=== PATIENT | female | born 1945 | race Caucasian/White ===

== ENCOUNTER 2017-04-14 12:20 | Inpatient (IN) | payer OTHER, MEDICARE, MEDICAID ==
[2017-04-14] MEDS ORDERED: VANCOMYCIN HCL INJ 1000 MG VIAL IV ONE (12:40)
--- NOTE | 2017-04-14 13:15 | RADIOLOGY REPORT (SQ) ---
EXAM DESCRIPTION: TOE LEFT COMPLETED DATE/TIME: 04/14/2017 12:55 pm REASON FOR STUDY: diabetic osteo? COMPARISON: None. NUMBER OF VIEWS: Three views. TECHNIQUE: AP, lateral, and oblique images acquired of the left first toe. LIMITATIONS: None. FINDINGS: MINERALIZATION: Bony structures are osteopenia BONES: No acute fracture or dislocation. There appears to be bony lysis involving the distal tuft of the distal phalanx of the 1st digit which I cannot exclude as bony involvement by osteomyelitis. No other cortical erosions or lytic areas are identified. JOINTS: No effusions. SOFT TISSUES: Soft tissue swelling is identified involving the 1st digit as well as an apparent soft tissue defect. A small radiopaque foreign body or small soft tissue calcification is identified in t he lateral projection at the level of the distal phalanx of the 1st digit. OTHER: Vascular calcifications are identified IMPRESSION: No acute fracture or dislocation. There appears to be bony lysis of the distal tuft of the distal phalanx of the 1st digit which I cannot exclude as bony involvement by osteomyelitis. No other cortical erosions or lytic areas are identified. Soft tissue findings as noted above. Other f indings as noted above COMMENT: SITE OF TRAUMA/COMPLAINT MARKED/STAMP COMPLETED: Yes TECHNICAL DOCUMENTATION: JOB ID: [id number] [employer]- All Rights Reserved Reading location - IP/workstation name: [email or web address]
--- NOTE | 2017-04-14 13:18 | ER Document Report ---
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 Patient notes she removed her toenail which was hanging off and for the past month now she has been having mild pain, notes for the past week the symptoms have worsened now there is drainage from the toe - HPI Onset: Other Onset/Duration: Persistent, Worse Quality of pain: Sharp Severity: Moderate Pain Level: 2 Associated symptoms: Other Exacerbated by: Denies Relieved by: Denies Similar symptoms previously: Yes Recently seen / treated by doctor: Yes - Related Data Allergies/Adverse Reactions: Tetanus Vaccines and Toxoid [Tetanus] Allergy (Verified 04/14/17 12:33) Past Medical History - Social History Smoking Status: Never Smoker Cigarette use (# per day): No Chew tobacco use (# tins/day): No Smoking Education Provided: No Family History: Reviewed & Not Pertinent - Past Medical History Cardiac Medical History: Reports: Hx Hypercholesterolemia, Hx Hypertension Endocrine Medical History: Reports: Hx Diabetes Mellitus Type 2 GI Medical History: Reports: Hx Gastroesophageal Reflux Disease Musculoskeltal Medical History: Reports Hx Musculoskeletal Deformity, Reports Hx Musculoskeletal Trauma Skin Medical History: Reports Hx MRSA - MRSA 08/15 FOOT Past Surgical History: Reports: Hx Orthopedic Surgery - rt bka and toe on left hip ORIF - Immunizations Hx Diphtheria, Pertussis, Tetanus Vaccination: - allergic Review of Systems - Review of Systems Notes: REVIEW OF SYSTEMS: CONSTITUTIONAL : Denies fever, chills, or sweats. Denies recent illness. EENT: Denies eye, ear, throat, or mouth pain or symptoms. Denies nasal or sinus congestion or discharge. Denies throat, tongue, or mouth swelling or difficulty swallowing. CARDIOVASCULAR: Denies chest pain. Denies palpitations or racing or irregular heart beat. Denies ankle edema. RESPIRATORY: Denies cough, cold, or chest congestion. Denies shortness of breath, difficulty breathing, or wheezing. GASTROINTESTINAL: Denies abdominal pain or distention. Denies nausea, vomiting , or diarrhea. Denies blood in vomitus, stools, or per rectum. Denies black, tarry stools. Denies constipation. GENITOURINARY: Denies difficulty urinating, painful urination, burning, frequency, blood in urine, or discharge. FEMALE GENITOURINARY: Denies vaginal bleeding, heavy or abnormal periods, irregular periods. Denies vaginal discharge or odor. MUSCULOSKELETAL: Left foot first digit sore HEMATOLOGIC : Denies easy bruising or bleeding. LYMPHATIC: Denies swollen, enlarged glands. NEUROLOGICAL: Denies confusion or altered mental status. Denies passing out or loss of consciousness. Denies dizziness or lightheadedness. Denies headache. Denies weakness or paralysis or loss of use of either side. Denies problems with gait or speech. Denies sensory loss, numbness, or tingling. Denies seizures. PSYCHIATRIC: Denies anxiety or stress. Denies depression, suicidal ideation, or homicidal ideation. ALL OTHER SYSTEMS REVIEWED AND NEGATIVE. PHYSICAL EXAMINATION: GENERAL: Well-appearing, well-nourished and in no acute distress. HEAD: Atraumatic, normocephalic. EYES: Pupils equal round and reactive to light, extraocular movements intact, conjunctiva are normal. ENT: Nares patent, oropharynx clear without exudates. Moist mucous membranes. NECK: Normal range of motion, supple without lymphadenopathy LUNGS: Breath sounds clear to auscultation bilaterally and equal. No wheezes rales or rhonchi. HEART: Regular rate and rhythm without murmurs ABDOMEN: Soft, nontender, nondistended abdomen. No guarding, no rebound. No masses appreciated. Female : deferred Musculoskeletal: Right BKA NEUROLOGICAL: Cranial nerves grossly intact. Normal speech, normal gait. Normal sensory, motor exams PSYCH: Normal mood, normal affect. SKIN: Left foot first digit eschar with drainage cellulitis of the midfoot to the midshin Dictation was performed using [employer] voice recognition software Physical Exam - Vital signs Vitals: Temp Pulse Resp BP Pulse Ox 97.6 F 92 18 171/80 H 100 04/14/17 12:28 04/14/17 12:28 04/14/17 12:28 04/14/17 12:28 04/14/17 12:28 Course - Re-evaluation Re-evalutation: 04/14/17 13:18 Dr Kojo aguilar , he is in surgery 04/14/17 14:26 Surgeon evaluated the patient does note that with IV antibiotics and local wound care he may be able to save the toe, will admit patient to the hospitalist service - Vital Signs Vital signs: Temp Pulse Resp BP Pulse Ox 97.6 F 92 18 171/80 H 100 04/14/17 12:28 04/14/17 12:28 04/14/17 12:28 04/14/17 12:28 04/14/17 12:28 - Laboratory Result Diagrams: 04/14/17 13:45 04/14/17 13:45 Laboratory results interpreted by me: 04/14/17 13:45 Sodium 135.2 L Glucose 389 H Alkaline Phosphatase 155 H - Diagnostic Test Radiology reviewed: Image reviewed, Reports reviewed - Osteomyelitis Discharge - Discharge Clinical Impression: Osteomyelitis Qualifiers: Osteomyelitis type: unspecified type Osteomyelitis location: unspecified site Qualified Code(s): M86.9 - Osteomyelitis, unspecified Diabetes Qualifiers: Diabetes mellitus type: type 2 Diabetes mellitus complication status: with skin complications Diabetes mellitus complication detail: with foot ulcer Diabetes mellitus fci insulin use: with fci use Qualified Code(s): E11.621 - Type 2 diabetes mellitus with foot ulcer; L97.509 - Non-pressure chronic ulcer of other part of unspecified foot with unspecified severity; L97.509 - Non-pressure chronic ulcer of other part of unspecified foot with unspecified severity; L97.509 - Non-pressure chronic ulcer of other part of unspecified foot with unspecified severity; L97.509 - Non-pressure chronic ulcer of other part of unspecified foot with unspecified severity; Z79.4 - medical terminologist (current) use of insulin; Z79.4 - medical terminologist (current) use of insulin; Z79.4 - medical terminologist (current) use of insulin; Z79.4 - medical terminologist (current) use of insulin Condition: Stable Disposition: ADMITTED INPATIENT Admitting Provider: Hospitalist Unit Admitted: Medical Floor Referrals: YURIDIA FREDERICK MD [Primary Care Provider] - Follow up as needed
[2017-04-14 13:55] LABS: ABSOLUTE BASOPHILS # (AUTO) 0.1 10^3/uL (0.0-0.2); ABSOLUTE EOSINOPHILS # (AUTO) 0.1 10^3/uL (0.0-0.6); ABSOLUTE MONOCYTES (AUTO) 0.4 10^3/uL (0.1-1.4); ABSOLUTE NEUT (AUTO) 4.5 10^3/uL (1.7-8.2); BASOPHILS % (AUTO) 1.2 % (0-2); EOSINOPHILS % (AUTO) 1.3 % (0-6); HEMOGLOBIN 12.9 g/dL (12.0-15.5); LYMPHOCYTES % (AUTO) 15.9 % (13-45); MEAN CORPUSCULAR HEMOGLOBIN 28.6 pg (27.0-33.4); MEAN CORPUSCULAR HGB CONC 34.8 g/dL (32.0-36.0); MEAN CORPUSCULAR VOLUME 82 fl (80-97); MONOCYTES % (AUTO) 6.9 % (3-13); PLATELET COUNT 247 10^3/uL (150-450); RED BLOOD COUNT 4.51 10^6/uL (3.72-5.28); RED CELL DISTRIBUTION WIDTH 12.8 % (11.5-14.0); SEGMENTED NEUTROPHILS % (AUTO) 74.7 % (42-78); TOTAL CELLS COUNTED % (AUTO) 100 %; WHITE BLOOD COUNT 6.1 10^3/uL (4.0-10.5)
[2017-04-14 14:15] LABS: ALANINE AMINOTRANSFERASE 24 U/L (9-52); ALBUMIN 4.1 g/dL (3.5-5.0); ALKALINE PHOSPHATASE 155 U/L (38-126); ANION GAP 11 (5-19); ASPARTATE AMINO TRANSFERASE 15 U/L (14-36); BILIRUBIN,DIRECT 0.2 mg/dL (0.0-0.4); BILIRUBIN,TOTAL 0.7 mg/dL (0.2-1.3); BLOOD UREA NITROGEN 10 mg/dL (7-20); CALCIUM 9.7 mg/dL (8.4-10.2); CARBON DIOXIDE 26 mmol/L (22-30); CHLORIDE 98 mmol/L (98-107); GLUCOSE 389 mg/dL (75-110); POTASSIUM 4.6 mmol/L (3.6-5.0); SODIUM 135.2 mmol/L (137-145); TOTAL PROTEIN 6.7 g/dL (6.3-8.2)
[2017-04-14 14:33] LABS: ERYTHROCYTE SEDIMENTATION RATE 51 mm/hr (0-30)
[2017-04-14] MEDS ORDERED: DEXTROSE 50%-WATER 25 GM/50 ML DISP.SYRIN IV PRN ×2 (14:57)
[2017-04-14] MEDS ORDERED: DEXTROSE 40% GEL 15 GM TUBE PO PRN ×2 (14:57)
[2017-04-14] MEDS ORDERED: GLUCAGON,HUMAN RECOMB 1 MG INJ IM PRN (14:57)
[2017-04-14] MEDS ORDERED: AMPICILLIN SOD/SULBACTAM 3 GM VIAL IV ONE (14:59)
[2017-04-14] MEDS ORDERED: PHARMACY COMMUNICATION ORDER MC NR (15:00)
--- NOTE | 2017-04-14 15:11 | PDOC H&P ---
History of Present Illness Admission Date/PCP: YURIDIA FREDERICK MD Patient complains of: Left big toe wound History of Present Illness: Patient is a 68-year-old woman with history of diabetes, hypertension , hypercholesteremia, status post right BKA and L second toe amputation. She has not seen a doctor in over a year and she does not take any medication currently. She reports the last time she saw her primary care doctor she was taken off her high blood pressure and her cholesterol medicines. She has not been in a hospital since 2012 when she had a BKA. She reports about couple months ago, her toenail was falling out and she pulled it out but it did heal and the nail started to grow back but about two weeks ago she hit her L great toe against her kitchen cabinet since then it has pain painful and the wound not healing. Therefore she decided to come to the emergency to be evaluated. Otherwise she reports feeling fine. was present during history the taking. She was seen by surgery in the ER and plan for wound care and IV antibiotics. Past Medical History Cardiac Medical History: Reports: Hyperlipidema, Hypertension, Other Endocrine Medical History: Reports: Diabetes Mellitus Type 2 GI Medical History: Reports: Gastroesophageal Reflux Disease Past Surgical History Past Surgical History: Reports: Orthopedic Surgery - rt bka and toe on left hip ORIF Social History Smoking Status: Never Smoker Family History Family History: Reviewed & Not Pertinent Parental Family History Reviewed: Yes Children Family History Reviewed: Yes Sibling(s) Family History Reviewed.: Yes Medication/Allergy Home Medications: Insulin Glargine,Hum.rec.anlog [Lantus Insulin 100 Unit/mL] 20 unit SUBCUT QHS 04/03/12 Allergies/Adverse Reactions: Tetanus Vaccines and Toxoid [Tetanus] Allergy (Verified 04/14/17 12:33) Review of Systems Constitutional: PRESENT: as per HPI, anorexia, fatigue, night sweats, weakness, other. ABSENT: chills, fever(s), headache(s), weight gain, weight loss Eyes: ABSENT: visual disturbances Ears: ABSENT: hearing changes Cardiovascular: ABSENT: chest pain, dyspnea on exertion, edema, orthropnea, palpitations Respiratory: ABSENT: cough, hemoptysis Gastrointestinal: ABSENT: abdominal pain, constipation, diarrhea, hematemesis, hematochezia, nausea, vomiting Genitourinary: ABSENT: dysuria, hematuria Musculoskeletal: PRESENT: as per HPI. ABSENT: joint swelling Integumentary: ABSENT: rash, wounds Neurological: ABSENT: abnormal gait, abnormal speech, confusion, dizziness, focal weakness, syncope Psychiatric: ABSENT: anxiety, depression, homidical ideation, suicidal ideation Endocrine: ABSENT: cold intolerance, heat intolerance, polydipsia, polyuria Hematologic/Lymphatic: ABSENT: easy bleeding, easy bruising Physical Exam Vital Signs: Temp Pulse Resp BP Pulse Ox 97.6 F 92 18 171/80 H 100 04/14/17 12:28 04/14/17 12:28 04/14/17 12:28 04/14/17 12:28 04/14/17 12:28 Intake & Output 04/13/17 04/14/17 04/15/17 06:59 06:59 06:59 Weight 70.5 kg Results Laboratory Results: 04/14/17 13:45 04/14/17 13:45 04/14/17 04/14/17 13:45 13:45 WBC 6.1 RBC 4.51 Hgb 12.9 Hct 37.0 MCV 82 MCH 28.6 MCHC 34.8 RDW 12.8 Plt Count 247 Seg Neutrophils % 74.7 Lymphocytes % 15.9 Monocytes % 6.9 Eosinophils % 1.3 Basophils % 1.2 Absolute Neutrophils 4.5 Absolute Lymphocytes 1.0 Absolute Monocytes 0.4 Absolute Eosinophils 0.1 Absolute Basophils 0.1 Sodium 135.2 L Potassium 4.6 Chloride 98 Carbon Dioxide 26 Anion Gap 11 BUN 10 Creatinine 0.57 Est GFR ( Amer) > 60 Est GFR (Non-Af Amer) > 60 Glucose 389 H Calcium 9.7 Total Bilirubin 0.7 AST 15 ALT 24 Alkaline Phosphatase 155 H Total Protein 6.7 Albumin 4.1 Impressions: Toe X-Ray 04/14/17 12:40 IMPRESSION: No acute fracture or dislocation. There appears to be bony lysis of the distal tuft of the distal phalanx of the 1st digit which I cannot exclude as bony involvement by osteomyelitis. No other cortical erosions or lytic areas are identified. Soft tissue findings as noted above. Other findings as noted above Assessment & Plan - Diagnosis (1) Infected wound Is this a current diagnosis for this admission?: Yes Plan: Admit to medicine Left toe wound with cellulitis Evaluated by surgery and ED Plan for wound care and IV antibiotics Given vancomycin in the ER Continue Unasyn and follow-up blood culture May need an MRI for further evaluation for concern for osteomyelitis (2) Cellulitis Is this a current diagnosis for this admission?: Yes Plan: L foot and toe cellulitis Continue IV antibiotic Follow-up blood culture (3) Diabetes Qualifiers: Diabetes mellitus type: type 2 Diabetes mellitus complication status: with skin complications Diabetes mellitus complication detail: with foot ulcer Diabetes mellitus intermediate insulin use: with intermediate card tender use Qualified Code(s) : E11.621 - Type 2 diabetes mellitus with foot ulcer; L97.509 - Non-pressure chronic ulcer of other part of unspecified foot with unspecified severity; L97.509 - Non-pressure chronic ulcer of other part of unspecified foot with unspecified severity; L97.509 - Non-pressure chronic ulcer of other part of unspecified foot with unspecified severity; L97.509 - Non-pressure chronic ulcer of other part of unspecified foot with unspecified severity; Z79.4 - terminal superintendent (current) use of insulin; Z79.4 - terminal superintendent (current) use of insulin; Z79.4 - care home (current) use of insulin; Z79.4 - terminal superintendent (current) use of insulin Is this a current diagnosis for this admission?: No Plan: She has not been taking medication for over a year Check an A1c Monitor blood sugar and start sliding scale and Lantus (4) Hypertension Is this a current diagnosis for this admission?: No Plan: She has not taken any medication either for hypertension Start amlodipine and follow-up (5) DVT prophylaxis Is this a current diagnosis for this admission?: Yes Plan: Start Lovenox - Time Time Spent: 30 to 50 Minutes Anticipated discharge: Home - Inpatient Certification Based on my medical assessment, after consideration of the patient's comorbidities, presenting symptoms, or acuity I expect that the services needed warrant INPATIENT care.: Yes Medical Necessity: Need for IV Antibiotics, Other - She will require more than 2 midnights for IV antibiotics and wound care
--- NOTE | 2017-04-14 17:20 | PDOC CONSULTATION ---
Consultation Consult reason:: Patient seen at the request of Dr. Oviedo History of Present Illness Admission Date/PCP: 04/14/17 14:36 YURIDIA FREDERICK MD History of Present Illness: Patient is a 68-year-old woman with history of diabetes, hypertension , hypercholesteremia, status post right BKA and L second toe amputation. She has not seen a doctor in over a year and she does not take any medication currently. She reports the last time she saw her primary care doctor she was taken off her high blood pressure and her cholesterol medicines. She has not been in a hospital since 2012 when she had a BKA. She reports about couple months ago, her toenail was falling out and she pulled it out but it did heal and the nail started to grow back but about two weeks ago she hit her L great toe against her kitchen cabinet since then it has pain painful and the wound not healing. Therefore she decided to come to the emergency to be evaluated. Otherwise she reports feeling fine. was present during history the taking. She was seen by surgery in the ER and plan for wound care and IV antibiotics. Surgeon's note: She had right BKA by Dr. Fred Randall 15-20 years ago; also had left second toe amputation approximately 15 years ago. These are according to her verbal reports; no records for corroboration. She does not smoke. She has been out of circulation with physician there for some time. Past Medical History Cardiac Medical History: Reports: Hyperlipidema, Hypertension, Other Endocrine Medical History: Reports: Diabetes Mellitus Type 2 GI Medical History: Reports: Gastroesophageal Reflux Disease Past Surgical History Past Surgical History: Reports: Orthopedic Surgery - rt bka and toe on left hip ORIF Social History Smoking Status: Never Smoker - Advance Directive Resuscitation Status: Full Code Family History Family History: Reviewed & Not Pertinent Parental Family History Reviewed: Yes Children Family History Reviewed: Yes Sibling(s) Family History Reviewed.: Yes Medication/Allergy Home Medications: Insulin Glargine,Hum.rec.anlog [Lantus Insulin 100 Unit/mL] 20 unit SUBCUT QHS 04/03/12 Allergies/Adverse Reactions: Tetanus Vaccines and Toxoid [Tetanus] Allergy (Verified 04/14/17 12:33) Physical Exam Vital Signs: Temp Pulse Resp BP Pulse Ox 97.6 F 92 18 171/80 H 100 04/14/17 12:28 04/14/17 12:28 04/14/17 12:28 04/14/17 12:28 04/14/17 12:28 Intake & Output 04/13/17 04/14/17 04/15/17 06:59 06:59 06:59 Intake Total 250 Balance 250 General appearance: PRESENT: no acute distress Cardiovascular exam: PRESENT: RRR Pulses: PRESENT: normal carotid pulses, normal radial pulses, normal femoral pulses, normal dorsalis pedis pul, other - Peter warm bilaterally; well perfused ; strong dorsalis pedis pulse on the left foot Musculoskeletal exam: PRESENT: other - Left foot examined. The left second toe is surgically absent. The foot is warm. There is mild cellulitic changes to the left great toe. The theme extends over the some of the foot, although very subtle. There is no crepitance blisters etc. The left great toe has chronic fungal changes. The tip of the toe is significant for very dry eschar. The there is no foul smell or drainage. Results Impressions: Toe X-Ray 04/14/17 12:40 IMPRESSION: No acute fracture or dislocation. There appears to be bony lysis of the distal tuft of the distal phalanx of the 1st digit which I cannot exclude as bony involvement by osteomyelitis. No other cortical erosions or lytic areas are identified. Soft tissue findings as noted above. Other findings as noted above Assessment & Plan - Diagnosis (1) Cellulitis Is this a current diagnosis for this admission?: Yes Plan: Patient's principal problem is left great toe and forefoot cellulitis actually due to traumatic injury to the left great toe distally following self initiated toenail debridement in this diabetic female. No immediate need to debride the left great toe eschar because it is currently dry. Recommendations: 1. Agree with leg elevation, intravenous antibiotics. Convert to p.o. antibiotics after erythema resolves 2. Patient needs forcing instructions on appropriate shoe and foot care; Suggest consultation with physical therapy. 3. Suggested nonoperative management of the left great toe for now. Patient can follow-up with podiatry or advanced wound center upon discharge home from the hospital - Time Time Spent: 30 to 50 Minutes Smoking Cessation Education: 3 to 10 minutes
[2017-04-14] MEDS: INSULIN LISPRO 100 UNIT/ML 3 ML VIAL SUBCUT PRN ×2 (19:03→23:56)
[2017-04-14] MEDS ORDERED: INFLUENZA ADLT QUAD (36MOS+) 2017-18 VAC 0.5 ML SYR IM PRN (20:10)
[2017-04-14] MEDS ORDERED: KETOROLAC TROMETHAMINE INJ/PF 30 MG/1 ML SDV IV PRN (20:55)
[2017-04-14] MEDS ORDERED: ACETAMINOPHEN 325 MG TABLET PO PRN (20:55)
[2017-04-14] MEDS: OXYCODONE-ACETAMINOPHEN 5-325 MG TABLET PO PRN (22:02)
[2017-04-14] MEDS: FAMOTIDINE 20 MG TABLET PO SCH (22:03)
[2017-04-14] MEDS: AMPICILLIN SOD/SULBACTAM 3 GM VIAL IV SCH (23:56)
[2017-04-15] MEDS: AMPICILLIN SOD/SULBACTAM 3 GM VIAL IV SCH ×3 (05:49→18:00)
[2017-04-15 07:44] LABS: ANION GAP 8 (5-19); BLOOD UREA NITROGEN 16 mg/dL (7-20); CALCIUM 9.7 mg/dL (8.4-10.2); CARBON DIOXIDE 29 mmol/L (22-30); CHLORIDE 101 mmol/L (98-107); GLUCOSE 302 mg/dL (75-110); POTASSIUM 5.1 mmol/L (3.6-5.0); SODIUM 137.8 mmol/L (137-145)
[2017-04-15] MEDS: FAMOTIDINE 20 MG TABLET PO SCH ×2 (09:50→22:49)
[2017-04-15] MEDS: INSULIN LISPRO 100 UNIT/ML 3 ML VIAL SUBCUT PRN ×4 (09:50→22:50)
[2017-04-15] MEDS: ENOXAPARIN SODIUM INJ 30 MG/0.3 ML DISP.SYRIN SUBCUT SCH (09:50)
--- NOTE | 2017-04-15 11:37 | Physician Advisory Note ---
Physician Advisor ProgressNote .: Pursuant to the plan for [facility], I have reviewed the medical record for this patient. Physician Advisor Statement: STatus: Appropriate for Inpt status. Discussion: 71yo w/DM-2, HTN, HLD, PVD/Rt BKA & Lt 2nd toe amputation, taking no meds x at least 1 yr, in w/Lt great toe swelling/pain/drainage after removing own toenail & subsequent trauma to toe. ED dr documented local eschar + cellulitis mid foot to midshin, & noted surgeon stated that w/IV abx & local wound care he may be able to save the toe. There was concern for osteomyelitis by ED dr & admitting attending. Attending documented in H&P expectation of < 2MN stay being necessary in this case for IV abx & wound care. DM highly uncontrolled, w/A1C of 12 & glcs so far in hospital on Lantus remaining 200s- 300s, which works against good healing. X-ray concerning for osteomyelitis. Attending doing MRI looking for osteomyelitis. Continuing IV abx, awaiting culture results. High risk for loss of great toe with resultant tremendous blow to her mobility if not tx'd in hospital w/close monitoring of response at present, especially if osteomyelitis continues to be suspected. Reported anorexia, fatigue, night sweats, & weakness p.t.a. further increase concerns for deeper infection than simple cellulitis. CK
--- NOTE | 2017-04-15 12:21 | RADIOLOGY REPORT (SQ) ---
EXAM DESCRIPTION: MRI LT LOWER EXTREMITY WITHOUT COMPLETED DATE/TIME: 04/15/2017 11:20 am REASON FOR STUDY: r/o osteomyelitis in L great toe COMPARISON: None. TECHNIQUE: Multiplanar imaging of the left 1st toe to include fat and fluid sensitive sequences. LIMITATIONS: Motion. FINDINGS: BONE MARROW: Intermediate T2 signal in the distal 1st phalanx with preserved signal on T1. SOFT TISSUES: Skin ulcer plantar aspect. No abscess. OTHER: No other significant finding. IMPRESSION: NO EVIDENCE FOR OSTEOMYELITIS. TECHNICAL DOCUMENTATION: JOB ID: [id number] [employer]- All Rights Reserved Reading location - IP/workstation name: [email or web address]
[2017-04-15] MEDS: OXYCODONE-ACETAMINOPHEN 5-325 MG TABLET PO PRN (13:32)
[2017-04-15] MEDS ORDERED: DEXTROSE 50%-WATER 25 GM/50 ML DISP.SYRIN IV PRN ×2 (18:31)
[2017-04-15] MEDS ORDERED: GLUCAGON,HUMAN RECOMB 1 MG INJ IM PRN (18:31)
[2017-04-15] MEDS ORDERED: DEXTROSE 40% GEL 15 GM TUBE PO PRN ×2 (18:31)
--- NOTE | 2017-04-15 18:36 | PDOC PROGRESS REPORT ---
Subjective Progress Note for:: 04/15/17 Subjective:: ALEXANDER ELI is a 68-year-old woman with a history of diabetes, hypertension, hyperlipidemia, status post right BKA and left second toe amputation. There patient reports that a couple of months ago, her toenail on the left great toe was falling off and she pulled it out but the toe did not heal completely. Additionally, she reports hitting her left great toe against her kitchen cabinet 2 weeks ago. Patient decided to come to the emergency department to be evaluated for a large non-healing wound to the left great toe. The patient was seen this morning on rounds, she denies any complaints. No pain OR parasthesia to the affected toe. Nursing staff reports that the patient attempted to ambulate to the restroom earlier this morning, the patient lost her balance and she fell to the ground. No head trauma, only mild L elbow pain. No swelling to the joint or limit to ROM. Reason For Visit: L GREAT TOE INFECTED WOUND AND CELLULITIS Physical Exam Vital Signs: Temp Pulse Resp BP Pulse Ox 97.8 F 86 16 135/64 H 100 04/15/17 16:00 04/15/17 16:00 04/15/17 16:00 04/15/17 16:00 04/15/17 16:00 Intake & Output 04/14/17 04/15/17 04/16/17 06:59 06:59 06:59 Intake Total 450 240 Balance 450 240 General appearance: PRESENT: no acute distress Head exam: PRESENT: atraumatic Mouth exam: PRESENT: moist Teeth exam: PRESENT: poor dentation Neck exam: PRESENT: full ROM Respiratory exam: PRESENT: clear to auscultation mirna Cardiovascular exam: PRESENT: +S1, +S2 Pulses: PRESENT: normal radial pulses, normal dorsalis pedis pul GI/Abdominal exam: PRESENT: soft Rectal exam: PRESENT: deferred Extremities exam: PRESENT: other - Full ROM within the limitations of her RLE. Full ROM of LLE, limited flexion and extension of left great toe Musculoskeletal exam: PRESENT: deformity - R BKA; L 2ND TOE AMPUTATION Neurological exam: PRESENT: alert, altered, awake, oriented to person, oriented to place, oriented to time Psychiatric exam: PRESENT: appropriate affect Results Laboratory Results: 04/15/17 07:05 04/15/17 07:05 Sodium 137.8 Potassium 5.1 H Chloride 101 Carbon Dioxide 29 Anion Gap 8 BUN 16 Creatinine 0.63 Est GFR ( Amer) > 60 Est GFR (Non-Af Amer) > 60 Glucose 302 H Calcium 9.7 Impressions: Toe X-Ray 04/14/17 12:40 IMPRESSION: No acute fracture or dislocation. There appears to be bony lysis of the distal tuft of the distal phalanx of the 1st digit which I cannot exclude as bony involvement by osteomyelitis. No other cortical erosions or lytic areas are identified. Soft tissue findings as noted above. Other findings as noted above Lower Extremity MRI 04/15/17 00:00 IMPRESSION: NO EVIDENCE FOR OSTEOMYELITIS. Status: Imported from PACS Assessment & Plan - Diagnosis (1) Infected wound Is this a current diagnosis for this admission?: Yes Plan: L great toe cellulitis secondary to infected open wound and poor healing as a result of uncontrolled diabetes. Evaluated by surgery, they recommend medical management at this time. MRI today shows no evidence of osteomyelitis. Blood cultures: No growth 24 hours Continue Unasyn IV, consider narrowing antibiotics if patient appears non- toxic. Prior to discharge, this patient will require follow up at the [facility] wound care clinc. (2) Osteomyelitis Qualifiers: Osteomyelitis type: unspecified type Osteomyelitis location: unspecified site Qualified Code(s): M86.9 - Osteomyelitis, unspecified Is this a current diagnosis for this admission?: No Plan: No evidence of osteomyelitis seen on MRI. (3) Diabetes Qualifiers: Diabetes mellitus type: type 2 Diabetes mellitus complication status: with skin complications Diabetes mellitus complication detail: with foot ulcer Diabetes mellitus senior living insulin use: with senior living use Qualified Code(s) : E11.621 - Type 2 diabetes mellitus with foot ulcer; L97.509 - Non-pressure chronic ulcer of other part of unspecified foot with unspecified severity; L97.509 - Non-pressure chronic ulcer of other part of unspecified foot with unspecified severity; L97.509 - Non-pressure chronic ulcer of other part of unspecified foot with unspecified severity; L97.509 - Non-pressure chronic ulcer of other part of unspecified foot with unspecified severity; Z79.4 - employment assistant (current) use of insulin; Z79.4 - employment assistant (current) use of insulin; Z79.4 - employment assistant (current) use of insulin; Z79.4 - care home (current) use of insulin Is this a current diagnosis for this admission?: Yes Plan: Noncompliant with diabetes medication for over a year. A1c 11. Continue sliding scale insulin, add lantus 10U QHS. (4) Hypertension Is this a current diagnosis for this admission?: No Plan: Patient reports a history of hypertension but has not been to a doctor in over a year. While she is inpatient her blood pressure has remained relatively controlled. She does not require any p.o. antihypertensives at this time - Time Time Spent with patient: 15-24 minutes Medications reviewed and adjusted accordingly: Yes Anticipated discharge: Home - Inpatient Certification Based on my medical assessment, after consideration of the patient's comorbidities, presenting symptoms, or acuity I expect that the services needed warrant INPATIENT care.: Yes I certify that my determination is in accordance with my understanding of Medicare's requirements for reasonable and necessary INPATIENT services [42 CFR 412.3e].: Yes Medical Necessity: Need for IV Antibiotics - Plan Summary Plan Summary: Ultimately, the plan is to medically manage the soft tissue infection. There is no evidence of osteomyelitis at this time
[2017-04-15] MEDS: INSULIN GLARGINE,HUM.REC.ANLOG 300 UNIT/3 ML INSULN.PEN SUBCUT SCH (22:50)
[2017-04-16] MEDS: AMPICILLIN SODIUM/SULBACTAM NA 3 GM in NORMAL SALINE 100 ML IV SCH ×3 (00:08→12:03)
[2017-04-16 08:10] LABS: ABSOLUTE BASOPHILS # (AUTO) 0.1 10^3/uL (0.0-0.2); ABSOLUTE EOSINOPHILS # (AUTO) 0.1 10^3/uL (0.0-0.6); ABSOLUTE LYMPHOCYTES (AUTO) 0.9 10^3/uL (0.5-4.7); ABSOLUTE MONOCYTES (AUTO) 0.4 10^3/uL (0.1-1.4); ABSOLUTE NEUT (AUTO) 3.5 10^3/uL (1.7-8.2); BASOPHILS % (AUTO) 1.5 % (0-2); EOSINOPHILS % (AUTO) 2.5 % (0-6); HEMATOCRIT 34.4 % (36.0-47.0); HEMOGLOBIN 12.1 g/dL (12.0-15.5); LYMPHOCYTES % (AUTO) 18.3 % (13-45); MEAN CORPUSCULAR HEMOGLOBIN 28.7 pg (27.0-33.4); MEAN CORPUSCULAR HGB CONC 35.1 g/dL (32.0-36.0); MEAN CORPUSCULAR VOLUME 82 fl (80-97); MONOCYTES % (AUTO) 8.2 % (3-13); PLATELET COUNT 231 10^3/uL (150-450); RED BLOOD COUNT 4.21 10^6/uL (3.72-5.28); RED CELL DISTRIBUTION WIDTH 12.9 % (11.5-14.0); SEGMENTED NEUTROPHILS % (AUTO) 69.5 % (42-78); TOTAL CELLS COUNTED % (AUTO) 100 %; WHITE BLOOD COUNT 5.1 10^3/uL (4.0-10.5)
[2017-04-16 08:29] LABS: ANION GAP 8 (5-19); BLOOD UREA NITROGEN 17 mg/dL (7-20); CALCIUM 9.3 mg/dL (8.4-10.2); CARBON DIOXIDE 25 mmol/L (22-30); CHLORIDE 104 mmol/L (98-107); GLUCOSE 265 mg/dL (75-110); POTASSIUM 4.3 mmol/L (3.6-5.0); SODIUM 136.7 mmol/L (137-145)
[2017-04-16] MEDS: FAMOTIDINE 20 MG TABLET PO SCH ×2 (09:16→21:09)
[2017-04-16] MEDS: INSULIN LISPRO 100 UNIT/ML 3 ML VIAL SUBCUT PRN ×3 (09:16→21:22)
[2017-04-16] MEDS: ENOXAPARIN SODIUM INJ 30 MG/0.3 ML DISP.SYRIN SUBCUT SCH (09:46)
[2017-04-16] MEDS ORDERED: VANCOMYCIN HCL 0 MG in DEXTROSE 5%-WATER 250 ML IV NR (15:30)
--- NOTE | 2017-04-16 17:00 | PDOC PROGRESS REPORT ---
Subjective Progress Note for:: 04/16/17 Subjective:: ALEXANDER ELI is a 68-year-old woman with a history of diabetes, hypertension, hyperlipidemia, status post right BKA and left second toe amputation. There patient reports that a couple of months ago, her toenail on the left great toe was falling off and she pulled it out but the toe did not heal completely. Additionally, she reports hitting her left great toe against her kitchen cabinet 2 weeks ago. Patient decided to come to the emergency department to be evaluated for a large non-healing wound to the left great toe. The patient was seen this morning on rounds, complains of mild pain to the L great toe. No parasthesia to the affected toe. Patient able to ambulate using R prosthesis and walking cane. Today the erythema and swelling to the affected toe seems to be worse. Will expand antibiotic coverage. No plans for surgery at this time Reason For Visit: L GREAT TOE INFECTED WOUND AND CELLULITIS Physical Exam Vital Signs: Temp Pulse Resp BP Pulse Ox 99.5 F 99 16 127/66 H 97 04/16/17 16:00 04/16/17 16:00 04/16/17 16:00 04/16/17 16:00 04/16/17 16:00 Intake & Output 04/15/17 04/16/17 04/17/17 06:59 06:59 06:59 Intake Total 450 390 240 Balance 450 390 240 General appearance: PRESENT: no acute distress Head exam: PRESENT: atraumatic Pulses: PRESENT: normal radial pulses, normal dorsalis pedis pul Vascular exam: PRESENT: normal capillary refill Rectal exam: PRESENT: deferred Extremities exam: PRESENT: +1 edema - to the left foot Musculoskeletal exam: PRESENT: ambulatory Neurological exam: PRESENT: alert, altered, awake, oriented to person, oriented to place, oriented to time, oriented to situation Results Laboratory Results: 04/16/17 08:01 04/16/17 08:01 04/16/17 04/16/17 08:01 08:01 WBC 5.1 RBC 4.21 Hgb 12.1 Hct 34.4 L MCV 82 MCH 28.7 MCHC 35.1 RDW 12.9 Plt Count 231 Seg Neutrophils % 69.5 Lymphocytes % 18.3 Monocytes % 8.2 Eosinophils % 2.5 Basophils % 1.5 Absolute Neutrophils 3.5 Absolute Lymphocytes 0.9 Absolute Monocytes 0.4 Absolute Eosinophils 0.1 Absolute Basophils 0.1 Sodium 136.7 L Potassium 4.3 Chloride 104 Carbon Dioxide 25 Anion Gap 8 BUN 17 Creatinine 0.52 Est GFR ( Amer) > 60 Est GFR (Non-Af Amer) > 60 Glucose 265 H Calcium 9.3 Phosphorus 4.0 Magnesium 1.6 Impressions: Toe X-Ray 04/14/17 12:40 IMPRESSION: No acute fracture or dislocation. There appears to be bony lysis of the distal tuft of the distal phalanx of the 1st digit which I cannot exclude as bony involvement by osteomyelitis. No other cortical erosions or lytic areas are identified. Soft tissue findings as noted above. Other findings as noted above Lower Extremity MRI 04/15/17 00:00 IMPRESSION: NO EVIDENCE FOR OSTEOMYELITIS. Status: Imported from PACS Assessment & Plan - Diagnosis (1) Infected wound Is this a current diagnosis for this admission?: Yes Plan: L great toe cellulitis secondary to infected open wound and poor healing as a result of uncontrolled diabetes. Evaluated by surgery, they recommend medical management at this time. MRI today shows no evidence of osteomyelitis. Blood cultures: No growth 48 hours Patient appears nontoxic however erythema and swelling to the left great toe has worsened. Broadened antibiotic coverage to ertapenem and vancomycin. Prior to discharge, this patient will require follow up appointment at the [facility] wound care clinc. (2) Osteomyelitis Qualifiers: Osteomyelitis type: unspecified type Osteomyelitis location: unspecified site Qualified Code(s): M86.9 - Osteomyelitis, unspecified Is this a current diagnosis for this admission?: No Plan: No evidence of osteomyelitis seen on MRI. (3) Diabetes Qualifiers: Diabetes mellitus type: type 2 Diabetes mellitus complication status: with skin complications Diabetes mellitus complication detail: with foot ulcer Diabetes mellitus residential insulin use: with rodent exterminator use Qualified Code(s) : E11.621 - Type 2 diabetes mellitus with foot ulcer; L97.509 - Non-pressure chronic ulcer of other part of unspecified foot with unspecified severity; L97.509 - Non-pressure chronic ulcer of other part of unspecified foot with unspecified severity; L97.509 - Non-pressure chronic ulcer of other part of unspecified foot with unspecified severity; L97.509 - Non-pressure chronic ulcer of other part of unspecified foot with unspecified severity; Z79.4 - long term care pharmacist (current) use of insulin; Z79.4 - long term care pharmacist (current) use of insulin; Z79.4 - long term care pharmacist (current) use of insulin; Z79.4 - long term care pharmacist (current) use of insulin Is this a current diagnosis for this admission?: Yes Plan: Noncompliant with diabetes medication for over a year. A1c 11. Continue sliding scale insulin, add lantus 10U QHS. (4) Hypertension Is this a current diagnosis for this admission?: No Plan: Patient reports a history of hypertension but has not been to a doctor in over a year. While she is inpatient her blood pressure has remained relatively controlled. She does not require any p.o. antihypertensives at this time - Time Time Spent with patient: 15-24 minutes Medications reviewed and adjusted accordingly: Yes Anticipated discharge: Home - Inpatient Certification Based on my medical assessment, after consideration of the patient's comorbidities, presenting symptoms, or acuity I expect that the services needed warrant INPATIENT care.: Yes I certify that my determination is in accordance with my understanding of Medicare's requirements for reasonable and necessary INPATIENT services [42 CFR 412.3e].: Yes Medical Necessity: Need for IV Antibiotics - Plan Summary Plan Summary: Ultimately, the plan is to discharge the patient home
[2017-04-16] MEDS ORDERED: ERTAPENEM SODIUM 1 GM in NORMAL SALINE 50 ML IV SCH (18:00)
[2017-04-16] MEDS: ERTAPENEM SODIUM 1 GM in NORMAL SALINE 100 ML IV SCH (18:27)
[2017-04-16] MEDS: VANCOMYCIN HCL 1,000 MG in DEXTROSE 5%-WATER 250 ML IV SCH (19:26)
[2017-04-16] MEDS: OXYCODONE-ACETAMINOPHEN 5-325 MG TABLET PO PRN (19:33)
[2017-04-16] MEDS: INSULIN GLARGINE,HUM.REC.ANLOG 300 UNIT/3 ML INSULN.PEN SUBCUT SCH (21:22)
[2017-04-17] MEDS: VANCOMYCIN HCL 1,000 MG in DEXTROSE 5%-WATER 250 ML IV SCH ×2 (08:30→19:30)
[2017-04-17] MEDS: ENOXAPARIN SODIUM INJ 30 MG/0.3 ML DISP.SYRIN SUBCUT SCH (11:18)
[2017-04-17] MEDS: FAMOTIDINE 20 MG TABLET PO SCH ×2 (11:18→22:23)
[2017-04-17] MEDS: INSULIN LISPRO 100 UNIT/ML 3 ML VIAL SUBCUT PRN ×3 (12:44→22:44)
[2017-04-17] MEDS: OXYCODONE-ACETAMINOPHEN 5-325 MG TABLET PO PRN (15:12)
--- NOTE | 2017-04-17 15:39 | PDOC PROGRESS REPORT ---
Subjective Progress Note for:: 04/17/17 Subjective:: ALEXANDER ELI is a 68-year-old woman with a history of diabetes, hypertension, hyperlipidemia, status post right BKA and left second toe amputation. There patient reports that a couple of months ago, her toenail on the left great toe was falling off and she pulled it out but the toe did not heal completely. Additionally, she reports hitting her left great toe against her kitchen cabinet 2 weeks ago. Patient decided to come to the emergency department to be evaluated for a large non-healing wound to the left great toe. The patient was seen this morning on rounds, complains of mild pain to the L great toe. No parasthesia to the affected toe. Patient able to ambulate using R prosthesis and walking cane. Today the erythema and swelling to the affected toe is improving following the change in antibiotic regimen. The patient remains afebrile, denies chills or malaise. Plan for PICC line and send patient home on IV antibiotics, as well as follow up with wound care clinic. Reason For Visit: L GREAT TOE INFECTED WOUND AND CELLULITIS Physical Exam Vital Signs: Temp Pulse Resp BP Pulse Ox 97.4 F 84 16 123/71 100 04/17/17 12:00 04/17/17 12:00 04/17/17 12:00 04/17/17 12:00 04/17/17 12:00 Intake & Output 04/16/17 04/17/17 04/18/17 06:59 06:59 06:59 Intake Total 390 390 240 Balance 390 390 240 Weight 70 kg General appearance: PRESENT: no acute distress Head exam: PRESENT: atraumatic Eye exam: PRESENT: conjunctiva pink Mouth exam: PRESENT: moist Respiratory exam: PRESENT: clear to auscultation mirna Cardiovascular exam: PRESENT: +S1, +S2 Pulses: PRESENT: normal radial pulses, normal dorsalis pedis pul - on the LEFT foot GI/Abdominal exam: PRESENT: normal bowel sounds Rectal exam: PRESENT: deferred Extremities exam: PRESENT: full ROM - R BKA. L great toe ulcer with multiple layers of eschar and healing tissue Musculoskeletal exam: PRESENT: full ROM Neurological exam: PRESENT: alert, altered, awake, oriented to person, oriented to place, oriented to time, oriented to situation Skin exam: PRESENT: other - diabetic foot ulcer to L great toe Results Laboratory Results: 04/16/17 08:01 04/16/17 08:01 Impressions: Toe X-Ray 04/14/17 12:40 IMPRESSION: No acute fracture or dislocation. There appears to be bony lysis of the distal tuft of the distal phalanx of the 1st digit which I cannot exclude as bony involvement by osteomyelitis. No other cortical erosions or lytic areas are identified. Soft tissue findings as noted above. Other findings as noted above Lower Extremity MRI 04/15/17 00:00 IMPRESSION: NO EVIDENCE FOR OSTEOMYELITIS. Status: Imported from PACS Assessment & Plan - Diagnosis (1) Infected wound Is this a current diagnosis for this admission?: Yes Plan: L great toe cellulitis secondary to infected open wound and poor healing as a result of uncontrolled diabetes. Evaluated by surgery, they recommend medical management at this time. MRI today shows no evidence of osteomyelitis. Blood cultures: No growth 48 hours Patient appears nontoxic. erythema and swelling to the left great toe has improved since antibiotic coverage was changed to ertapenem and vancomycin. Plan for PICC line and patient will require 2 weeks of outpatient antibiotics. Additionally, we have scheduled a follow up appointment for her at the [facility] wound care clinic. (2) Osteomyelitis Qualifiers: Osteomyelitis type: unspecified type Osteomyelitis location: unspecified site Qualified Code(s): M86.9 - Osteomyelitis, unspecified Is this a current diagnosis for this admission?: No Plan: No evidence of osteomyelitis seen on MRI. (3) Diabetes Qualifiers: Diabetes mellitus type: type 2 Diabetes mellitus complication status: with skin complications Diabetes mellitus complication detail: with foot ulcer Diabetes mellitus terminal operations supervisor insulin use: with correction use Qualified Code(s) : E11.621 - Type 2 diabetes mellitus with foot ulcer; L97.509 - Non-pressure chronic ulcer of other part of unspecified foot with unspecified severity; L97.509 - Non-pressure chronic ulcer of other part of unspecified foot with unspecified severity; L97.509 - Non-pressure chronic ulcer of other part of unspecified foot with unspecified severity; L97.509 - Non-pressure chronic ulcer of other part of unspecified foot with unspecified severity; Z79.4 - senior living (current) use of insulin; Z79.4 - senior living (current) use of insulin; Z79.4 - extermination inspector (current) use of insulin; Z79.4 - senior living (current) use of insulin Is this a current diagnosis for this admission?: Yes Plan: Noncompliant with diabetes medication for over a year. A1c 11. Continue sliding scale insulin and lantus 10U QHS. (4) Hypertension Is this a current diagnosis for this admission?: No Plan: Patient reports a history of hypertension but has not been to a doctor in over a year. While she is inpatient her blood pressure has remained relatively controlled. She does not require any p.o. antihypertensives at this time - Time Time Spent with patient: 15-24 minutes Medications reviewed and adjusted accordingly: Yes Anticipated discharge: Home Within: within 24 hours - Inpatient Certification Based on my medical assessment, after consideration of the patient's comorbidities, presenting symptoms, or acuity I expect that the services needed warrant INPATIENT care.: Yes I certify that my determination is in accordance with my understanding of Medicare's requirements for reasonable and necessary INPATIENT services [42 CFR 412.3e].: Yes Medical Necessity: Need for IV Antibiotics - Plan Summary Plan Summary: Discharge patient home with PICC line on IV antibiotics. She will need follow- up at the [facility] wound care clinic, as well as close follow- up from her primary care doctor.
[2017-04-17] MEDS: ERTAPENEM SODIUM 1 GM in NORMAL SALINE 100 ML IV SCH (17:55)
[2017-04-17] MEDS: INSULIN GLARGINE,HUM.REC.ANLOG 300 UNIT/3 ML INSULN.PEN SUBCUT SCH (22:23)
--- NOTE | 2017-04-18 06:11 | RADIOLOGY REPORT (SQ) ---
EXAM DESCRIPTION: CT HEAD WITHOUT CLINICAL HISTORY: fell and hit head COMPARISON: None available TECHNIQUE: Axial CT of the head obtained from the skull apex to the skull base without contrast. FINDINGS: No acute intracranial hemorrhage identified. No mass, mass effect, shift of the midline, abnormal extra-axial fluid collection or CT evidence of acute ischemic change identified. The ventricular system and sulcal spaces are mildly enlarged compatible with mild cerebral atrophy. Scattered areas of hypodensity throughout the supratentorial white matter are nonspecific and may be related to chronic small vessel ischemic change. The visualized paranasal sinuses and the mastoids are clear. Contusion in the right frontal subcutaneous soft tissues. No skull fracture identified. Visualized orbits and globes are unremarkable. Atherosclerotic calcification of the intracranial internal carotid arteries. DLP: 1162.97 mGy-cm IMPRESSION: 1. No acute intracranial abnormality by CT criteria. This exam was performed according to our departmental dose-optimization program, which includes automated exposure control, adjustment of the mA and/or kV according to patient size and/or use of iterative reconstruction technique.
[2017-04-18] MEDS: VANCOMYCIN HCL 1,000 MG in DEXTROSE 5%-WATER 250 ML IV SCH ×2 (06:26→19:00)
[2017-04-18 06:50] LABS: ABSOLUTE BASOPHILS # (AUTO) 0.1 10^3/uL (0.0-0.2); ABSOLUTE EOSINOPHILS # (AUTO) 0.1 10^3/uL (0.0-0.6); ABSOLUTE LYMPHOCYTES (AUTO) 0.8 10^3/uL (0.5-4.7); ABSOLUTE MONOCYTES (AUTO) 0.4 10^3/uL (0.1-1.4); ABSOLUTE NEUT (AUTO) 4.1 10^3/uL (1.7-8.2); HEMATOCRIT 35.4 % (36.0-47.0); HEMOGLOBIN 12.3 g/dL (12.0-15.5); LYMPHOCYTES % (AUTO) 14.4 % (13-45); MEAN CORPUSCULAR HEMOGLOBIN 28.6 pg (27.0-33.4); MEAN CORPUSCULAR HGB CONC 34.9 g/dL (32.0-36.0); MEAN CORPUSCULAR VOLUME 82 fl (80-97); MONOCYTES % (AUTO) 6.8 % (3-13); PLATELET COUNT 241 10^3/uL (150-450); RED BLOOD COUNT 4.32 10^6/uL (3.72-5.28); RED CELL DISTRIBUTION WIDTH 12.9 % (11.5-14.0); SEGMENTED NEUTROPHILS % (AUTO) 75.8 % (42-78); TOTAL CELLS COUNTED % (AUTO) 100 %; WHITE BLOOD COUNT 5.5 10^3/uL (4.0-10.5)
[2017-04-18 07:12] LABS: ANION GAP 9 (5-19); BLOOD UREA NITROGEN 16 mg/dL (7-20); CALCIUM 9.6 mg/dL (8.4-10.2); CARBON DIOXIDE 30 mmol/L (22-30); CHLORIDE 101 mmol/L (98-107); GLUCOSE 174 mg/dL (75-110); POTASSIUM 4.5 mmol/L (3.6-5.0); SODIUM 139.5 mmol/L (137-145)
[2017-04-18 07:52] LABS: VANCOMYCIN,TROUGH 14.4 ug/mL (5.0-20.0)
--- NOTE | 2017-04-18 10:27 | RADIOLOGY REPORT (SQ) ---
EXAM DESCRIPTION: PICC INSERTION; U/S GUIDE FOR VASCULAR ACCESS; FLUORO/CV PLACEMENT COMPLETED DATE/TIME: 04/18/2017 9:52 am REASON FOR STUDY: NEEDS PICC FOR OUTPATIENT IV ANTIBIOTICS; IV ACCESS; IV ABX COMPARISON: None. FLUOROSCOPY TIME: 0.46 minutes. 2 images saved to PACS. TECHNIQUE: Fluoroscopic and ultrasound guided PICC placement. LIMITATIONS: None. PROCEDURE: After written consent and assessment were obtained, the patient was brought into the fluo roscopy room and place supine on the table. Ultrasound was used on the patient's left arm for PICC a ccess. The left arm was prepped and draped in a sterile fashion along with the ultrasound probe. The entry site was anesthetized with 1% lidocaine. A 21 gauge 7 cm needle was advanced through the skin a nd into the basilic vein under live ultrasound guidance. An ultrasound image was saved to PACS confi rming access site. A .018 guide wire was then inserted through the needle and into the venous system . The needle was the removed and an 11 blade scalpel was used to make a 1cm skin incision. A 5 fr pe el-away sheath was advanced over the wire and into the venous system. A measurement was then made usi ng the existing wire and live fluoroscopic guidance. The wire was then removed and the trimmed. The P ICC was advanced through the peel-away sheath and into the venous system. The peel-away sheath was re moved and the catheter was adhered to the patients arm with a stat lock. The catheter was then aspira amarjit and flushed and a sterile bandage was placed over the access site. A fluoroscopic spot image was saved to PACS confirming the catheter tip within the superior vena cava. IMPRESSION: SUCCESSFUL PLACEMENT OF A 5 FR DUAL LUMEN 41 CM PICC IN THE LEFT BASILIC VEIN. COMMENT: Patient medication list reviewed: Yes- Quality ID# 130:Eligible professional attests to doc umenting in the medical record they obtained, updated, or reviewed the patient's current medications. . Quality ID 145: Final reports for procedures using fluoroscopy that document radiation exposure justin deedee, or exposure time and number of fluorographic images (if radiation exposure indices are not avail able) Quality ID #76: The patient was prepped and draped using maximum sterile barrier technique including cap, mask, sterile gown, sterile gloves, a large sterile sheet, hand hygiene, and 2% Chlorhexidine fo r cutaneous antisepsis. When ultrasound is used, sterile ultrasound techniques are followed requiring sterile gel and sterile probes. TECHNICAL DOCUMENTATION: JOB ID: [id number] [employer]- All Rights Reserved Reading location - IP/workstation name: [facility]
[2017-04-18] MEDS: INSULIN LISPRO 100 UNIT/ML 3 ML VIAL SUBCUT PRN ×4 (10:45→22:32)
[2017-04-18] MEDS: FAMOTIDINE 20 MG TABLET PO SCH ×2 (10:45→21:33)
[2017-04-18] MEDS: ENOXAPARIN SODIUM INJ 30 MG/0.3 ML DISP.SYRIN SUBCUT SCH (10:45)
[2017-04-18] MEDS: OXYCODONE-ACETAMINOPHEN 5-325 MG TABLET PO PRN (14:30)
[2017-04-18] MEDS: ERTAPENEM SODIUM 1 GM in NORMAL SALINE 100 ML IV SCH (17:24)
--- NOTE | 2017-04-18 18:23 | PDOC PROGRESS REPORT ---
Subjective Progress Note for:: 04/18/17 Subjective:: ALEXANDER ELI is a 68-year-old woman with a history of diabetes, hypertension, hyperlipidemia, status post right BKA and left second toe amputation. There patient reports that a couple of months ago, her toenail on the left great toe was falling off and she pulled it out but the toe did not heal completely. Additionally, she reports hitting her left great toe against her kitchen cabinet 2 weeks ago. Patient decided to come to the emergency department to be evaluated for a large non-healing wound to the left great toe. The patient was seen this morning on rounds, complains of mild pain to the L great toe. No parasthesia to the affected toe. Patient able to ambulate using R prosthesis and walking cane. Today the erythema and swelling to the affected toe is improving following the change in antibiotic regimen. The patient remains afebrile, denies chills or malaise. PICC line placed today. The patient states she does not want a home health nurse to come to her home. The patient agreed to transfer to a custodial facility Reason For Visit: L GREAT TOE INFECTED WOUND AND CELLULITIS Physical Exam Vital Signs: Temp Pulse Resp BP Pulse Ox 97.6 F 84 16 138/62 H 100 04/18/17 15:36 04/18/17 15:36 04/18/17 11:47 04/18/17 15:36 04/18/17 15:36 Intake & Output 04/17/17 04/18/17 04/19/17 06:59 06:59 06:59 Intake Total 390 680 Balance 390 680 Weight 70 kg 72.6 kg General appearance: PRESENT: no acute distress Eye exam: PRESENT: conjunctiva pink Mouth exam: PRESENT: moist Neck exam: PRESENT: full ROM Respiratory exam: PRESENT: clear to auscultation mirna Cardiovascular exam: PRESENT: +S1, +S2 Pulses: PRESENT: normal radial pulses, normal dorsalis pedis pul GI/Abdominal exam: PRESENT: soft Extremities exam: PRESENT: full ROM Neurological exam: PRESENT: alert, awake, oriented to person, oriented to place , oriented to time, oriented to situation Skin exam: PRESENT: other - diabetic ulcer with multiple levels of eschar Results Laboratory Results: 04/18/17 06:36 04/18/17 06:36 04/18/17 04/18/17 06:36 06:36 WBC 5.5 RBC 4.32 Hgb 12.3 Hct 35.4 L MCV 82 MCH 28.6 MCHC 34.9 RDW 12.9 Plt Count 241 Seg Neutrophils % 75.8 Lymphocytes % 14.4 Monocytes % 6.8 Eosinophils % 2.0 Basophils % 1.0 Absolute Neutrophils 4.1 Absolute Lymphocytes 0.8 Absolute Monocytes 0.4 Absolute Eosinophils 0.1 Absolute Basophils 0.1 Sodium 139.5 Potassium 4.5 Chloride 101 Carbon Dioxide 30 Anion Gap 9 BUN 16 Creatinine 0.56 Est GFR ( Amer) > 60 Est GFR (Non-Af Amer) > 60 Glucose 174 H Calcium 9.6 Impressions: Toe X-Ray 04/14/17 12:40 IMPRESSION: No acute fracture or dislocation. There appears to be bony lysis of the distal tuft of the distal phalanx of the 1st digit which I cannot exclude as bony involvement by osteomyelitis. No other cortical erosions or lytic areas are identified. Soft tissue findings as noted above. Other findings as noted above Lower Extremity MRI 04/15/17 00:00 IMPRESSION: NO EVIDENCE FOR OSTEOMYELITIS. Guidance Fluoroscopy 04/18/17 00:00 IMPRESSION: SUCCESSFUL PLACEMENT OF A 5 FR DUAL LUMEN 41 CM PICC IN THE LEFT BASILIC VEIN. Head CT 04/18/17 00:00 IMPRESSION: 1. No acute intracranial abnormality by CT criteria. This exam was performed according to our departmental dose-optimization program, which includes automated exposure control, adjustment of the mA and/or kV according to patient size and/or use of iterative reconstruction technique. Interventional Vascular Procedure 04/18/17 00:00 IMPRESSION: SUCCESSFUL PLACEMENT OF A 5 FR DUAL LUMEN 41 CM PICC IN THE LEFT BASILIC VEIN. PICC Line Insertion 04/18/17 00:00 IMPRESSION: SUCCESSFUL PLACEMENT OF A 5 FR DUAL LUMEN 41 CM PICC IN THE LEFT BASILIC VEIN. Status: Imported from PACS Assessment & Plan - Diagnosis (1) Infected wound Is this a current diagnosis for this admission?: Yes Plan: L great toe cellulitis secondary to infected open wound and poor healing as a result of uncontrolled diabetes. Evaluated by surgery, they recommend medical management at this time. MRI today shows no evidence of osteomyelitis. Blood cultures: No growth 48 hours Patient appears nontoxic. erythema and swelling to the left great toe has improved since antibiotic coverage was changed to ertapenem and vancomycin. Plan for PICC line and patient will require 2 weeks of antibiotics. The patient states that she does not want home infusions and she does not have transportation to get back and forth to doctor's appointments so she would rather be sent to a custodial facility following her admission at [facility]. (2) Osteomyelitis Qualifiers: Osteomyelitis type: unspecified type Osteomyelitis location: unspecified site Qualified Code(s): M86.9 - Osteomyelitis, unspecified Is this a current diagnosis for this admission?: No Plan: No evidence of osteomyelitis seen on MRI. (3) Diabetes Qualifiers: Diabetes mellitus type: type 2 Diabetes mellitus ferry terminal supervisor insulin use: with ferry terminal supervisor use Diabetes mellitus complication status: with skin complications Diabetes mellitus complication detail: with foot ulcer Qualified Code(s): E11.621 - Type 2 diabetes mellitus with foot ulcer; L97.509 - Non-pressure chronic ulcer of other part of unspecified foot with unspecified severity; L97.509 - Non-pressure chronic ulcer of other part of unspecified foot with unspecified severity; L97.509 - Non-pressure chronic ulcer of other part of unspecified foot with unspecified severity; L97.509 - Non-pressure chronic ulcer of other part of unspecified foot with unspecified severity; Z79.4 - termite helper (current) use of insulin; Z79.4 - halfway (current) use of insulin; Z79.4 - halfway (current) use of insulin; Z79.4 - halfway (current ) use of insulin Is this a current diagnosis for this admission?: Yes Plan: Noncompliant with diabetes medication for over a year. A1c 11. Continue sliding scale insulin and lantus 10U QHS. (4) Hypertension Is this a current diagnosis for this admission?: No Plan: Patient reports a history of hypertension but has not been to a doctor in over a year. While she is inpatient her blood pressure has remained relatively controlled. She does not require any p.o. antihypertensives at this time - Time Time Spent with patient: 15-24 minutes Anticipated discharge: Home - Inpatient Certification Based on my medical assessment, after consideration of the patient's comorbidities, presenting symptoms, or acuity I expect that the services needed warrant INPATIENT care.: Yes I certify that my determination is in accordance with my understanding of Medicare's requirements for reasonable and necessary INPATIENT services [42 CFR 412.3e].: Yes Medical Necessity: Risk of Complication if Not Cared For in Hospital - Plan Summary Plan Summary: Discharge to acute rehab for IV antibiotic therapy. The patient is refusing home IV infusions. Additionally the patient states that she does not have transportation to get to her doctor's office for follow-up appointments, she feels that her chance of recovery would be greatly improved if she could go to acute rehab following her admission at [facility].
[2017-04-18] MEDS: NORMAL SALINE 10 ML SDV (SCHEDULED) IV SCH (21:34)
[2017-04-18] MEDS: INSULIN GLARGINE,HUM.REC.ANLOG 300 UNIT/3 ML INSULN.PEN SUBCUT SCH (22:25)
[2017-04-19] MEDS: VANCOMYCIN HCL 1,000 MG in DEXTROSE 5%-WATER 250 ML IV SCH ×2 (06:15→18:30)
[2017-04-19] MEDS: FAMOTIDINE 20 MG TABLET PO SCH ×2 (10:01→22:09)
[2017-04-19] MEDS: NORMAL SALINE 10 ML SDV (SCHEDULED) IV SCH ×2 (10:02→22:08)
[2017-04-19] MEDS: ENOXAPARIN SODIUM INJ 30 MG/0.3 ML DISP.SYRIN SUBCUT SCH (10:03)
--- NOTE | 2017-04-19 15:36 | PDOC PROGRESS REPORT ---
Subjective Progress Note for:: 04/19/17 Subjective:: ALEXANDER ELI is a 68-year-old woman with a history of diabetes, hypertension, hyperlipidemia, status post right BKA and left second toe amputation. There patient reports that a couple of months ago, her toenail on the left great toe was falling off and she pulled it out but the toe did not heal completely. Additionally, she reports hitting her left great toe against her kitchen cabinet 2 weeks ago. Patient decided to come to the emergency department to be evaluated for a large non-healing wound to the left great toe. The patient was seen this morning on rounds, complains of mild pain to the L great toe. No parasthesia to the affected toe. Patient able to ambulate using R prosthesis and walking cane, but nursing staff state that the patient has been falling so she is not allowed to ambulate when unsupervised. PICC line placed yesterday. Plan for discharge to acute rehab on Friday. Reason For Visit: L GREAT TOE INFECTED WOUND AND CELLULITIS Physical Exam Vital Signs: Temp Pulse Resp BP Pulse Ox 97.8 F 92 15 121/64 97 04/19/17 12:13 04/19/17 12:13 04/19/17 08:00 04/19/17 12:13 04/19/17 12:13 Intake & Output 04/18/17 04/19/17 04/20/17 06:59 06:59 07:59 Intake Total 680 500 Balance 680 500 Weight 72.6 kg 72.6 kg General appearance: PRESENT: no acute distress Head exam: PRESENT: atraumatic Eye exam: PRESENT: conjunctiva pink Mouth exam: PRESENT: moist Neck exam: PRESENT: full ROM Respiratory exam: PRESENT: symmetrical, unlabored Cardiovascular exam: PRESENT: +S1, +S2 Pulses: PRESENT: normal radial pulses, normal dorsalis pedis pul GI/Abdominal exam: PRESENT: normal bowel sounds, soft Rectal exam: PRESENT: deferred Extremities exam: PRESENT: tenderness - Left foot, other - Right BKA Musculoskeletal exam: PRESENT: ambulatory Neurological exam: PRESENT: alert, awake, oriented to person, oriented to place , oriented to time, oriented to situation Skin exam: PRESENT: other - Diabetic ulcer to the dorsal and ventral aspect of the left great toe. Multiple stages of healing. Very small amount of serosanguineous drainage from the dorsal aspect of the left great toe. Results Laboratory Results: 04/18/17 06:36 04/18/17 06:36 Impressions: Toe X-Ray 04/14/17 12:40 IMPRESSION: No acute fracture or dislocation. There appears to be bony lysis of the distal tuft of the distal phalanx of the 1st digit which I cannot exclude as bony involvement by osteomyelitis. No other cortical erosions or lytic areas are identified. Soft tissue findings as noted above. Other findings as noted above Lower Extremity MRI 04/15/17 00:00 IMPRESSION: NO EVIDENCE FOR OSTEOMYELITIS. Guidance Fluoroscopy 04/18/17 00:00 IMPRESSION: SUCCESSFUL PLACEMENT OF A 5 FR DUAL LUMEN 41 CM PICC IN THE LEFT BASILIC VEIN. Head CT 04/18/17 00:00 IMPRESSION: 1. No acute intracranial abnormality by CT criteria. This exam was performed according to our departmental dose-optimization program, which includes automated exposure control, adjustment of the mA and/or kV according to patient size and/or use of iterative reconstruction technique. Interventional Vascular Procedure 04/18/17 00:00 IMPRESSION: SUCCESSFUL PLACEMENT OF A 5 FR DUAL LUMEN 41 CM PICC IN THE LEFT BASILIC VEIN. PICC Line Insertion 04/18/17 00:00 IMPRESSION: SUCCESSFUL PLACEMENT OF A 5 FR DUAL LUMEN 41 CM PICC IN THE LEFT BASILIC VEIN. Status: Imported from PACS Assessment & Plan - Diagnosis (1) Infected wound Is this a current diagnosis for this admission?: Yes Plan: L great toe cellulitis secondary to infected open wound and poor healing as a result of uncontrolled diabetes. Medical management only. No need for surgery at this time. MRI today shows no evidence of osteomyelitis. Blood cultures: No growth 48 hours Patient appears nontoxic. erythema and swelling to the left great toe has improved since antibiotic coverage was changed to ertapenem and vancomycin. Will need to change ertapenem to meropenem for financial/insurance reasons. Plan for PICC line and patient will require 2 weeks of antibiotics, close follow -up with wound care clinic, and follow-up with her primary care doctor. Due to the patient's lack of transportation to get her to doctor's appointments, and her inability to qualify for transportation assistance, she has agreed to transfer to acute rehab for her antibiotic treatment. (2) Diabetes Qualifiers: Diabetes mellitus type: type 2 Diabetes mellitus buttermaker helper insulin use: with skilled nursing use Diabetes mellitus complication status: with skin complications Diabetes mellitus complication detail: with foot ulcer Qualified Code(s): E11.621 - Type 2 diabetes mellitus with foot ulcer; L97.509 - Non-pressure chronic ulcer of other part of unspecified foot with unspecified severity; L97.509 - Non-pressure chronic ulcer of other part of unspecified foot with unspecified severity; L97.509 - Non-pressure chronic ulcer of other part of unspecified foot with unspecified severity; L97.509 - Non-pressure chronic ulcer of other part of unspecified foot with unspecified severity; Z79.4 - skilled nursing (current) use of insulin; Z79.4 - skilled nursing (current) use of insulin; Z79.4 - buttermaker helper (current) use of insulin; Z79.4 - skilled nursing (current ) use of insulin Is this a current diagnosis for this admission?: Yes Plan: Noncompliant with diabetes medication for over a year. A1c 11. Continue sliding scale insulin and lantus 10U QHS. (3) Hypertension Is this a current diagnosis for this admission?: No Plan: Patient reports a history of hypertension but has not been to a doctor in over a year. While she is inpatient her blood pressure has remained relatively controlled. She does not require any p.o. antihypertensives at this time - Time Time Spent with patient: 15-24 minutes Medications reviewed and adjusted accordingly: Yes Anticipated discharge: Acute Rehab Within: within 48 hours - Inpatient Certification Based on my medical assessment, after consideration of the patient's comorbidities, presenting symptoms, or acuity I expect that the services needed warrant INPATIENT care.: Yes I certify that my determination is in accordance with my understanding of Medicare's requirements for reasonable and necessary INPATIENT services [42 CFR 412.3e].: Yes Medical Necessity: Need for IV Antibiotics - Plan Summary Plan Summary: Discharge to acute rehab with IV antibiotics for 2 weeks. Follow-up with wound care clinic.
[2017-04-19] MEDS ORDERED: MEROPENEM 1 GM in NORMAL SALINE 100 ML IV ONE (16:00)
[2017-04-19] MEDS: INSULIN LISPRO 100 UNIT/ML 3 ML VIAL SUBCUT PRN ×2 (16:05→22:34)
[2017-04-19] MEDS: OXYCODONE-ACETAMINOPHEN 5-325 MG TABLET PO PRN (22:08)
[2017-04-19] MEDS: MEROPENEM 1 GM in NORMAL SALINE 50 ML IV SCH (22:09)
[2017-04-19] MEDS: INSULIN GLARGINE,HUM.REC.ANLOG 300 UNIT/3 ML INSULN.PEN SUBCUT SCH (22:30)
[2017-04-20] MEDS: MEROPENEM 1 GM in NORMAL SALINE 50 ML IV SCH ×3 (06:27→22:40)
[2017-04-20] MEDS: VANCOMYCIN HCL 1,000 MG in DEXTROSE 5%-WATER 250 ML IV SCH ×2 (07:30→20:12)
--- NOTE | 2017-04-20 09:03 | PDOC PROGRESS REPORT ---
Subjective Progress Note for:: 04/20/17 Subjective:: ALEXANDER ELI is a 68-year-old woman with a history of diabetes, hypertension, hyperlipidemia, status post right BKA and left second toe amputation. There patient reports that a couple of months ago, her toenail on the left great toe was falling off and she pulled it out but the toe did not heal completely. Additionally, she reports hitting her left great toe against her kitchen cabinet 2 weeks ago. Patient decided to come to the emergency department to be evaluated for a large non-healing wound to the left great toe. The patient was seen this morning on rounds, complains of mild pain to the L great toe. Plan for discharge to acute rehab on Friday. Reason For Visit: L GREAT TOE INFECTED WOUND AND CELLULITIS Physical Exam Vital Signs: Temp Pulse Resp BP Pulse Ox 97.9 F 80 16 122/59 L 100 04/20/17 07:54 04/20/17 07:54 04/20/17 04:13 04/20/17 07:54 04/20/17 07:54 Intake & Output 04/19/17 04/20/17 04/21/17 05:59 06:59 06:59 Intake Total Balance Weight General appearance: PRESENT: no acute distress Head exam: PRESENT: atraumatic Eye exam: PRESENT: conjunctiva pink Mouth exam: PRESENT: moist Neck exam: PRESENT: full ROM Respiratory exam: PRESENT: clear to auscultation mirna, symmetrical, unlabored Cardiovascular exam: PRESENT: +S1, +S2 Pulses: PRESENT: normal radial pulses, normal dorsalis pedis pul Vascular exam: PRESENT: normal capillary refill GI/Abdominal exam: PRESENT: ascites Rectal exam: PRESENT: deferred Extremities exam: PRESENT: full ROM Musculoskeletal exam: PRESENT: ambulatory - patient able to ambulate with a cane , full ROM Neurological exam: PRESENT: alert, awake, oriented to person, oriented to place , oriented to time, oriented to situation Psychiatric exam: PRESENT: appropriate affect Skin exam: PRESENT: normal color Results Laboratory Results: 04/18/17 06:36 04/18/17 06:36 04/14/17 15:40 Blood Blood Culture - Final NO GROWTH IN 5 DAYS Impressions: Toe X-Ray 04/14/17 12:40 IMPRESSION: No acute fracture or dislocation. There appears to be bony lysis of the distal tuft of the distal phalanx of the 1st digit which I cannot exclude as bony involvement by osteomyelitis. No other cortical erosions or lytic areas are identified. Soft tissue findings as noted above. Other findings as noted above Lower Extremity MRI 04/15/17 00:00 IMPRESSION: NO EVIDENCE FOR OSTEOMYELITIS. Guidance Fluoroscopy 04/18/17 00:00 IMPRESSION: SUCCESSFUL PLACEMENT OF A 5 FR DUAL LUMEN 41 CM PICC IN THE LEFT BASILIC VEIN. Head CT 04/18/17 00:00 IMPRESSION: 1. No acute intracranial abnormality by CT criteria. This exam was performed according to our departmental dose-optimization program, which includes automated exposure control, adjustment of the mA and/or kV according to patient size and/or use of iterative reconstruction technique. Interventional Vascular Procedure 04/18/17 00:00 IMPRESSION: SUCCESSFUL PLACEMENT OF A 5 FR DUAL LUMEN 41 CM PICC IN THE LEFT BASILIC VEIN. PICC Line Insertion 04/18/17 00:00 IMPRESSION: SUCCESSFUL PLACEMENT OF A 5 FR DUAL LUMEN 41 CM PICC IN THE LEFT BASILIC VEIN. Assessment & Plan - Diagnosis (1) Infected wound Is this a current diagnosis for this admission?: Yes Plan: L great toe cellulitis secondary to infected open wound and poor healing as a result of uncontrolled diabetes. Medical management only. No need for surgery at this time. MRI today shows no evidence of osteomyelitis. Blood cultures: No growth to date Patient appears nontoxic. erythema and swelling to the left great toe has improved since antibiotic coverage was changed to merepenem and vancomycin. Plan for PICC line and patient will require 2 weeks of antibiotics, close follow -up with wound care clinic, and follow-up with her primary care doctor. Due to the patient's lack of transportation to get her to doctor's appointments, and her inability to qualify for transportation assistance, she has agreed to transfer to acute rehab for her antibiotic treatment. (2) Diabetes Qualifiers: Diabetes mellitus type: type 2 Diabetes mellitus detention insulin use: with detention use Diabetes mellitus complication status: with skin complications Diabetes mellitus complication detail: with foot ulcer Qualified Code(s): E11.621 - Type 2 diabetes mellitus with foot ulcer; L97.509 - Non-pressure chronic ulcer of other part of unspecified foot with unspecified severity; L97.509 - Non-pressure chronic ulcer of other part of unspecified foot with unspecified severity; L97.509 - Non-pressure chronic ulcer of other part of unspecified foot with unspecified severity; L97.509 - Non-pressure chronic ulcer of other part of unspecified foot with unspecified severity; Z79.4 - intermediate (current) use of insulin; Z79.4 - petroleum terminal plant operator (current) use of insulin; Z79.4 - petroleum terminal plant operator (current) use of insulin; Z79.4 - intermediate (current ) use of insulin Is this a current diagnosis for this admission?: Yes Plan: Noncompliant with diabetes medication for over a year. A1c 11. Continue sliding scale insulin and lantus 10U QHS. (3) Hypertension Is this a current diagnosis for this admission?: No Plan: Patient reports a history of hypertension but has not been to a doctor in over a year. While she is inpatient her blood pressure has remained relatively controlled. She does not require any p.o. antihypertensives at this time - Time Time Spent with patient: 15-24 minutes Medications reviewed and adjusted accordingly: Yes Anticipated discharge: Home - Inpatient Certification Based on my medical assessment, after consideration of the patient's comorbidities, presenting symptoms, or acuity I expect that the services needed warrant INPATIENT care.: Yes I certify that my determination is in accordance with my understanding of Medicare's requirements for reasonable and necessary INPATIENT services [42 CFR 412.3e].: Yes Medical Necessity: Need for IV Antibiotics, Risk of Complication if Not Cared For in Hospital - Plan Summary Plan Summary: discharge to acute rehab for IV antibiotics
[2017-04-20] MEDS: NORMAL SALINE 10 ML SDV (SCHEDULED) IV SCH ×2 (09:27→22:55)
[2017-04-20] MEDS: INSULIN LISPRO 100 UNIT/ML 3 ML VIAL SUBCUT PRN ×3 (09:27→22:55)
[2017-04-20] MEDS: FAMOTIDINE 20 MG TABLET PO SCH ×2 (09:27→22:39)
[2017-04-20] MEDS: ENOXAPARIN SODIUM INJ 30 MG/0.3 ML DISP.SYRIN SUBCUT SCH (09:27)
[2017-04-20] MEDS: OXYCODONE-ACETAMINOPHEN 5-325 MG TABLET PO PRN ×2 (12:42→23:50)
[2017-04-20] MEDS: NORMAL SALINE 10 ML SDV (AFTER EACH USE) IV PRN (16:03)
[2017-04-20 19:17] LABS: ABSOLUTE EOSINOPHILS # (AUTO) 0.1 10^3/uL (0.0-0.6); ABSOLUTE MONOCYTES (AUTO) 0.4 10^3/uL (0.1-1.4); ABSOLUTE NEUT (AUTO) 3.3 10^3/uL (1.7-8.2); HEMATOCRIT 31.9 % (36.0-47.0); HEMOGLOBIN 10.9 g/dL (12.0-15.5); MEAN CORPUSCULAR HEMOGLOBIN 28.1 pg (27.0-33.4); MEAN CORPUSCULAR HGB CONC 34.2 g/dL (32.0-36.0); MEAN CORPUSCULAR VOLUME 82 fl (80-97); MONOCYTES % (AUTO) 8.4 % (3-13); PLATELET COUNT 220 10^3/uL (150-450); RED BLOOD COUNT 3.89 10^6/uL (3.72-5.28); RED CELL DISTRIBUTION WIDTH 12.6 % (11.5-14.0); SEGMENTED NEUTROPHILS % (AUTO) 68.6 % (42-78); TOTAL CELLS COUNTED % (AUTO) 100 %; WHITE BLOOD COUNT 4.8 10^3/uL (4.0-10.5)
[2017-04-20 19:31] LABS: ANION GAP 8 (5-19); BLOOD UREA NITROGEN 20 mg/dL (7-20); CALCIUM 9.3 mg/dL (8.4-10.2); CARBON DIOXIDE 29 mmol/L (22-30); CHLORIDE 100 mmol/L (98-107); GLUCOSE 184 mg/dL (75-110); SODIUM 137.4 mmol/L (137-145)
[2017-04-20] MEDS: INSULIN GLARGINE,HUM.REC.ANLOG 300 UNIT/3 ML INSULN.PEN SUBCUT SCH (22:40)
[2017-04-21] MEDS: NORMAL SALINE 10 ML SDV (AFTER EACH USE) IV PRN ×2 (00:59→14:28)
[2017-04-21] MEDS: MEROPENEM 1 GM in NORMAL SALINE 50 ML IV SCH ×2 (06:40→13:27)
[2017-04-21] MEDS: INSULIN LISPRO 100 UNIT/ML 3 ML VIAL SUBCUT PRN ×4 (08:18→22:27)
[2017-04-21] MEDS: VANCOMYCIN HCL 1,000 MG in DEXTROSE 5%-WATER 250 ML IV SCH ×2 (08:21→19:46)
[2017-04-21] MEDS: ENOXAPARIN SODIUM INJ 30 MG/0.3 ML DISP.SYRIN SUBCUT SCH (09:49)
[2017-04-21] MEDS: FAMOTIDINE 20 MG TABLET PO SCH ×2 (09:50→22:28)
[2017-04-21] MEDS: NORMAL SALINE 10 ML SDV (SCHEDULED) IV SCH ×2 (10:45→23:03)
--- NOTE | 2017-04-21 14:36 | Progress Note ---
Provider Note Provider Note: ID Consult Note I was asked to review this patient's chart by the pharmacist. Ms Nina is a 71 yo with diabetes who presented with L 1st toe wound after hitting her toe 2 weeks ago. She had plain films that was read as showing bony lysis of the distal tuft of the 1st digit, but MRI was negative for findings c/w osteomyelitis. Her physical exam is documented as showing mild cellulitic changes to the L great toe and a very dry eschar without malodor or drainage when she was evaluated by a surgeon. She has no leukocytosis. Blood cultures have been negative. She was diagnosed with having cellulitis. She was initially treated with Unasyn/vancomycin, which was later changed to meropenem/ vancomycin. Impression/Recommendations Nonpurulent cellulitis following trauma of the L 1st toe. - I recommend completing treatment for any residual cellulitis with either oral Keflex 500 mg PO q6h or oral Bactrim 1 DS BID. - Duration of therapy: She has been on antibiotics since 04/14, making today around Day 7. She may need 3-7 more days of treatment, depending on clinical response. Smith Mesa MD Pager [phone]
--- NOTE | 2017-04-21 17:19 | PDOC PROGRESS REPORT ---
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 There patient reports that a couple of months ago, her toenail on the left great toe was falling off and she pulled it out but the toe did not heal completely. Additionally, she reports hitting her left great toe against her kitchen cabinet 2 weeks ago. Patient decided to come to the emergency department to be evaluated for a large non-healing wound to the left great toe. The patient was seen this morning on rounds, complains of mild pain to the L great toe. Plan for discharge to acute rehab to continue IV antibiotic therapy. Reason For Visit: L GREAT TOE INFECTED WOUND AND CELLULITIS Physical Exam Vital Signs: Temp Pulse Resp BP Pulse Ox 97.5 F 87 18 113/64 98 04/21/17 15:41 04/21/17 15:41 04/21/17 15:41 04/21/17 15:41 04/21/17 15:41 Intake & Output 04/20/17 04/21/17 04/22/17 06:59 06:59 06:59 Intake Total 630 240 Balance 630 240 Weight 73.6 kg Results Laboratory Results: 04/20/17 18:25 04/20/17 18:25 04/20/17 04/20/17 18:25 18:25 WBC 4.8 RBC 3.89 Hgb 10.9 L Hct 31.9 L MCV 82 MCH 28.1 MCHC 34.2 RDW 12.6 Plt Count 220 Seg Neutrophils % 68.6 Lymphocytes % 20.0 Monocytes % 8.4 Eosinophils % 2.0 Basophils % 1.0 Absolute Neutrophils 3.3 Absolute Lymphocytes 1.0 Absolute Monocytes 0.4 Absolute Eosinophils 0.1 Absolute Basophils 0.0 Sodium 137.4 Potassium 4.0 Chloride 100 Carbon Dioxide 29 Anion Gap 8 BUN 20 Creatinine 0.64 Est GFR ( Amer) > 60 Est GFR (Non-Af Amer) > 60 Glucose 184 H Calcium 9.3 Impressions: Toe X-Ray 04/14/17 12:40 IMPRESSION: No acute fracture or dislocation. There appears to be bony lysis of the distal tuft of the distal phalanx of the 1st digit which I cannot exclude as bony involvement by osteomyelitis. No other cortical erosions or lytic areas are identified. Soft tissue findings as noted above. Other findings as noted above Lower Extremity MRI 04/15/17 00:00 IMPRESSION: NO EVIDENCE FOR OSTEOMYELITIS. Guidance Fluoroscopy 04/18/17 00:00 IMPRESSION: SUCCESSFUL PLACEMENT OF A 5 FR DUAL LUMEN 41 CM PICC IN THE LEFT BASILIC VEIN. Head CT 04/18/17 00:00 IMPRESSION: 1. No acute intracranial abnormality by CT criteria. This exam was performed according to our departmental dose-optimization program, which includes automated exposure control, adjustment of the mA and/or kV according to patient size and/or use of iterative reconstruction technique. Interventional Vascular Procedure 04/18/17 00:00 IMPRESSION: SUCCESSFUL PLACEMENT OF A 5 FR DUAL LUMEN 41 CM PICC IN THE LEFT BASILIC VEIN. PICC Line Insertion 04/18/17 00:00 IMPRESSION: SUCCESSFUL PLACEMENT OF A 5 FR DUAL LUMEN 41 CM PICC IN THE LEFT BASILIC VEIN. Assessment & Plan - Diagnosis (1) Infected wound Is this a current diagnosis for this admission?: Yes Plan: L great toe cellulitis secondary to infected open wound and poor healing as a result of uncontrolled diabetes. Medical management only. No need for surgery at this time. MRI today shows no evidence of osteomyelitis. Blood cultures: No growth to date Patient appears nontoxic. erythema and swelling to the left great toe has improved since antibiotic coverage was changed to merepenem and vancomycin. Patient will require a total of 2 weeks of IV antibiotics, close follow-up with wound care clinic, and follow-up with her primary care doctor. Due to the patient's lack of transportation to get her to doctor's appointments, and her history of noncompliance, it was recommended for the patient to transfer to acute rehab to complete her antibiotic regimen. The patient has agreed to this treatment plan, discharge planning is aware. (2) Diabetes Qualifiers: Diabetes mellitus type: type 2 Diabetes mellitus halfway insulin use: with manager terminal use Diabetes mellitus complication status: with skin complications Diabetes mellitus complication detail: with foot ulcer Qualified Code(s): E11.621 - Type 2 diabetes mellitus with foot ulcer; L97.509 - Non-pressure chronic ulcer of other part of unspecified foot with unspecified severity; L97.509 - Non-pressure chronic ulcer of other part of unspecified foot with unspecified severity; L97.509 - Non-pressure chronic ulcer of other part of unspecified foot with unspecified severity; L97.509 - Non-pressure chronic ulcer of other part of unspecified foot with unspecified severity; Z79.4 - buttermilk drier operator (current) use of insulin; Z79.4 - FDC (current) use of insulin; Z79.4 - buttermilk drier operator (current) use of insulin; Z79.4 - buttermilk drier operator (current ) use of insulin Is this a current diagnosis for this admission?: Yes Plan: Noncompliant with diabetes medication for over a year. A1c 11. Continue sliding scale insulin and lantus 10U QHS. (3) Hypertension Qualifiers: Hypertension type: essential hypertension Qualified Code(s): I10 - Essential (primary) hypertension Is this a current diagnosis for this admission?: No Plan: Patient reports a history of hypertension but has not been to a doctor in over a year. While she is inpatient her blood pressure has remained relatively controlled. She does not require any p.o. antihypertensives at this time - Time Time Spent with patient: 15-24 minutes Medications reviewed and adjusted accordingly: Yes Anticipated discharge: Acute Rehab Within: within 24 hours - Inpatient Certification Based on my medical assessment, after consideration of the patient's comorbidities, presenting symptoms, or acuity I expect that the services needed warrant INPATIENT care.: Yes I certify that my determination is in accordance with my understanding of Medicare's requirements for reasonable and necessary INPATIENT services [42 CFR 412.3e].: Yes Medical Necessity: Risk of Complication if Not Cared For in Hospital - Plan Summary Plan Summary: The plan is to discharge the patient to acute rehab to receive her IV antibiotic therapy regimen. Also, she can be followed by wound care and an internal medicine physician.
[2017-04-21] MEDS: INSULIN GLARGINE,HUM.REC.ANLOG 300 UNIT/3 ML INSULN.PEN SUBCUT SCH (22:27)
[2017-04-21] MEDS: MEROPENEM 1 GM in NORMAL SALINE 100 ML IV SCH (22:28)
[2017-04-22] MEDS: VANCOMYCIN HCL 1,000 MG in DEXTROSE 5%-WATER 250 ML IV SCH (06:17)
[2017-04-22] MEDS: MEROPENEM 1 GM in NORMAL SALINE 100 ML IV SCH ×2 (06:17→15:13)
[2017-04-22 07:27] LABS: ABSOLUTE EOSINOPHILS # (AUTO) 0.1 10^3/uL (0.0-0.6); ABSOLUTE LYMPHOCYTES (AUTO) 0.7 10^3/uL (0.5-4.7); ABSOLUTE MONOCYTES (AUTO) 0.5 10^3/uL (0.1-1.4); ABSOLUTE NEUT (AUTO) 2.6 10^3/uL (1.7-8.2); BASOPHILS % (AUTO) 1.2 % (0-2); HEMATOCRIT 30.7 % (36.0-47.0); HEMOGLOBIN 10.7 g/dL (12.0-15.5); LYMPHOCYTES % (AUTO) 18.2 % (13-45); MEAN CORPUSCULAR HEMOGLOBIN 28.7 pg (27.0-33.4); MEAN CORPUSCULAR HGB CONC 34.8 g/dL (32.0-36.0); MEAN CORPUSCULAR VOLUME 83 fl (80-97); MONOCYTES % (AUTO) 11.9 % (3-13); PLATELET COUNT 220 10^3/uL (150-450); RED BLOOD COUNT 3.72 10^6/uL (3.72-5.28); RED CELL DISTRIBUTION WIDTH 12.9 % (11.5-14.0); SEGMENTED NEUTROPHILS % (AUTO) 65.7 % (42-78); TOTAL CELLS COUNTED % (AUTO) 100 %
[2017-04-22 07:37] LABS: ANION GAP 8 (5-19); BLOOD UREA NITROGEN 18 mg/dL (7-20); CALCIUM 8.9 mg/dL (8.4-10.2); CARBON DIOXIDE 29 mmol/L (22-30); CHLORIDE 100 mmol/L (98-107); GLUCOSE 241 mg/dL (75-110); POTASSIUM 4.3 mmol/L (3.6-5.0); SODIUM 137.4 mmol/L (137-145)
[2017-04-22] MEDS: INSULIN LISPRO 100 UNIT/ML 3 ML VIAL SUBCUT PRN ×2 (08:56→11:51)
[2017-04-22] MEDS: NORMAL SALINE 10 ML SDV (SCHEDULED) IV SCH (09:01)
[2017-04-22] MEDS: ENOXAPARIN SODIUM INJ 30 MG/0.3 ML DISP.SYRIN SUBCUT SCH (09:02)
[2017-04-22] MEDS: FAMOTIDINE 20 MG TABLET PO SCH (09:02)
[2017-04-22 11:11] VITALS: BP 104/53
--- NOTE | 2017-04-22 15:53 | PDOC DISCHARGE SUMMARY ---
General - Admit/Disc Date/PCP Admission Date/Primary Care Provider: 04/14/17 14:36 YURIDIA FREDERICK MD Discharge Date: 04/22/17 - Additional Information Resuscitation Status: Full Code Discharge Diet: Diabetic Discharge Activity: Activity As Tolerated, Slowly Increase Activity Prescriptions: Cephalexin Monohydrate [Keflex 500 mg Capsule] 500 mg PO Q6 #28 capsule Insulin Glargine,Hum.rec.anlog [Lantus Insulin 100 Unit/mL] 10 unit SUBCUT QHS # 1 insuln.pen Insulin Lispro [Humalog Insulin (Lispro) 100 unit/mL] 0 - 12 unit SUBCUT ACHSP PRN #1 vial PRN Reason: Oxycodone HCl/Acetaminophen [Percocet 5-325 mg Tablet] 1 tab PO TIDP PRN #9 tab PRN Reason: Home Medications: Acetaminophen [Tylenol 325 mg Tablet] 650 mg PO Q6HP PRN tablet 04/22/17 Cephalexin Monohydrate [Keflex 500 mg Capsule] 500 mg PO Q6 #28 capsule Insulin Glargine,Hum.rec.anlog [Lantus Insulin 100 Unit/mL] 10 unit SUBCUT QHS # 1 insuln.pen 04/22/17 Insulin Lispro [Humalog Insulin (Lispro) 100 unit/mL] 0 - 12 unit SUBCUT ACHSP PRN #1 vial 04/22/17 Oxycodone HCl/Acetaminophen [Percocet 5-325 mg Tablet] 1 tab PO TIDP PRN #9 tab 04/22/17 History of Present Illness History of Present Illness: Per H&P by Dr. Sunshine: ALEXANDER ELI is a 71 year old female with history of diabetes, hypertension, hypercholesteremia, status post right BKA and L second toe amputation. She has not seen a doctor in over a year and she does not take any medication currently. She reports the last time she saw her primary care doctor she was taken off her high blood pressure and her cholesterol medicines. She has not been in a hospital since 2012 when she had a BKA. She reports about couple months ago, her toenail was falling out and she pulled it out but it did heal and the nail started to grow back but about two weeks ago she hit her L great toe against her kitchen cabinet since then it has pain painful and the wound not healing. Therefore she decided to come to the emergency to be evaluated. Otherwise she reports feeling fine. was present during history the taking. She was seen by surgery in the ER and plan for wound care and IV antibiotics. Hospital Course Hospital Course: The patient was admitted for wound to Lt great toe in patient with uncontrolled diabetes and poor medication compliance and follow up care. Initial xray was concerning for possible osteomyelitis of the distal tuft of the distal phalanx. Follow-up MRI did not reveal evidence of osteomyelitis. Surgery was consulted ; they agreed with IV antibiotic therapy but did not feel that surgical intervention was necessary at that time. The patient was empirically placed on Unasyn. After 72 hours there was no significant improvement in the erythema and so the patient was transitioned to ertapenem and vancomycin with subsequent rapid improvement. Initially, the patient refused home health services and there was concern that the patient would not seek appropriate follow-up care. Therefore, arrangements were made for the patient to be transferred to a residential facility for continued IV antibiotic therapy. Infect[facility] at [facility] was consulted; they recommended that the patient be transitioned to oral therapy. This option was presented to the patient, and at this time, she was agreeable to be discharged home on oral antibiotic therapy with home health nursing for diabetes education and management. At time of discharge, she is stable condition, with well controlled pain. She is discharged to home with home health nursing services. She is provided prescriptions for Keflex, Humalog and Lantus pens, and Percocet. She is advised to follow-up with the [place] wound care clinic in 2 weeks and with her primary care provider within 1-2 weeks. Physical Exam Vital Signs: Temp Pulse Resp BP Pulse Ox 98.0 F 87 20 104/53 L 97 04/22/17 11:08 04/22/17 11:08 04/22/17 11:08 04/22/17 11:08 04/22/17 11:08 Intake & Output 04/21/17 04/22/17 04/23/17 06:59 06:59 06:59 Intake Total 630 1170 Balance 630 1170 Weight 73.6 kg 73.7 kg General appearance: PRESENT: no acute distress, cooperative, well-developed, well-nourished Head exam: PRESENT: atraumatic, normocephalic Eye exam: PRESENT: conjunctiva pink, EOMI, PERRLA. ABSENT: scleral icterus Ear exam: PRESENT: normal external ear exam Mouth exam: PRESENT: moist, tongue midline Neck exam: ABSENT: carotid bruit, JVD, lymphadenopathy, thyromegaly Respiratory exam: PRESENT: clear to auscultation mirna, symmetrical, unlabored. ABSENT: rales, rhonchi, wheezes Cardiovascular exam: PRESENT: RRR, +S1, +S2. ABSENT: diastolic murmur, rubs, systolic murmur Pulses: PRESENT: normal dorsalis pedis pul Vascular exam: PRESENT: normal capillary refill GI/Abdominal exam: PRESENT: normal bowel sounds, soft. ABSENT: distended, guarding, mass, organolmegaly, rebound, tenderness Rectal exam: PRESENT: deferred Extremities exam: PRESENT: full ROM, other - Historic Rt BKA, previous Lt 2nd toe. ABSENT: calf tenderness, clubbing, pedal edema Neurological exam: PRESENT: alert, awake, oriented to person, oriented to place , oriented to time, oriented to situation, CN II-XII grossly intact. ABSENT: motor sensory deficit Psychiatric exam: PRESENT: appropriate affect, normal mood. ABSENT: homicidal ideation, suicidal ideation Skin exam: PRESENT: dry, warm. ABSENT: cyanosis, intact - Wound to Lt great toe ; slight edema present. Escar has fallen off to reveal pink granulation tissue w/ brisk cap refill. No drainage present. No surrounding erythema., rash Results Laboratory Results: 04/22/17 07:00 04/22/17 07:00 04/22/17 04/22/17 07:00 07:00 WBC 4.0 RBC 3.72 Hgb 10.7 L Hct 30.7 L MCV 83 MCH 28.7 MCHC 34.8 RDW 12.9 Plt Count 220 Seg Neutrophils % 65.7 Lymphocytes % 18.2 Monocytes % 11.9 Eosinophils % 3.0 Basophils % 1.2 Absolute Neutrophils 2.6 Absolute Lymphocytes 0.7 Absolute Monocytes 0.5 Absolute Eosinophils 0.1 Absolute Basophils 0.0 Sodium 137.4 Potassium 4.3 Chloride 100 Carbon Dioxide 29 Anion Gap 8 BUN 18 Creatinine 0.48 L Est GFR ( Amer) > 60 Est GFR (Non-Af Amer) > 60 Glucose 241 H Calcium 8.9 Impressions: Toe X-Ray 04/14/17 12:40 IMPRESSION: No acute fracture or dislocation. There appears to be bony lysis of the distal tuft of the distal phalanx of the 1st digit which I cannot exclude as bony involvement by osteomyelitis. No other cortical erosions or lytic areas are identified. Soft tissue findings as noted above. Other findings as noted above Lower Extremity MRI 04/15/17 00:00 IMPRESSION: NO EVIDENCE FOR OSTEOMYELITIS. Guidance Fluoroscopy 04/18/17 00:00 IMPRESSION: SUCCESSFUL PLACEMENT OF A 5 FR DUAL LUMEN 41 CM PICC IN THE LEFT BASILIC VEIN. Head CT 04/18/17 00:00 IMPRESSION: 1. No acute intracranial abnormality by CT criteria. This exam was performed according to our departmental dose-optimization program, which includes automated exposure control, adjustment of the mA and/or kV according to patient size and/or use of iterative reconstruction technique. Interventional Vascular Procedure 04/18/17 00:00 IMPRESSION: SUCCESSFUL PLACEMENT OF A 5 FR DUAL LUMEN 41 CM PICC IN THE LEFT BASILIC VEIN. PICC Line Insertion 04/18/17 00:00 IMPRESSION: SUCCESSFUL PLACEMENT OF A 5 FR DUAL LUMEN 41 CM PICC IN THE LEFT BASILIC VEIN. Qualifiers - * PATEINT BEING DISCHARGED WITH ANY OF THE FOLLOWING DIAGNOSIS?: No
== END 2017-04-22 15:50 | disposition home or self-care (01) | DRG 383 ==
LOC: ER 12:20 → EH 14:36 → 2S 17:00
PROVIDERS: ADMIT Internal Medicine; ATTEND Internal Medicine
PROC: 02HV33Z Insertion of Infusion Device into Superior Vena Cava, Percutaneous Approach (ICD-10-PCS; principal; 2017-04-18)
PROC: B548ZZA Ultrasonography of Superior Vena Cava, Guidance (ICD-10-PCS; 2017-04-18)
PROC: B5181ZA Fluoroscopy of Superior Vena Cava using Low Osmolar Contrast, Guidance (ICD-10-PCS; 2017-04-18)
DX: L03.032 Cellulitis of left toe (principal); L97.509 Non-pressure chronic ulcer of other part of unspecified foot with unspecified severity; E11.621 Type 2 diabetes mellitus with foot ulcer; E11.65 Type 2 diabetes mellitus with hyperglycemia; I10 Essential (primary) hypertension; E78.00 Pure hypercholesterolemia, unspecified; K21.9 Gastro-esophageal reflux disease without esophagitis; W22.03XA Walked into furniture, initial encounter; Y92.010 Kitchen of single-family (private) house as the place of occurrence of the external cause; W01.0XXA Fall on same level from slipping, tripping and stumbling without subsequent striking against object, initial encounter; Y92.239 Unspecified place in hospital as the place of occurrence of the external cause; Z89.511 Acquired absence of right leg below knee; Z79.4 Long term (current) use of insulin; Z88.7 Allergy status to serum and vaccine; Z89.422 Acquired absence of other left toe(s); Z91.14 Patient's other noncompliance with medication regimen
CPT/HCPCS: 36415; 36569; 70450; 76937; 77001; 80048; 80053; 80202; 82962; 83036; 83735; 84100; 85025; 85652; 87040; 96365; 99285; J0295; J1335; J1642; J1650; J1815; J1885; J2185; J3370; J3490; J7060

== ENCOUNTER 2017-05-31 21:21 | Emergency (ER) | payer MEDICARE ==
--- NOTE | 2017-05-31 23:25 | ER Document Report ---
ED General - General Chief Complaint: Wound Infection Stated Complaint: TOE PAIN Time Seen by Provider: 05/31/17 22:42 Notes: Patient is a 72-year-old female with a past medical history of diabetes not currently on anything to control it due to lack of access to insulin, hypertension, peripheral arterial disease who presents with left great toe pain and drainage from a wound. Patient was hospitalized the beginning of April for the same with associated hyperglycemia. She was treated with antibiotics and then subsequently discharged home. She was evaluated by surgery at that time and no surgical intervention was recommended. Patient was discharged home on cephalexin and states that she had complete resolution of the pain to the area. However she notes that over the past 1-2 weeks she has had increasing drainage and a foul odor coming from the toe as well as increasing pain. She notes a dull, constant throbbing pain that is worsened by walking or touching the area. She has not followed up with primary care doctor or the wound clinic as instructed. She has not been taking insulin as she states that the pharmacy told her would be over $1000 and that Medicare would not cover it. She has not had any fever or constitutional symptoms. TRAVEL OUTSIDE OF THE [place] IN LAST 30 DAYS: No - Related Data Allergies/Adverse Reactions: Tetanus Vaccines and Toxoid [Tetanus] Allergy (Verified 04/14/17 12:33) Past Medical History - General Information source: Patient - Social History Smoking Status: Never Smoker Chew tobacco use (# tins/day): No Frequency of alcohol use: None Drug Abuse: None Lives with: Spouse/Significant other Family History: Reviewed & Not Pertinent Patient has suicidal ideation: No Patient has homicidal ideation: No - Past Medical History Cardiac Medical History: Reports: Hx Hypercholesterolemia, Hx Hypertension Endocrine Medical History: Reports: Hx Diabetes Mellitus Type 2 Renal/ Medical History: Denies: Hx Peritoneal Dialysis GI Medical History: Reports: Hx Gastroesophageal Reflux Disease Musculoskeltal Medical History: Reports Hx Musculoskeletal Deformity, Reports Hx Musculoskeletal Trauma Skin Medical History: Reports Hx MRSA - MRSA 08/15 FOOT Psychiatric Medical History: Denies: Hx Depression Past Surgical History: Reports: Hx Orthopedic Surgery - rt bka and toe on left hip ORIF - Immunizations Hx Diphtheria, Pertussis, Tetanus Vaccination: - allergic Review of Systems - Review of Systems Notes: Constitutional: Negative for fever. HENT: Negative for sore throat. Eyes: Negative for visual changes. Cardiovascular: Negative for chest pain. Respiratory: Negative for shortness of breath. Gastrointestinal: Negative for abdominal pain, vomiting or diarrhea. Genitourinary: Negative for dysuria. Musculoskeletal: Left great toe pain Skin: Left great toe wound Neurological: Negative for headaches, weakness or numbness. 10 point ROS negative except as marked above and in HPI. Physical Exam - Vital signs Vitals: Temp Pulse Resp BP Pulse Ox 97.5 F 89 20 144/73 H 100 05/31/17 21:51 05/31/17 21:51 05/31/17 21:51 05/31/17 21:51 05/31/17 21:51 Interpretation: Normal Notes: PHYSICAL EXAMINATION: GENERAL: Well-appearing, well-nourished and in no acute distress. HEAD: Atraumatic, normocephalic. EYES: Pupils equal round and reactive to light, extraocular movements intact, sclera anicteric, conjunctiva are normal. ENT: nares patent, oropharynx clear without exudates. Moderately dry mucous membranes. NECK: Normal range of motion, supple without lymphadenopathy LUNGS: Breath sounds clear to auscultation bilaterally and equal. No wheezes rales or rhonchi. HEART: Regular rate and rhythm without murmurs. 1+ DP pulse on the left. ABDOMEN: Soft, nontender, normoactive bowel sounds. No guarding, no rebound. No masses appreciated. EXTREMITIES: Right BKA. Left lower extremity is warm, well-perfused, there is an ulcerative lesion at the plantar surface of the distal tip of the left great toe with a malodorous purulent discharge. Is no spreading erythema of the extremity or edema. NEUROLOGICAL: No focal neurological deficits. Moves all extremities spontaneously and on command. PSYCH: Normal mood, normal affect. SKIN: Warm, Dry, normal turgor, ulcer as above. Course - Re-evaluation Re-evalutation: 05/31/17 23:23 Patient presents with a plantar surface wound with obvious associated infection on the left great toe. She was hospitalized the beginning of April for the same , MRI of 2 at that time was negative for osteomyelitis. She states that her symptoms improved initially on oral antibiotics but have recurred. She is otherwise well in appearance, vitals within normal limits, does not meet sepsis criteria, no evidence of streaking from the wound or evidence of a gas-forming infection. Will obtain basic labs, x-ray of the toe, plan for likely discharge home on oral antibiotics and with surgical follow-up as the patient may require wound debridement or possible irritation of the toe if this does fail to heal on oral antibiotics. 06/01/17 00:41 Laboratories are unremarkable with exception of hyperglycemia. The patient has a long-standing history of poor compliance with her insulin regimen and does admit to continued noncompliance. She states this was due to access issues with getting the medications. I have therefore referred her to our case finishing machine adjuster with assistance in figuring out why her medicare was not covering her insulin. She has been given 10 units of subcutaneous insulin. Patient has been started on cephalexin, trimethoprim sulfamethoxazole, has been instructed that she needs to continue to take her insulin as prescribed. I also provided her a referral to Dr. Garza as she needs to go to the wound care clinic and she has never followed up. At this time will discharge with return precautions and follow-up recommendations. Verbal discharge instructions given a the bedside and opportunity for questions given. Medication warnings reviewed. Patient is in agreement with this plan and has verbalized understanding of return precautions and the need for primary care follow-up in the next 24-72 hours. - Vital Signs Vital signs: Temp Pulse Resp BP Pulse Ox 97.5 F 89 20 144/73 H 100 05/31/17 21:51 05/31/17 21:51 05/31/17 21:51 05/31/17 21:51 05/31/17 21:51 - Laboratory Result Diagrams: 05/31/17 23:26 05/31/17 23:26 Laboratory results interpreted by me: 05/31/17 05/31/17 23:26 23:26 Hgb 11.7 L Hct 34.4 L Sodium 136.6 L Glucose 504 H* - Diagnostic Test Radiology reviewed: Image reviewed, Reports reviewed Radiology results interpreted by me: 06/01/17 01:03 Left toe x-ray: No evidence of osteomyelitis or acute fracture Discharge - Discharge Clinical Impression: Infected wound, Hyperglycemia Condition: Stable Disposition: HOME, SELF-CARE Additional Instructions: Your labs today only show very elevated blood sugars. Please be sure to continue to take your insulin as prescribed. As we discussed, it is critical that you follow-up with your general doctor as well as the wound care clinic as your blood sugars continuing to be out of control is a large reason why this wound will not heal. You should also be following in the wound care clinic to ensure that this wound gets accurate and appropriate treatment so as to prevent amputation of the toe which at this time is not required. Please take the antibiotics that have been prescribed. Please return if you develop fever, spreading redness from the wound, persistent vomiting, or any other symptoms that are worrisome to you. Referrals: IKER GARZA MD [ACTIVE STAFF] - Follow up in 3-5 days
[2017-05-31 23:44] LABS: ABSOLUTE BASOPHILS # (AUTO) 0.1 10^3/uL (0.0-0.2); ABSOLUTE EOSINOPHILS # (AUTO) 0.1 10^3/uL (0.0-0.6); ABSOLUTE LYMPHOCYTES (AUTO) 1.2 10^3/uL (0.5-4.7); ABSOLUTE MONOCYTES (AUTO) 0.5 10^3/uL (0.1-1.4); ABSOLUTE NEUT (AUTO) 3.1 10^3/uL (1.7-8.2); EOSINOPHILS % (AUTO) 1.7 % (0-6); HEMATOCRIT 34.4 % (36.0-47.0); HEMOGLOBIN 11.7 g/dL (12.0-15.5); LYMPHOCYTES % (AUTO) 23.7 % (13-45); MEAN CORPUSCULAR HEMOGLOBIN 27.8 pg (27.0-33.4); MEAN CORPUSCULAR HGB CONC 33.9 g/dL (32.0-36.0); MEAN CORPUSCULAR VOLUME 82 fl (80-97); MONOCYTES % (AUTO) 9.4 % (3-13); PLATELET COUNT 262 10^3/uL (150-450); RED BLOOD COUNT 4.19 10^6/uL (3.72-5.28); RED CELL DISTRIBUTION WIDTH 13.1 % (11.5-14.0); SEGMENTED NEUTROPHILS % (AUTO) 64.2 % (42-78); TOTAL CELLS COUNTED % (AUTO) 100 %; WHITE BLOOD COUNT 4.9 10^3/uL (4.0-10.5)
[2017-06-01 00:09] LABS: ANION GAP 9 (5-19); BLOOD UREA NITROGEN 19 mg/dL (7-20); CALCIUM 9.5 mg/dL (8.4-10.2); CARBON DIOXIDE 30 mmol/L (22-30); CHLORIDE 98 mmol/L (98-107); POTASSIUM 4.7 mmol/L (3.6-5.0); SODIUM 136.6 mmol/L (137-145)
[2017-06-01 00:20] LABS: GLUCOSE 504 mg/dL (75-110)
[2017-06-01] MEDS ORDERED: INSULIN REG, HUMAN 100 UNIT/ML 3 ML VIAL (PYX) SUBCUT ONE (00:41)
[2017-06-01] MEDS ORDERED: CEPHALEXIN 500 MG CAPSULE PO ONE (00:43)
[2017-06-01] MEDS ORDERED: SULFAMETHOXAZOLE/TRIMETHOPRIM 800-160 MG TABLET PO ONE (00:43)
--- NOTE | 2017-06-01 00:45 | RADIOLOGY REPORT (SQ) ---
EXAM DESCRIPTION: TOE LEFT CLINICAL HISTORY: left great toe infection COMPARISON: None. FINDINGS: 3 views of the left first digit. No acute fracture or dislocation. Osteopenia. No definite lytic osseous lesions. Edema of the subcutaneous soft tissues. Atherosclerotic vascular calcification. Prior left second digit amputation. IMPRESSION: 1. No definite radiographic evidence of osteomyelitis. Edema of the subcutaneous soft tissues could be seen with cellulitis. If there is continued concern MRI could provide additional characterization.
[2017-06-01 01:37] VITALS: BP 129/72
== END 2017-06-01 01:35 | disposition home or self-care (01) ==
LOC: ER 21:21
DX: T81.4XXA Infection following a procedure, initial encounter (principal); E11.65 Type 2 diabetes mellitus with hyperglycemia; M79.675 Pain in left toe(s); I10 Essential (primary) hypertension; Z91.14 Patient's other noncompliance with medication regimen
CPT/HCPCS: 99283; 36415; 85025; 80048; 73660; A9270 ×3; J1815

== ENCOUNTER → 2017-12-18 | Outpatient (CLI) | payer MEDICARE, MEDICAID ==
[2017-12-18 10:42] LABS: ABSOLUTE EOSINOPHILS # (AUTO) 0.1 10^3/uL (0.0-0.6); ABSOLUTE LYMPHOCYTES (AUTO) 0.9 10^3/uL (0.5-4.7); ABSOLUTE MONOCYTES (AUTO) 0.3 10^3/uL (0.1-1.4); ABSOLUTE NEUT (AUTO) 3.2 10^3/uL (1.7-8.2); BASOPHILS % (AUTO) 0.9 % (0-2); EOSINOPHILS % (AUTO) 2.4 % (0-6); HEMATOCRIT 37.3 % (36.0-47.0); HEMOGLOBIN 13.2 g/dL (12.0-15.5); LYMPHOCYTES % (AUTO) 20.3 % (13-45); MEAN CORPUSCULAR HEMOGLOBIN 28.9 pg (27.0-33.4); MEAN CORPUSCULAR HGB CONC 35.5 g/dL (32.0-36.0); MEAN CORPUSCULAR VOLUME 81 fl (80-97); MONOCYTES % (AUTO) 6.8 % (3-13); PLATELET COUNT 254 10^3/uL (150-450); RED BLOOD COUNT 4.58 10^6/uL (3.72-5.28); SEGMENTED NEUTROPHILS % (AUTO) 69.6 % (42-78); TOTAL CELLS COUNTED % (AUTO) 100 %; WHITE BLOOD COUNT 4.6 10^3/uL (4.0-10.5)
[2017-12-18 10:44] LABS: ALANINE AMINOTRANSFERASE 10 U/L (9-52); ALBUMIN 3.6 g/dL (3.5-5.0); ALKALINE PHOSPHATASE 133 U/L (38-126); ANION GAP 10 (5-19); ASPARTATE AMINO TRANSFERASE 16 U/L (14-36); BILIRUBIN,DIRECT 0.2 mg/dL (0.0-0.4); BILIRUBIN,TOTAL 0.5 mg/dL (0.2-1.3); BLOOD UREA NITROGEN 16 mg/dL (7-20); CALCIUM 9.2 mg/dL (8.4-10.2); CARBON DIOXIDE 29 mmol/L (22-30); CHLORIDE 100 mmol/L (98-107); CHOLESTEROL 226.56 mg/dL (0-200); GLUCOSE 208 mg/dL (75-110); POTASSIUM 4.1 mmol/L (3.6-5.0); SODIUM 139.1 mmol/L (137-145); TOTAL PROTEIN 6.9 g/dL (6.3-8.2); TRIGLYCERIDES 102 mg/dL (<150); URIC ACID 2.7 mg/dL (2.5-7.5)
[2017-12-18 10:58] LABS: DIRECT LDL 139 mg/dL (<100)
--- NOTE | 2017-12-18 11:00 | RADIOLOGY REPORT (SQ) ---
EXAM DESCRIPTION: FOOT LEFT COMPLETE COMPLETED DATE/TIME: 12/18/2017 10:21 am REASON FOR STUDY: LEFT FOOT PAIN E11.42 TYPE 2 DIABETES MELLITUS WITH DIABETIC POLYNEUROPATHY F41.9 ANXIETY DISORDER, UNSPECIFIED Z79.899 OTHER SENIOR CARE (CURRENT) DRUG THERAPY COMPARISON: 06/01/2017 NUMBER OF VIEWS: Three views. TECHNIQUE: AP, lateral and oblique radiographic images acquired of the left foot. LIMITATIONS: None. FINDINGS: Since the prior imaging 06/01/2017, the patient has developed fragmentation and osteolysis of the the left 5th toe distal phalanx worrisome for 5th toe distal phalanx osteomyelitis. The great toe is diffusely swollen without soft tissue gas or radiopaque foreign body. No aggressive bony demineralization of the great toe proximal or distal phalanges worrisome for active osteomyelit is. Post amputation of the 2nd toe. 2nd metatarsal head intact. Small plantar calcaneal spur. Mild forefoot soft tissue swelling without radiopaque foreign body or soft tissue gas. Spotty arteri al vascular calcifications throughout the soft tissues. IMPRESSION: Osteomyelitis, 5th toe distal phalanx left foot Great toe diffuse soft tissue swelling without bony findings worrisome for osteomyelitis TECHNICAL DOCUMENTATION: JOB ID: [id number] [employer]- All Rights Reserved Reading location - IP/workstation name: [email or web address]
[2017-12-19 15:38] LABS: CREATININE URINE 117.6 mg/dL (Not Estab.); MICROALBUMIN URINE 206.6 ug/mL (Not Estab.)
== END ==
LOC: OD 09:28
PROVIDERS: ATTEND Family Medicine Geriatric Medicine
DX: E11.42 Type 2 diabetes mellitus with diabetic polyneuropathy (principal); F41.9 Anxiety disorder, unspecified; M86.8X7 Other osteomyelitis, ankle and foot; M79.672 Pain in left foot; Z79.899 Other long term (current) drug therapy
CPT/HCPCS: 36415; 80053; 80061; 82043; 82570; 83036; 84443; 84550; 85025

== ENCOUNTER → 2018-03-23 | Outpatient (CLI) | payer MEDICARE, BC, MEDICAID ==
[2018-03-23 16:10] LABS: ALANINE AMINOTRANSFERASE 20 U/L (9-52); ALBUMIN 4.1 g/dL (3.5-5.0); ALKALINE PHOSPHATASE 106 U/L (38-126); ANION GAP 6 (5-19); ASPARTATE AMINO TRANSFERASE 25 U/L (14-36); BILIRUBIN,DIRECT 0.1 mg/dL (0.0-0.4); BILIRUBIN,TOTAL 0.4 mg/dL (0.2-1.3); BLOOD UREA NITROGEN 16 mg/dL (7-20); CALCIUM 9.6 mg/dL (8.4-10.2); CARBON DIOXIDE 35 mmol/L (22-30); CHLORIDE 100 mmol/L (98-107); CHOLESTEROL 160.11 mg/dL (0-200); GLUCOSE 126 mg/dL (75-110); POTASSIUM 4.3 mmol/L (3.6-5.0); SODIUM 140.8 mmol/L (137-145); TOTAL PROTEIN 6.9 g/dL (6.3-8.2); TRIGLYCERIDES 82 mg/dL (<150)
[2018-03-23 16:21] LABS: DIRECT LDL 62 mg/dL (<100)
[2018-03-26 10:38] LABS: CREATININE URINE 82.1 mg/dL (Not Estab.); MICROALBUMIN URINE 114.3 ug/mL (Not Estab.)
== END ==
LOC: OD 15:20
PROVIDERS: ATTEND Family Medicine Geriatric Medicine
DX: E11.42 Type 2 diabetes mellitus with diabetic polyneuropathy (principal); E78.2 Mixed hyperlipidemia; R94.5 Abnormal results of liver function studies; Z79.899 Other long term (current) drug therapy
CPT/HCPCS: 36415; 80053; 80061; 82043; 82570; 83036

== ENCOUNTER → 2018-04-23 | Outpatient (CLI) | payer BC, MEDICARE, MEDICAID ==
[2018-04-23 16:27] LABS: ANION GAP 8 (5-19); BLOOD UREA NITROGEN 18 mg/dL (7-20); CARBON DIOXIDE 28 mmol/L (22-30); CHLORIDE 103 mmol/L (98-107); GLUCOSE 105 mg/dL (75-110); POTASSIUM 4.1 mmol/L (3.6-5.0); SODIUM 139.4 mmol/L (137-145)
== END ==
LOC: OD 14:16
PROVIDERS: ATTEND Family Medicine Geriatric Medicine
DX: I10 Essential (primary) hypertension (principal); Z79.899 Other long term (current) drug therapy
CPT/HCPCS: 36415; 80048

== ENCOUNTER 2019-02-10 12:30 | Emergency (ER) | payer BC, MEDICARE, MEDICAID ==
[2019-02-10 12:52] VITALS: BP 124/77
--- NOTE | 2019-02-10 13:55 | ER Document Report ---
HPI - HPI Time Seen by Provider: 02/10/19 13:46 Notes: Patient is a 73-year-old female with a history of diabetes who presents complaint of left heel pain and wound to the area for the past week that is painful. Patient states that it was a small blister that somewhat progressed and then the skin peeled off. Patient has been trying to keep it clean. She has had pain associated. No injury. Denies any headache, fever, URI, sore throat, chest pain, palpitations, syncope, cough, shortness of breath, wheeze, dyspnea, abdominal pain, nausea/vomiting/diarrhea, urinary retention, dysuria, hematuria, loss of control of bowel or bladder, numbness/tingling, saddle anesthesia, muscle paralysis/weakness. - ROS Systems Reviewed and Negative: Yes All other systems reviewed and negative - REPRODUCTIVE Reproductive: DENIES: : Past Medical History - Social History Smoking Status: Unknown if Ever Smoked Family History: Reviewed & Not Pertinent - Past Medical History Cardiac Medical History: Reports: Hx Hypercholesterolemia, Hx Hypertension Endocrine Medical History: Reports: Hx Diabetes Mellitus Type 2 Renal/ Medical History: Denies: Hx Peritoneal Dialysis GI Medical History: Reports: Hx Gastroesophageal Reflux Disease Musculoskeletal Medical History: Reports Hx Musculoskeletal Deformity, Reports Hx Musculoskeletal Trauma Skin Medical History: Reports Hx MRSA - MRSA 08/15 FOOT Psychiatric Medical History: Denies: Hx Depression Past Surgical History: Reports: Hx Orthopedic Surgery - rt bka and toe on left hip ORIF - Immunizations Hx Diphtheria, Pertussis, Tetanus Vaccination: - allergic Vertical Provider Document - CONSTITUTIONAL Agree With Documented VS: Yes Notes: PHYSICAL EXAMINATION: GENERAL: Well-appearing, well-nourished and in no acute distress. LUNGS: Breath sounds clear to auscultation bilaterally and equal. No wheezes rales or rhonchi. HEART: Regular rate and rhythm without murmurs, rubs, gallops. Musculoskeletal: Lt foot/ankle: there is a superficial raw area where a blister appears to have opened w/o ulceration noted to the posterior heel, not involving the plantar surface. No ecchymosis or deformity. FROM to passive/active. Strength 5+/5. N/V intact distal. No bony tenderness of the foot/ankle. No drainage, streaks, fluctuance, or induration. Mild site erythema. Extremities: No cyanosis, clubbing, or edema b/l. Peripheral pulses 2+. Capillary refill less than 3 seconds. NEUROLOGICAL: Normal speech, normal gait. Normal sensory, motor exams PSYCH: Normal mood, normal affect. SKIN: see above. - INFECTION CONTROL TRAVEL OUTSIDE OF THE [place] IN LAST 30 DAYS: No Course - Re-evaluation Re-evalutation: 02/10/19 13:53 Patient is an afebrile, well-hydrated, 73-year-old female who presents with an open blister to the left posterior heel area which I suspect is secondary to rubbing from her shoe that she wears. There is no ulceration, abscess, or significant cellulitis surrounding the area. Vitals are acceptable without significant tachycardia, tachypnea, hypoxia. PE is otherwise unremarkable. P atient is nontoxic-appearing and is tolerating p.o. without difficulty. Wound dressing will be placed today with Xeroform. I will send her home with prescription for an antibiotic as precautionary as she is diabetic. Recheck with your PCM in 2 to 3 days. Consider consult with wound clinic. Return to the ED with any other worsening/concerning symptoms. Patient is in agreement. - Vital Signs Vital signs: Temp Pulse Resp BP Pulse Ox 98 F 96 16 124/77 100 02/10/19 12:51 02/10/19 12:51 02/10/19 12:51 02/10/19 12:51 02/10/19 12:51 Discharge - Discharge Clinical Impression: Wound of foot Condition: Stable Disposition: HOME, SELF-CARE Additional Instructions: Keep the skin clean Wash with soap and water Wet to dry dressings may help Tylenol/ibuprofen if needed Triple antibiotic ointment daily Take medication as directed Monitor for any worsening symptoms Recheck with your PCM in 2-3 days Consider consult with Wound clinic for ongoing/worsening symptoms Return to the ED with any worsening symptoms and/or development of fever, headache, chest pain, palpitations, syncope, shortness of breath, trouble breathing, abdominal pain, n/v/d, abscess, purulent discharge, red streaks, worsening swelling, or other worsening symptoms that are concerning to you. Prescriptions: Cephalexin Monohydrate [Keflex 500 mg Capsule] 500 mg PO TID #21 capsule Referrals: Wound Care [Provider Group] - Follow up as needed ANA RESENDEZ MD [Primary Care Provider] - 02/12/19
[2019-02-10] MEDS: OXYCODONE HCL IR 5 MG TABLET PO ONE ×2 (14:21→14:28)
== END 2019-02-10 14:31 | disposition home or self-care (01) ==
LOC: ER 12:30
DX: S90.822A Blister (nonthermal), left foot, initial encounter (principal); X58.XXXA Exposure to other specified factors, initial encounter; E78.00 Pure hypercholesterolemia, unspecified; I10 Essential (primary) hypertension; E11.9 Type 2 diabetes mellitus without complications; Z86.14 Personal history of Methicillin resistant Staphylococcus aureus infection; Z89.511 Acquired absence of right leg below knee
CPT/HCPCS: 99283

== ENCOUNTER 2019-02-12 15:01 | Inpatient (IN) | payer BC, MEDICARE, MEDICAID ==
[2019-02-12 15:39] LABS: HEMATOCRIT 39.8 % (36.0-47.0); HEMOGLOBIN 13.3 g/dL (12.0-15.5); MEAN CORPUSCULAR HEMOGLOBIN 27.6 pg (27.0-33.4); MEAN CORPUSCULAR HGB CONC 33.5 g/dL (32.0-36.0); MEAN CORPUSCULAR VOLUME 82 fl (80-97); PLATELET COUNT 271 10^3/uL (150-450); RED BLOOD COUNT 4.83 10^6/uL (3.72-5.28); RED CELL DISTRIBUTION WIDTH 13.7 % (11.5-14.0); WHITE BLOOD COUNT 11.2 10^3/uL (4.0-10.5)
[2019-02-12 15:42] LABS: VENOUS BLOOD BASE EXCESS -0.5 mmol/L; VENOUS BLOOD HCO3 24.7 mmol/L (20-32); VENOUS BLOOD PCO2 42.4 mmHg (35-63); VENOUS BLOOD PH 7.38 (7.30-7.42)
--- NOTE | 2019-02-12 15:44 | RADIOLOGY REPORT (SQ) ---
EXAM DESCRIPTION: CHEST SINGLE VIEW COMPLETED DATE/TIME: 02/12/2019 3:33 pm REASON FOR STUDY: bed 19 sepsis protocol COMPARISON: 04/13/2012 EXAM PARAMETERS: NUMBER OF VIEWS: One view. TECHNIQUE: Single frontal radiographic view of the chest acquired. RADIATION DOSE: NA LIMITATIONS: None. FINDINGS: LUNGS AND PLEURA: No opacities, masses or pneumothorax. No pleural effusion. MEDIASTINUM AND HILAR STRUCTURES: No masses. Contour normal. HEART AND VASCULAR STRUCTURES: Heart normal in size. Normal vasculature. BONES: No acute findings. HARDWARE: None in the chest. OTHER: No other significant finding. IMPRESSION: NO ACUTE RADIOGRAPHIC FINDING IN THE CHEST. TECHNICAL DOCUMENTATION: JOB ID: [id number] [employer]- All Rights Reserved Reading location - IP/workstation name: [email or web address]
[2019-02-12 15:45] LABS: INTERNATIONAL RATION (INR) 1.04; PROTHROMBIN TIME 13.6 SEC (11.4-15.4)
[2019-02-12 15:57] LABS: ALKALINE PHOSPHATASE 163 U/L (38-126); ASPARTATE AMINO TRANSFERASE 21 U/L (14-36); BILIRUBIN,DIRECT 0.4 mg/dL (0.0-0.4); BILIRUBIN,TOTAL 0.9 mg/dL (0.2-1.3); BLOOD UREA NITROGEN 36 mg/dL (7-20); CALCIUM 9.5 mg/dL (8.4-10.2); CARBON DIOXIDE 24 mmol/L (22-30); CHLORIDE 92 mmol/L (98-107); POTASSIUM 3.8 mmol/L (3.6-5.0); TOTAL PROTEIN 7.1 g/dL (6.3-8.2)
[2019-02-12 16:04] LABS: ANION GAP 22 (5-19)
[2019-02-12 16:06] LABS: GLUCOSE 502 mg/dL (75-110)
[2019-02-12] MEDS ORDERED: NORMAL SALINE 1000 ML 1,000 ML IV ONE ×2 (16:08→17:02)
[2019-02-12 16:12] LABS: ABSOLUTE LYMPHOCYTES# (MANUAL) 0.3 10^3/uL (0.5-4.7); ABSOLUTE MONOCYTES # (MANUAL) 0.9 10^3/uL (0.1-1.4); BAND NEUTROPHILS % (MANUAL) 1 % (3-5); BASOPHILS % (MANUAL) 0 % (0-2); EOSINOPHILS % (MANUAL) 0 % (0-6); LYMPHOCYTES % (MANUAL) 3 % (13-45); MONOCYTES % (MANUAL) 8 % (3-13); RBC MORPHOLOGY COMMENT NORMO-CYTIC/CHROMIC; SEGMENTED NEUTROPHILS % (MAN) 88 % (42-78); TOTAL CELLS COUNTED 100
[2019-02-12 16:13] LABS: APPEARANCE,URINE CLOUDY; BILIRUBIN,URINE NEGATIVE (NEGATIVE); COLOR,URINE YELLOW; GLUCOSE, URINE >=500 mg/dL (NEGATIVE); KETONES,URINE 80 mg/dL (NEGATIVE); PROTEIN,URINE 100 mg/dL (NEGATIVE); URINE SPECIFIC GRAVITY 1.023; UROBILINOGEN,URINE NEGATIVE mg/dL (<2.0)
[2019-02-12 16:13] LABS: PLATELET COMMENT ADEQUATE
[2019-02-12] MEDS ORDERED: INSULIN REG, HUMAN 100 UNIT/ML 3 ML VIAL (PYX) SUBCUT ONE (18:32)
[2019-02-12] MEDS ORDERED: ONDANSETRON HCL INJ/PF 4 MG/2 ML SDV IV ONE (18:34)
[2019-02-12] MEDS ORDERED: MORPHINE SULFATE 10 MG/ML INJ IV ONE (18:34)
--- NOTE | 2019-02-12 18:37 | ER Document Report ---
Entered by MICHELLE IBARRA SCRIBE 02/12/19 1816 Acting as scribe for:JOSE LUIS SHERMAN IV, MD ED General - General Mode of Arrival: Medic Information source: Patient, Relative TRAVEL OUTSIDE OF THE [place] IN LAST 30 DAYS: No - Related Data Home Medications: lantus. cephalexin <JOSE LUIS SHERMAN IV - Last Filed: 02/12/19 18:36> <ARY WILDE - Last Filed: 02/12/19 22:30> - General Chief Complaint: Vomiting Stated Complaint: SEPSIS Time Seen by Provider: 02/12/19 18:10 Primary Care Provider: ANA ROJAS MD [Primary Care Provider] - Follow up as needed Notes: This 73 year old female patient brought in by EMS presents to the ED today with complaints of shortness of breath and vomiting that began x2 days ago. at bedside states that the patient hasn't been able to keep anything down and that her emesis looks like "brown gunk". Patient reports abdominal pain, nausea, and polydipsia. Patient denies history of diverticulitis. (JOSE LUIS SHERMAN IV) - Related Data Allergies/Adverse Reactions: Tetanus Vaccines and Toxoid [Tetanus] Allergy (Verified 02/10/19 13:45) Past Medical History - General Information source: Patient - Social History Smoking Status: Unknown if Ever Smoked Cigarette use (# per day): No Chew tobacco use (# tins/day): No Smoking Education Provided: No Lives with: Spouse/Significant other Family History: Reviewed & Not Pertinent Patient has suicidal ideation: No Patient has homicidal ideation: No - Past Medical History Cardiac Medical History: Reports: Hx Hypercholesterolemia, Hx Hypertension Endocrine Medical History: Reports: Hx Diabetes Mellitus Type 2 GI Medical History: Reports: Hx Gastroesophageal Reflux Disease Musculoskeletal Medical History: Reports Hx Musculoskeletal Deformity, Reports Hx Musculoskeletal Trauma Skin Medical History: Reports Hx MRSA - MRSA 08/15 FOOT Past Surgical History: Reports: Hx Orthopedic Surgery - rt bka and toe on left hip ORIF - Immunizations Hx Diphtheria, Pertussis, Tetanus Vaccination: - allergic <JOSE LUIS SHERMAN IV - Last Filed: 02/12/19 18:36> Review of Systems - Review of Systems Constitutional: See HPI, Other - Polydipsia EENT: No symptoms reported Cardiovascular: No symptoms reported Respiratory: See HPI, Short of breath Gastrointestinal: See HPI, Abdominal pain, Nausea, Vomiting Genitourinary: No symptoms reported Female Genitourinary: No symptoms reported Musculoskeletal: No symptoms reported Skin: No symptoms reported Neurological/Psychological: No symptoms reported -: Yes All other systems reviewed and negative <JACINDAJOSE LUIS IV - Last Filed: 02/12/19 18:36> Physical Exam - Vital signs Interpretation: Tachycardic - General General appearance: Alert - HEENT Head: Normocephalic, Atraumatic Eyes: Normal Pupils: PERRL - Respiratory Respiratory status: No respiratory distress Chest status: Nontender Breath sounds: Normal Chest palpation: Normal - Cardiovascular Rhythm: Tachycardia Heart sounds: Normal auscultation Murmur: No - Abdominal Inspection: Normal Distension: No distension Bowel sounds: Normal Tenderness: Tender - LLQ tenderness with palpation, Other - Abdomen soft Organomegaly: No organomegaly - Back Back: Normal, Nontender - Extremities General upper extremity: Normal inspection General lower extremity: Normal inspection - Neurological Neuro grossly intact: Yes - Psychological Associated symptoms: Normal affect, Normal mood - Skin Skin Temperature: Warm Skin Moisture: Dry Skin Color: Normal <JACINDAJOSE LUIS IV - Last Filed: 02/12/19 18:36> - Vital signs Vitals: Resp Pulse Ox 21 H 99 02/12/19 15:17 02/12/19 15:17 Course - Laboratory Result Diagrams: 02/12/19 15:12 02/12/19 15:12 <JACINDAJOSE LUIS IV - Last Filed: 02/12/19 18:36> - Laboratory Result Diagrams: 02/12/19 15:12 02/12/19 15:12 <ARY WILDE - Last Filed: 02/12/19 22:30> - Re-evaluation Re-evalutation: 02/12/19 22:09 Care of this patient was transferred to co by Dr. Sherman at [address] results. She is an elderly lady followed by Dr. Rojas who presents with nausea, vomiting, increased thirst as well as some dysuria and abdominal discomfort. She was febrile and had an elevated white count. Initial assessment was that she had a nonsurgical abdomen. She underwent a CT that showed a lot of retained fecal material in the colon as well as some cholelithiasis with no other acute findings. Her lactate level was elevated. Blood pressures been stable. She has significant pyuria consistent with urinary tract infection. Patient is received IV hydration and blood cultures have been sent. Chest x-ray is clear. She also got a dose of Zosyn and vancomycin. I will present patient to the hospitalist for admission at this time. 02/12/19 22:[address] Chuck Goff for telemetry. (ARY WILDE) - Vital Signs Vital signs: Temp Pulse Resp BP Pulse Ox 98.1 F 20 167/120 H 98 02/12/19 16:03 02/12/19 15:20 02/12/19 15:20 02/12/19 15:30 - Laboratory Laboratory results interpreted by me: 02/12/19 02/12/19 02/12/19 15:12 15:12 15:12 WBC 11.2 H Seg Neuts % (Manual) 88 H Band Neutrophils % 1 L Lymphocytes % (Manual) 3 L Abs Neuts (Manual) 10.0 H Abs Lymphs (Manual) 0.3 L Chloride 92 L Anion Gap 22 H BUN 36 H Glucose 502 H* Lactic Acid 3.6 H Alkaline Phosphatase 163 H Urine Protein Urine Glucose (UA) Urine Ketones Urine Blood Leukocyte Esterase Rfl 02/12/19 02/12/19 15:16 19:37 WBC Seg Neuts % (Manual) Band Neutrophils % Lymphocytes % (Manual) Abs Neuts (Manual) Abs Lymphs (Manual) Chloride Anion Gap BUN Glucose Lactic Acid 2.2 H Alkaline Phosphatase Urine Protein 100 H Urine Glucose (UA) >=500 H Urine Ketones 80 H Urine Blood MODERATE H Leukocyte Esterase Rfl MODERATE H Discharge <JOSE LUIS SHERMAN IV - Last Filed: 02/12/19 18:36> - Discharge Admitting Provider: [place] (Hospitalist) Unit Admitted: Telemetry <ARY WILDE - Last Filed: 02/12/19 22:30> - Discharge Clinical Impression: Fecal impaction, Dehydration Sepsis Qualifiers: Sepsis type: sepsis due to unspecified organism Sepsis acute organ dysfunction status: unspecified Qualified Code(s): A41.9 - Sepsis, unspecified organism UTI (urinary tract infection) Qualifiers: Urinary tract infection type: site unspecified Hematuria presence: without hematuria Qualified Code(s): N39.0 - Urinary tract infection, site not specified Diabetes mellitus type 2, uncontrolled Qualifiers: Glycemic state: with hyperglycemia Qualified Code(s): E11.65 - Type 2 diabetes mellitus with hyperglycemia Condition: Fair Disposition: ADMITTED INPATIENT Referrals: ANA ROJAS MD [Primary Care Provider] - Follow up as needed I personally performed the services described in the documentation, reviewed and edited the documentation which was dictated to the scribe in my presence, and it accurately records my words and actions.
--- NOTE | 2019-02-12 19:45 | EKG REPORT ---
SEVERITY:- ABNORMAL ECG - SINUS TACHYCARDIA NONSPECIFIC INFEROLATERAL ST-T CHANGES : Confirmed by: Narayan Griffiths MD 12-Feb-2019 19:44:48
[2019-02-12] MEDS ORDERED: PIPERACILLIN/TAZOBACTAM 4.5 GM VIAL IV ONE (20:10)
[2019-02-12] MEDS ORDERED: VANCOMYCIN HCL INJ 1000 MG VIAL IV ONE (20:10)
--- NOTE | 2019-02-12 21:27 | RADIOLOGY REPORT (SQ) ---
EXAM DESCRIPTION: RadLex: CT ABDOMEN PELVIS WITH IV CONTRAST CLINICAL HISTORY: 73 years Female; LLQ PAIN WITH N/V X 2 DAYS TECHNIQUE: CT of the abdomen and pelvis using intravenous contrast. All CT scans at this facility use dose modulation, iterative reconstruction, and/or weight based dosing when appropriate to reduce radiation dose to as low as reasonably achievable. COMPARISON: CT 04/13/2012 FINDINGS: Linear scarring versus atelectasis is partially visualized in the lower lobes. Abdomen: Liver:No focal lesions. No intrahepatic ductal distention. Gallbladder: Multiple hyperdense stones. No adjacent edema. Pancreas:Within normal limits Spleen:Within normal limits Right kidney: Multiple parapelvic cysts as on prior exam. No hydronephrosis. No suspicious lesion. Left kidney: Multiple parapelvic cysts as on prior exam. No suspicious lesion. No hydronephrosis. Adrenal glands:Within normal limits Vascular structures: Moderate aortic and branch calcifications. No aneurysm or dissection. Pelvis: Small bowel:No significant distention. Appendix:Within normal limits Colon: Moderate fecal retention. Rectum is up to 8 cm transverse diameter, due to large amount of fecal material. No surrounding edema. No significant proximal colonic distention. No free intraperitoneal fluid or air. Bones: Fixation screws in both femoral necks are again noted. Lumbar spine degenerative changes are similar. Bladder: Decompressed by Wong catheter. Uterus: Coarse calcifications 1.2 cm diameter, typical for fibroid. No pelvic adenopathy. IMPRESSION: 1. Colonic fecal retention, with possible rectal fecal impaction. 2. No significant proximal bowel distention or acute inflammatory changes. 3. Cholelithiasis as on prior exam 4. Wong catheter in place 5. Other chronic findings as on 04/13/2012
[2019-02-12] MEDS ORDERED: LACTULOSE SYRUP 20 GM/30 ML UDCUP PO ONE (22:30)
[2019-02-12] MEDS ORDERED: MINERAL OIL ENEMA 133 ML PR ONE (22:30)
[2019-02-12] MEDS ORDERED: GLUCAGON,HUMAN RECOMB 1 MG INJ IM PRN (22:31)
[2019-02-12] MEDS ORDERED: DEXTROSE 50%-WATER 25 GM/50 ML DISP.SYRIN IV PRN ×2 (22:31)
[2019-02-12] MEDS ORDERED: IPRATROPIUM/ALBUTEROL 0.5-2.5 MG/3 ML AMPUL NEB PRN (22:31)
[2019-02-12] MEDS ORDERED: DEXTROSE 40% GEL 15 GM TUBE PO PRN ×2 (22:31)
[2019-02-12] MEDS ORDERED: CEFTRIAXONE 1 GM/D5W RTU 1 GM/50 ML RTUPB IV ONE (23:00)
[2019-02-12] MEDS ORDERED: INSULIN GLARGINE,HUM.REC.ANLOG 1,000 UNIT/10 ML VIAL SUBCUT ONE (23:30)
[2019-02-13] MEDS: NORMAL SALINE 1000 ML 1,000 ML IV PRN ×3 (00:43→12:05)
[2019-02-13] MEDS ORDERED: INSULIN GLARGINE,HUM.REC.ANLOG 1,000 UNIT/10 ML VIAL SUBCUT ONE (00:45)
[2019-02-13] MEDS ORDERED: MINERAL OIL ENEMA 133 ML PR ONE ×2 (00:59→01:00)
[2019-02-13] MEDS ORDERED: INSULIN GLARGINE,HUM.REC.ANLOG 1,000 UNIT/10 ML VIAL (PYX) SUBCUT ONE (01:09)
[2019-02-13] MEDS ORDERED: INFLUENZA QUAD (6MOS+) 2019-20 VAC 0.5 ML SYR IM ONE (03:07)
--- NOTE | 2019-02-13 04:38 | PDOC H&P ---
History of Present Illness Admission Date/PCP: 02/12/19 22:40 ANA RESENDEZ MD Patient complains of: Left lower quadrant pain History of Present Illness: ALEXANDER ELI is a 73 year old female with a past medical history of diabetes, hypertension, dyslipidemia, status post right BKA. She presents with 2 days of left lower quadrant pain. In the emergency room she is found to have tachycardia, leukocytosis, urinalysis with pyuria and a CT revealing massive fecal impaction. She receives empiric antibiotics and referred to the hospitalist for admission. Patient cannot remember her last normal bowel movement. Past Medical History Cardiac Medical History: Reports: Hyperlipidema, Hypertension Endocrine Medical History: Reports: Diabetes Mellitus Type 2 GI Medical History: Reports: Gastroesophageal Reflux Disease Psychiatric Medical History: Denies: Depression Past Surgical History Past Surgical History: Reports: Orthopedic Surgery - rt bka and toe on left hip ORIF Social History Information Source: Patient, [facility] Records Lives with: Spouse/Significant other Smoking Status: Never Smoker Electronic Cigarette use?: No Frequency of Alcohol Use: None Hx Recreational Drug Use: No Drugs: None Hx Prescription Drug Abuse: No - Advance Directive Resuscitation Status: Full Code Family History Family History: Hypertension Parental Family History Reviewed: Yes Children Family History Reviewed: Yes Sibling(s) Family History Reviewed.: Yes Medication/Allergy Home Medications: Acetaminophen [Tylenol 325 mg Tablet] 650 mg PO Q6HP PRN tablet 04/22/17 Cephalexin Monohydrate [Keflex 500 mg Capsule] 500 mg PO Q6 #28 capsule 04/22/17 Insulin Glargine,Hum.rec.anlog [Lantus Insulin 100 Unit/mL Insulin Pen] 10 unit SUBCUT QHS #1 insuln.pen 04/22/17 Insulin Lispro [Humalog Insulin (Lispro) 100 unit/mL] 0 - 12 unit SUBCUT ACHSP PRN #1 vial 04/22/17 Oxycodone HCl/Acetaminophen [Percocet 5-325 mg Tablet] 1 tab PO TIDP PRN #9 tab 04/22/17 Cephalexin Monohydrate [Keflex 500 mg Capsule] 500 mg PO Q6H 14 Days capsule 06/01/17 Insulin Glargine,Hum.rec.anlog [Lantus Insulin 100 Unit/mL Insulin Pen] 20 unit SUBCUT QHS #1 pen 06/01/17 Insulin Lispro [Humalog Insulin (Lispro) 100 unit/mL] 0 - 12 unit SUBCUT ACHSP PRN #2 vial 06/01/17 Sulfamethoxazole/Trimethoprim [Bactrim Ds Tablet] 1 tab PO BID #28 tablet 06/01/17 Cephalexin Monohydrate [Keflex 500 mg Capsule] 500 mg PO TID #21 capsule 02/10/19 Allergies/Adverse Reactions: Tetanus Vaccines and Toxoid [Tetanus] Allergy (Verified 02/10/19 13:45) Review of Systems Constitutional: PRESENT: anorexia. ABSENT: chills, fever(s), headache(s), weight gain, weight loss Eyes: ABSENT: visual disturbances Ears: ABSENT: hearing changes Cardiovascular: ABSENT: chest pain, dyspnea on exertion, edema, orthropnea, palpitations Respiratory: ABSENT: cough, hemoptysis Gastrointestinal: PRESENT: constipation. ABSENT: abdominal pain, diarrhea, hematemesis, hematochezia, nausea, vomiting Genitourinary: ABSENT: dysuria, hematuria Musculoskeletal: ABSENT: joint swelling Integumentary: ABSENT: rash, wounds Neurological: ABSENT: abnormal gait, abnormal speech, confusion, dizziness, focal weakness, syncope Psychiatric: ABSENT: anxiety, depression, homidical ideation, suicidal ideation Endocrine: ABSENT: cold intolerance, heat intolerance, polydipsia, polyuria Hematologic/Lymphatic: ABSENT: easy bleeding, easy bruising Physical Exam Vital Signs: Temp Pulse Resp BP Pulse Ox 98.1 F 106 H 16 122/74 100 02/12/19 16:03 02/13/19 02:00 02/12/19 23:01 02/12/19 23:00 02/12/19 23:01 Intake & Output 02/11/19 02/12/19 02/13/19 11:59 11:59 11:59 Intake Total 1999 Balance 1999 Weight 72.575 kg General appearance: PRESENT: cooperative, mild distress, well-developed, well- nourished Head exam: PRESENT: atraumatic, normocephalic Eye exam: PRESENT: conjunctiva pink, EOMI, PERRLA. ABSENT: scleral icterus Ear exam: PRESENT: normal external ear exam Mouth exam: PRESENT: moist, tongue midline Neck exam: ABSENT: carotid bruit, JVD, lymphadenopathy, thyromegaly Respiratory exam: PRESENT: clear to auscultation mirna. ABSENT: rales, rhonchi, wheezes Cardiovascular exam: PRESENT: RRR. ABSENT: diastolic murmur, rubs, systolic murmur Pulses: PRESENT: normal dorsalis pedis pul Vascular exam: PRESENT: normal capillary refill GI/Abdominal exam: PRESENT: hypoactive bowel sounds, normal bowel sounds, soft, tenderness - Left lower quadrant pain without guarding. ABSENT: distended, gu arding, mass, organolmegaly, rebound Rectal exam: PRESENT: deferred Extremities exam: PRESENT: full ROM. ABSENT: calf tenderness, clubbing, pedal edema Neurological exam: PRESENT: alert, awake, oriented to person, oriented to place, oriented to time, oriented to situation, CN II-XII grossly intact. ABSENT: motor sensory deficit Psychiatric exam: PRESENT: appropriate affect, normal mood. ABSENT: homicidal ideation, suicidal ideation Skin exam: PRESENT: dry, intact, warm. ABSENT: cyanosis, rash Results Laboratory Results: 02/12/19 15:12 02/12/19 15:12 02/12/19 02/12/19 02/12/19 15:12 15:12 15:12 WBC 11.2 H RBC 4.83 Hgb 13.3 Hct 39.8 MCV 82 MCH 27.6 MCHC 33.5 RDW 13.7 Plt Count 271 Seg Neutrophils % Not Reportable VBG pH 7.38 VBG pCO2 42.4 VBG HCO3 24.7 VBG Base Excess -0.5 Sodium 137.6 Potassium 3.8 Chloride 92 L Carbon Dioxide 24 Anion Gap 22 H BUN 36 H Creatinine 0.91 Est GFR ( Amer) > 60 Glucose 502 H* Lactic Acid Calcium 9.5 Total Bilirubin 0.9 AST 21 Alkaline Phosphatase 163 H Total Protein 7.1 Albumin 4.0 Urine Color Urine Appearance Urine pH Ur Specific [place] Urine Protein Urine Glucose (UA) Urine Ketones Urine Blood Urine RBC (Auto) 02/12/19 02/12/19 02/12/19 15:12 15:16 19:37 WBC RBC Hgb Hct MCV MCH MCHC RDW Plt Count Seg Neutrophils % VBG pH VBG pCO2 VBG HCO3 VBG Base Excess Sodium Potassium Chloride Carbon Dioxide Anion Gap BUN Creatinine Est GFR ( Amer) Glucose Lactic Acid 3.6 H 2.2 H Calcium Total Bilirubin AST Alkaline Phosphatase Total Protein Albumin Urine Color YELLOW Urine Appearance CLOUDY Urine pH 5.0 Ur Specific [place] 1.023 Urine Protein 100 H Urine Glucose (UA) >=500 H Urine Ketones 80 H Urine Blood MODERATE H Urine RBC (Auto) 14 02/12/19 22:47 WBC RBC Hgb Hct MCV MCH MCHC RDW Plt Count Seg Neutrophils % VBG pH VBG pCO2 VBG HCO3 VBG Base Excess Sodium Potassium Chloride Carbon Dioxide Anion Gap BUN Creatinine Est GFR ( Amer) Glucose Lactic Acid 2.0 Calcium Total Bilirubin AST Alkaline Phosphatase Total Protein Albumin Urine Color Urine Appearance Urine pH Ur Specific [place] Urine Protein Urine Glucose (UA) Urine Ketones Urine Blood Urine RBC (Auto) 02/12/19 15:12 Troponin I < 0.012 Impressions: Chest X-Ray 02/12/19 15:06 IMPRESSION: NO ACUTE RADIOGRAPHIC FINDING IN THE CHEST. Abdomen/Pelvis CT 02/12/19 18:35 IMPRESSION: 1. Colonic fecal retention, with possible rectal fecal impaction. 2. No significant proximal bowel distention or acute inflammatory changes. 3. Cholelithiasis as on prior exam 4. Wong catheter in place 5. Other chronic findings as on 04/13/2012 Assessment and Plan - Diagnosis (1) UTI (urinary tract infection) Qualifiers: Urinary tract infection type: site unspecified Hematuria presence: without hematuria Qualified Code(s): N39.0 - Urinary tract infection, site not specified Is this a current diagnosis for this admission?: Yes Plan: Empiric antibiotics, follow-up CBC, urine and blood culture (2) Dehydration Is this a current diagnosis for this admission?: Yes Plan: IV fluid challenge, follow-up chemistry (3) Diabetes mellitus type 2, uncontrolled Qualifiers: Glycemic state: with hyperglycemia Qualified Code(s): E11.65 - Type 2 diabetes mellitus with hyperglycemia Is this a current diagnosis for this admission?: Yes Plan: Outpatient regiment with Humalog sliding scale (4) Fecal impaction Is this a current diagnosis for this admission?: Yes Plan: Manual disimpaction, mineral oil enema, lactulose p.o. and bowel regiment with education. - Time Time Spent with patient: 35 or more minutes - Inpatient Certification Medical Necessity: Need Close Monitoring Due to Risk of Patient Decompensation
[2019-02-13] MEDS: HEPARIN SOD (PORCINE) 5,000 UNIT/ML 1 ML VIAL SUBCUT SCH ×3 (06:13→22:42)
[2019-02-13 06:33] LABS: ABSOLUTE LYMPHOCYTES (AUTO) 0.7 10^3/uL (0.5-4.7); ABSOLUTE MONOCYTES (AUTO) 0.8 10^3/uL (0.1-1.4); ABSOLUTE NEUT (AUTO) 7.9 10^3/uL (1.7-8.2); BASOPHILS % (AUTO) 0.2 % (0-2); HEMATOCRIT 33.2 % (36.0-47.0); HEMOGLOBIN 11.4 g/dL (12.0-15.5); LYMPHOCYTES % (AUTO) 7.1 % (13-45); MEAN CORPUSCULAR HEMOGLOBIN 27.8 pg (27.0-33.4); MEAN CORPUSCULAR HGB CONC 34.5 g/dL (32.0-36.0); MEAN CORPUSCULAR VOLUME 81 fl (80-97); MONOCYTES % (AUTO) 8.1 % (3-13); PLATELET COUNT 223 10^3/uL (150-450); RED BLOOD COUNT 4.11 10^6/uL (3.72-5.28); RED CELL DISTRIBUTION WIDTH 13.4 % (11.5-14.0); SEGMENTED NEUTROPHILS % (AUTO) 84.6 % (42-78); TOTAL CELLS COUNTED % (AUTO) 100 %; WHITE BLOOD COUNT 9.4 10^3/uL (4.0-10.5)
[2019-02-13 06:53] LABS: ANION GAP 7 (5-19); BLOOD UREA NITROGEN 35 mg/dL (7-20); CALCIUM 8.4 mg/dL (8.4-10.2); CARBON DIOXIDE 32 mmol/L (22-30); CHLORIDE 99 mmol/L (98-107); GLUCOSE 294 mg/dL (75-110); POTASSIUM 3.9 mmol/L (3.6-5.0)
[2019-02-13] MEDS: INSULIN LISPRO 100 UNIT/ML 3 ML VIAL SUBCUT SCH ×3 (08:13→17:31)
[2019-02-13] MEDS ORDERED: ONDANSETRON HCL INJ/PF 4 MG/2 ML SDV ONE (08:39)
[2019-02-13] MEDS: LACTULOSE SYRUP 20 GM/30 ML UDCUP PO SCH ×2 (11:25→17:30)
[2019-02-13] MEDS: DOCUSATE SODIUM 100 MG CAPSULE PO SCH ×2 (11:25→17:31)
[2019-02-13] MEDS: ACETAMINOPHEN 325 MG TABLET PO PRN (11:29)
--- NOTE | 2019-02-13 15:29 | PDOC PROGRESS REPORT ---
Subjective Progress Note for:: 02/13/19 Subjective:: Patient's abdominal pain and nausea feels better today. Still occasionally getting nauseous and requesting antiemetics. Patient denies dysuria. Admits to some polyuria. Reason For Visit: UTI,FECAL IMPACTION Physical Exam Vital Signs: Temp Pulse Resp BP Pulse Ox 98.0 F 86 20 130/70 H 97 02/13/19 12:14 02/13/19 12:14 02/13/19 12:14 02/13/19 12:14 02/13/19 12:14 Intake & Output 02/12/19 02/13/19 02/14/19 06:59 06:59 06:59 Intake Total 3050 1000 Output Total 1450 Balance 1600 1000 Weight 165 kg General appearance: PRESENT: no acute distress, cooperative Neck exam: ABSENT: JVD Respiratory exam: PRESENT: clear to auscultation mirna, symmetrical, unlabored. ABSENT: tachypnea, wheezes Cardiovascular exam: PRESENT: +S1, +S2 GI/Abdominal exam: PRESENT: distended - Mild, soft, tenderness. ABSENT: firm, guarding, rebound, rigid Neurological exam: PRESENT: alert, awake Results Laboratory Results: 02/13/19 06:00 02/13/19 06:00 02/12/19 02/12/19 02/12/19 15:12 15:12 15:12 WBC 11.2 H RBC 4.83 Hgb 13.3 Hct 39.8 MCV 82 MCH 27.6 MCHC 33.5 RDW 13.7 Plt Count 271 Seg Neutrophils % Not Reportable VBG pH 7.38 VBG pCO2 42.4 VBG HCO3 24.7 VBG Base Excess -0.5 Sodium 137.6 Potassium 3.8 Chloride 92 L Carbon Dioxide 24 Anion Gap 22 H BUN 36 H Creatinine 0.91 Est GFR ( Amer) > 60 Glucose 502 H* Lactic Acid Calcium 9.5 Total Bilirubin 0.9 AST 21 Alkaline Phosphatase 163 H Total Protein 7.1 Albumin 4.0 Urine Color Urine Appearance Urine pH Ur Specific Swan Urine Protein Urine Glucose (UA) Urine Ketones Urine Blood Urine RBC (Auto) 02/12/19 02/12/19 02/12/19 15:12 15:16 19:37 WBC RBC Hgb Hct MCV MCH MCHC RDW Plt Count Seg Neutrophils % VBG pH VBG pCO2 VBG HCO3 VBG Base Excess Sodium Potassium Chloride Carbon Dioxide Anion Gap BUN Creatinine Est GFR ( Amer) Glucose Lactic Acid 3.6 H 2.2 H Calcium Total Bilirubin AST Alkaline Phosphatase Total Protein Albumin Urine Color YELLOW Urine Appearance CLOUDY Urine pH 5.0 Ur Specific Swan 1.023 Urine Protein 100 H Urine Glucose (UA) >=500 H Urine Ketones 80 H Urine Blood MODERATE H Urine RBC (Auto) 14 02/12/19 02/13/19 02/13/19 22:47 06:00 06:00 WBC 9.4 RBC 4.11 Hgb 11.4 L Hct 33.2 L MCV 81 MCH 27.8 MCHC 34.5 RDW 13.4 Plt Count 223 Seg Neutrophils % 84.6 H VBG pH VBG pCO2 VBG HCO3 VBG Base Excess Sodium 138.2 Potassium 3.9 Chloride 99 Carbon Dioxide 32 H Anion Gap 7 BUN 35 H Creatinine 0.71 Est GFR ( Amer) > 60 Glucose 294 H Lactic Acid 2.0 Calcium 8.4 Total Bilirubin AST Alkaline Phosphatase Total Protein Albumin Urine Color Urine Appearance Urine pH Ur Specific Swan Urine Protein Urine Glucose (UA) Urine Ketones Urine Blood Urine RBC (Auto) 02/12/19 15:12 Troponin I < 0.012 Impressions: Chest X-Ray 02/12/19 15:06 IMPRESSION: NO ACUTE RADIOGRAPHIC FINDING IN THE CHEST. Abdomen/Pelvis CT 02/12/19 18:35 IMPRESSION: 1. Colonic fecal retention, with possible rectal fecal impaction. 2. No significant proximal bowel distention or acute inflammatory changes. 3. Cholelithiasis as on prior exam 4. Wong catheter in place 5. Other chronic findings as on 04/13/2012 Assessment and Plan - Diagnosis (1) Fecal impaction Is this a current diagnosis for this admission?: Yes Plan: Manual disimpaction, mineral oil enema, lactulose p.o. performed yesterday Given additional soapsuds enema today with good production of significant bowel movement Continue on bowel regimen Zofran and Reglan as needed nausea vomiting (2) UTI (urinary tract infection) Qualifiers: Urinary tract infection type: site unspecified Hematuria presence: without hematuria Qualified Code(s): N39.0 - Urinary tract infection, site not specified Is this a current diagnosis for this admission?: Yes Plan: Continue ceftriaxone Urine culture growing gram-negative rods (3) Dehydration Is this a current diagnosis for this admission?: Yes Plan: Secondary to decreased p.o. intake due to nausea pain brought about by fecal impaction/constipation Received IV fluids Encourage p.o. intake. Antiemetics. (4) Diabetes mellitus type 2, uncontrolled Qualifiers: Glycemic state: with hyperglycemia Qualified Code(s): E11.65 - Type 2 diabetes mellitus with hyperglycemia Is this a current diagnosis for this admission?: Yes Plan: Currently on Lantus 10 units nightly. Continue sliding scale and Accu-Cheks. W ill need to confirm outpatient regimen with patient - Time Time Spent with patient: 15-24 minutes
[2019-02-13] MEDS: ONDANSETRON HCL INJ/PF 4 MG/2 ML SDV IV PRN (16:07)
[2019-02-13] MEDS: METOCLOPRAMIDE HCL INJ/PF 10 MG/2 ML SDV IV PRN (16:07)
[2019-02-13] MEDS ORDERED: INSULIN GLARGINE,HUM.REC.ANLOG 1,000 UNIT/10 ML VIAL SUBCUT SCH (22:00)
[2019-02-13] MEDS: CEFTRIAXONE 1 GM/D5W RTU 1 GM/50 ML RTUPB IV SCH (22:43)
[2019-02-14] MEDS: HEPARIN SOD (PORCINE) 5,000 UNIT/ML 1 ML VIAL SUBCUT SCH ×2 (05:36→14:25)
[2019-02-14 06:02] LABS: ABSOLUTE LYMPHOCYTES (AUTO) 0.8 10^3/uL (0.5-4.7); ABSOLUTE MONOCYTES (AUTO) 0.5 10^3/uL (0.1-1.4); ABSOLUTE NEUT (AUTO) 3.8 10^3/uL (1.7-8.2); BASOPHILS % (AUTO) 0.5 % (0-2); EOSINOPHILS % (AUTO) 0.2 % (0-6); HEMOGLOBIN 10.9 g/dL (12.0-15.5); LYMPHOCYTES % (AUTO) 15.8 % (13-45); MEAN CORPUSCULAR HGB CONC 35.1 g/dL (32.0-36.0); MEAN CORPUSCULAR VOLUME 80 fl (80-97); MONOCYTES % (AUTO) 9.2 % (3-13); PLATELET COUNT 181 10^3/uL (150-450); RED BLOOD COUNT 3.89 10^6/uL (3.72-5.28); SEGMENTED NEUTROPHILS % (AUTO) 74.3 % (42-78); TOTAL CELLS COUNTED % (AUTO) 100 %; WHITE BLOOD COUNT 5.1 10^3/uL (4.0-10.5)
[2019-02-14 06:21] LABS: BLOOD UREA NITROGEN 19 mg/dL (7-20); CALCIUM 8.2 mg/dL (8.4-10.2); CARBON DIOXIDE 31 mmol/L (22-30); GLUCOSE 188 mg/dL (75-110); POTASSIUM 3.3 mmol/L (3.6-5.0)
[2019-02-14 06:27] LABS: CHLORIDE 99 mmol/L (98-107)
[2019-02-14 06:36] LABS: ANION GAP 5 (5-19)
[2019-02-14] MEDS: NORMAL SALINE 1000 ML 1,000 ML IV PRN ×2 (09:21→18:05)
[2019-02-14] MEDS: DOCUSATE SODIUM 100 MG CAPSULE PO SCH ×2 (09:21→17:08)
[2019-02-14] MEDS: ONDANSETRON HCL INJ/PF 4 MG/2 ML SDV IV PRN (09:22)
[2019-02-14] MEDS: INSULIN LISPRO 100 UNIT/ML 3 ML VIAL SUBCUT SCH ×3 (09:22→17:08)
[2019-02-14] MEDS: ACETAMINOPHEN 325 MG TABLET PO PRN (09:22)
[2019-02-14] MEDS: METOCLOPRAMIDE HCL INJ/PF 10 MG/2 ML SDV IV PRN (09:22)
[2019-02-14] MEDS: POTASSI CL 20 MEQ/50 ML RIDER 20 MEQ/50 ML RTUPB IV SCH ×3 (09:23→14:22)
[2019-02-14] MEDS ORDERED: MAG HYDROX/AL HYDROX/SIMETH SUSP 30 ML UDCUP PO PRN (13:00)
--- NOTE | 2019-02-14 13:19 | PDOC PROGRESS REPORT ---
Subjective Progress Note for:: 02/14/19 Subjective:: Patient today complaining of pain in her right upper quadrant and sometimes in her chest whenever she eats or swallows. Had voluminous bowel movement yesterday. Reason For Visit: UTI,FECAL IMPACTION Physical Exam Vital Signs: Temp Pulse Resp BP Pulse Ox 97.9 F 88 18 135/56 H 98 02/14/19 11:15 02/14/19 11:15 02/14/19 11:15 02/14/19 11:15 02/14/19 11:15 Intake & Output 02/13/19 02/14/19 02/15/19 06:59 06:59 06:59 Intake Total 3050 1410 600 Output Total 1450 1975 900 Balance 1600 -565 -300 Weight 165 kg 165.3 kg General appearance: PRESENT: no acute distress, cooperative Neck exam: ABSENT: JVD Respiratory exam: PRESENT: clear to auscultation mirna, unlabored. ABSENT: tachypnea, wheezes Cardiovascular exam: PRESENT: RRR, +S1, +S2. ABSENT: tachycardia GI/Abdominal exam: PRESENT: normal bowel sounds, soft, tenderness - Right upper quadrant. ABSENT: distended, firm, guarding, rebound, rigid Neurological exam: PRESENT: alert, awake Results Laboratory Results: 02/14/19 05:31 02/14/19 05:31 02/14/19 02/14/19 05:31 05:31 WBC 5.1 RBC 3.89 Hgb 10.9 L Hct 31.0 L MCV 80 MCH 28.0 MCHC 35.1 RDW 13.0 Plt Count 181 Seg Neutrophils % 74.3 Sodium 135.0 L Potassium 3.3 L Chloride 99 Carbon Dioxide 31 H Anion Gap 5 BUN 19 Creatinine 0.51 L Est GFR ( Amer) > 60 Glucose 188 H Calcium 8.2 L 02/12/19 15:12 Troponin I < 0.012 Impressions: Chest X-Ray 02/12/19 15:06 IMPRESSION: NO ACUTE RADIOGRAPHIC FINDING IN THE CHEST. Abdomen/Pelvis CT 02/12/19 18:35 IMPRESSION: 1. Colonic fecal retention, with possible rectal fecal impaction. 2. No significant proximal bowel distention or acute inflammatory changes. 3. Cholelithiasis as on prior exam 4. Wong catheter in place 5. Other chronic findings as on 04/13/2012 Assessment and Plan - Diagnosis (1) Fecal impaction Is this a current diagnosis for this admission?: Yes Plan: Resolved. Had good bowel movements Given additional soapsuds enema today with good production of significant bowel movement Continue on bowel regimen Zofran and Reglan as needed nausea vomiting (2) UTI (urinary tract infection) Qualifiers: Urinary tract infection type: acute cystitis Hematuria presence: without hematuria Qualified Code(s): N30.00 - Acute cystitis without hematuria Is this a current diagnosis for this admission?: Yes Plan: Continue ceftriaxone day 2 Urine culture growing E. coli (3) RUQ abdominal pain Is this a current diagnosis for this admission?: Yes Plan: Likely gastritis/duodenitis occurring with food consumption maalox prn, ppi RUQ US (4) Dehydration Is this a current diagnosis for this admission?: Yes Plan: Secondary to decreased p.o. intake due to nausea from constipation or ga stritis/duodenitis Encourage p.o. intake. Antiemetics. (5) Diabetes mellitus type 2, uncontrolled Qualifiers: Glycemic state: with hyperglycemia Qualified Code(s): E11.65 - Type 2 diabetes mellitus with hyperglycemia Is this a current diagnosis for this admission?: Yes Plan: Lantus 20 units nightly. Continue sliding scale and Accu-Cheks. - Time Time Spent with patient: 15-24 minutes
[2019-02-14] MEDS: PANTOPRAZOLE SODIUM 40 MG TABLET.DR PO SCH (14:25)
--- NOTE | 2019-02-14 15:08 | RADIOLOGY REPORT (SQ) ---
EXAM DESCRIPTION: U/S ABDOMEN LIMITED W/O DOP COMPLETED DATE/TIME: 02/14/2019 1:39 pm REASON FOR STUDY: RUQ pain COMPARISON: CT abdomen pelvis 02/12/2019 TECHNIQUE: Dynamic and static grayscale images acquired of the abdomen and recorded on PACS. Arcadioo krystal selected color Doppler and spectral images recorded. LIMITATIONS: Midline bowel gas FINDINGS: PANCREAS: Not visualized LIVER: No masses. Echotexture normal. LIVER VASCULATURE: Normal directional flow of the main portal vein and hepatic veins. GALLBLADDER: Distended gallbladder 10 cm in length. There are multiple stones present without gallbl adder wall thickening or pericholecystic fluid. Negative sonographic Carter's sign ULTRASOUND-DETECTED CARTER'S SIGN: Negative. INTRAHEPATIC DUCTS AND COMMON DUCT: CBD and intrahepatic ducts normal caliber. No filling defects. INFERIOR VENA CAVA: Normal flow. AORTA: No aneurysm. RIGHT KIDNEY: Normal size. Normal echogenicity. No solid or suspicious masses. No hydronephrosis. No calcifications. PERITONEAL AND RIGHT PLEURAL SPACE: No ascites or effusions. OTHER: No other significant findings. IMPRESSION: Distended gallbladder. Multiple stones. No gallbladder wall thickening or pericholecys tic fluid. Negative sonographic Carter's sign TECHNICAL DOCUMENTATION: JOB ID: [id number] [employer]- All Rights Reserved Reading location - IP/workstation name: [email or web address]
[2019-02-14] MEDS ORDERED: SUCRALFATE 1 GM TABLET PO ONE (17:30)
[2019-02-14] MEDS ORDERED: DEXTROSE 40% GEL 15 GM TUBE PO PRN ×2 (20:31)
[2019-02-14] MEDS ORDERED: DEXTROSE 50%-WATER 25 GM/50 ML DISP.SYRIN IV PRN ×2 (20:31)
[2019-02-14] MEDS ORDERED: GLUCAGON,HUMAN RECOMB 1 MG INJ SUBCUT PRN (20:31)
--- NOTE | 2019-02-14 20:39 | PDOC CONSULTATION ---
Consultation Consult Date: 02/14/19 Attending physician:: PATRICIA JOHNSON Provider Consulted: MONICA LONGORIA Consult reason:: Gall stones History of Present Illness Admission Date/PCP: 02/12/19 22:40 ANA RESENDEZ MD History of Present Illness: ALEXANDER ELI is a 73 year old female Presented to the emergency department complaining of chest abdominal pain, weakness. She was diagnosed with urinary tract infection and dehydration. She was resuscitated successfully, and maintained on intravenous antibiotics. She had a CT scan of the abdomen and pelvis which showed gallstones, and fecal impaction. She underwent manual disimpaction and enemas with clearance of her retained stool. She had a gallbladder ultrasound which revealed cholelithiasis, and a distended gallbladder but no pericholecystic fluid, ducts within normal limits. Surgery was consulted. Of note patient reports for 4 days prior to admission she was having abdominal pain radiating to her back. She denies known history of gallbladder problems. Denies history of trauma. 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 Past Surgical History: Reports: Orthopedic Surgery - rt bka and toe on left hip ORIF Social History Lives with: Spouse/Significant other Smoking Status: Never Smoker Electronic Cigarette use?: No Frequency of Alcohol Use: None Hx Recreational Drug Use: No Drugs: None Hx Prescription Drug Abuse: No - Advance Directive Resuscitation Status: Full Code Family History Family History: None, Hypertension Parental Family History Reviewed: No Children Family History Reviewed: No Sibling(s) Family History Reviewed.: No Medication/Allergy Home Medications: Amlodipine Besylate [Norvasc 5 mg Tablet] 5 mg PO DAILY 02/14/19 Aspirin [Ecotrin 81 mg EC Tablet] 81 mg PO DAILY 02/14/19 Fluoxetine HCl [Prozac 20 mg Capsule] 20 mg PO DAILY 02/14/19 Insulin Glargine,Hum.rec.anlog [Lantus Insulin 100 Unit/1 ml 10 ml] 20 unit SUBCUT QHS 02/14/19 Metformin HCl [Metformin HCl ER] 500 mg PO QPM 02/14/19 Rosuvastatin Calcium [Crestor] 40 mg PO DAILY 02/14/19 Allergies/Adverse Reactions: Tetanus Vaccines and Toxoid [Tetanus] Allergy (Verified 02/10/19 13:45) Review of Systems Constitutional: PRESENT: as per HPI Eyes: ABSENT: visual disturbances Ears: ABSENT: hearing changes Cardiovascular: ABSENT: chest pain, dyspnea on exertion, edema, orthropnea, palpitations Gastrointestinal: ABSENT: abdominal pain, constipation, diarrhea, hematemesis, hematochezia, nausea, vomiting Genitourinary: PRESENT: as per HPI Musculoskeletal: PRESENT: other - Patient ambulates with below the knee prosthesis Neurological: PRESENT: other Psychiatric: ABSENT: anxiety, depression, homidical ideation, suicidal ideation Endocrine: ABSENT: cold intolerance, heat intolerance, polydipsia, polyuria Physical Exam Vital Signs: Temp Pulse Resp BP Pulse Ox 98.4 F 92 14 139/68 H 96 02/14/19 15:02 02/14/19 15:02 02/14/19 15:02 02/14/19 15:02 02/14/19 16:29 Intake & Output 02/13/19 02/14/19 02/15/19 06:59 06:59 06:59 Intake Total 3050 1410 1850 Output Total 1450 1975 900 Balance 1600 -565 950 Weight 165 kg 165.3 kg General appearance: PRESENT: no acute distress Head exam: PRESENT: normocephalic Eye exam: PRESENT: EOMI Mouth exam: PRESENT: dry mucosa Neck exam: PRESENT: full ROM Respiratory exam: PRESENT: clear to auscultation mirna Cardiovascular exam: PRESENT: RRR Pulses: PRESENT: normal carotid pulses, normal radial pulses, normal femoral pulses GI/Abdominal exam: PRESENT: other - Tender right upper quadrant with mild guarding to light palpation Rectal exam: PRESENT: deferred Extremities exam: PRESENT: other - Right below the knee amputation stump in excellent condition Musculoskeletal exam: PRESENT: other - Patient has not been out of bed this hospitalization Neurological exam: PRESENT: oriented to person, oriented to place, oriented to time, oriented to situation Psychiatric exam: PRESENT: appropriate affect Results Laboratory Results: 02/14/19 05:31 02/14/19 05:31 02/14/19 02/14/19 05:31 05:31 WBC 5.1 RBC 3.89 Hgb 10.9 L Hct 31.0 L MCV 80 MCH 28.0 MCHC 35.1 RDW 13.0 Plt Count 181 Seg Neutrophils % 74.3 Sodium 135.0 L Potassium 3.3 L Chloride 99 Carbon Dioxide 31 H Anion Gap 5 BUN 19 Creatinine 0.51 L Est GFR ( Amer) > 60 Glucose 188 H Calcium 8.2 L 02/12/19 15:12 Troponin I < 0.012 Impressions: Chest X-Ray 02/12/19 15:06 IMPRESSION: NO ACUTE RADIOGRAPHIC FINDING IN THE CHEST. Abdomen/Pelvis CT 02/12/19 18:35 IMPRESSION: 1. Colonic fecal retention, with possible rectal fecal impaction. 2. No significant proximal bowel distention or acute inflammatory changes. 3. Cholelithiasis as on prior exam 4. Wong catheter in place 5. Other chronic findings as on 04/13/2012 Abdomen Ultrasound 02/14/19 00:00 IMPRESSION: Distended gallbladder. Multiple stones. No gallbladder wall thickening or pericholecystic fluid. Negative sonographic Carter's sign Assessment & Plan - Diagnosis (1) Symptomatic cholelithiasis Is this a current diagnosis for this admission?: Yes Plan: Impression: Acute superimposed on chronic cholecystitis with cholelithiasis in a 73-year-old white female [facility] for dehydration and urinary tract infection; the latter issues have resolved. Patient is hypokalemic, and getting potassium replacement. Recommendations: 1. I have suggested the patient undergo laparoscopic, possible open joann cystectomy. We will set this up for tomorrow, February [address] Baum. I have provisionally discussed the mechanics of the operation, as well as the risk benefits alternatives. Patient expresses her understanding and agrees to proceed 2. Will make patient n.p.o. after midnight; continue potassium replacement (2) History of right below knee amputation Is this a current diagnosis for this admission?: Yes (3) Dehydration Is this a current diagnosis for this admission?: Yes (4) UTI (urinary tract infection) Qualifiers: Urinary tract infection type: acute cystitis Hematuria presence: without hematuria Qualified Code(s): N30.00 - Acute cystitis without hematuria Is this a current diagnosis for this admission?: Yes (5) Diabetes Qualifiers: Diabetes mellitus type: type 2 Diabetes mellitus nursing home insulin use: with nursing home use Diabetes mellitus complication status: with skin complications Diabetes mellitus complication detail: with foot ulcer Qualified Code(s): E11.621 - Type 2 diabetes mellitus with foot ulcer; L97.509 - Non-pressure chronic ulcer of other part of unspecified foot with unspecified severity; L97.509 - Non-pressure chronic ulcer of other part of unspecified foot with unspecified severity; L97.509 - Non-pressure chronic ulcer of other part of unspecified foot with unspecified severity; L97.509 - Non-pressure chronic ulcer of other part of unspecified foot with unspecified severity; Z79.4 - half-way (current) use of insulin; Z79.4 - half-way (current) use of insulin; Z79.4 - rat exterminator (current) use of insulin; Z79.4 - rat exterminator (current) use of insulin Is this a current diagnosis for this admission?: Yes (6) Hypertension Qualifiers: Hypertension type: essential hypertension Qualified Code(s): I10 - Essential (primary) hypertension Is this a current diagnosis for this admission?: Yes - Time Time Spent: 30 to 50 Minutes Smoking Cessation Education: over 10 minutes Medications reviewed and adjusted accordingly: Yes Anticipated discharge: Home - Inpatient Certification Based on my medical assessment, after consideration of the patient's comorbidities, presenting symptoms, or acuity I expect that the services needed warrant INPATIENT care.: Yes I certify that my determination is in accordance with my understanding of Medicare's requirements for reasonable and necessary INPATIENT services [42 CFR 412.3e].: Yes Medical Necessity: Need For IV Fluids, Need for Pain Control, Need for IV Antibiotics, Need for Surgery
[2019-02-14 21:26] LABS: ALBUMIN 2.7 g/dL (3.5-5.0); ALKALINE PHOSPHATASE 101 U/L (38-126); ASPARTATE AMINO TRANSFERASE 20 U/L (14-36); BILIRUBIN,DIRECT 0.1 mg/dL (0.0-0.4); BILIRUBIN,TOTAL 0.4 mg/dL (0.2-1.3); TOTAL PROTEIN 5.4 g/dL (6.3-8.2)
[2019-02-14] MEDS: INSULIN GLARGINE,HUM.REC.ANLOG 1,000 UNIT/10 ML VIAL SUBCUT SCH (22:17)
[2019-02-14] MEDS: CEFTRIAXONE 1 GM/D5W RTU 1 GM/50 ML RTUPB IV SCH (22:17)
[2019-02-14] MEDS: ATORVASTATIN CALCIUM 80 MG TABLET PO SCH (22:18)
[2019-02-15] MEDS: PANTOPRAZOLE SODIUM 40 MG TABLET.DR PO SCH (05:15)
[2019-02-15] MEDS: NORMAL SALINE 1000 ML 1,000 ML IV PRN (05:45)
[2019-02-15 06:32] LABS: ANION GAP 5 (5-19); BLOOD UREA NITROGEN 11 mg/dL (7-20); CALCIUM 8.3 mg/dL (8.4-10.2); CARBON DIOXIDE 29 mmol/L (22-30); CHLORIDE 103 mmol/L (98-107); GLUCOSE 129 mg/dL (75-110); POTASSIUM 3.7 mmol/L (3.6-5.0)
[2019-02-15] MEDS: SUCRALFATE 1 GM TABLET PO SCH ×2 (07:58→18:50)
[2019-02-15] MEDS: INSULIN LISPRO 100 UNIT/ML 3 ML VIAL SUBCUT SCH ×3 (07:58→16:41)
[2019-02-15] MEDS ORDERED: AMLODIPINE BESYLATE 5 MG TABLET PO SCH (10:00)
[2019-02-15] MEDS: DOCUSATE SODIUM 100 MG CAPSULE PO SCH ×2 (10:25→17:52)
[2019-02-15] MEDS: ASPIRIN 81 MG TABLET, ENT COATED PO SCH (10:25)
[2019-02-15] MEDS: FLUOXETINE HCL 20 MG CAPSULE PO SCH (10:27)
[2019-02-15] MEDS ORDERED: FENTANYL CITRATE INJ/PF 100 MCG/2 ML AMPUL ONE (11:48)
[2019-02-15] MEDS ORDERED: DEXAMETHASONE SOD PHOSPHATE INJ 4 MG/1 ML VIAL ONE (11:49)
[2019-02-15] MEDS ORDERED: MIDAZOLAM 2 MG/2 ML INJ ONE (11:49)
[2019-02-15] MEDS ORDERED: SUGAMMADEX SODIUM 200 MG/2 ML SDV IV ONE (11:49)
[2019-02-15] MEDS ORDERED: PROPOFOL INJ 200 MG/20 ML VIAL IV ONE (11:49)
[2019-02-15] MEDS ORDERED: ONDANSETRON HCL INJ/PF 4 MG/2 ML SDV ONE (11:49)
[2019-02-15] MEDS ORDERED: ROCURONIUM BROMIDE INJ 50 MG/5 ML VIAL IV ONE (12:00)
[2019-02-15] MEDS ORDERED: SUCCINYLCHOLINE CHLORIDE INJ 200 MG/10 ML VIAL ONE (12:00)
[2019-02-15] MEDS ORDERED: PHENYLEPHRINE HCL INJ/PF 10 MG/1 ML SDV ONE (12:00)
[2019-02-15] MEDS ORDERED: BUPIVACAINE HCL 0.5 % INJ/PF 30 ML SDV ONE (12:32)
[2019-02-15] MEDS ORDERED: BUPIVACAINE HCL 0.5 % INJ/PF 30 ML SDV INJ ONE ×2 (12:45)
[2019-02-15] MEDS ORDERED: ONDANSETRON HCL INJ/PF 4 MG/2 ML SDV IV PRN (13:28)
[2019-02-15] MEDS ORDERED: PROMETHAZINE HCL INJ 25 MG/1 ML VIAL IV PRN ×2 (13:28)
[2019-02-15] MEDS ORDERED: MORPHINE SULFATE 10 MG/ML INJ IV PRN (13:28)
[2019-02-15] MEDS ORDERED: FENTANYL CITRATE INJ/PF 100 MCG/2 ML AMPUL IV PRN ×3 (13:28)
[2019-02-15] MEDS ORDERED: MEPERIDINE HCL/PF INJ 25 MG/1 ML DISP.SYRIN IV PRN (13:28)
[2019-02-15] MEDS ORDERED: DIPHENHYDRAMINE HCL 50 MG/ML VIAL IV PRN (13:28)
--- NOTE | 2019-02-15 17:10 | PDOC PROGRESS REPORT ---
Subjective Progress Note for:: 02/15/19 Subjective:: Patient was experiencing some right upper quadrant pain this morning on examination. Bowel movements have been sufficient. Reason For Visit: UTI,FECAL IMPACTION Physical Exam Vital Signs: Temp Pulse Resp BP Pulse Ox 97.4 F 82 16 163/69 H 98 02/15/19 14:32 02/15/19 14:32 02/15/19 14:32 02/15/19 14:32 02/15/19 14:32 Intake & Output 02/14/19 02/15/19 02/16/19 06:59 06:59 06:59 Intake Total 1410 2900 1300 Output Total 1975 900 10 Balance -565 2000 1290 Weight 165.3 kg 75 kg General appearance: PRESENT: no acute distress, cooperative Neck exam: ABSENT: JVD Respiratory exam: PRESENT: clear to auscultation mirna, unlabored. ABSENT: tachypnea, wheezes Cardiovascular exam: PRESENT: RRR, +S1, +S2. ABSENT: tachycardia GI/Abdominal exam: PRESENT: normal bowel sounds, soft, tenderness. ABSENT: distended, firm, rebound, rigid Neurological exam: PRESENT: alert, awake, oriented to person, oriented to place, oriented to time, oriented to situation Results Laboratory Results: 02/14/19 05:31 02/15/19 05:25 02/14/19 02/15/19 20:53 05:25 Sodium 136.7 L Potassium 3.7 Chloride 103 Carbon Dioxide 29 Anion Gap 5 BUN 11 Creatinine 0.50 L Est GFR ( Amer) > 60 Glucose 129 H Calcium 8.3 L Total Bilirubin 0.4 AST 20 Alkaline Phosphatase 101 Total Protein 5.4 L Albumin 2.7 L 02/12/19 15:16 Catheterized Urine Urine Culture - Final Escherichia Coli Aerococcus Urinae 02/12/19 15:12 Troponin I < 0.012 Impressions: Chest X-Ray 02/12/19 15:06 IMPRESSION: NO ACUTE RADIOGRAPHIC FINDING IN THE CHEST. Abdomen/Pelvis CT 02/12/19 18:35 IMPRESSION: 1. Colonic fecal retention, with possible rectal fecal impaction. 2. No significant proximal bowel distention or acute inflammatory changes. 3. Cholelithiasis as on prior exam 4. Wong catheter in place 5. Other chronic findings as on 04/13/2012 Abdomen Ultrasound 02/14/19 00:00 IMPRESSION: Distended gallbladder. Multiple stones. No gallbladder wall thickening or pericholecystic fluid. Negative sonographic Carter's sign Assessment and Plan - Diagnosis (1) Symptomatic cholelithiasis Is this a current diagnosis for this admission?: Yes Plan: Right upper quadrant ultrasound revealed cholelithiasis with distended gallbladder Went to the OR today for laparoscopic cholecystectomy We will start on incentive spirometer Antiemetics PRN IV (2) Fecal impaction Is this a current diagnosis for this admission?: Yes Plan: Resolved. Had good bowel movements Continue on bowel regimen (3) UTI (urinary tract infection) Qualifiers: Urinary tract infection type: acute cystitis Hematuria presence: without hematuria Qualified Code(s): N30.00 - Acute cystitis without hematuria Is this a current diagnosis for this admission?: Yes Plan: Continue ceftriaxone day 3 Urine culture growing pansensitive E. coli (4) Dehydration Is this a current diagnosis for this admission?: Yes Plan: Secondary to decreased p.o. intake due to nausea from symptomatic cholelithiasis Encourage p.o. intake. Antiemetics. (5) Diabetes mellitus type 2, uncontrolled Qualifiers: Glycemic state: with hyperglycemia Qualified Code(s): E11.65 - Type 2 diabetes mellitus with hyperglycemia Is this a current diagnosis for this admission?: Yes Plan: Lantus 20 units nightly. Continue sliding scale and Accu-Cheks. - Time Time Spent with patient: 15-24 minutes
[2019-02-15] MEDS ORDERED: CLONIDINE HCL 0.1 MG TABLET PO ONE (18:14)
[2019-02-15] MEDS: CEFTRIAXONE 1 GM/D5W RTU 1 GM/50 ML RTUPB IV SCH (22:22)
[2019-02-15] MEDS: ATORVASTATIN CALCIUM 80 MG TABLET PO SCH (22:23)
[2019-02-15] MEDS: INSULIN GLARGINE,HUM.REC.ANLOG 1,000 UNIT/10 ML VIAL SUBCUT SCH (23:33)
[2019-02-16] MEDS: PANTOPRAZOLE SODIUM 40 MG TABLET.DR PO SCH (06:04)
[2019-02-16] MEDS: NORMAL SALINE 1000 ML 1,000 ML IV PRN (06:04)
[2019-02-16] MEDS: INSULIN LISPRO 100 UNIT/ML 3 ML VIAL SUBCUT SCH (07:42)
--- NOTE | 2019-02-16 07:48 | Operative Report ---
Operative Report DATE OF SURGERY: 02/15/19 PREOPERATIVE DIAGNOSIS: Cholelithiasis. Chronic calculus cholecystitis POSTOPERATIVE DIAGNOSIS: Same OPERATION: Laparoscopic cholecystectomy SURGEON: KENNY BONILLA ANESTHESIA: GA TISSUE REMOVED OR ALTERED: Gallbladder COMPLICATIONS: None ESTIMATED BLOOD LOSS: 15 cc QUANTITATIVE BLOOD LOSS: 15 INTRAOPERATIVE FINDINGS: Extensive omental adhesions on the markedly dilated gallbladder with small stones. PROCEDURE: After adequate general anesthesia the patient was placed in supine position with the arms extended and the abdomen was subsequently prepped and draped in the usual sterile fashion. Appropriate timeout was then called. An infraumbilical elliptical incision was made in the fascia identified grasped with Shayy clamps and divided between the Zain clamps. 2 sutures of 0 Vicryl were placed on each side of the trocar and the trocar clamps released. The peritoneum was then entered with the use of a hemostat and dilated. Digital inspection of the peritoneal cavity was performed with no evidence of adhesions. A Curtis trocar was then inserted through the fascia to the abdominal cavity and and balloon insufflated. CO2 insufflated through the trocar to a pressure of 15mmHg and 3 other trochars were placed a 12 mm in the subxiphoid and two 5 mm in the right upper quadrant under direct vision. The gallbladder could barely be visualized because of extensive adhesions primarily with the omentum. The omentum was gingerly dissected and divided with use of harmonic rubi. I was then able to place grasper on the gallbladder and lifted it above the liver. Further blunt dissection and division of the adhesions with the use of harmonic rubi was done. The infundibulum was then identified and grasped with a grasper. Cystic duct was then dissected and isolated as well as the cystic artery. The common bile duct and hepatic ducts could barely be visualized. After the angle of safety was identified the cystic duct was then clipped twice proximally and once distal to the gallbladder and divided between the distal clips. Cystic artery was then clipped with hemoclips and divided with the use of scissors. The gallbladder was then dissected off the liver bed with the use of harmonic lorenzana rs. Gallbladder was eventually removed and placed in an Endobag and pulled out through the umbilical port. Gallbladder was markedly dilated and palpated small stones through the bag. A Curtis trocar was then put back and camera reinserted. The liver bed was then irrigated and no evidence of bleeding noted. At any rate piece of Surgicel was then placed over the liver bed to make sure of hemostasis. All the trocar sites were then removed and CO2 allowed to come out through the trocar sites. The fascial defect in the infraumbilical incision was then closed with a [id number] suture using 0 Vicryl. No local anesthesia was then injected through the fascia and all the skin incision sites. All the skin incisions were then closed with running subcuticular 4-0 Vicryl undyed. Steri-Strips placed over the operative sites. Needle instrument sponge count were all correct estimated blood loss about 15 cc. Patient tolerated procedure well and brought to PACU in satisfactory condition extubated.
--- NOTE | 2019-02-16 09:41 | PDOC PROGRESS REPORT ---
Subjective Progress Note for:: 02/16/19 Subjective:: minimal incisional pains Past flatus Reason For Visit: UTI,FECAL IMPACTION Physical Exam Vital Signs: Temp Pulse Resp BP Pulse Ox 98.4 F 86 18 116/50 L 95 02/16/19 04:42 02/16/19 04:42 02/16/19 04:42 02/16/19 04:42 02/16/19 04:42 Intake & Output 02/15/19 02/16/19 02/17/19 06:59 06:59 06:59 Intake Total 2900 2610 Output Total 900 10 Balance 2000 2600 Weight 75 kg Exam: Abdomen is soft all incisions are clean and dry minimal tenderness along incision sites. Afebrile and tolerating regular diet. Results Laboratory Results: 02/14/19 05:31 02/15/19 05:25 02/12/19 15:16 Catheterized Urine Urine Culture - Final Escherichia Coli Aerococcus Urinae 02/12/19 15:12 Troponin I < 0.012 Impressions: Chest X-Ray 02/12/19 15:06 IMPRESSION: NO ACUTE RADIOGRAPHIC FINDING IN THE CHEST. Abdomen/Pelvis CT 02/12/19 18:35 IMPRESSION: 1. Colonic fecal retention, with possible rectal fecal impaction. 2. No significant proximal bowel distention or acute inflammatory changes. 3. Cholelithiasis as on prior exam 4. Wong catheter in place 5. Other chronic findings as on 04/13/2012 Abdomen Ultrasound 02/14/19 00:00 IMPRESSION: Distended gallbladder. Multiple stones. No gallbladder wall thickening or pericholecystic fluid. Negative sonographic Carter's sign Assessment & Plan - Diagnosis (1) Chronic cholecystitis with calculus Is this a current diagnosis for this admission?: Yes (2) Symptomatic cholelithiasis Is this a current diagnosis for this admission?: Yes - Time Time Spent with patient: 15-24 minutes - Plan Summary Plan Summary: Postop day #1 post laparoscopic cholecystectomy. She is doing very well, afebrile, tolerating regular diet and passing flatus. Plans: Patient can be discharged from surgical viewpoint. She feels she does not need any narcotic for pain then agreed to just take Tylenol or ibuprofen as needed for pain Arrange follow-up for surgical clinic in 2 weeks.
[2019-02-16] MEDS: DOCUSATE SODIUM 100 MG CAPSULE PO SCH (09:44)
[2019-02-16] MEDS: FLUOXETINE HCL 20 MG CAPSULE PO SCH (09:45)
[2019-02-16] MEDS: ASPIRIN 81 MG TABLET, ENT COATED PO SCH (09:45)
[2019-02-16] MEDS ORDERED: AMLODIPINE BESYLATE 5 MG TABLET PO SCH (10:00)
[2019-02-16] MEDS ORDERED: AMLODIPINE BESYLATE 10 MG TABLET PO SCH (10:00)
[2019-02-16 11:31] VITALS: BP 163/70
--- NOTE | 2019-02-16 11:35 | PDOC DISCHARGE SUMMARY ---
Impression - Admit/DC Date/PCP Admission Date/Primary Care Provider: 02/12/19 22:40 ANA RESENDEZ MD Discharge Date: 02/16/19 - Discharge Diagnosis (1) Symptomatic cholelithiasis Is this a current diagnosis for this admission?: Yes (2) Fecal impaction Is this a current diagnosis for this admission?: Yes (3) UTI (urinary tract infection) Is this a current diagnosis for this admission?: Yes (4) Dehydration Is this a current diagnosis for this admission?: Yes (5) Diabetes mellitus type 2, uncontrolled Is this a current diagnosis for this admission?: Yes - Assessment Summary: Patient presented to the hospital with complaints of abdominal pain. She was noted to have a urinary tract infection and was symptomatic at that time with leukocytosis. Abdomen and pelvis CT scan also was performed which revealed significant fecal impaction. She was subsequently admitted for treatment. Patient received enemas as well as oral laxatives and manual disimpaction and subsequently had a good sized bowel movement. She was continued on stool softeners and continue to have adequate bowel movements. For urinary tract infection, urine cultures grew E. coli and she received IV antibiotics with IV ceftriaxone which she has completed 4 days of treatment for while in the hospital. Of note, patient's abdominal pain continued to persist and became more localized to the right upper quadrant which was significantly exacerbated by food intake impeding her oral intake contributing to dehydration. She was started on PPI therapy with concern for possible duodenitis. Right upper quadrant ultrasound was obtained which showed cholelithiasis and a distended gallbladder. Surgery was consulted and a laparoscopic cholecystectomy was performed. Patient was resumed on a diet which she has tolerated nicely since the cholecystectomy. Right upper quadrant pain has also significantly reduced and patient is more than pleased at this point and tolerating a diet sufficiently. Patient has been cleared from a surgical standpoint by the surgicalist and will be following up in 2 weeks for reevaluation at the [facility]. - Additional Information Resuscitation Status: Full Code Discharge Diet: As Tolerated Discharge Activity: Activity As Tolerated Referrals: [facility] [Provider Group] (Please make follow-up appointment for 2 weeks) ANA RESENDEZ MD [Primary Care Provider] - Prescriptions: Docusate Sodium [Colace 100 mg Capsule] 100 mg PO BID #60 capsule Polyethylene Glycol 3350 [Miralax Powder 17 gm/Packet] 1 packet PO DAILYP PRN #15 packet PRN Reason: For Constipation Famotidine [Pepcid 20 mg Tablet] 20 mg PO BID 20 Days #40 tablet Ondansetron [Zofran Odt 4 mg Tablet] 4 mg PO Q6HP PRN #16 tab.rapdis PRN Reason: Home Medications: Amlodipine Besylate [Norvasc 5 mg Tablet] 5 mg PO DAILY 02/14/19 Aspirin [Ecotrin 81 mg EC Tablet] 81 mg PO DAILY 02/14/19 Fluoxetine HCl [Prozac 20 mg Capsule] 20 mg PO DAILY 02/14/19 Insulin Glargine,Hum.rec.anlog [Lantus Insulin 100 Unit/1 ml 10 ml] 20 unit SUB CUT QHS 02/14/19 Metformin HCl [Metformin HCl ER] 500 mg PO QPM 02/14/19 Rosuvastatin Calcium [Crestor] 40 mg PO DAILY 02/14/19 Acetaminophen [Tylenol 325 mg Tablet] 650 mg PO Q4HP PRN tablet 02/16/19 Docusate Sodium [Colace 100 mg Capsule] 100 mg PO BID #60 capsule 02/16/19 Famotidine [Pepcid 20 mg Tablet] 20 mg PO BID 20 Days #40 tablet 02/16/19 Ondansetron [Zofran Odt 4 mg Tablet] 4 mg PO Q6HP PRN #16 tab.rapdis 02/16/19 Polyethylene Glycol 3350 [Miralax Powder 17 gm/Packet] 1 packet PO DAILYP PRN #15 packet 02/16/19 History of Present Illiness History of Present Illness: ALEXANDER ELI is a 73 year old female with a past medical history of diabetes, hypertension, dyslipidemia, status post right BKA. She presents with 2 days of left lower quadrant pain. In the emergency room she is found to have tachycardia, leukocytosis, urinalysis with pyuria and a CT revealing massive fecal impaction. She receives empiric antibiotics and referred to the hospitalist for admission. Patient cannot remember her last normal bowel movement. Physical Exam Vital Signs: Temp Pulse Resp BP Pulse Ox 98.4 F 86 18 116/50 L 95 02/16/19 04:42 02/16/19 04:42 02/16/19 04:42 02/16/19 04:42 02/16/19 04:42 Intake & Output 02/15/19 02/16/19 02/17/19 06:59 06:59 06:59 Intake Total 2900 2610 Output Total 900 10 Balance 2000 2600 Weight 75 kg General appearance: PRESENT: no acute distress, cooperative Neck exam: ABSENT: JVD Respiratory exam: PRESENT: clear to auscultation mirna GI/Abdominal exam: PRESENT: normal bowel sounds, soft, tenderness - Only very minimal tenderness at this point. ABSENT: distended, firm, guarding, rebound, rigid Neurological exam: PRESENT: alert, awake, oriented to person, oriented to place, oriented to time, oriented to situation Results Laboratory Results: WBC 5.1 10^3/uL (4.0-10.5) 02/14/19 05:31 RBC 3.89 10^6/uL (3.72-5.28) 02/14/19 05:31 Hgb 10.9 g/dL (12.0-15.5) L 02/14/19 05:31 Hct 31.0 % (36.0-47.0) L 02/14/19 05:31 MCV 80 fl (80-97) 02/14/19 05:31 MCH 28.0 pg (27.0-33.4) 02/14/19 05:31 MCHC 35.1 g/dL (32.0-36.0) 02/14/19 05:31 RDW 13.0 % (11.5-14.0) 02/14/19 05:31 Plt Count 181 10^3/uL (150-450) 02/14/19 05:31 Lymph % (Auto) 15.8 % (13-45) 02/14/19 05:31 [place] % (Auto) 9.2 % (3-13) 02/14/19 05:31 Eos % (Auto) 0.2 % (0-6) 02/14/19 05:31 Baso % (Auto) 0.5 % (0-2) 02/14/19 05:31 Absolute Neuts (auto) 3.8 10^3/uL (1.7-8.2) 02/14/19 05:31 Absolute Lymphs (auto) 0.8 10^3/uL (0.5-4.7) 02/14/19 05:31 Absolute Monos (auto) 0.5 10^3/uL (0.1-1.4) 02/14/19 05:31 Absolute Eos (auto) 0.0 10^3/uL (0.0-0.6) 02/14/19 05:31 Absolute Basos (auto) 0.0 10^3/uL (0.0-0.2) 02/14/19 05:31 Total Counted 100 02/12/19 15:12 Seg Neutrophils % 74.3 % (42-78) 02/14/19 05:31 Seg Neuts % (Manual) 88 % (42-78) H 02/12/19 15:12 Band Neutrophils % 1 % (3-5) L 02/12/19 15:12 Lymphocytes % (Manual) 3 % (13-45) L 02/12/19 15:12 Monocytes % (Manual) 8 % (3-13) 02/12/19 15:12 Eosinophils % (Manual) 0 % (0-6) 02/12/19 15:12 Basophils % (Manual) 0 % (0-2) 02/12/19 15:12 Abs Neuts (Manual) 10.0 10^3/uL (1.7-8.2) H 02/12/19 15:12 Abs Lymphs (Manual) 0.3 10^3/uL (0.5-4.7) L 02/12/19 15:12 Abs Monocytes (Manual) 0.9 10^3/uL (0.1-1.4) 02/12/19 15:12 Absolute Eos (Manual) 0.0 10^3/uL (0.0-0.6) 02/12/19 15:12 Abs Basophils (Manual) 0.0 10^3/uL (0.0-0.2) 02/12/19 15:12 Platelet Comment ADEQUATE 02/12/19 15:12 RBC Morph Comment NORMO-CYTIC/CHROMIC 02/12/19 15:12 PT 13.6 SEC (11.4-15.4) 02/12/19 15:12 INR 1.04 02/12/19 15:12 VBG pH 7.38 (7.30-7.42) 02/12/19 15:12 VBG pCO2 42.4 mmHg (35-63) 02/12/19 15:12 VBG HCO3 24.7 mmol/L (20-32) 02/12/19 15:12 VBG Base Excess -0.5 mmol/L 02/12/19 15:12 Sodium 136.7 mmol/L (137-145) L 02/15/19 05:25 Potassium 3.7 mmol/L (3.6-5.0) 02/15/19 05:25 Chloride 103 mmol/L (98-107) 02/15/19 05:25 Carbon Dioxide 29 mmol/L (22-30) 02/15/19 05:25 Anion Gap 5 (5-19) 02/15/19 05:25 BUN 11 mg/dL (7-20) 02/15/19 05:25 Creatinine 0.50 mg/dL (0.52-1.25) L 02/15/19 05:25 Est GFR ( Amer) > 60 (>60) 02/15/19 05:25 Est GFR (MDRD) Non-Af > 60 (>60) 02/15/19 05:25 Glucose 129 mg/dL (75-110) H 02/15/19 05:25 POC Glucose 153 mg/dL (70-110) H 02/16/19 06:04 Lactic Acid 2.0 mmol/L (0.7-2.1) 02/12/19 22:47 Calcium 8.3 mg/dL (8.4-10.2) L 02/15/19 05:25 Total Bilirubin 0.4 mg/dL (0.2-1.3) 02/14/19 20:53 Direct Bilirubin 0.1 mg/dL (0.0-0.4) 02/14/19 20:53 Neonat Total Bilirubin Not Reportable 02/14/19 20:53 Neonat Direct Bilirubin Not Reportable 02/14/19 20:53 Neonat Indirect Bili Not Reportable 02/14/19 20:53 AST 20 U/L (14-36) 02/14/19 20:53 ALT 9 U/L (<35) 02/14/19 20:53 Alkaline Phosphatase 101 U/L (38-126) 02/14/19 20:53 Troponin I < 0.012 ng/mL 02/12/19 15:12 Total Protein 5.4 g/dL (6.3-8.2) L 02/14/19 20:53 Albumin 2.7 g/dL (3.5-5.0) L 02/14/19 20:53 Urine Color YELLOW 02/12/19 15:16 Urine Appearance CLOUDY 02/12/19 15:16 Urine pH 5.0 (5.0-9.0) 02/12/19 15:16 Ur Specific [place] 1.023 02/12/19 15:16 Urine Protein 100 mg/dL (NEGATIVE) H 02/12/19 15:16 Urine Glucose (UA) >=500 mg/dL (NEGATIVE) H 02/12/19 15:16 Urine Ketones 80 mg/dL (NEGATIVE) H 02/12/19 15:16 Urine Blood MODERATE (NEGATIVE) H 02/12/19 15:16 Urine Nitrite (Reflex) NEGATIVE (NEGATIVE) 02/12/19 15:16 Urine Bilirubin NEGATIVE (NEGATIVE) 02/12/19 15:16 Urine Urobilinogen NEGATIVE mg/dL (<2.0) 02/12/19 15:16 Leukocyte Esterase Rfl MODERATE (NEGATIVE) H 02/12/19 15:16 Urine RBC (Auto) 14 /HPF 02/12/19 15:16 Urine Bacteria (Auto) 3+ /HPF 02/12/19 15:16 Urine WBC (Reflex) 101 /HPF 02/12/19 15:16 Squamous Epi Cells Auto 1 /HPF 02/12/19 15:16 Urine Mucus (Auto) MOD /LPF 02/12/19 15:16 Urine Ascorbic Acid NEGATIVE (NEGATIVE) 02/12/19 15:16 02/12/19 15:12 Troponin I < 0.012 Impressions: Chest X-Ray 02/12/19 15:06 IMPRESSION: NO ACUTE RADIOGRAPHIC FINDING IN THE CHEST. Abdomen/Pelvis CT 02/12/19 18:35 IMPRESSION: 1. Colonic fecal retention, with possible rectal fecal impaction. 2. No significant proximal bowel distention or acute inflammatory changes. 3. Cholelithiasis as on prior exam 4. Wong catheter in place 5. Other chronic findings as on 04/13/2012 Abdomen Ultrasound 02/14/19 00:00 IMPRESSION: Distended gallbladder. Multiple stones. No gallbladder wall thickening or pericholecystic fluid. Negative sonographic Carter's sign Plan Time Spent: Less than 30 Minutes Stroke Is this a Stroke Patient?: No Acute Heart Failure - Is this a Heart Failure Patient?: No
== END 2019-02-16 12:46 | disposition home or self-care (01) | DRG 674 ==
LOC: ER 15:01 → EH 22:40 → 4W 02-13 00:25
PROVIDERS: ADMIT Internal Medicine; ATTEND Internal Medicine
PROC: 0FT44ZZ Resection of Gallbladder, Percutaneous Endoscopic Approach (ICD-10-PCS; 2019-02-15)
PROC: 0DNU4ZZ Release Omentum, Percutaneous Endoscopic Approach (ICD-10-PCS; principal; 2019-02-15 12:00)
PROC: 3E02340 Introduction of Influenza Vaccine into Muscle, Percutaneous Approach (ICD-10-PCS; 2019-02-16)
DX: N30.00 Acute cystitis without hematuria (principal); K80.10 Calculus of gallbladder with chronic cholecystitis without obstruction; K56.41 Fecal impaction; E86.0 Dehydration; E11.65 Type 2 diabetes mellitus with hyperglycemia; B96.20 Unspecified Escherichia coli [E. coli] as the cause of diseases classified elsewhere; I10 Essential (primary) hypertension; E78.5 Hyperlipidemia, unspecified; K21.9 Gastro-esophageal reflux disease without esophagitis; E11.621 Type 2 diabetes mellitus with foot ulcer; L97.509 Non-pressure chronic ulcer of other part of unspecified foot with unspecified severity; E78.00 Pure hypercholesterolemia, unspecified; Z23 Encounter for immunization; Z79.899 Other long term (current) drug therapy; Z79.4 Long term (current) use of insulin; Z89.511 Acquired absence of right leg below knee; Z82.49 Family history of ischemic heart disease and other diseases of the circulatory system; Z88.7 Allergy status to serum and vaccine; Z86.14 Personal history of Methicillin resistant Staphylococcus aureus infection
CPT/HCPCS: 36415; 71045; 74177; 76705; 790; 80048; 80053; 80076; 81001; 82803; 82962; 83605; 84484; 85025; 85610; 87040; 87086; 87088; 87186; 88304; 90686; 93005; 93010; 96361; 96365; 96375; 99285; J0330; J0696; J1100; J1644; J1815; J2250; J2270; J2370; J2405; J2543; J2704; J2765; J3010; J3370; J3480; J3490; J7030; J7620

== ENCOUNTER 2019-06-18 16:59 | Inpatient (IN) | payer BC, MEDICARE, MEDICAID ==
--- NOTE | 2019-06-18 17:37 | ER Document Report ---
ED Medical Screen (RME) - General Stated Complaint: LEFT LEG SWELLING Time Seen by Provider: 06/18/19 17:35 Primary Care Provider: ANA RESENDEZ MD [Primary Care Provider] - Follow up as needed Mode of Arrival: Wheelchair Information source: Patient Notes: 74-year-old female with history of diabetes presents the emergency department with left great toe infection and swelling. Reports she has had trouble with this toe in the past. She was evaluated and treated here with IV antibiotics last year. She reports her toe was looking great until approximately 2 weeks ago when it started being infected again. The right great toe is draining, swollen, red. She reports low-grade fever of 101. Denies vomiting diarrhea. Reports she stays at home with her has not been out of the state or the country. Denies COVID exposure. I have greeted and performed a rapid initial assessment of this patient. A comprehensive ED assessment and evaluation of the patient, analysis of test results and completion of the medical decision making process will be conducted by additional ED providers. TRAVEL OUTSIDE OF THE [place] IN LAST 30 DAYS: No - Related Data Allergies/Adverse Reactions: Tetanus Vaccines and Toxoid [Tetanus] Allergy (Verified 02/10/19 13:45) Past Medical History - Past Medical History Cardiac Medical History: Reports: Hx Hypercholesterolemia, Hx Hypertension Endocrine Medical History: Reports: Hx Diabetes Mellitus Type 2 Renal/ Medical History: Denies: Hx Peritoneal Dialysis GI Medical History: Reports: Hx Gastroesophageal Reflux Disease Musculoskeltal Medical History: Reports Hx Musculoskeletal Deformity, Reports Hx Musculoskeletal Trauma Skin Medical History: Reports Hx MRSA - MRSA 08/15 FOOT Psychiatric Medical History: Denies: Hx Depression Past Surgical History: Reports: Hx Orthopedic Surgery - rt bka and toe on left hip ORIF - Immunizations Hx Diphtheria, Pertussis, Tetanus Vaccination: - allergic Physical Exam - Vital signs Vitals: Temp Pulse Resp BP Pulse Ox 98.1 F 95 16 138/79 H 100 06/18/19 17:06/18/19 17:06/18/19 17:06/18/19 17:06/18/19 17:07 Course - Vital Signs Vital signs: Temp Pulse Resp BP Pulse Ox 98.1 F 95 16 138/79 H 100 06/18/19 17:07 06/18/19 17:07 06/18/19 17:07 06/18/19 17:07 06/18/19 17:07 Doctor's Discharge - Discharge Referrals: ANA RESENDEZ MD [Primary Care Provider] - Follow up as needed
--- NOTE | 2019-06-18 18:00 | RADIOLOGY REPORT (SQ) ---
EXAM DESCRIPTION: FOOT LEFT COMPLETE IMAGES COMPLETED DATE/TIME: 06/18/2019 5:49 pm REASON FOR STUDY: GREAT TOE INFECTION COMPARISON: None. NUMBER OF VIEWS: Three views. TECHNIQUE: AP, lateral and oblique radiographic images acquired of the left foot. LIMITATIONS: None. FINDINGS: MINERALIZATION: Osteopenia. BONES: Cortical disruption of the tuft of the distal phalanx of the great toe. Disarticulation at th e MTP joint of the seconds toe. JOINTS: No effusions. SOFT TISSUES: No soft tissue swelling. No foreign body. OTHER: No other significant finding. IMPRESSION: Osteomyelitis of the distal phalanx of the great toe. TECHNICAL DOCUMENTATION: JOB ID: [id number] 2010 [employer]- All Rights Reserved Reading location - IP/workstation name: [email or web address]
[2019-06-18] MEDS ORDERED: VANCOMYCIN HCL INJ 1000 MG VIAL IV ONE (19:06)
--- NOTE | 2019-06-18 19:07 | ER Document Report ---
ED Extremity Problem, Lower - General Chief Complaint: Wound Infection Stated Complaint: LEFT LEG SWELLING Time Seen by Provider: 06/18/19 17:35 Mode of Arrival: Wheelchair Information source: Patient Notes: 74-year-old female past medical history significant for diabetes, hypertension, hyperlipidemia, previous right BKA, left second toe amputation presents to the emergency room complaining of pain, swelling, drainage to her left great toe. States she noticed the nail was black about a month ago has been keeping it clean started having skin peeling about a week later. And now has increased swelling and drainage. States she started running a fever yesterday of 102. Has been taking Advil with some relief. TRAVEL OUTSIDE OF THE [place] IN LAST 30 DAYS: No - Related Data Allergies/Adverse Reactions: Tetanus Vaccines and Toxoid [Tetanus] Allergy (Verified 02/10/19 13:45) Past Medical History - General Information source: Patient - Social History Smoking Status: Never Smoker Frequency of alcohol use: None Drug Abuse: None Family History: None, Hypertension Patient has homicidal ideation: No - Past Medical History Cardiac Medical History: Reports: Hx Hypercholesterolemia, Hx Hypertension Endocrine Medical History: Reports: Hx Diabetes Mellitus Type 2 Renal/ Medical History: Denies: Hx Peritoneal Dialysis GI Medical History: Reports: Hx Gastroesophageal Reflux Disease Musculoskeletal Medical History: Reports Hx Musculoskeletal Deformity, Reports Hx Musculoskeletal Trauma Skin Medical History: Reports Hx MRSA - MRSA 08/15 FOOT Psychiatric Medical History: Denies: Hx Depression Past Surgical History: Reports: Hx Orthopedic Surgery - rt bka and toe on left hip ORIF - Immunizations Hx Diphtheria, Pertussis, Tetanus Vaccination: - allergic Review of Systems - Review of Systems Constitutional: Fever EENT: No symptoms reported Cardiovascular: No symptoms reported Respiratory: No symptoms reported Musculoskeletal: Joint pain Skin: Change in color, Other - Erythema, drainage left great toe Physical Exam - Vital signs Vitals: Temp Pulse Resp BP Pulse Ox 98.1 F 95 16 138/79 H 100 06/18/19 17:07 06/18/19 17:07 06/18/19 17:07 06/18/19 17:07 06/18/19 17:07 - General General appearance: Alert In distress: Mild - Respiratory Respiratory status: No respiratory distress Chest status: Nontender Breath sounds: Normal Chest palpation: Normal - Cardiovascular Rhythm: Regular Heart sounds: Normal auscultation Murmur: No - Extremities General lower extremity: Edema - Left lower calf Calf: Tender, Other - Warm to touch. Swelling to the left lower calf. Foot: Tender, Ecchymosis, Other - Distal lateral aspect of the left great toe erythematous, swollen, warm and tender to palpation. There is a 4 x 2 cm ulceration noted to the distal lateral aspect of the left great toe. There is purulent drainage noted. - Neurological Neuro grossly intact: Yes Cognition: Normal Orientation: AAOx4 Notes: Negative Homans, decreased pedal pulse. Decreased capillary refill. - Skin Skin Temperature: Warm Skin Moisture: Dry Location of irregularity: Other - Left great toe Irregularity with: Swelling, Tenderness, Warmth, Other - 4 x 2 cm ulceration noted to the lateral distal aspect of the left great toe. It is warm and tender to palpation. It is erythematous. Left great toe is swollen. There is purulent drainage noted. Course - Re-evaluation Re-evalutation: 06/18/19 21:45 Patient's resting comfortably reviewed all lab and x-ray results with patient. Aware of need for admission. Patient is agreeable to admission. - Vital Signs Vital signs: Temp Pulse Resp BP Pulse Ox 98.6 F 89 16 140/84 H 98 06/18/19 20:51 06/18/19 20:51 06/18/19 17:07 06/18/19 20:51 06/18/19 20:51 - Laboratory Result Diagrams: 06/18/19 20:18 06/18/19 20:18 Laboratory results interpreted by me: 06/18/19 06/18/19 06/18/19 19:21 20:18 20:18 Hgb 11.4 L Hct 32.1 L ESR 67 H Sodium 135.8 L Glucose 210 H POC Glucose 243 H Alkaline Phosphatase 165 H C-Reactive Protein 19.1 H - Diagnostic Test Radiology reviewed: Reports reviewed - Consults Dr. Goff Time consulted: 21:50 Reason for consultation: 06/18/19 21:53 Admission for osteomyelitis Consulted provider: will see as inpatient Dr. Polk Time consulted: 21:53 Discharge - Discharge Clinical Impression: Osteomyelitis of great toe of left foot Condition: Stable Disposition: ADMITTED INPATIENT Admitting Provider: [place] (Hospitalist) Unit Admitted: Surgical Floor
--- NOTE | 2019-06-18 20:24 | RADIOLOGY REPORT (SQ) ---
INDICATION: left leg swelling . PROCEDURE: Real-time grayscale, color, and pulse Doppler ultrasound imaging of the left lower extremity deep venous system was performed. 44 images. COMPARISON: None FINDINGS: The common femoral, superficial femoral, and popliteal veins demonstrate normal compressibility, phasic flow, augmentation and gill scale evaluation. There is no evidence of intraluminal thrombus . The visualized deep calf veins appear patent. Contralateral femoral vein is patent Subcutaneous edema IMPRESSION: No evidence for acute deep venous thrombus from the common femoral to the popliteal veins.
[2019-06-18 20:34] LABS: ABSOLUTE BASOPHILS # (AUTO) 0.1 10^3/uL (0.0-0.2); ABSOLUTE EOSINOPHILS # (AUTO) 0.1 10^3/uL (0.0-0.6); ABSOLUTE LYMPHOCYTES (AUTO) 1.1 10^3/uL (0.5-4.7); ABSOLUTE MONOCYTES (AUTO) 0.4 10^3/uL (0.1-1.4); BASOPHILS % (AUTO) 1.1 % (0-2); EOSINOPHILS % (AUTO) 1.8 % (0-6); HEMATOCRIT 32.1 % (36.0-47.0); HEMOGLOBIN 11.4 g/dL (12.0-15.5); LYMPHOCYTES % (AUTO) 19.9 % (13-45); MEAN CORPUSCULAR HEMOGLOBIN 28.5 pg (27.0-33.4); MEAN CORPUSCULAR HGB CONC 35.5 g/dL (32.0-36.0); MEAN CORPUSCULAR VOLUME 80 fl (80-97); MONOCYTES % (AUTO) 6.4 % (3-13); PLATELET COUNT 304 10^3/uL (150-450); RED CELL DISTRIBUTION WIDTH 13.7 % (11.5-14.0); SEGMENTED NEUTROPHILS % (AUTO) 70.8 % (42-78); TOTAL CELLS COUNTED % (AUTO) 100 %; WHITE BLOOD COUNT 5.6 10^3/uL (4.0-10.5)
[2019-06-18 20:51] LABS: ALBUMIN 3.5 g/dL (3.5-5.0); ALKALINE PHOSPHATASE 165 U/L (38-126); ANION GAP 8 (5-19); ASPARTATE AMINO TRANSFERASE 19 U/L (14-36); BILIRUBIN,TOTAL 0.3 mg/dL (0.2-1.3); BLOOD UREA NITROGEN 13 mg/dL (7-20); C-REACTIVE PROTEIN 19.1 mg/L (<10.0); CARBON DIOXIDE 28 mmol/L (22-30); CHLORIDE 100 mmol/L (98-107); GLUCOSE 210 mg/dL (75-110); POTASSIUM 3.7 mmol/L (3.6-5.0)
[2019-06-18] MEDS ORDERED: MORPHINE SULFATE 10 MG/ML INJ IV ONE (21:17)
[2019-06-18 21:35] LABS: ERYTHROCYTE SEDIMENTATION RATE 67 mm/hr (0-30)
[2019-06-18] MEDS ORDERED: ACETAMINOPHEN 325 MG TABLET PO PRN (21:50)
[2019-06-18] MEDS ORDERED: IPRATROPIUM/ALBUTEROL 0.5-2.5 MG/3 ML AMPUL NEB PRN (21:50)
[2019-06-18] MEDS ORDERED: MAGNESIUM HYDROXIDE SUSP 30 ML UDCUP PO PRN (21:50)
[2019-06-18] MEDS ORDERED: DEXTROSE 50%-WATER 25 GM/50 ML DISP.SYRIN IV PRN ×2 (21:50)
[2019-06-18] MEDS ORDERED: GLUCAGON,HUMAN RECOMB 1 MG INJ IM PRN (21:50)
[2019-06-18] MEDS ORDERED: DEXTROSE 40% GEL 15 GM TUBE PO PRN ×2 (21:50)
[2019-06-18] MEDS ORDERED: MAG HYDROX/AL HYDROX/SIMETH SUSP 30 ML UDCUP PO PRN (21:50)
[2019-06-18] MEDS ORDERED: VANCOMYCIN HCL 0 MG in DEXTROSE 5%-WATER 250 ML IV NR (22:00)
[2019-06-18] MEDS ORDERED: PIPERACILLIN/TAZOBACTAM 4.5 GM VIAL IV PRN (22:14)
[2019-06-18] MEDS ORDERED: PIPERACILLIN SODIUM/TAZOBACTAM 4.5 GM in NORMAL SALINE 100 ML IV ONE (22:15)
--- NOTE | 2019-06-18 22:20 | PDOC CONSULTATION ---
Consultation Consult Date: 06/18/19 Provider Consulted: JULIO CESAR FRANCIS Consult reason:: Evaluate left great toe infection. History of Present Illness Admission Date/PCP: ANA RESENDEZ MD Patient complains of: Left great toe redness and drainage History of Present Illness: ALEXANDER ELI is a 74 year old female with history of diabetes status post right below the knee amputation for diabetic foot infection in the remote past as well as a left second toe amputation for similar problem in the remote past, now presenting with erythema foul-smelling drainage and fever involving her left great toe. She notes pain in this area as well. She has had problems with this toe for several months but it has acutely worsened in the last few days. Past Medical History Cardiac Medical History: Reports: Hyperlipidema, Hypertension Endocrine Medical History: Reports: Diabetes Mellitus Type 2 GI Medical History: Reports: Gastroesophageal Reflux Disease Psychiatric Medical History: Denies: Depression Past Surgical History Past Surgical History: Reports: Orthopedic Surgery - rt bka and toe on left hip ORIF Social History Smoking Status: Never Smoker Frequency of Alcohol Use: None Hx Recreational Drug Use: No Drugs: None Hx Prescription Drug Abuse: No Family History Family History: None, Hypertension Parental Family History Reviewed: Yes - Father with lung cancer Children Family History Reviewed: Yes Sibling(s) Family History Reviewed.: Yes Medication/Allergy Home Medications: Amlodipine Besylate [Norvasc 5 mg Tablet] 5 mg PO DAILY 02/14/19 Aspirin [Ecotrin 81 mg EC Tablet] 81 mg PO DAILY 02/14/19 Fluoxetine HCl [Prozac 20 mg Capsule] 20 mg PO DAILY 02/14/19 Insulin Glargine,Hum.rec.anlog [Lantus Insulin 100 Unit/1 ml 10 ml] 20 unit SUBCUT QHS 02/14/19 Metformin HCl [Metformin HCl ER] 500 mg PO QPM 02/14/19 Rosuvastatin Calcium [Crestor] 40 mg PO DAILY 02/14/19 Acetaminophen [Tylenol 325 mg Tablet] 650 mg PO Q4HP PRN tablet 02/16/19 Docusate Sodium [Colace 100 mg Capsule] 100 mg PO BID #60 capsule 02/16/19 Famotidine [Pepcid 20 mg Tablet] 20 mg PO BID 20 Days #40 tablet 02/16/19 Ondansetron [Zofran Odt 4 mg Tablet] 4 mg PO Q6HP PRN #16 tab.rapdis 02/16/19 Polyethylene Glycol 3350 [Miralax Powder 17 gm/Packet] 1 packet PO DAILYP PRN #15 packet 02/16/19 Allergies/Adverse Reactions: Tetanus Vaccines and Toxoid [Tetanus] Allergy (Verified 02/10/19 13:45) Review of Systems All systems: reviewed and no additional remarkable complaints except as stated Musculoskeletal: PRESENT: as per HPI Physical Exam Vital Signs: Temp Pulse Resp BP Pulse Ox 98.6 F 89 16 140/84 H 98 06/18/19 20:51 06/18/19 20:51 06/18/19 17:07 06/18/19 20:51 06/18/19 20:51 Intake & Output 06/17/19 06/18/19 06/19/19 06:59 06:59 06:59 Weight 70.5 kg General appearance: PRESENT: no acute distress, cooperative Neck exam: PRESENT: other - No tenderness and no masses. Respiratory exam: PRESENT: clear to auscultation mirna Cardiovascular exam: PRESENT: RRR GI/Abdominal exam: PRESENT: other - Soft, nondistended, nontender to palpation Extremities exam: PRESENT: other - Right below the knee amputation. On the left side patient has a well-healed left second toe amputation site. Her right great toe has diffuse erythema with tenderness. There is partial denudement of the skin distally with regions of dried exudate at the tip but no active drainage at this time. There is distortion of the great with minimal residual nailbed. her dorsalis pedis pulses palpable. Neurological exam: PRESENT: alert, awake Psychiatric exam: PRESENT: appropriate affect Skin exam: PRESENT: warm Results Laboratory Results: 06/18/19 20:18 06/18/19 20:18 06/18/19 06/18/19 06/18/19 20:18 20:18 20:18 WBC 5.6 RBC 4.00 Hgb 11.4 L Hct 32.1 L MCV 80 MCH 28.5 MCHC 35.5 RDW 13.7 Plt Count 304 Seg Neutrophils % 70.8 Sodium 135.8 L Potassium 3.7 Chloride 100 Carbon Dioxide 28 Anion Gap 8 BUN 13 Creatinine 0.62 Est GFR ( Amer) > 60 Glucose 210 H Lactic Acid 1.5 Calcium 9.0 Total Bilirubin 0.3 AST 19 Alkaline Phosphatase 165 H C-Reactive Protein 19.1 H Total Protein 7.0 Albumin 3.5 Impressions: Foot X-Ray 06/18/19 17:35 IMPRESSION: Osteomyelitis of the distal phalanx of the great toe. Venous Doppler Study 06/18/19 19:05 IMPRESSION: No evidence for acute deep venous thrombus from the common femoral to the popliteal veins. Assessment & Plan - Diagnosis (1) Osteomyelitis of great toe of left foot Is this a current diagnosis for this admission?: Yes Plan: Evidence of osteomyelitis at the distal phalanx of her left great toe. Patient would benefit from amputation of her left great toe. She is not toxic. Patient is not septic. Patient will be admitted to the medical service for IV antibiotics and we will plan surgical intervention in the morning. Will discuss with the oncoming surgeon in the morning. Keep patient n.p.o. in the morning for possible surgery.
[2019-06-18] MEDS: HEPARIN SOD (PORCINE) 5,000 UNIT/ML 1 ML VIAL SUBCUT SCH (23:19)
[2019-06-18] MEDS: NORMAL SALINE 1000 ML 1,000 ML IV PRN (23:19)
[2019-06-18] MEDS: INSULIN GLARGINE,HUM.REC.ANLOG 1,000 UNIT/10 ML VIAL SUBCUT SCH (23:26)
[2019-06-19] MEDS: KETOROLAC TROMETHAMINE INJ/PF 30 MG/1 ML SDV IV PRN ×2 (04:18→19:32)
[2019-06-19] MEDS: NORMAL SALINE 1000 ML 1,000 ML IV PRN (04:27)
[2019-06-19] MEDS ORDERED: PIPERACILLIN/TAZOBACTAM 4.5 GM VIAL IV ONE (04:39)
[2019-06-19] MEDS: HEPARIN SOD (PORCINE) 5,000 UNIT/ML 1 ML VIAL SUBCUT SCH ×3 (05:44→21:38)
[2019-06-19] MEDS: PIPERACILLIN SODIUM/TAZOBACTAM 4.5 GM in NORMAL SALINE 100 ML IV SCH ×4 (05:46→23:16)
[2019-06-19 05:51] LABS: HEMOGLOBIN 10.8 g/dL (12.0-15.5); MEAN CORPUSCULAR HEMOGLOBIN 28.2 pg (27.0-33.4); MEAN CORPUSCULAR HGB CONC 34.8 g/dL (32.0-36.0); MEAN CORPUSCULAR VOLUME 81 fl (80-97); PLATELET COUNT 257 10^3/uL (150-450); RED BLOOD COUNT 3.84 10^6/uL (3.72-5.28); RED CELL DISTRIBUTION WIDTH 13.7 % (11.5-14.0); WHITE BLOOD COUNT 4.9 10^3/uL (4.0-10.5)
[2019-06-19 06:08] LABS: BLOOD UREA NITROGEN 9 mg/dL (7-20); CALCIUM 8.4 mg/dL (8.4-10.2); CARBON DIOXIDE 26 mmol/L (22-30); CHLORIDE 107 mmol/L (98-107); GLUCOSE 98 mg/dL (75-110); POTASSIUM 3.4 mmol/L (3.6-5.0)
--- NOTE | 2019-06-19 06:14 | PDOC H&P ---
History of Present Illness Admission Date/PCP: 06/18/19 22:04 ANA RESENDEZ MD Patient complains of: Left big toe swelling and discharge History of Present Illness: ALEXANDER ELI is a 74 year old female with a past medical history of peripheral vascular disease, diabetes, dyslipidemia and hypertension status post right BKA who presents with pain swelling and malodorous drainage to the left great toe worsening of the last month. After developing a fever she is prompted to seek evaluation in the emergency department after taking Aleve. She admits previous episode she denies recent antibiotic use. She admits to diabetic diet and lifestyle indiscretion. Past Medical History Cardiac Medical History: Reports: Hyperlipidema, Hypertension Endocrine Medical History: Reports: Diabetes Mellitus Type 2 GI Medical History: Reports: Gastroesophageal Reflux Disease Psychiatric Medical History: Denies: Depression Past Surgical History Past Surgical History: Reports: Orthopedic Surgery - rt bka and toe on left hip ORIF Social History Information Source: Patient Smoking Status: Never Smoker Frequency of Alcohol Use: None Hx Recreational Drug Use: No Drugs: None Hx Prescription Drug Abuse: No - Advance Directive Resuscitation Status: Full Code Family History Family History: Hypertension Parental Family History Reviewed: No Children Family History Reviewed: No Sibling(s) Family History Reviewed.: No Medication/Allergy Home Medications: Amlodipine Besylate [Norvasc 5 mg Tablet] 5 mg PO DAILY 02/14/19 Aspirin [Ecotrin 81 mg EC Tablet] 81 mg PO DAILY 02/14/19 Fluoxetine HCl [Prozac 20 mg Capsule] 20 mg PO DAILY 02/14/19 Insulin Glargine,Hum.rec.anlog [Lantus Insulin 100 Unit/1 ml 10 ml] 20 unit SUBCUT QHS 02/14/19 Metformin HCl [Metformin HCl ER] 500 mg PO QPM 02/14/19 Rosuvastatin Calcium [Crestor] 40 mg PO DAILY 02/14/19 Acetaminophen [Tylenol 325 mg Tablet] 650 mg PO Q4HP PRN tablet 02/16/19 Docusate Sodium [Colace 100 mg Capsule] 100 mg PO BID #60 capsule 02/16/19 Famotidine [Pepcid 20 mg Tablet] 20 mg PO BID 20 Days #40 tablet 02/16/19 Ondansetron [Zofran Odt 4 mg Tablet] 4 mg PO Q6HP PRN #16 tab.rapdis 02/16/19 Polyethylene Glycol 3350 [Miralax Powder 17 gm/Packet] 1 packet PO DAILYP PRN #15 packet 02/16/19 Allergies/Adverse Reactions: Tetanus Vaccines and Toxoid [Tetanus] Allergy (Verified 06/18/19 22:28) Review of Systems Constitutional: ABSENT: chills, fever(s), headache(s), weight gain, weight loss Eyes: ABSENT: visual disturbances Ears: ABSENT: hearing changes Cardiovascular: ABSENT: chest pain, dyspnea on exertion, edema, orthropnea, pal pitations Respiratory: ABSENT: cough, hemoptysis Gastrointestinal: ABSENT: abdominal pain, constipation, diarrhea, hematemesis, hematochezia, nausea, vomiting Genitourinary: ABSENT: dysuria, hematuria Musculoskeletal: ABSENT: joint swelling Integumentary: ABSENT: rash, wounds Neurological: ABSENT: abnormal gait, abnormal speech, confusion, dizziness, focal weakness, syncope Psychiatric: ABSENT: anxiety, depression, homidical ideation, suicidal ideation Endocrine: ABSENT: cold intolerance, heat intolerance, polydipsia, polyuria Hematologic/Lymphatic: ABSENT: easy bleeding, easy bruising Physical Exam Vital Signs: Temp Pulse Resp BP Pulse Ox 98.2 F 83 14 113/67 98 06/19/19 04:21 06/19/19 04:21 06/19/19 04:21 06/19/19 04:21 06/19/19 04:21 Intake & Output 06/17/19 06/18/19 06/19/19 11:59 11:59 11:59 Intake Total 1100 Balance 1100 Weight 70.5 kg General appearance: PRESENT: cooperative, mild distress, well-developed, well-nourished Head exam: PRESENT: atraumatic, normocephalic Eye exam: PRESENT: conjunctiva pink, EOMI, PERRLA. ABSENT: scleral icterus Ear exam: PRESENT: normal external ear exam Mouth exam: PRESENT: moist, tongue midline Neck exam: ABSENT: carotid bruit, JVD, lymphadenopathy, thyromegaly Respiratory exam: PRESENT: clear to auscultation mirna. ABSENT: rales, rhonchi, wheezes Cardiovascular exam: PRESENT: RRR. ABSENT: diastolic murmur, rubs, systolic murmur Pulses: PRESENT: normal dorsalis pedis pul Vascular exam: PRESENT: normal capillary refill GI/Abdominal exam: PRESENT: normal bowel sounds, soft. ABSENT: distended, guarding, mass, organolmegaly, rebound, tenderness Rectal exam: PRESENT: deferred Extremities exam: PRESENT: full ROM. ABSENT: calf tenderness, clubbing, pedal edema Musculoskeletal exam: PRESENT: other - Left great toe erythemic, edematous with pain Neurological exam: PRESENT: alert, awake, oriented to person, oriented to place, oriented to time, oriented to situation, CN II-XII grossly intact. ABSENT: motor sensory deficit Psychiatric exam: PRESENT: appropriate affect, normal mood. ABSENT: homicidal ideation, suicidal ideation Skin exam: PRESENT: dry, intact, warm. ABSENT: cyanosis, rash Results Laboratory Results: 06/19/19 05:38 06/18/19 06/18/19 06/18/19 20:18 20:18 20:18 WBC 5.6 RBC 4.00 Hgb 11.4 L Hct 32.1 L MCV 80 MCH 28.5 MCHC 35.5 RDW 13.7 Plt Count 304 Seg Neutrophils % 70.8 Sodium 135.8 L Potassium 3.7 Chloride 100 Carbon Dioxide 28 Anion Gap 8 BUN 13 Creatinine 0.62 Est GFR ( Amer) > 60 Glucose 210 H Lactic Acid 1.5 Calcium 9.0 Total Bilirubin 0.3 AST 19 Alkaline Phosphatase 165 H C-Reactive Protein 19.1 H Total Protein 7.0 Albumin 3.5 06/19/19 05:38 WBC 4.9 RBC 3.84 Hgb 10.8 L Hct 31.0 L MCV 81 MCH 28.2 MCHC 34.8 RDW 13.7 Plt Count 257 Seg Neutrophils % Sodium Potassium Chloride Carbon Dioxide Anion Gap BUN Creatinine Est GFR ( Amer) Glucose Lactic Acid Calcium Total Bilirubin AST Alkaline Phosphatase C-Reactive Protein Total Protein Albumin Impressions: Foot X-Ray 06/18/19 17:35 IMPRESSION: Osteomyelitis of the distal phalanx of the great toe. Venous Doppler Study 06/18/19 19:05 IMPRESSION: No evidence for acute deep venous thrombus from the common femoral to the popliteal veins. Assessment and Plan - Diagnosis (1) Osteomyelitis of great toe of left foot Is this a current diagnosis for this admission?: Yes Plan: Secondary to peripheral vascular disease with poor diabetic control, osteomyelitis by imaging, empiric antibiotics initiated, follow-up CBC, blood culture and surgical consult. She has no immediate reversible cardiopulmonary risk factors preventing digit amputation. (2) Anemia Is this a current diagnosis for this admission?: Yes Plan: Likely secondary to chronic disease, follow-up anemia work-up (3) Diabetes mellitus type 2, uncontrolled Qualifiers: Glycemic state: with hyperglycemia Qualified Code(s): E11.65 - Type 2 d iabetes mellitus with hyperglycemia Is this a current diagnosis for this admission?: Yes Plan: Half dose long-acting insulin with Humalog sliding scale as needed - Time Time Spent with patient: 25-34 minutes - Inpatient Certification Medical Necessity: Need Close Monitoring Due to Risk of Patient Decompensation
[2019-06-19 06:19] LABS: ANION GAP 6 (5-19)
[2019-06-19 06:35] LABS: ABSOLUTE RETICS # 0.059 10^6/uL (0.028-0.122); RETICULOCYTE COUNT (AUTO) 1.53 % (0.66-2.85)
[2019-06-19 06:55] LABS: IRON(TIBC) 33.5 ug/dL (37-170)
[2019-06-19 08:03] LABS: FOLATE 6.74 ng/mL (>2.76)
[2019-06-19] MEDS: DOCUSATE SODIUM 100 MG CAPSULE PO SCH ×2 (09:54→18:36)
[2019-06-19] MEDS ORDERED: ONDANSETRON HCL INJ/PF 4 MG/2 ML SDV ONE (10:11)
[2019-06-19] MEDS: VANCOMYCIN HCL 750 MG in DEXTROSE 5%-WATER 250 ML IV SCH ×2 (12:12→19:27)
[2019-06-19] MEDS ORDERED: LIDOCAINE 1% INJ-PF (10 MG/ML) 30 ML SDV ONE (12:19)
[2019-06-19] MEDS ORDERED: BUPIVACAINE HCL 0.25 % INJ/PF (2.5 MG/1 ML) 30 ML VIAL ONE (12:19)
[2019-06-19] MEDS ORDERED: FENTANYL CITRATE INJ/PF 100 MCG/2 ML AMPUL ONE (12:38)
[2019-06-19] MEDS ORDERED: MIDAZOLAM 2 MG/2 ML INJ ONE (12:39)
[2019-06-19] MEDS ORDERED: PROPOFOL INJ 200 MG/20 ML VIAL IV ONE (12:39)
--- NOTE | 2019-06-19 12:56 | PDOC PROGRESS REPORT ---
Subjective Progress Note for:: 06/19/19 Subjective:: No adverse events overnight. No new complaints. She is afebrile overnight. She is n.p.o. awaiting surgery this morning. Reason For Visit: TOE OSTEO DM HTN Physical Exam Vital Signs: Temp Pulse Resp BP Pulse Ox 98.9 F 73 17 105/57 L 99 06/19/19 09:55 06/19/19 09:55 06/19/19 09:55 06/19/19 09:55 06/19/19 09:55 Intake & Output 06/18/19 06/19/19 06/20/19 06:59 06:59 06:59 Intake Total 1200 Balance 1200 Weight 70.5 kg General appearance: PRESENT: no acute distress, cooperative, disheveled Respiratory exam: PRESENT: clear to auscultation mirna, symmetrical, unlabored. ABSENT: accessory muscle use, chest wall tenderness, crackles, prolonged expiratory phas, retraction, rhonchi, tachypnea, wheezes Cardiovascular exam: PRESENT: RRR, +S1, +S2 Pulses: PRESENT: normal carotid pulses Vascular exam: PRESENT: normal capillary refill GI/Abdominal exam: PRESENT: normal bowel sounds, soft. ABSENT: distended, guarding, rebound, tenderness Extremities exam: PRESENT: other - She is missing the second toe of her left foot. The great toe of the left foot has a large ulcerated area on the medial and plantar aspect. ABSENT: clubbing, pedal edema Neurological exam: PRESENT: alert, awake, oriented to person, oriented to place, oriented to situation Psychiatric exam: PRESENT: appropriate affect, normal mood Skin exam: PRESENT: dry, warm, other - Ulcerated left great toe as noted above Results Laboratory Results: 06/19/19 05:38 06/19/19 05:38 06/18/19 06/18/19 06/18/19 20:18 20:18 20:18 WBC 5.6 RBC 4.00 Hgb 11.4 L Hct 32.1 L MCV 80 MCH 28.5 MCHC 35.5 RDW 13.7 Plt Count 304 Seg Neutrophils % 70.8 Retic Count (auto) Sodium 135.8 L Potassium 3.7 Chloride 100 Carbon Dioxide 28 Anion Gap 8 BUN 13 Creatinine 0.62 Est GFR ( Amer) > 60 Glucose 210 H Lactic Acid 1.5 Calcium 9.0 Iron TIBC % Saturation Transferrin Ferritin Total Bilirubin 0.3 AST 19 Alkaline Phosphatase 165 H C-Reactive Protein 19.1 H Total Protein 7.0 Albumin 3.5 Vitamin B12 Folate 06/19/19 06/19/19 06/19/19 05:38 05:38 05:38 WBC 4.9 RBC 3.84 Hgb 10.8 L Hct 31.0 L MCV 81 MCH 28.2 MCHC 34.8 RDW 13.7 Plt Count 257 Seg Neutrophils % Retic Count (auto) 1.53 Sodium 138.5 Potassium 3.4 L Chloride 107 Carbon Dioxide 26 Anion Gap 6 BUN 9 Creatinine 0.50 L Est GFR ( Amer) > 60 Glucose 98 Lactic Acid Calcium 8.4 Iron TIBC % Saturation Transferrin Ferritin Total Bilirubin AST Alkaline Phosphatase C-Reactive Protein Total Protein Albumin Vitamin B12 Folate 06/19/19 06/19/19 05:38 05:38 WBC RBC Hgb Hct MCV MCH MCHC RDW Plt Count Seg Neutrophils % Retic Count (auto) Sodium Potassium Chloride Carbon Dioxide Anion Gap BUN Creatinine Est GFR ( Amer) Glucose Lactic Acid Calcium Iron 33.5 L TIBC 246 L % Saturation 14 Transferrin 170.59 L Ferritin 13.80 Total Bilirubin AST Alkaline Phosphatase C-Reactive Protein Total Protein Albumin Vitamin B12 285.0 Folate 6.74 Impressions: Foot X-Ray 06/18/19 17:35 IMPRESSION: Osteomyelitis of the distal phalanx of the great toe. Venous Doppler Study 06/18/19 19:05 IMPRESSION: No evidence for acute deep venous thrombus from the common femoral to the popliteal veins. Assessment and Plan - Diagnosis (1) Osteomyelitis of great toe of left foot Is this a current diagnosis for this admission?: Yes Plan: She is planning on going to the OR today to have the toe removed. We will probably keep her on antibiotics for couple of days afterwards. Wound care and activity instructions postoperatively from surgery. (2) Cellulitis Qualifiers: Site of cellulitis: extremity Site of cellulitis of extremity: toe Laterality: left Qualified Code(s): L03.032 - Cellulitis of left toe Is this a current diagnosis for this admission?: Yes Plan: As noted above - Time Time Spent with patient: 15-24 minutes
--- NOTE | 2019-06-19 13:47 | Operative Report ---
Nonrecallable Operative Report DATE OF SURGERY: 06/19/19 PREOPERATIVE DIAGNOSIS: Osteomyelitis left great toe POSTOPERATIVE DIAGNOSIS: osteomyliltis left great toe OPERATION: left great toe amputation SURGEON: RONEN THOMAS ANESTHESIA: GA TISSUE REMOVED OR ALTERED: left great toe COMPLICATIONS: none ESTIMATED BLOOD LOSS: 2cc INTRAOPERATIVE FINDINGS: see note PROCEDURE: Patient was brought the operating awake alert stable condition and placed on the operative table supine position. After appropriate timeout site verification the procedure commenced. She was given LMAC anesthesia. The base of the left great toe was anesthetized with a mixture of 1% lidocaine plain and 0.5% bupivacaine. Digital block was given. A racquet incision was made around the base of the first phalanx with a 15 blade dissection was carried out through subcutaneous tissue to the periosteum of theIt did not bleed vigorously. However the foot was warm. The edges were pink. After removing the stump the bone was rongeured back another 1/2 cm and to smooth edges. The subcutaneous tissue was then reapproximated over the bone with interrupted 2-0 Vicryl and the skin was reapproximated interrupted 3-0 nylon and a sterile dressing was applied which completed the procedure. The patient was then transferred recovery in stable condition. Sponge and needle counts were correct x2. Estimate blood loss was less than 2 cc.
[2019-06-19] MEDS: INSULIN GLARGINE,HUM.REC.ANLOG 1,000 UNIT/10 ML VIAL SUBCUT SCH (21:38)
[2019-06-20] MEDS: VANCOMYCIN HCL 750 MG in DEXTROSE 5%-WATER 250 ML IV SCH ×2 (02:40→13:25)
[2019-06-20] MEDS: PIPERACILLIN SODIUM/TAZOBACTAM 4.5 GM in NORMAL SALINE 100 ML IV SCH ×4 (05:26→23:29)
[2019-06-20] MEDS: HEPARIN SOD (PORCINE) 5,000 UNIT/ML 1 ML VIAL SUBCUT SCH ×3 (05:26→21:13)
[2019-06-20] MEDS: KETOROLAC TROMETHAMINE INJ/PF 30 MG/1 ML SDV IV PRN (06:13)
[2019-06-20] MEDS: DOCUSATE SODIUM 100 MG CAPSULE PO SCH ×2 (10:20→17:27)
[2019-06-20 11:37] LABS: VANCOMYCIN,TROUGH 11.1 ug/mL (5.0-20.0)
--- NOTE | 2019-06-20 11:48 | PDOC PROGRESS REPORT ---
Subjective Progress Note for:: 06/20/19 Subjective:: Patient feels well today minimal left lower extremity pain Reason For Visit: TOE OSTEO DM HTN Physical Exam Vital Signs: Temp Pulse Resp BP Pulse Ox 98.4 F 80 14 103/87 H 96 06/20/19 07:15 06/20/19 08:39 06/20/19 08:39 06/20/19 07:15 06/20/19 08:39 Intake & Output 06/19/19 06/20/19 06/21/19 06:59 06:59 06:59 Intake Total 1200 3650 Output Total 305 Balance 1200 3345 Weight 70.5 kg 75.9 kg General appearance: PRESENT: no acute distress Eye exam: PRESENT: EOMI Mouth exam: PRESENT: moist Teeth exam: PRESENT: poor dentation Neck exam: PRESENT: full ROM Respiratory exam: PRESENT: clear to auscultation mirna Cardiovascular exam: PRESENT: RRR Vascular exam: PRESENT: normal capillary refill Breast: PRESENT: Normal GI/Abdominal exam: PRESENT: soft Rectal exam: PRESENT: deferred Extremities exam: PRESENT: other - The left great toe amputation site is clean sutures are intact minimal drainage no cellulitis Neurological exam: PRESENT: alert, awake, oriented to person Skin exam: PRESENT: dry Results Laboratory Results: 06/19/19 05:38 06/19/19 05:38 Impressions: Foot X-Ray 06/18/19 17:35 IMPRESSION: Osteomyelitis of the distal phalanx of the great toe. Venous Doppler Study 06/18/19 19:05 IMPRESSION: No evidence for acute deep venous thrombus from the common femoral to the popliteal veins. Assessment & Plan - Plan Summary Plan Summary: Impression status post left great toe amputation for osteomyelitis. Patient is doing well today sutures are intact and the wound is closed. Patient can be discharged home from surgical standpoint to follow-up in the surgical clinic for suture removal 7 to 10 days after discharge. Please reconsult surgery if necessary.
--- NOTE | 2019-06-20 12:08 | PDOC PROGRESS REPORT ---
Subjective Progress Note for:: 06/20/19 Subjective:: No adverse events overnight. No new complaints. She tolerated her procedure well yesterday. Vital signs have been stable. Eating and drinking without difficulty. Reason For Visit: TOE OSTEO DM HTN Physical Exam Vital Signs: Temp Pulse Resp BP Pulse Ox 98.4 F 80 14 103/87 H 96 06/20/19 07:15 06/20/19 08:39 06/20/19 08:39 06/20/19 07:15 06/20/19 08:39 Intake & Output 06/19/19 06/20/19 06/21/19 06:59 06:59 06:59 Intake Total 1200 3650 Output Total 305 Balance 1200 3345 Weight 70.5 kg 75.9 kg General appearance: PRESENT: no acute distress, cooperative, disheveled Respiratory exam: PRESENT: clear to auscultation mirna, symmetrical, unlabored. ABSENT: accessory muscle use, chest wall tenderness, crackles, prolonged expiratory phas, retraction, rhonchi, tachypnea, wheezes Cardiovascular exam: PRESENT: RRR, +S1, +S2 Pulses: PRESENT: normal carotid pulses Vascular exam: PRESENT: normal capillary refill GI/Abdominal exam: PRESENT: normal bowel sounds, soft. ABSENT: distended, guarding, rebound, tenderness Extremities exam: PRESENT: other - She is missing the second toe of her left foot. The great toe of the left foot has been surgically removed. ABSENT: clubbing, pedal edema Neurological exam: PRESENT: alert, awake, oriented to person, oriented to place, oriented to situation Psychiatric exam: PRESENT: appropriate affect, normal mood Skin exam: PRESENT: dry, warm, other -incision is well approximated, looks clean Results Laboratory Results: 06/19/19 05:38 06/19/19 05:38 Impressions: Foot X-Ray 06/18/19 17:35 IMPRESSION: Osteomyelitis of the distal phalanx of the great toe. Venous Doppler Study 06/18/19 19:05 IMPRESSION: No evidence for acute deep venous thrombus from the common femoral to the popliteal veins. Assessment and Plan - Diagnosis (1) Osteomyelitis of great toe of left foot Is this a current diagnosis for this admission?: Yes Plan: Status post amputation of the great toe of the left foot. We will keep her on antibiotics for another day to remove any residual soft tissue infection and anticipate she can be discharged home tomorrow with outpatient follow-up with surgery. (2) Cellulitis Qualifiers: Site of cellulitis: extremity Site of cellulitis of extremity: toe Laterality: left Qualified Code(s): L03.032 - Cellulitis of left toe Is this a current diagnosis for this admission?: Yes Plan: Continue antibiotics through today as noted above. - Time Time Spent with patient: 15-24 minutes
[2019-06-20] MEDS: METFORMIN HCL 500 MG TABLET PO SCH (17:10)
[2019-06-20] MEDS: VANCOMYCIN HCL 1,000 MG in DEXTROSE 5%-WATER 250 ML IV SCH (21:12)
[2019-06-20] MEDS: INSULIN GLARGINE,HUM.REC.ANLOG 1,000 UNIT/10 ML VIAL SUBCUT SCH (21:13)
[2019-06-21] MEDS: PIPERACILLIN SODIUM/TAZOBACTAM 4.5 GM in NORMAL SALINE 100 ML IV SCH ×2 (05:33→13:09)
[2019-06-21] MEDS: HEPARIN SOD (PORCINE) 5,000 UNIT/ML 1 ML VIAL SUBCUT SCH (05:34)
[2019-06-21] MEDS: METFORMIN HCL 500 MG TABLET PO SCH (09:36)
[2019-06-21] MEDS: DOCUSATE SODIUM 100 MG CAPSULE PO SCH (09:36)
[2019-06-21] MEDS: VANCOMYCIN HCL 1,000 MG in DEXTROSE 5%-WATER 250 ML IV SCH (09:37)
[2019-06-21 12:33] VITALS: BP 105/57
--- NOTE | 2019-06-21 15:57 | PDOC DISCHARGE SUMMARY ---
Impression - Admit/DC Date/PCP Admission Date/Primary Care Provider: 06/18/19 22:04 ANA RESENDEZ MD Discharge Date: 06/21/19 - Discharge Diagnosis (1) Osteomyelitis of great toe of left foot Is this a current diagnosis for this admission?: Yes (2) Cellulitis Is this a current diagnosis for this admission?: Yes (3) Insulin dependent diabetes mellitus Is this a current diagnosis for this admission?: Yes - Additional Information Resuscitation Status: Full Code Discharge Diet: Diabetic Discharge Activity: Other Referrals: RONEN THOMAS MD [ACTIVE STAFF] - 07/01/19 8:00 am (7-10 days) Home Medications: Insulin Glargine,Hum.rec.anlog [Lantus Insulin 100 Unit/1 ml 10 ml] 20 unit SUBCUT QHS 02/14/19 Metformin HCl [Glucophage 500 mg Tablet] 500 mg PO BIDBS tablet 06/21/19 History of Present Illiness History of Present Illness: ALEXANDER ELI is a 74 year old female with a past medical history of peripheral vascular disease, diabetes, dyslipidemia and hypertension status post right BKA who presents with pain swelling and malodorous drainage to the left great toe worsening of the last month. After developing a fever she is prompted to seek evaluation in the emergency department after taking Aleve. She admits previous episode she denies recent antibiotic use. She admits to diabetic diet and lifestyle indiscretion. Hospital Course Hospital Course: She was admitted and placed on empiric antibiotics. She then had the left great toe amputated. All of the infected material was removed. She tolerated the procedure well. There were no immediate postoperative complications. She was kept on IV antibiotics for couple of days extra to clear out any residual soft tissue infection. At the time of discharge it was not deemed necessary to continue antibiotics based on the appearance of the wound and the clinical appearance. She will follow-up with Dr. Thomas within 10 days of discharge. She will continue her home insulin. She was given wound care instructions per surgery. Her labs and examination were reassuring she was discharged in stable condition. Physical Exam Vital Signs: Temp Pulse Resp BP Pulse Ox 98.5 F 85 16 105/57 L 98 06/21/19 12:30 06/21/19 12:30 06/21/19 12:30 06/21/19 12:30 06/21/19 12:30 Intake & Output 06/20/19 06/21/19 06/22/19 06:59 06:59 06:59 Intake Total 3650 2213 120 Output Total 305 Balance 3345 2213 120 Weight 75.9 kg 75.6 kg General appearance: PRESENT: no acute distress, cooperative, disheveled Respiratory exam: PRESENT: clear to auscultation mirna, symmetrical, unlabored. ABSENT: accessory muscle use, chest wall tenderness, crackles, prolonged expiratory phas, retraction, rhonchi, tachypnea, wheezes Cardiovascular exam: PRESENT: RRR, +S1, +S2 Pulses: PRESENT: normal carotid pulses Vascular exam: PRESENT: normal capillary refill GI/Abdominal exam: PRESENT: normal bowel sounds, soft. ABSENT: distended, guarding, rebound, tenderness Extremities exam: PRESENT: other - She is missing the second toe of her left foot. The great toe of the left foot has been surgically removed. ABSENT: clubbing, pedal edema Neurological exam: PRESENT: alert, awake, oriented to person, oriented to place, oriented to situation Psychiatric exam: PRESENT: appropriate affect, normal mood Skin exam: PRESENT: dry, warm, other -incision is well approximated, looks clean Results Laboratory Results: WBC 4.9 10^3/uL (4.0-10.5) 06/19/19 05:38 RBC 3.84 10^6/uL (3.72-5.28) 06/19/19 05:38 Hgb 10.8 g/dL (12.0-15.5) L 06/19/19 05:38 Hct 31.0 % (36.0-47.0) L 06/19/19 05:38 MCV 81 fl (80-97) 06/19/19 05:38 MCH 28.2 pg (27.0-33.4) 06/19/19 05:38 MCHC 34.8 g/dL (32.0-36.0) 06/19/19 05:38 RDW 13.7 % (11.5-14.0) 06/19/19 05:38 Plt Count 257 10^3/uL (150-450) 06/19/19 05:38 Lymph % (Auto) 19.9 % (13-45) 06/18/19 20:18 [place] % (Auto) 6.4 % (3-13) 06/18/19 20:18 Eos % (Auto) 1.8 % (0-6) 06/18/19 20:18 Baso % (Auto) 1.1 % (0-2) 06/18/19 20:18 Reticulocyte # 0.059 10^6/uL (0.028-0.122) 06/19/19 05:38 Absolute Neuts (auto) 4.0 10^3/uL (1.7-8.2) 06/18/19 20:18 Absolute Lymphs (auto) 1.1 10^3/uL (0.5-4.7) 06/18/19 20:18 Absolute Monos (auto) 0.4 10^3/uL (0.1-1.4) 06/18/19 20:18 Absolute Eos (auto) 0.1 10^3/uL (0.0-0.6) 06/18/19 20:18 Absolute Basos (auto) 0.1 10^3/uL (0.0-0.2) 06/18/19 20:18 Seg Neutrophils % 70.8 % (42-78) 06/18/19 20:18 ESR 67 mm/hr (0-30) H 06/18/19 20:18 Retic Count (auto) 1.53 % (0.66-2.85) 06/19/19 05:38 Sodium 138.5 mmol/L (137-145) 06/19/19 05:38 Potassium 3.4 mmol/L (3.6-5.0) L 06/19/19 05:38 Chloride 107 mmol/L (98-107) 06/19/19 05:38 Carbon Dioxide 26 mmol/L (22-30) 06/19/19 05:38 Anion Gap 6 (5-19) 06/19/19 05:38 BUN 9 mg/dL (7-20) 06/19/19 05:38 Creatinine 0.50 mg/dL (0.52-1.25) L 06/19/19 05:38 Est GFR ( Amer) > 60 (>60) 06/19/19 05:38 Est GFR (MDRD) Non-Af > 60 (>60) 06/19/19 05:38 Glucose 98 mg/dL (75-110) 06/19/19 05:38 POC Glucose 193 mg/dL (70-110) H 06/21/19 11:40 Lactic Acid 1.5 mmol/L (0.7-2.1) 06/18/19 20:18 Calcium 8.4 mg/dL (8.4-10.2) 06/19/19 05:38 Iron 33.5 ug/dL (37-170) L 06/19/19 05:38 TIBC 246 ug/dL (250-450) L 06/19/19 05:38 % Saturation 14 % 06/19/19 05:38 Transferrin 170.59 mg/dL (206.00-381.00) L 06/19/19 05:38 Ferritin 13.80 ng/mL (11.1-264.0) 06/19/19 05:38 Total Bilirubin 0.3 mg/dL (0.2-1.3) 06/18/19 20:18 Direct Bilirubin 0.0 mg/dL (0.0-0.4) 06/18/19 20:18 Neonat Total Bilirubin Not Reportable 06/18/19 20:18 Neonat Direct Bilirubin Not Reportable 06/18/19 20:18 Neonat Indirect Bili Not Reportable 06/18/19 20:18 AST 19 U/L (14-36) 06/18/19 20:18 ALT 9 U/L (<35) 06/18/19 20:18 Alkaline Phosphatase 165 U/L (38-126) H 06/18/19 20:18 C-Reactive Protein 19.1 mg/L (<10.0) H 06/18/19 20:18 Total Protein 7.0 g/dL (6.3-8.2) 06/18/19 20:18 Albumin 3.5 g/dL (3.5-5.0) 06/18/19 20:18 Vitamin B12 285.0 pg/mL (239-931) 06/19/19 05:38 Folate 6.74 ng/mL (>2.76) 06/19/19 05:38 Time Trough Drawn 1046 06/20/19 10:46 Vancomycin Trough 11.1 ug/mL (5.0-20.0) 06/20/19 10:46 Impressions: Foot X-Ray 06/18/19 17:35 IMPRESSION: Osteomyelitis of the distal phalanx of the great toe. Venous Doppler Study 06/18/19 19:05 IMPRESSION: No evidence for acute deep venous thrombus from the common femoral to the popliteal veins. Plan Time Spent: Greater than 30 Minutes Stroke Is this a Stroke Patient?: No Acute Heart Failure - Is this a Heart Failure Patient?: No
== END 2019-06-21 13:09 | disposition home or self-care (01) | DRG 617 ==
LOC: ER 16:59 → EH 22:04 → 4N 22:57
PROVIDERS: ADMIT Internal Medicine; ATTEND Family Medicine
PROC: 0Y6Q0Z0 Detachment at Left 1st Toe, Complete, Open Approach (ICD-10-PCS; principal; 2019-06-19 11:45)
DX: E11.69 Type 2 diabetes mellitus with other specified complication (principal); M86.8X7 Other osteomyelitis, ankle and foot; I10 Essential (primary) hypertension; L03.032 Cellulitis of left toe; E11.51 Type 2 diabetes mellitus with diabetic peripheral angiopathy without gangrene; E78.5 Hyperlipidemia, unspecified; K21.9 Gastro-esophageal reflux disease without esophagitis; E11.65 Type 2 diabetes mellitus with hyperglycemia; E11.621 Type 2 diabetes mellitus with foot ulcer; L97.529 Non-pressure chronic ulcer of other part of left foot with unspecified severity; D63.8 Anemia in other chronic diseases classified elsewhere; Z79.4 Long term (current) use of insulin; Z91.11 Patient's noncompliance with dietary regimen; Z89.431 Acquired absence of right foot; Z79.899 Other long term (current) drug therapy; Z79.82 Long term (current) use of aspirin; Z88.7 Allergy status to serum and vaccine; Z86.14 Personal history of Methicillin resistant Staphylococcus aureus infection
CPT/HCPCS: 01480; 36415; 80048; 80053; 80202; 82607; 82728; 82746; 82962; 83540; 83550; 83605; 84466; 85025; 85027; 85045; 85652; 86140; 87040; 88305; 88311; 93971; 96365; 96366; 96375; 99140; 99285; J1644; J1815; J1885; J2250; J2270; J2405; J2543; J2704; J3010; J3370; J3490; J7030; J7050; J7060

== ENCOUNTER 2019-09-06 16:03 | Inpatient (IN) | payer BC, MEDICARE, MEDICAID ==
[2019-09-06] MEDS ORDERED: PIPERACILLIN/TAZOBACTAM 4.5 GM VIAL IV ONE (16:48)
[2019-09-06] MEDS ORDERED: RINGERS LACTATED IV ONE (16:48)
[2019-09-06] MEDS ORDERED: ACETAMINOPHEN 325 MG TABLET PO ONE (16:48)
--- NOTE | 2019-09-06 17:00 | ER Document Report ---
ED General - General TRAVEL OUTSIDE OF THE [place] IN LAST 30 DAYS: No <JOAQUIN GRESHAM - Last Filed: 09/06/19 19:55> <NATHAN JEAN - Last Filed: 09/07/19 01:49> - General Chief Complaint: Fever Stated Complaint: FEVER Primary Care Provider: ANA RESENDEZ MD [COMMUNITY BASED STAFF] - Follow up as needed Notes: Patient is a 74-year-old white female with a past medical history of diabetes and hypertension who presents to the emergency department today with a chief complaint of fever that began yesterday. She states for about the past 2 weeks she has had some redness and warmth to the prior amputation site of the left foot at the first MCP area status post amputation of the first digit of the left foot. She denies any drainage from this area but states this just been red and sore. She has not been evaluated for this. She states yesterday she started having some fevers associated with what she reports is shortness of breath. She denies any associated cough or chest pain. No headache or neck pain. No abdominal pain vomiting or diarrhea. No urinary complaints. (JOAQUIN GRESHAM) - Related Data Allergies/Adverse Reactions: Tetanus Vaccines and Toxoid [Tetanus] Allergy (Verified 06/18/19 22:28) Past Medical History - Social History Smoking Status: Never Smoker Chew tobacco use (# tins/day): No Frequency of alcohol use: None Drug Abuse: None Family History: Hypertension Patient has homicidal ideation: No - Past Medical History Cardiac Medical History: Reports: Hx Hypercholesterolemia, Hx Hypertension Endocrine Medical History: Reports: Hx Diabetes Mellitus Type 2 Renal/ Medical History: Denies: Hx Peritoneal Dialysis GI Medical History: Reports: Hx Gastroesophageal Reflux Disease Musculoskeletal Medical History: Reports Hx Musculoskeletal Deformity, Reports Hx Musculoskeletal Trauma Skin Medical History: Reports Hx MRSA - MRSA 08/15 FOOT Psychiatric Medical History: Denies: Hx Depression Past Surgical History: Reports: Hx Orthopedic Surgery - rt bka and toe on left hip ORIF - Immunizations Hx Diphtheria, Pertussis, Tetanus Vaccination: - allergic <JOAQUIN GRESHAM - Last Filed: 09/06/19 19:55> Review of Systems <JOAQUIN GRESHAM - Last Filed: 09/06/19 19:55> - Review of Systems Notes: Per HPI (JOAQUIN GRESHAM) Physical Exam - General General appearance: Appears well, Alert In distress: None - HEENT Head: Normocephalic, Atraumatic Eyes: Normal Conjunctiva: Normal Extraocular movements intact: Yes Pupils: PERRL Mouth/Lips: Normal Neck: Supple - Respiratory Respiratory status: No: No respiratory distress Breath sounds: Other - No cough appreciated - Extremities Foot: Other - Status post amputation of the first digit of the left foot. Significant erythema overlying the site of prior potation from 2 months ago. No drainage. The area is increased warmth. No proximal streaking. Tender to palpation. - Neurological Neuro grossly intact: Yes Cognition: Normal Orientation: AAOx4 - Psychological Associated symptoms: Normal affect, Normal mood - Skin Skin Color: Other - Normal areas of exposed skin except area described above <JOAQUIN GRESHAM - Last Filed: 09/06/19 19:55> - Vital signs Vitals: Temp 101.2 F H 09/06/19 16:03 Course - Laboratory Result Diagrams: 09/06/19 16:38 09/06/19 16:38 <JOAQUIN GRESHAM - Last Filed: 09/06/19 19:55> - Laboratory Result Diagrams: 09/06/19 16:38 09/06/19 16:38 <NATHAN JEAN - Last Filed: 09/07/19 01:49> - Re-evaluation Re-evalutation: 09/06/19 18:44 EKG: Sinus rhythm at 82 bpm. Normal intervals. Normal axis. No STEMI. Interpreted by ED attending. 09/06/19 19:55 Pending urinalysis and COVID swab patient will be signed out to oncoming provider Nathan Jean PA-C. Patient stable at this time, hemodynamically. She has normal vital signs. Do not suspect sepsis. Her lab work is showing a normal white count with a left shift, normal lactic. Blood sugar in the mid 200s. Fever possibly from potential COVID infection versus cellulitis to the foot. The patient's disposition will be pending reevaluation after urinalysis. 09/06/19 19:56 (JOAQUIN GRESHAM) Urinary tract infection noted on urine results, culture placed, patient is already on antibiotics with Zosyn. I did evaluate the patient at bedside. She does have cellulitis over the left foot, she already has a right BKA, she is mis sing the great toe and second toe on the left foot, there appears to be a small wound and surrounding cellulitis up to the midfoot. Area was traced with a medical pen. X-ray of the foot does not show air or concerning findings. Chest x-ray unremarkable. Patient with no other symptoms other than the fever, left foot pain which has been worsening for a couple of weeks, and generalized weakness. I am concerned to discharge patient home because of her fever, elderly status, diabetic foot infection, and she only has 1 foot. Given additional antibiotics with vancomycin. Updated and discussed with Dr. Chaudhry. Discussed with patient, she states agreement with plan of admission. Discussed with Dr. Barreto, hospitalist, patient admitted to the medical floor full admission. (NATHAN JEAN) - Vital Signs Vital signs: Temp Pulse Resp BP Pulse Ox 98.7 F 23 H 146/102 H 99 09/07/19 00:21 09/07/19 01:18 09/07/19 01:18 09/07/19 01:01 - Laboratory Laboratory results interpreted by me: 09/06/19 09/06/19 09/06/19 16:38 16:38 21:40 Hgb 11.8 L Hct 34.2 L Lymph % (Auto) 5.1 L Absolute Neuts (auto) 8.6 H Seg Neutrophils % 89.4 H Sodium 132.8 L Glucose 263 H Alkaline Phosphatase 155 H Albumin 3.4 L Urine Glucose (UA) 150 H Urine Blood SMALL H Leukocyte Esterase Rfl LARGE H Discharge <JOAQUIN GRESHAM - Last Filed: 09/06/19 19:55> - Discharge Admitting Provider: Estevan (Hospitalist) Unit Admitted: Medical Floor <NATHAN JEAN - Last Filed: 09/07/19 01:49> - Discharge Clinical Impression: Cellulitis of left foot Urinary tract infection Qualifiers: Urinary tract infection type: site unspecified Hematuria presence: without hematuria Qualified Code(s): N39.0 - Urinary tract infection, site not specified Type II diabetes mellitus Qualifiers: Diabetes mellitus nursing home insulin use: unspecified nursing home insulin use status Diabetes mellitus complication status: with other specified complication Qualified Code(s): E11.69 - Type 2 diabetes mellitus with other specified complication Fever Qualifiers: Fever type: unspecified Qualified Code(s): R50.9 - Fever, unspecified Condition: Stable Disposition: ADMITTED INPATIENT Referrals: ANA RESENDEZ MD [COMMUNITY BASED STAFF] - Follow up as needed
[2019-09-06 17:08] LABS: ABSOLUTE LYMPHOCYTES (AUTO) 0.5 10^3/uL (0.5-4.7); ABSOLUTE MONOCYTES (AUTO) 0.5 10^3/uL (0.1-1.4); ABSOLUTE NEUT (AUTO) 8.6 10^3/uL (1.7-8.2); BASOPHILS % (AUTO) 0.3 % (0-2); EOSINOPHILS % (AUTO) 0.2 % (0-6); HEMATOCRIT 34.2 % (36.0-47.0); HEMOGLOBIN 11.8 g/dL (12.0-15.5); INTERNATIONAL RATION (INR) 1.04; LYMPHOCYTES % (AUTO) 5.1 % (13-45); MEAN CORPUSCULAR HGB CONC 34.4 g/dL (32.0-36.0); MEAN CORPUSCULAR VOLUME 81 fl (80-97); PLATELET COUNT 211 10^3/uL (150-450); PROTHROMBIN TIME 13.6 SEC (11.4-15.4); RED BLOOD COUNT 4.21 10^6/uL (3.72-5.28); SEGMENTED NEUTROPHILS % (AUTO) 89.4 % (42-78); TOTAL CELLS COUNTED % (AUTO) 100 %; VENOUS BLOOD BASE EXCESS -1.2 mmol/L; VENOUS BLOOD HCO3 24.1 mmol/L (20-32); VENOUS BLOOD PCO2 42.1 mmHg (35-63); VENOUS BLOOD PH 7.38 (7.30-7.42); WHITE BLOOD COUNT 9.6 10^3/uL (4.0-10.5)
[2019-09-06 17:26] LABS: ALBUMIN 3.4 g/dL (3.5-5.0); ALKALINE PHOSPHATASE 155 U/L (38-126); ANION GAP 6 (5-19); ASPARTATE AMINO TRANSFERASE 25 U/L (14-36); BILIRUBIN,DIRECT 0.1 mg/dL (0.0-0.4); BILIRUBIN,TOTAL 0.7 mg/dL (0.2-1.3); BLOOD UREA NITROGEN 15 mg/dL (7-20); CALCIUM 8.7 mg/dL (8.4-10.2); CARBON DIOXIDE 25 mmol/L (22-30); CHLORIDE 102 mmol/L (98-107); GLUCOSE 263 mg/dL (75-110); POTASSIUM 3.7 mmol/L (3.6-5.0); TOTAL PROTEIN 6.7 g/dL (6.3-8.2)
--- NOTE | 2019-09-06 17:50 | RADIOLOGY REPORT (SQ) ---
EXAM DESCRIPTION: CHEST SINGLE VIEW IMAGES COMPLETED DATE/TIME: 09/06/2019 5:28 pm REASON FOR STUDY: sob/fever COMPARISON: 02/12/2019 EXAM PARAMETERS: NUMBER OF VIEWS: One view. TECHNIQUE: Single frontal radiographic view of the chest acquired. RADIATION DOSE: NA LIMITATIONS: The patient's bra clips obscure detail somewhat in the region of the mid mediastinum. FINDINGS: LUNGS AND PLEURA: No opacities, masses or pneumothorax. No pleural effusion. MEDIASTINUM AND HILAR STRUCTURES: No masses. Contour normal. HEART AND VASCULAR STRUCTURES: Heart normal in size. Normal vasculature. BONES: No acute findings. HARDWARE: None in the chest. OTHER: No other significant finding. IMPRESSION: 1. No significant interval changes since the previous examination dated 02/12/2019. No a cute findings. TECHNICAL DOCUMENTATION: JOB ID: [id number] 2010 [employer]- All Rights Reserved Reading location - IP/workstation name: [email or web address]
--- NOTE | 2019-09-06 17:57 | RADIOLOGY REPORT (SQ) ---
EXAM DESCRIPTION: FOOT LEFT COMPLETE IMAGES COMPLETED DATE/TIME: 09/06/2019 5:28 pm REASON FOR STUDY: diabetic foot COMPARISON: 06/18/2019 NUMBER OF VIEWS: Three views. TECHNIQUE: AP, lateral and oblique radiographic images acquired of the left foot. LIMITATIONS: None. FINDINGS: MINERALIZATION: Osteopenia. BONES: Status post amputation of the first toe down to the level of the base of the proximal phalanx . Soft tissue swelling likely related to the post surgical changes. Status post amputation of the second toe, stable finding. Plantar calcaneal spur. JOINTS: No effusions. SOFT TISSUES: See above. Soft tissue vascular calcifications. No foreign body. OTHER: No other significant finding. IMPRESSION: 1. Status post amputation of the first toe down to the level of the base of the proxima l phalanx. Soft tissue swelling likely related to postsurgical changes. 2. Prior amputation of the second toe, stable finding. TECHNICAL DOCUMENTATION: JOB ID: [id number] 2010 [employer]- All Rights Reserved Reading location - IP/workstation name: [email or web address]
[2019-09-06 22:34] LABS: APPEARANCE,URINE CLOUDY; BILIRUBIN,URINE NEGATIVE (NEGATIVE); COLOR,URINE YELLOW; GLUCOSE, URINE 150 mg/dL (NEGATIVE); KETONES,URINE NEGATIVE (NEGATIVE); PROTEIN,URINE NEGATIVE (NEGATIVE); UROBILINOGEN,URINE NEGATIVE mg/dL (<2.0)
[2019-09-06] MEDS ORDERED: VANCOMYCIN HCL INJ 1000 MG VIAL IV ONE (23:06)
[2019-09-07] MEDS ORDERED: MAGNESIUM HYDROXIDE SUSP 30 ML UDCUP PO PRN (04:27)
[2019-09-07] MEDS ORDERED: MAG HYDROX/AL HYDROX/SIMETH SUSP 30 ML UDCUP PO PRN (04:27)
[2019-09-07] MEDS ORDERED: MELATONIN 5 MG TABLET PO PRN (04:32)
[2019-09-07] MEDS ORDERED: ACETAMINOPHEN 325 MG TABLET PO PRN (04:32)
[2019-09-07] MEDS ORDERED: GUAIFENESIN SYRP 200 MG/10 ML UDC PO PRN (04:32)
[2019-09-07] MEDS ORDERED: DEXTROSE 50%-WATER 25 GM/50 ML DISP.SYRIN IV PRN ×2 (04:32)
[2019-09-07] MEDS ORDERED: HYDRALAZINE HCL INJ/PF 20 MG/1 ML SDV IV PRN (04:32)
[2019-09-07] MEDS ORDERED: DEXTROSE 40% GEL 15 GM TUBE PO PRN ×3 (04:32→13:18)
[2019-09-07] MEDS ORDERED: GLUCAGON,HUMAN RECOMB 1 MG INJ IM PRN (04:32)
[2019-09-07] MEDS ORDERED: LORAZEPAM INJ 2 MG/1 ML VIAL IV PRN (04:32)
--- NOTE | 2019-09-07 06:52 | PDOC H&P ---
History of Present Illness Admission Date/PCP: 09/07/19 01:47 ANA RESENDEZ MD Patient complains of: Fever History of Present Illness: ALEXANDER ELI is a 74 year old female who presented the emergency room with a one-day history of fever. She admits developing a persistent fever of 101.2F on 09/05/2019 which persisted throughout the day of 09/06/2019 prompting her to come the emergency room. Her fever has been accompanied by a tender, red, swollen, and warm distal left foot which has been gradually worsening over the last 2 weeks. Her fever has been associated with mild dyspnea. She denies other associated or accompanying signs and symptoms. She admits prior similar episodes. She has not identified any aggravating or ameliorating factors for her fever. In the emergency room she was found to have a fever and a clinical cellulitis of the distal left foot. She was also noted to have pyuria. Urine and blood cultures are pending. She was subsequently started on IV antibiotics and admitted hospital for further evaluation treatment. Past Medical History Cardiac Medical History: Reports: Hyperlipidema, Hypertension, Peripheral V ascular Disease Denies: Atrial Fibrillation, Congestive Heart Failure, Coronary Artery Disease, DVT, Myocardial Infarction, Pulmonary Embolism Pulmonary Medical History: Denies: Asthma, Chronic Obstructive Pulmonary Disease (COPD) EENT Medical History: Denies: Cataracts, Ears - Hearing aids Neurological Medical History: Denies: Hemorrhagic CVA, Ischemic CVA, Seizures Endocrine Medical History: Reports: Diabetes Mellitus Type 2 Denies: Diabetes Mellitus Type 1, Hyperthyroidism, Hypothyroidism, Obesity Renal/ Medical History: Denies: Chronic Kidney Disease, Nephrolithiasis Malignancy Medical History: Reports: None GI Medical History: Reports: Gastroesophageal Reflux Disease Denies: Cirrhosis, Crohn's Disease, Hepatitis, Peptic Ulcer Disease, Ulcerative Colitis Musculoskeltal Medical History: Reports: Other - Osteomyelitis Denies: Arthritis, Gout Skin Medical History: Denies: Eczema, Psoriasis Psychiatric Medical History: Denies: Alcohol Dependency, Depression, Substance Abuse, Tobacco Dependency Traumatic Medical History: Reports: None Hematology: Denies: Anemia, Bleeding Tendencies Infectious Medical History: Reports: None Past Surgical History Past Surgical History: Reports: Amputation - Right BKA, left great and second toes, Orthopedic Surgery - Bilateral hip surgeries Social History Information Source: Patient Lives with: Spouse/Significant other Smoking Status: Never Smoker Electronic Cigarette use?: No Frequency of Alcohol Use: None Hx Recreational Drug Use: No Drugs: None Hx Prescription Drug Abuse: No - Advance Directive Resuscitation Status: Full Code Surrogate healthcare decision maker:: Sung Eli Family History Family History: Hypertension, Malignancy, Other - Parkinson's disease. denies: CAD, DM Parental Family History Reviewed: Yes Children Family History Reviewed: No Sibling(s) Family History Reviewed.: Yes Medication/Allergy Home Medications: Insulin Glargine,Hum.rec.anlog [Lantus Insulin 100 Unit/1 ml 10 ml] 20 unit SUBCUT QHS 02/14/19 Metformin HCl [Glucophage 500 mg Tablet] 500 mg PO BIDBS tablet 06/21/19 Allergies/Adverse Reactions: Tetanus Vaccines and Toxoid [Tetanus] Allergy (Verified 06/18/19 22:28) Review of Systems Constitutional: PRESENT: fever(s). ABSENT: chills Eyes: ABSENT: visual disturbances, other - Eye pain Ears: ABSENT: hearing changes, other - Ear pain Nose, Mouth, and Throat: ABSENT: headache(s), sore throat Cardiovascular: ABSENT: chest pain, palpitations Respiratory: ABSENT: cough, dyspnea Gastrointestinal: ABSENT: abdominal pain, constipation, diarrhea, nausea, vomiting Genitourinary: ABSENT: dysuria, hematuria Musculoskeletal: ABSENT: back pain, joint swelling, muscle weakness Integumentary: PRESENT: as per HPI, erythema - Erythema, edema, increased warmth and tenderness of the distal left foot. ABSENT: pruritus, rash Neurological: ABSENT: confusion, convulsions, focal weakness, memory loss, syncope Psychiatric: ABSENT: anxiety, depression Endocrine: ABSENT: cold intolerance, heat intolerance Hematologic/Lymphatic: ABSENT: easy bleeding, easy bruising Allergic/Immunologic: ABSENT: seasonal rhinorrhea Physical Exam Vital Signs: Temp Pulse Resp BP Pulse Ox 98.7 F 20 172/92 H 99 09/07/19 00:21 09/07/19 02:01 09/07/19 02:00 09/07/19 02:01 Intake & Output 09/05/19 09/06/19 09/07/19 23:59 23:59 23:59 Intake Total 2230 Balance 2230 Weight 74.2 kg General appearance: PRESENT: no acute distress, cooperative Head exam: PRESENT: atraumatic, normocephalic Eye exam: PRESENT: conjunctiva pink. ABSENT: conjunctival injection, scleral icterus Ear exam: PRESENT: normal external ear exam. ABSENT: bleeding, drainage Mouth exam: PRESENT: dry mucosa, neck supple Neck exam: ABSENT: thyromegaly, tracheal deviation Respiratory exam: PRESENT: clear to auscultation mirna, symmetrical, unlabored Cardiovascular exam: PRESENT: RRR. ABSENT: clicks, gallop, rubs Pulses: PRESENT: normal radial pulses. ABSENT: normal dorsalis pedis pul - Decreased left dorsalis pedis pulse Vascular exam: PRESENT: normal capillary refill. ABSENT: pallor GI/Abdominal exam: PRESENT: normal bowel sounds, soft. ABSENT: tenderness Rectal exam: PRESENT: deferred Extremities exam: PRESENT: tenderness - Erythema, edema, increased warmth and tenderness to palpation noted over the distal left foot involving the site of amputation for the left first and second toes.. ABSENT: joint swelling, pedal edema Musculoskeletal exam: PRESENT: other - Status post right BKA, status post left first and second toe amputation. ABSENT: deformity, dislocation Neurological exam: PRESENT: alert, oriented to person, oriented to place, oriented to time, oriented to situation, CN II-XII grossly intact. ABSENT: motor sensory deficit - On gross exam Psychiatric exam: PRESENT: appropriate affect, normal mood Skin exam: PRESENT: dry, intact, warm. ABSENT: jaundice, rash, urticaria Results Laboratory Results: 09/06/19 16:38 09/06/19 16:38 09/06/19 09/06/19 09/06/19 16:38 16:38 16:38 WBC 9.6 RBC 4.21 Hgb 11.8 L Hct 34.2 L MCV 81 MCH 28.0 MCHC 34.4 RDW 14.0 Plt Count 211 Seg Neutrophils % 89.4 H VBG pH 7.38 VBG pCO2 42.1 VBG HCO3 24.1 VBG Base Excess -1.2 Sodium 132.8 L Potassium 3.7 Chloride 102 Carbon Dioxide 25 Anion Gap 6 BUN 15 Creatinine 0.59 Est GFR ( Amer) > 60 Glucose 263 H Lactic Acid Calcium 8.7 Total Bilirubin 0.7 AST 25 Alkaline Phosphatase 155 H Total Protein 6.7 Albumin 3.4 L Urine Color Urine Appearance Urine pH Ur Specific [place] Urine Protein Urine Glucose (UA) Urine Ketones Urine Blood 09/06/19 09/06/19 16:38 21:40 WBC RBC Hgb Hct MCV MCH MCHC RDW Plt Count Seg Neutrophils % VBG pH VBG pCO2 VBG HCO3 VBG Base Excess Sodium Potassium Chloride Carbon Dioxide Anion Gap BUN Creatinine Est GFR ( Amer) Glucose Lactic Acid 1.1 Calcium Total Bilirubin AST Alkaline Phosphatase Total Protein Albumin Urine Color YELLOW Urine Appearance CLOUDY Urine pH 5.0 Ur Specific [place] 1.010 Urine Protein NEGATIVE Urine Glucose (UA) 150 H Urine Ketones NEGATIVE Urine Blood SMALL H 09/06/19 16:38 Troponin I < 0.012 Impressions: Chest X-Ray 09/06/19 16:49 IMPRESSION: 1. No significant interval changes since the previous examination dated 02/12/2019. No acute findings. Foot X-Ray 09/06/19 16:50 IMPRESSION: 1. Status post amputation of the first toe down to the level of the base of the proximal phalanx. Soft tissue swelling likely related to postsurgical changes. 2. Prior amputation of the second toe, stable finding. Assessment and Plan - Diagnosis (1) Cellulitis of left foot Is this a current diagnosis for this admission?: Yes (2) Fever Qualifiers: Fever type: unspecified Qualified Code(s): R50.9 - Fever, unspecified Is this a current diagnosis for this admission?: Yes (3) Pyuria Is this a current diagnosis for this admission?: Yes (4) Diabetes mellitus type 2 in nonobese Is this a current diagnosis for this admission?: Yes (5) Peripheral vascular disease in diabetes mellitus Is this a current diagnosis for this admission?: Yes (6) Hyperlipidemia Qualifiers: Hyperlipidemia type: unspecified Qualified Code(s): E78.5 - Hyperlipidemia, unspecified Is this a current diagnosis for this admission?: Yes (7) Hypertension Qualifiers: Hypertension type: essential hypertension Qualified Code(s): I10 - Essential (primary) hypertension Is this a current diagnosis for this admission?: Yes (8) Gastroesophageal reflux disease Qualifiers: Esophagitis presence: with esophagitis Qualified Code(s): K21.0 - Gastro- esophageal reflux disease with esophagitis Is this a current diagnosis for this admission?: Yes - Plan Summary Summary: Patient will be admitted to the medical floor where she will receive routine supportive and symptomatic cares. She will be treated with IV antibiotics utilizing cefepime and Zyvox initially pending culture results. She will receive morphine sulfate 2 to 4 mg IV every 2 hours as needed for pain. She will receive Ativan 1 mg IV every 4 hours as needed for anxiety or restlessness. A surgical consultation may be indicated and can be obtained later in the therapeutic course if needed. Before meals and at bedtime Accu-Cheks will be performed, sliding scale insulin will be available for hyperglycemia and a hypoglycemic protocol will be in place. CBCs, metabolic profiles, magnesium levels and additional laboratory and/or radiographic evaluations will be obtained as needed. - Time Time Spent with patient: 15-24 minutes Medications reviewed and adjusted accordingly: Yes Anticipated Discharge Disposition: Home with Home Health Anticipated Discharge: Other - Undetermined - Inpatient Certification Based on my medical assessment, after consideration of the patient's comorbidit ies, presenting symptoms, or acuity I expect that the services needed warrant INPATIENT care.: Yes I certify that my determination is in accordance with my understanding of Me katty's requirements for reasonable and necessary INPATIENT services [42 CFR 412.3e].: Yes Medical Necessity: Significant Comorbidiites Make Outpatient Treatment Too Risky, Need Close Monitoring Due to Risk of Patient Decompensation, Need for Pain Control, Need for IV Antibiotics, Risk of Complication if Not Cared For in Hospital
[2019-09-07] MEDS: CEFEPIME 1 GM/D5W RTU 1 GM/50 ML RTUPB IV SCH ×2 (07:15→18:08)
[2019-09-07] MEDS: HEPARIN SOD (PORCINE) 5,000 UNIT/ML 1 ML VIAL SUBCUT SCH ×3 (07:36→22:09)
[2019-09-07] MEDS: INSULIN REG, HUMAN 100 UNIT/ML 3 ML VIAL (PYX) SUBCUT SCH ×4 (09:44→22:09)
[2019-09-07] MEDS: DOCUSATE SODIUM 100 MG CAPSULE PO SCH ×2 (10:53→18:10)
[2019-09-07] MEDS: FAMOTIDINE 20 MG TABLET PO SCH ×2 (10:53→22:10)
[2019-09-07] MEDS: LINEZOLID 600 MG/300 ML RTUPB IV SCH ×2 (11:06→22:10)
[2019-09-07] MEDS: MORPHINE SULFATE 10 MG/ML INJ IV PRN (11:14)
[2019-09-07] MEDS: PROMETHAZINE HCL 25 MG TABLET PO PRN (14:30)
[2019-09-07] MEDS ORDERED: INSULIN GLARGINE,HUM.REC.ANLOG 1,000 UNIT/10 ML VIAL (PYX) SUBCUT ONE (22:05)
[2019-09-07] MEDS: INSULIN GLARGINE,HUM.REC.ANLOG 1,000 UNIT/10 ML VIAL SUBCUT SCH (22:09)
[2019-09-07] MEDS: MELATONIN 5 MG TABLET PO SCH (22:10)
[2019-09-08] MEDS: CEFEPIME 1 GM/D5W RTU 1 GM/50 ML RTUPB IV SCH ×2 (05:31→17:24)
[2019-09-08] MEDS: HEPARIN SOD (PORCINE) 5,000 UNIT/ML 1 ML VIAL SUBCUT SCH ×3 (05:31→22:11)
[2019-09-08 06:59] LABS: HEMATOCRIT 31.8 % (36.0-47.0); HEMOGLOBIN 10.8 g/dL (12.0-15.5); MEAN CORPUSCULAR HEMOGLOBIN 27.3 pg (27.0-33.4); MEAN CORPUSCULAR VOLUME 80 fl (80-97); PLATELET COUNT 208 10^3/uL (150-450); RED BLOOD COUNT 3.96 10^6/uL (3.72-5.28); RED CELL DISTRIBUTION WIDTH 13.7 % (11.5-14.0); WHITE BLOOD COUNT 6.6 10^3/uL (4.0-10.5)
[2019-09-08 07:13] LABS: ANION GAP 9 (5-19); BLOOD UREA NITROGEN 13 mg/dL (7-20); CALCIUM 8.4 mg/dL (8.4-10.2); CARBON DIOXIDE 25 mmol/L (22-30); CHLORIDE 101 mmol/L (98-107); CHOLESTEROL 193.25 mg/dL (0-200); GLUCOSE 104 mg/dL (75-110); TRIGLYCERIDES 159 mg/dL (<150)
[2019-09-08 07:26] LABS: VLDL CHOLESTEROL 31.8 mg/dL (10-31)
[2019-09-08 07:27] LABS: POTASSIUM 2.9 mmol/L (3.6-5.0)
[2019-09-08 07:41] LABS: DIRECT LDL 94 mg/dL (<100)
[2019-09-08] MEDS ORDERED: POTASSIUM CHLORIDE 10 MEQ TABLET.ER PO ONE (08:04)
[2019-09-08] MEDS: POTASSI CL 20 MEQ/50 ML RIDER 20 MEQ/50 ML RTUPB IV SCH ×3 (08:16→14:33)
[2019-09-08] MEDS: MORPHINE SULFATE 10 MG/ML INJ IV PRN (08:23)
--- NOTE | 2019-09-08 08:36 | EKG REPORT ---
SEVERITY:- NORMAL ECG - SINUS RHYTHM : Confirmed by: Jenan Newsome MD 08-Sep-2019 08:35:26
[2019-09-08] MEDS: INSULIN REG, HUMAN 100 UNIT/ML 3 ML VIAL (PYX) SUBCUT SCH ×4 (09:07→22:11)
[2019-09-08] MEDS: DOCUSATE SODIUM 100 MG CAPSULE PO SCH ×2 (09:47→17:24)
[2019-09-08] MEDS: LINEZOLID 600 MG/300 ML RTUPB IV SCH ×2 (09:48→22:11)
[2019-09-08] MEDS: FAMOTIDINE 20 MG TABLET PO SCH ×2 (09:48→22:10)
[2019-09-08] MEDS ORDERED: INSULIN NPH (ISOPHANE), HUMAN 100 UNIT/ML 3 ML SUBCUT ONE (13:20)
--- NOTE | 2019-09-08 18:12 | PDOC PROGRESS REPORT ---
Subjective Progress Note for:: 09/08/19 Subjective:: Patient volume pain or swelling will for her left first and second toes. Denies any drainage from the region. Also complains of pain in her left calf. However venous Doppler not too long ago was negative for DVT. States that she has been following up in the surgical clinic since toe amputation was done. Her potassium was also quite low today but she denies any vomiting or diarrhea. Reason For Visit: CELLULITIS LEFT FOOT,PYURIA Physical Exam Vital Signs: Temp Pulse Resp BP Pulse Ox 97.8 F 81 16 123/57 L 100 09/08/19 10:39 09/08/19 10:39 09/08/19 10:39 09/08/19 10:39 09/08/19 10:39 Intake & Output 09/07/19 09/08/19 09/09/19 06:59 06:59 06:59 Intake Total 2230 1250 670 Balance 2230 1250 670 Weight 74.2 kg 76.5 kg General appearance: PRESENT: no acute distress, cooperative Neck exam: ABSENT: JVD Respiratory exam: PRESENT: clear to auscultation mirna, unlabored Cardiovascular exam: PRESENT: +S1, +S2 GI/Abdominal exam: PRESENT: soft. ABSENT: rebound, rigid, tenderness Extremities exam: PRESENT: other - Right BKA. Left first and second toe amputation with erythema and swelling and tenderness of left first digit stump. Mild tenderness in the mid branch on the left side but without any significant swelling. Neurological exam: PRESENT: alert, awake, oriented to situation Psychiatric exam: ABSENT: agitated, anxious Results Laboratory Results: 09/08/19 06:34 09/08/19 15:43 09/08/19 09/08/19 09/08/19 06:34 06:34 15:43 WBC 6.6 RBC 3.96 Hgb 10.8 L Hct 31.8 L MCV 80 MCH 27.3 MCHC 34.0 RDW 13.7 Plt Count 208 Sodium 134.5 L Cancelled Potassium 2.9 L* Cancelled Chloride 101 Cancelled Carbon Dioxide 25 Cancelled Anion Gap 9 Cancelled BUN 13 Cancelled Creatinine 0.56 Cancelled Est GFR ( Amer) > 60 Cancelled Est GFR (Non-Af Amer) Cancelled Glucose 104 Cancelled Calcium 8.4 Cancelled Magnesium 1.8 Triglycerides 159 H Cholesterol 193.25 LDL Cholesterol Direct 94 VLDL Cholesterol 31.8 H HDL Cholesterol 64 09/06/19 21:40 Catheterized Urine Urine Culture - Final Klebsiella Oxytoca 09/06/19 16:38 Troponin I < 0.012 Impressions: Chest X-Ray 09/06/19 16:49 IMPRESSION: 1. No significant interval changes since the previous examination dated 02/12/2019. No acute findings. Foot X-Ray 09/06/19 16:50 IMPRESSION: 1. Status post amputation of the first toe down to the level of the base of the proximal phalanx. Soft tissue swelling likely related to postsurgical changes. 2. Prior amputation of the second toe, stable finding. Assessment and Plan - Diagnosis (1) Diabetic infection of left foot Is this a current diagnosis for this admission?: Yes (2) Cellulitis of left foot Is this a current diagnosis for this admission?: Yes (3) Diabetes mellitus type 2 in nonobese Is this a current diagnosis for this admission?: Yes (4) Fever Qualifiers: Fever type: unspecified Qualified Code(s): R50.9 - Fever, unspecified Is this a current diagnosis for this admission?: Yes (5) Peripheral vascular disease in diabetes mellitus Is this a current diagnosis for this admission?: Yes (6) Hypokalemia Is this a current diagnosis for this admission?: Yes (7) Bacteriuria Is this a current diagnosis for this admission?: Yes - Plan Summary Summary: Patient will be admitted to the medical floor where she will receive routine supportive and symptomatic cares. She will be treated with IV antibiotics utilizing cefepime and Zyvox initially pending culture results. She will rec eive morphine sulfate 2 to 4 mg IV every 2 hours as needed for pain. She will receive Ativan 1 mg IV every 4 hours as needed for anxiety or restlessness. A surgical consultation may be indicated and can be obtained later in the therapeutic course if needed. Before meals and at bedtime Accu-Cheks will be performed, sliding scale insulin will be available for hyperglycemia and a hypoglycemic protocol will be in place. CBCs, metabolic profiles, magnesium levels and additional laboratory and/or radiographic evaluations will be obtained as needed. 09/08/2019 Patient has evidence infection of her left first and second digit stump at the remnant site of her recently amputated toes which was done for treatment of osteomyelitis. Continue linezolid and cefepime. Blood cultures have been obtained I will go ahead and get an MRI of the left foot to assess to see if there is any progressive osteomyelitis now involving the amputation margins. Urine culture growing Klebsiella. Uncertain if this is true versus asymptomatic bacteriuria. Will confirm if patient is having urinary symptoms. Pain control as needed. Continue insulin management of diabetes. Accu-Cheks before meals and at bedtime. Potassium is 2.9 today. Repleted aggressively with 60 M EQ of IV and 40 p.o. potassium chloride. Recheck BMP today and in the morning. - Time Time Spent with patient: 15-24 minutes Anticipated Discharge Disposition: Home, Self Care Anticipated Discharge Timeframe: undetermined
--- NOTE | 2019-09-08 18:57 | RADIOLOGY REPORT (SQ) ---
EXAM DESCRIPTION: MRI LT LOWER EXTREMITY COMBO IMAGES COMPLETED DATE/TIME: 09/08/2019 6:40 pm REASON FOR STUDY: r/o progressive osteo of lt 1st 2nd toes. s/p ampu COMPARISON: Radiographs 09/06/2019 TECHNIQUE: Multiplanar imaging of the left forefoot to include T1-weighted, postcontrast T1-weighted , and T2-weighted images. CONTRAST TYPE AND DOSE: 15 mL Prohance. RENAL FUNCTION: Not indicated. ACR Type II contrast agent associated with few, if any, unconfounded cases of NSF LIMITATIONS: None. FINDINGS: BONE MARROW: No marrow signal alteration. Specifically no marrow replacement or marrow ed bridget. No evidence for osteomyelitis. No cortical break through. Changes of amputation of the 1st an d 2nd toes at the level of the MP joints. Remaining toes are intact. SOFT TISSUES: Thickening of the soft tissues overlying the great toe amputation site particularly. D irectly anterior to the great toe metatarsal head is a subcutaneous fluid collection or ulcer trackin g into the deep soft tissues. This measures close to 1.3 cm in maximal dimension in the transverse p he. OTHER: No other significant finding. IMPRESSION: 1. No osteomyelitis. Postoperative changes in the 1st and 2nd toes. 2. Cellulitis, most conspicuous at the great toe amputation site. There is subcutaneous fluid the ei ther related to ulcer or a small abscess. TECHNICAL DOCUMENTATION: JOB ID: [id number] 2010 [employer]- All Rights Reserved Reading location - IP/workstation name: [email or web address]
[2019-09-08 19:52] LABS: BLOOD UREA NITROGEN 13 mg/dL (7-20); CALCIUM 8.5 mg/dL (8.4-10.2); CARBON DIOXIDE 26 mmol/L (22-30); GLUCOSE 268 mg/dL (75-110)
[2019-09-08 19:57] LABS: CHLORIDE 102 mmol/L (98-107)
[2019-09-08 19:58] LABS: ANION GAP 5 (5-19); POTASSIUM 4.3 mmol/L (3.6-5.0)
[2019-09-08] MEDS: MELATONIN 5 MG TABLET PO SCH (22:10)
[2019-09-08] MEDS: INSULIN GLARGINE,HUM.REC.ANLOG 1,000 UNIT/10 ML VIAL SUBCUT SCH (22:11)
[2019-09-09] MEDS: MORPHINE SULFATE 10 MG/ML INJ IV PRN (00:10)
[2019-09-09] MEDS: HEPARIN SOD (PORCINE) 5,000 UNIT/ML 1 ML VIAL SUBCUT SCH ×3 (05:20→22:15)
[2019-09-09] MEDS: CEFEPIME 1 GM/D5W RTU 1 GM/50 ML RTUPB IV SCH ×2 (05:21→17:52)
[2019-09-09 06:22] LABS: HEMATOCRIT 30.8 % (36.0-47.0); HEMOGLOBIN 10.8 g/dL (12.0-15.5); MEAN CORPUSCULAR HEMOGLOBIN 28.3 pg (27.0-33.4); MEAN CORPUSCULAR HGB CONC 35.1 g/dL (32.0-36.0); MEAN CORPUSCULAR VOLUME 81 fl (80-97); PLATELET COUNT 203 10^3/uL (150-450); RED BLOOD COUNT 3.82 10^6/uL (3.72-5.28); RED CELL DISTRIBUTION WIDTH 13.9 % (11.5-14.0); WHITE BLOOD COUNT 4.6 10^3/uL (4.0-10.5)
[2019-09-09 06:46] LABS: ANION GAP 6 (5-19); BLOOD UREA NITROGEN 12 mg/dL (7-20); CALCIUM 8.4 mg/dL (8.4-10.2); CARBON DIOXIDE 24 mmol/L (22-30); CHLORIDE 104 mmol/L (98-107); GLUCOSE 116 mg/dL (75-110); POTASSIUM 3.8 mmol/L (3.6-5.0)
[2019-09-09] MEDS: INSULIN REG, HUMAN 100 UNIT/ML 3 ML VIAL (PYX) SUBCUT SCH ×4 (08:16→22:13)
[2019-09-09] MEDS: FAMOTIDINE 20 MG TABLET PO SCH ×2 (09:30→22:12)
[2019-09-09] MEDS: LINEZOLID 600 MG/300 ML RTUPB IV SCH (09:30)
[2019-09-09] MEDS ORDERED: MAG HYDROX/AL HYDROX/SIMETH SUSP 30 ML UDCUP PO PRN (11:35)
[2019-09-09] MEDS ORDERED: DEXTROSE 40% GEL 15 GM TUBE PO PRN ×2 (11:55)
[2019-09-09] MEDS ORDERED: GLUCAGON,HUMAN RECOMB 1 MG INJ SUBCUT PRN (11:55)
[2019-09-09] MEDS ORDERED: DEXTROSE 50%-WATER 25 GM/50 ML DISP.SYRIN IV PRN ×2 (11:55)
--- NOTE | 2019-09-09 17:00 | PDOC PROGRESS REPORT ---
Subjective Progress Note for:: 09/09/19 Subjective:: Patient still complains of pain in her left cough. She denies fever or chills. She denies shortness of breath. Have discussed her MRI results with her and that she will likely need incision and drainage for which have consulted surgery given her fluid collection likely abscess. Reason For Visit: CELLULITIS LEFT FOOT,PYURIA Physical Exam Vital Signs: Temp Pulse Resp BP Pulse Ox 97.7 F 89 12 140/70 H 99 09/09/19 12:00 09/09/19 12:00 09/09/19 12:00 09/09/19 12:00 09/09/19 12:00 Intake & Output 09/08/19 09/09/19 09/10/19 06:59 06:59 06:59 Intake Total 1250 1360 400 Balance 1250 1360 400 Weight 76.5 kg 76.3 kg General appearance: PRESENT: no acute distress, cooperative Neck exam: ABSENT: JVD Respiratory exam: PRESENT: unlabored. ABSENT: accessory muscle use, chest wall tenderness, retraction, tachypnea Extremities exam: PRESENT: calf tenderness, full ROM, other - Swelling is significantly left first and second digit amputation site. Notable erythema surrounding the area. Right BKA.. ABSENT: +2 edema Neurological exam: PRESENT: alert, awake, oriented to person, oriented to place, oriented to time Psychiatric exam: ABSENT: agitated, anxious Focused psych exam: ABSENT: pressured speech Skin exam: ABSENT: jaundice Results Laboratory Results: 09/09/19 06:05 09/09/19 06:05 09/08/19 09/08/19 09/09/19 15:43 19:14 06:05 WBC 4.6 RBC 3.82 Hgb 10.8 L Hct 30.8 L MCV 81 MCH 28.3 MCHC 35.1 RDW 13.9 Plt Count 203 Sodium Cancelled 132.8 L Potassium Cancelled 4.3 D Chloride Cancelled 102 Carbon Dioxide Cancelled 26 Anion Gap Cancelled 5 BUN Cancelled 13 Creatinine Cancelled 0.58 Est GFR ( Amer) Cancelled > 60 Est GFR (Non-Af Amer) Cancelled Glucose Cancelled 268 H Calcium Cancelled 8.5 Magnesium 09/09/19 06:05 WBC RBC Hgb Hct MCV MCH MCHC RDW Plt Count Sodium 134.0 L Potassium 3.8 Chloride 104 Carbon Dioxide 24 Anion Gap 6 BUN 12 Creatinine 0.56 Est GFR ( Amer) > 60 Est GFR (Non-Af Amer) Glucose 116 H Calcium 8.4 Magnesium 1.7 09/06/19 09/09/19 16:38 11:54 Troponin I < 0.012 < 0.012 Impressions: Chest X-Ray 09/06/19 16:49 IMPRESSION: 1. No significant interval changes since the previous examination dated 02/12/2019. No acute findings. Foot X-Ray 09/06/19 16:50 IMPRESSION: 1. Status post amputation of the first toe down to the level of the base of the proximal phalanx. Soft tissue swelling likely related to postsurgical changes. 2. Prior amputation of the second toe, stable finding. Lower Extremity MRI 09/08/19 00:00 IMPRESSION: 1. No osteomyelitis. Postoperative changes in the 1st and 2nd toes. 2. Cellulitis, most conspicuous at the great toe amputation site. There is subcutaneous fluid the either related to ulcer or a small abscess. Assessment and Plan - Diagnosis (1) Diabetic infection of left foot Is this a current diagnosis for this admission?: Yes (2) Cellulitis of left foot Is this a current diagnosis for this admission?: Yes (3) Diabetes mellitus type 2 in nonobese Is this a current diagnosis for this admission?: Yes (4) Fever Qualifiers: Fever type: unspecified Qualified Code(s): R50.9 - Fever, unspecified Is this a current diagnosis for this admission?: Yes (5) Peripheral vascular disease in diabetes mellitus Is this a current diagnosis for this admission?: Yes (6) Hypokalemia Is this a current diagnosis for this admission?: Yes (7) Bacteriuria Is this a current diagnosis for this admission?: Yes - Plan Summary Summary: Patient will be admitted to the medical floor where she will receive routine supportive and symptomatic cares. She will be treated with IV antibiotics utilizing cefepime and Zyvox initially pending culture results. She will receive morphine sulfate 2 to 4 mg IV every 2 hours as needed for pain. She will receive Ativan 1 mg IV every 4 hours as needed for anxiety or restlessness. A surgical consultation may be indicated and can be obtained later in the therapeutic course if needed. Before meals and at bedtime Accu-Cheks will be performed, sliding scale insulin will be available for hyperglycemia and a hypoglycemic protocol will be in place. CBCs, metabolic profiles, magnesium levels and additional laboratory and/or radiographic evaluations will be obtained as needed. 09/08/2019 Patient has evidence infection of her left first and second digit stump at the remnant site of her recently amputated toes which was done for treatment of osteomyelitis. Continue linezolid and cefepime. Blood cultures have been obtained I will go ahead and get an MRI of the left foot to assess to see if there is any progressive osteomyelitis now involving the amputation margins. Urine culture growing Klebsiella. Uncertain if this is true versus asymptomatic bacteriuria. Will confirm if patient is having urinary symptoms. Pain control as needed. Continue insulin management of diabetes. Accu-Cheks before meals and at bedtime. Potassium is 2.9 today. Repleted aggressively with 60 M EQ of IV and 40 p.o. potassium chloride. Recheck BMP today and in the morning. 09/09/2019 MRI of the left foot reveals no evidence of osteomyelitis but does show fluid collection in the region of the first and second digit stump which is likely an abscess. I have consulted surgery for incision and debridement and surgery has requested COVID-19 screen prior to procedure. COVID-19 screen has been sent out. Expecting to result in 2 days. In the meantime, we will continue with IV antibiotics. Vancomycin and cefepime. Blood cultures negative after 48 hours. Fever seems to have resolved. Monitor CBC Potassium looks good today. We will check a BMP in the morning. We will check a venous Doppler for left lower extremity to rule out DVT as cause of her calf pain - Time Time Spent with patient: Less than 15 minutes Anticipated Discharge Disposition: Home, Self Care Anticipated Discharge Timeframe: after surgical I&D can be done
--- NOTE | 2019-09-09 17:57 | EKG REPORT ---
SEVERITY:- NORMAL ECG - SINUS RHYTHM : Confirmed by: Jenna Newsome MD 09-Sep-2019 17:56:28
[2019-09-09] MEDS: VANCOMYCIN HCL 1,000 MG in DEXTROSE 5%-WATER 250 ML IV SCH (19:08)
--- NOTE | 2019-09-09 19:15 | RADIOLOGY REPORT (SQ) ---
EXAM DESCRIPTION: VENOUS UNILATERAL LOWER IMAGES COMPLETED DATE/TIME: 09/09/2019 6:54 pm REASON FOR STUDY: left calf pain COMPARISON: 06/18/2019 TECHNIQUE: Dynamic and static gill scale and color images acquired of the left leg venous system. Se lected spectral images acquired with additional compression and augmentation maneuvers. The contralat eral common femoral vein and saphenofemoral junction were also imaged. Images stored on PACS. LIMITATIONS: None. FINDINGS: COMMON FEMORAL: Normal phasicity, compression and augmentation. No visualized echogenic ma terial on gill scale. No defects on color images. FEMORAL: Normal compression and augmentation. No visualized echogenic material on gill scale. No defe cts on color images. POPLITEAL: Normal compression, augmentation. No visualized echogenic material on gill scale. No defec ts on color images. CALF VESSELS: Normal compression, augmentation. No visualized echogenic material on gill scale. No de fects on color images. GSV and SSV: Normal compression, augmentation. No visualized echogenic material on gill scale. No def ects on color images. ANY DEEP VENOUS INSUFFICIENCY: Not evaluated. ANY EVIDENCE OF POPLITEAL CYST: No. OTHER: No other significant finding. CONTRALATERAL COMMON FEMORAL VEIN AND SAPHENOFEMORAL JUNCTION: Normal phasicity, compression and augmentation. No visualized echogenic material on gill scale. No de fects on color images. IMPRESSION: NO EVIDENCE DVT OR SVT IN THE LEFT LEG. TECHNICAL DOCUMENTATION: JOB ID: [id number] 2010 [employer]- All Rights Reserved Reading location - IP/workstation name: [email or web address]
[2019-09-09] MEDS ORDERED: LOPERAMIDE HCL 2 MG CAPSULE PO PRN (20:11)
[2019-09-09] MEDS ORDERED: VANCOMYCIN HCL INJ 1000 MG VIAL IV SCH (22:00)
[2019-09-09] MEDS: KETOROLAC TROMETHAMINE INJ/PF 30 MG/1 ML SDV IV PRN (22:12)
[2019-09-09] MEDS: MELATONIN 5 MG TABLET PO SCH (22:12)
[2019-09-09] MEDS: INSULIN GLARGINE,HUM.REC.ANLOG 1,000 UNIT/10 ML VIAL SUBCUT SCH (23:03)
[2019-09-10 04:58] LABS: HEMATOCRIT 31.2 % (36.0-47.0); HEMOGLOBIN 10.9 g/dL (12.0-15.5); MEAN CORPUSCULAR HEMOGLOBIN 28.1 pg (27.0-33.4); MEAN CORPUSCULAR HGB CONC 34.9 g/dL (32.0-36.0); MEAN CORPUSCULAR VOLUME 81 fl (80-97); PLATELET COUNT 217 10^3/uL (150-450); RED BLOOD COUNT 3.87 10^6/uL (3.72-5.28); RED CELL DISTRIBUTION WIDTH 13.9 % (11.5-14.0)
[2019-09-10 05:18] LABS: ANION GAP 5 (5-19); BLOOD UREA NITROGEN 10 mg/dL (7-20); CALCIUM 8.7 mg/dL (8.4-10.2); CARBON DIOXIDE 27 mmol/L (22-30); CHLORIDE 103 mmol/L (98-107); GLUCOSE 156 mg/dL (75-110); POTASSIUM 3.8 mmol/L (3.6-5.0)
[2019-09-10] MEDS: HEPARIN SOD (PORCINE) 5,000 UNIT/ML 1 ML VIAL SUBCUT SCH ×3 (06:24→22:17)
[2019-09-10] MEDS: CEFEPIME 1 GM/D5W RTU 1 GM/50 ML RTUPB IV SCH ×2 (06:27→18:27)
[2019-09-10] MEDS: INSULIN REG, HUMAN 100 UNIT/ML 3 ML VIAL (PYX) SUBCUT SCH ×4 (08:18→22:16)
[2019-09-10] MEDS: VANCOMYCIN HCL 1,000 MG in DEXTROSE 5%-WATER 250 ML IV SCH ×2 (08:24→20:47)
[2019-09-10] MEDS: FAMOTIDINE 20 MG TABLET PO SCH ×2 (10:43→22:15)
[2019-09-10] MEDS ORDERED: FENTANYL CITRATE INJ/PF 100 MCG/2 ML AMPUL ONE (14:03)
[2019-09-10] MEDS ORDERED: LIDOCAINE 2% INJ-PF (20 MG/ML) 10 ML AMPUL ONE (14:03)
[2019-09-10] MEDS ORDERED: ONDANSETRON HCL INJ/PF 4 MG/2 ML SDV ONE (14:03)
[2019-09-10] MEDS ORDERED: PROPOFOL INJ 200 MG/20 ML VIAL IV ONE (14:03)
--- NOTE | 2019-09-10 14:09 | PDOC PROGRESS REPORT ---
Subjective Progress Note for:: 09/10/19 Subjective:: Patient has no complaints today. Still having some aches in her left foot. Denies fever or chills. Denies nausea vomiting. Denies shortness of breath or chest pain. Reason For Visit: CELLULITIS LEFT FOOT,PYURIA Physical Exam Vital Signs: Temp Pulse Resp BP Pulse Ox 98.0 F 75 18 131/58 H 99 09/10/19 12:57 09/10/19 12:57 09/10/19 12:57 09/10/19 12:57 09/10/19 12:57 Intake & Output 09/09/19 09/10/19 09/11/19 06:59 06:59 06:59 Intake Total 1360 700 300 Balance 1360 700 300 Weight 76.3 kg 76.3 kg General appearance: PRESENT: no acute distress, cooperative Neck exam: ABSENT: JVD Respiratory exam: PRESENT: clear to auscultation mirna, unlabored. ABSENT: tachypnea, wheezes Neurological exam: PRESENT: alert, awake, oriented to person, oriented to place, oriented to time Results Laboratory Results: 09/10/19 04:28 09/10/19 04:28 09/10/19 09/10/19 04:28 04:28 WBC 4.0 RBC 3.87 Hgb 10.9 L Hct 31.2 L MCV 81 MCH 28.1 MCHC 34.9 RDW 13.9 Plt Count 217 Sodium 135.2 L Potassium 3.8 Chloride 103 Carbon Dioxide 27 Anion Gap 5 BUN 10 Creatinine 0.69 Est GFR ( Amer) > 60 Glucose 156 H Calcium 8.7 09/06/19 09/09/19 16:38 11:54 Troponin I < 0.012 < 0.012 Impressions: Chest X-Ray 09/06/19 16:49 IMPRESSION: 1. No significant interval changes since the previous examination dated 02/12/2019. No acute findings. Foot X-Ray 09/06/19 16:50 IMPRESSION: 1. Status post amputation of the first toe down to the level of the base of the proximal phalanx. Soft tissue swelling likely related to postsurgical changes. 2. Prior amputation of the second toe, stable finding. Lower Extremity MRI 09/08/19 00:00 IMPRESSION: 1. No osteomyelitis. Postoperative changes in the 1st and 2nd toes. 2. Cellulitis, most conspicuous at the great toe amputation site. There is subcutaneous fluid the either related to ulcer or a small abscess. Venous Doppler Study 09/09/19 00:00 IMPRESSION: NO EVIDENCE DVT OR SVT IN THE LEFT LEG. Assessment and Plan - Diagnosis (1) Diabetic infection of left foot Is this a current diagnosis for this admission?: Yes (2) Cellulitis of left foot Is this a current diagnosis for this admission?: Yes (3) Diabetes mellitus type 2 in nonobese Is this a current diagnosis for this admission?: Yes (4) Fever Qualifiers: Fever type: unspecified Qualified Code(s): R50.9 - Fever, unspecified Is this a current diagnosis for this admission?: Yes (5) Peripheral vascular disease in diabetes mellitus Is this a current diagnosis for this admission?: Yes (6) Hypokalemia Is this a current diagnosis for this admission?: Yes (7) UTI (urinary tract infection) Qualifiers: Urinary tract infection type: site unspecified Hematuria presence: without hematuria Qualified Code(s): N39.0 - Urinary tract infection, site not specified Is this a current diagnosis for this admission?: Yes - Plan Summary Summary: Patient will be admitted to the medical floor where she will receive routine supportive and symptomatic cares. She will be treated with IV antibiotics utilizing cefepime and Zyvox initially pending culture results. She will receive morphine sulfate 2 to 4 mg IV every 2 hours as needed for pain. She will receive Ativan 1 mg IV every 4 hours as needed for anxiety or restlessness. A surgical consultation may be indicated and can be obtained later in the therapeutic course if needed. Before meals and at bedtime Accu-Cheks will be performed, sliding scale insulin will be available for hyperglycemia and a hyp oglycemic protocol will be in place. CBCs, metabolic profiles, magnesium levels and additional laboratory and/or radiographic evaluations will be obtained as needed. 09/08/2019 Patient has evidence infection of her left first and second digit stump at the remnant site of her recently amputated toes which was done for treatment of osteomyelitis. Continue linezolid and cefepime. Blood cultures have been obtained I will go ahead and get an MRI of the left foot to assess to see if there is any progressive osteomyelitis now involving the amputation margins. Urine culture growing Klebsiella. Uncertain if this is true versus asymptomatic bacteriuria. Will confirm if patient is having urinary symptoms. Pain control as needed. Continue insulin management of diabetes. Accu-Cheks before meals and at bedtime. Potassium is 2.9 today. Repleted aggressively with 60 M EQ of IV and 40 p.o. potassium chloride. Recheck BMP today and in the morning. 09/09/2019 MRI of the left foot reveals no evidence of osteomyelitis but does show fluid collection in the region of the first and second digit stump which is likely an abscess. I have consulted surgery for incision and debridement and surgery has requested COVID-19 screen prior to procedure. COVID-19 screen has been sent out. Expecting to result in 2 days. In the meantime, we will continue with IV antibiotics. Vancomycin and cefepime. Blood cultures negative after 48 hours. Fever seems to have resolved. Monitor CBC Potassium looks good today. We will check a BMP in the morning. We will check a venous Doppler for left lower extremity to rule out DVT as cause of her calf pain 09/10/2019 Patient's venous Doppler was negative for any DVT COVID-19 test has come back negative. Plan is to take her to the operating room for incision and drainage of her left toe amputation site. Continue IV antibiotics for now. Urine culture growing Klebsiella which is pansensitive and should be covered by antibiotics. Blood cultures remain negative. She remains afebrile. Anticipated discharge tomorrow on oral antibiotics Hypokalemia has resolved. - Time Time Spent with patient: Less than 15 minutes Anticipated Discharge Disposition: Home, Self Care Anticipated Discharge Timeframe: within 24 hours
[2019-09-10] MEDS ORDERED: LIDOCAINE 1% INJ-PF (10 MG/ML) 30 ML SDV ONE (14:10)
[2019-09-10] MEDS ORDERED: FENTANYL CITRATE INJ/PF 100 MCG/2 ML AMPUL IV PRN ×3 (14:53)
[2019-09-10] MEDS ORDERED: MEPERIDINE HCL/PF INJ 25 MG/1 ML DISP.SYRIN IV PRN (14:53)
[2019-09-10] MEDS ORDERED: DIPHENHYDRAMINE HCL 50 MG/ML VIAL IV PRN (14:53)
[2019-09-10] MEDS ORDERED: OXYCODONE-ACETAMINOPHEN 5-325 MG TABLET PO PRN ×2 (14:53)
[2019-09-10] MEDS ORDERED: MORPHINE SULFATE 10 MG/ML INJ IV PRN (14:53)
[2019-09-10] MEDS ORDERED: PROMETHAZINE HCL INJ 25 MG/1 ML VIAL IV PRN ×2 (14:53)
--- NOTE | 2019-09-10 15:12 | Operative Report ---
Nonrecallable Operative Report DATE OF SURGERY: 09/10/19 PREOPERATIVE DIAGNOSIS: osteomylitis left great toe POSTOPERATIVE DIAGNOSIS: Osteomyelitis left great toe amputation site OPERATION: Debridement of right great toe amputation site SURGEON: RONEN THOMAS ANESTHESIA: LMAC TISSUE REMOVED OR ALTERED: First metatarsal bone right foot COMPLICATIONS: None ESTIMATED BLOOD LOSS: 10 cc INTRAOPERATIVE FINDINGS: See note PROCEDURE: Patient was brought to the operating awake alert stable condition placed in the upper table supine position and given local MAC anesthesia. After anesthetizing the the left first toe amputation site that was cellulitic with 1% lidocaine with epinephrine. Once this was completed we made a elliptical incision at the apex of the left great toe amputation site that appeared to be cellulitic. Dissection was carried down through subtenons tissue with a 15 blade once we incised the tissue we noted some floating bone there was in the base the wound that was excised with a sharp dissection. We carried our dissection down through subcutaneous tissue noted some pus in the superficial wound we did identify the first metatarsal bone we mobilized the periosteum away from that with a periosteal elevator all the way to the tarsal joint and excised the entire first metatarsal bone. A sample of the distal end of the bone was sent for microbiology. Once this was excised the deep wound was then irrigated with normal saline suctioned dry it was closed loosely laterally with 2 stitches of 3-0 nylon suture the rest of it was left open and packed with a Betadine soaked sponge. The patient tolerated the procedure well estimated blood loss was less than 10 cc sponge needle counts correct x2 the she was transferred recovery in stable condition no complications
[2019-09-10] MEDS: MORPHINE SULFATE 10 MG/ML INJ IV PRN (20:46)
[2019-09-10] MEDS: INSULIN GLARGINE,HUM.REC.ANLOG 1,000 UNIT/10 ML VIAL SUBCUT SCH (22:15)
[2019-09-10] MEDS: MELATONIN 5 MG TABLET PO SCH (22:18)
[2019-09-11] MEDS: KETOROLAC TROMETHAMINE INJ/PF 30 MG/1 ML SDV IV PRN (02:40)
[2019-09-11 05:49] LABS: HEMOGLOBIN 10.6 g/dL (12.0-15.5); MEAN CORPUSCULAR HEMOGLOBIN 28.3 pg (27.0-33.4); MEAN CORPUSCULAR HGB CONC 35.2 g/dL (32.0-36.0); MEAN CORPUSCULAR VOLUME 80 fl (80-97); PLATELET COUNT 208 10^3/uL (150-450); RED BLOOD COUNT 3.74 10^6/uL (3.72-5.28); RED CELL DISTRIBUTION WIDTH 13.9 % (11.5-14.0); WHITE BLOOD COUNT 6.3 10^3/uL (4.0-10.5)
[2019-09-11] MEDS: HEPARIN SOD (PORCINE) 5,000 UNIT/ML 1 ML VIAL SUBCUT SCH ×3 (05:54→21:45)
[2019-09-11] MEDS: CEFEPIME 1 GM/D5W RTU 1 GM/50 ML RTUPB IV SCH (05:54)
[2019-09-11] MEDS: VANCOMYCIN HCL 1,000 MG in DEXTROSE 5%-WATER 250 ML IV SCH (05:55)
[2019-09-11 06:16] LABS: BLOOD UREA NITROGEN 15 mg/dL (7-20); CALCIUM 8.7 mg/dL (8.4-10.2); GLUCOSE 93 mg/dL (75-110); POTASSIUM 4.4 mmol/L (3.6-5.0)
[2019-09-11 06:21] LABS: CARBON DIOXIDE 29 mmol/L (22-30); CHLORIDE 103 mmol/L (98-107); VANCOMYCIN,TROUGH 16.3 ug/mL (5.0-20.0)
[2019-09-11 06:22] LABS: ANION GAP 3 (5-19)
[2019-09-11] MEDS: INSULIN REG, HUMAN 100 UNIT/ML 3 ML VIAL (PYX) SUBCUT SCH ×4 (08:30→21:45)
[2019-09-11] MEDS: AMOXICILLIN TR/POT CLAVULANATE 500-125 MG TAB PO SCH ×3 (09:19→21:45)
[2019-09-11] MEDS: FAMOTIDINE 20 MG TABLET PO SCH ×2 (09:20→21:45)
[2019-09-11] MEDS: SULFAMETHOXAZOLE/TRIMETHOPRIM 800-160 MG TABLET PO SCH ×2 (09:20→18:00)
--- NOTE | 2019-09-11 09:58 | PDOC PROGRESS REPORT ---
Subjective Progress Note for:: 09/11/19 Subjective:: No complaints. Reason For Visit: CELLULITIS LEFT FOOT,PYURIA Physical Exam Vital Signs: Temp Pulse Resp BP Pulse Ox 97.8 F 87 18 106/63 98 09/11/19 08:00 09/11/19 08:00 09/11/19 08:00 09/11/19 08:00 09/11/19 08:00 Intake & Output 09/10/19 09/11/19 09/12/19 06:59 06:59 06:59 Intake Total 700 1650 250 Balance 700 1650 250 Weight 76.3 kg 75.6 kg General appearance: PRESENT: no acute distress, cooperative Extremities exam: PRESENT: other - Packing removed. Wound repacked. Appears very clean. Slight ooze at wound edge controlled with gauze. Results Laboratory Results: 09/11/19 05:32 09/11/19 05:32 09/11/19 09/11/19 05:32 05:32 WBC 6.3 RBC 3.74 Hgb 10.6 L Hct 30.0 L MCV 80 MCH 28.3 MCHC 35.2 RDW 13.9 Plt Count 208 Sodium 135.4 L Potassium 4.4 Chloride 103 Carbon Dioxide 29 Anion Gap 3 L BUN 15 Creatinine 0.68 Est GFR ( Amer) > 60 Glucose 93 Calcium 8.7 Magnesium 1.8 09/06/19 09/09/19 16:38 11:54 Troponin I < 0.012 < 0.012 Impressions: Chest X-Ray 09/06/19 16:49 IMPRESSION: 1. No significant interval changes since the previous examination dated 02/12/2019. No acute findings. Foot X-Ray 09/06/19 16:50 IMPRESSION: 1. Status post amputation of the first toe down to the level of the base of the proximal phalanx. Soft tissue swelling likely related to postsurgical changes. 2. Prior amputation of the second toe, stable finding. Lower Extremity MRI 09/08/19 00:00 IMPRESSION: 1. No osteomyelitis. Postoperative changes in the 1st and 2nd toes. 2. Cellulitis, most conspicuous at the great toe amputation site. There is subcutaneous fluid the either related to ulcer or a small abscess. Venous Doppler Study 09/09/19 00:00 IMPRESSION: NO EVIDENCE DVT OR SVT IN THE LEFT LEG. Assessment & Plan - Diagnosis (1) Diabetic infection of left foot Is this a current diagnosis for this admission?: Yes Plan: Status post debridement and metatarsal resection. The wound looks good but will require twice daily wet-to-dry dressing changes. Recommend keeping the patient in the hospital through the weekend with possible discharge home on Friday if the wound looks good she will require home health when she gets home. - Time Anticipated Discharge Disposition: Home with Home Health Anticipated Discharge Timeframe: within 72 hours
--- NOTE | 2019-09-11 15:30 | PDOC PROGRESS REPORT ---
Subjective Progress Note for:: 09/11/19 Subjective:: Patient feels well today. Pain in her foot is better. Denies fever or chills. I have recommended her to walk with physical therapy today after the surgical procedure yesterday. Reason For Visit: CELLULITIS LEFT FOOT,PYURIA Physical Exam Vital Signs: Temp Pulse Resp BP Pulse Ox 98.3 F 86 17 145/77 H 98 09/11/19 11:33 09/11/19 11:33 09/11/19 11:33 09/11/19 11:33 09/11/19 11:33 Intake & Output 09/10/19 09/11/19 09/12/19 06:59 06:59 06:59 Intake Total 700 1650 250 Balance 700 1650 250 Weight 76.3 kg 75.6 kg General appearance: PRESENT: no acute distress, cooperative Neck exam: ABSENT: JVD Respiratory exam: PRESENT: clear to auscultation mirna, unlabored. ABSENT: accessory muscle use, retraction Cardiovascular exam: ABSENT: tachycardia Neurological exam: PRESENT: alert, awake, oriented to person, oriented to place, oriented to time Psychiatric exam: ABSENT: agitated, anxious Results Laboratory Results: 09/11/19 05:32 09/11/19 05:32 09/11/19 09/11/19 05:32 05:32 WBC 6.3 RBC 3.74 Hgb 10.6 L Hct 30.0 L MCV 80 MCH 28.3 MCHC 35.2 RDW 13.9 Plt Count 208 Sodium 135.4 L Potassium 4.4 Chloride 103 Carbon Dioxide 29 Anion Gap 3 L BUN 15 Creatinine 0.68 Est GFR ( Amer) > 60 Glucose 93 Calcium 8.7 Magnesium 1.8 09/06/19 09/09/19 16:38 11:54 Troponin I < 0.012 < 0.012 Impressions: Chest X-Ray 09/06/19 16:49 IMPRESSION: 1. No significant interval changes since the previous examination dated 02/12/2019. No acute findings. Foot X-Ray 09/06/19 16:50 IMPRESSION: 1. Status post amputation of the first toe down to the level of the base of the proximal phalanx. Soft tissue swelling likely related to postsurgical changes. 2. Prior amputation of the second toe, stable finding. Lower Extremity MRI 09/08/19 00:00 IMPRESSION: 1. No osteomyelitis. Postoperative changes in the 1st and 2nd toes. 2. Cellulitis, most conspicuous at the great toe amputation site. There is subcutaneous fluid the either related to ulcer or a small abscess. Venous Doppler Study 09/09/19 00:00 IMPRESSION: NO EVIDENCE DVT OR SVT IN THE LEFT LEG. Assessment and Plan - Diagnosis (1) Diabetic infection of left foot Is this a current diagnosis for this admission?: Yes (2) Cellulitis of left foot Is this a current diagnosis for this admission?: Yes (3) Diabetes mellitus type 2 in nonobese Is this a current diagnosis for this admission?: Yes (4) Fever Qualifiers: Fever type: unspecified Qualified Code(s): R50.9 - Fever, unspecified Is this a current diagnosis for this admission?: Yes (5) Peripheral vascular disease in diabetes mellitus Is this a current diagnosis for this admission?: Yes (6) Hypokalemia Is this a current diagnosis for this admission?: Yes (7) UTI (urinary tract infection) Qualifiers: Urinary tract infection type: site unspecified Hematuria presence: without hematuria Qualified Code(s): N39.0 - Urinary tract infection, site not specified Is this a current diagnosis for this admission?: Yes - Plan Summary Summary: Patient will be admitted to the medical floor where she will receive routine supportive and symptomatic cares. She will be treated with IV antibiotics utilizing cefepime and Zyvox initially pending culture results. She will receive morphine sulfate 2 to 4 mg IV every 2 hours as needed for pain. She will receive Ativan 1 mg IV every 4 hours as needed for anxiety or restlessness. A surgical consultation may be indicated and can be obtained later in the therapeutic course if needed. Before meals and at bedtime Accu-Cheks will be p erformed, sliding scale insulin will be available for hyperglycemia and a hypoglycemic protocol will be in place. CBCs, metabolic profiles, magnesium levels and additional laboratory and/or radiographic evaluations will be obtained as needed. 09/08/2019 Patient has evidence infection of her left first and second digit stump at the remnant site of her recently amputated toes which was done for treatment of osteomyelitis. Continue linezolid and cefepime. Blood cultures have been obtained I will go ahead and get an MRI of the left foot to assess to see if there is any progressive osteomyelitis now involving the amputation margins. Urine culture growing Klebsiella. Uncertain if this is true versus asymptomatic bacteriuria. Will confirm if patient is having urinary symptoms. Pain control as needed. Continue insulin management of diabetes. Accu-Cheks before meals and at bedtime. Potassium is 2.9 today. Repleted aggressively with 60 M EQ of IV and 40 p.o. potassium chloride. Recheck BMP today and in the morning. 09/09/2019 MRI of the left foot reveals no evidence of osteomyelitis but does show fluid collection in the region of the first and second digit stump which is likely an abscess. I have consulted surgery for incision and debridement and surgery has requested COVID-19 screen prior to procedure. COVID-19 screen has been sent out. Expecting to result in 2 days. In the meantime, we will continue with IV antibiotics. Vancomycin and cefepime. Blood cultures negative after 48 hours. Fever seems to have resolved. Monitor CBC Potassium looks good today. We will check a BMP in the morning. We will check a venous Doppler for left lower extremity to rule out DVT as cause of her calf pain 09/10/2019 Patient's venous Doppler was negative for any DVT COVID-19 test has come back negative. Plan is to take her to the operating room for incision and drainage of her left toe amputation site. Continue IV antibiotics for now. Urine culture growing Klebsiella which is pansensitive and should be covered by antibiotics. Blood cultures remain negative. She remains afebrile. Anticipated discharge tomorrow on oral antibiotics Hypokalemia has resolved. 09/11/2019 Patient having only some pain today. Underwent surgical incision and debridement in the OR yesterday. Surgery recommends awaiting wound cultures and will continue to manage surgical wound. Recommends keeping patient through the weekend. Continue IV antibiotics Pain control We will continue to monitor. - Time Time Spent with patient: Less than 15 minutes Anticipated Discharge Disposition: Home, Self Care Anticipated Discharge Timeframe: within 48 hours
[2019-09-11] MEDS: MORPHINE SULFATE 10 MG/ML INJ IV PRN (21:43)
[2019-09-11] MEDS: INSULIN GLARGINE,HUM.REC.ANLOG 1,000 UNIT/10 ML VIAL SUBCUT SCH (21:44)
[2019-09-11] MEDS: MELATONIN 5 MG TABLET PO SCH (21:45)
[2019-09-12] MEDS: HEPARIN SOD (PORCINE) 5,000 UNIT/ML 1 ML VIAL SUBCUT SCH ×3 (05:29→21:29)
[2019-09-12] MEDS: AMOXICILLIN TR/POT CLAVULANATE 500-125 MG TAB PO SCH ×3 (05:29→21:24)
[2019-09-12] MEDS: INSULIN REG, HUMAN 100 UNIT/ML 3 ML VIAL (PYX) SUBCUT SCH ×4 (07:19→21:23)
[2019-09-12] MEDS: SULFAMETHOXAZOLE/TRIMETHOPRIM 800-160 MG TABLET PO SCH ×2 (09:14→17:18)
[2019-09-12] MEDS: FAMOTIDINE 20 MG TABLET PO SCH ×2 (09:15→21:23)
--- NOTE | 2019-09-12 12:30 | PDOC PROGRESS REPORT ---
Subjective Progress Note for:: 09/12/19 Subjective:: Feels well. Reason For Visit: CELLULITIS LEFT FOOT,PYURIA Physical Exam Vital Signs: Temp Pulse Resp BP Pulse Ox 98.3 F 87 17 139/55 H 100 09/12/19 07:51 09/12/19 07:51 09/12/19 07:51 09/12/19 07:51 09/12/19 07:51 Intake & Output 09/11/19 09/12/19 09/13/19 06:59 06:59 06:59 Intake Total 1650 1450 Balance 1650 1450 Weight 75.6 kg 76.3 kg Extremities exam: PRESENT: other - Wound is clean with no purulent drainage no surrounding erythema. Results Laboratory Results: 09/11/19 05:32 09/11/19 05:32 09/06/19 17:35 Blood Blood Culture - Final NO GROWTH IN 5 DAYS 09/06/19 16:38 Blood Blood Culture - Final NO GROWTH IN 5 DAYS 09/06/19 09/09/19 16:38 11:54 Troponin I < 0.012 < 0.012 Impressions: Chest X-Ray 09/06/19 16:49 IMPRESSION: 1. No significant interval changes since the previous examination dated 02/12/2019. No acute findings. Foot X-Ray 09/06/19 16:50 IMPRESSION: 1. Status post amputation of the first toe down to the level of the base of the proximal phalanx. Soft tissue swelling likely related to postsurgical changes. 2. Prior amputation of the second toe, stable finding. Lower Extremity MRI 09/08/19 00:00 IMPRESSION: 1. No osteomyelitis. Postoperative changes in the 1st and 2nd toes. 2. Cellulitis, most conspicuous at the great toe amputation site. There is subcutaneous fluid the either related to ulcer or a small abscess. Venous Doppler Study 09/09/19 00:00 IMPRESSION: NO EVIDENCE DVT OR SVT IN THE LEFT LEG. Assessment & Plan - Diagnosis (1) Diabetic infection of left foot Is this a current diagnosis for this admission?: Yes Plan: Looks very good status post metatarsal amputation. Continue dressing changes. - Time Critical Time spent with patient: Less than 15 minutes Anticipated Discharge Disposition: Home with Home Health Anticipated Discharge Timeframe: within 72 hours
--- NOTE | 2019-09-12 12:44 | PDOC PROGRESS REPORT ---
Subjective Progress Note for:: 09/12/19 Subjective:: Patient feels well. Just feels a little fatigued today. Feels exhausted. Otherwise no complaints. In good spirits. Reason For Visit: CELLULITIS LEFT FOOT,PYURIA Physical Exam Vital Signs: Temp Pulse Resp BP Pulse Ox 98.3 F 87 17 139/55 H 100 09/12/19 07:51 09/12/19 07:51 09/12/19 07:51 09/12/19 07:51 09/12/19 07:51 Intake & Output 09/11/19 09/12/19 09/13/19 06:59 06:59 06:59 Intake Total 1650 1450 Balance 1650 1450 Weight 75.6 kg 76.3 kg General appearance: PRESENT: no acute distress, cooperative Neck exam: ABSENT: JVD Respiratory exam: PRESENT: unlabored. ABSENT: accessory muscle use, retraction Neurological exam: PRESENT: alert, awake Psychiatric exam: ABSENT: agitated, anxious Results Laboratory Results: 09/11/19 05:32 09/11/19 05:32 09/06/19 17:35 Blood Blood Culture - Final NO GROWTH IN 5 DAYS 09/06/19 16:38 Blood Blood Culture - Final NO GROWTH IN 5 DAYS 09/06/19 09/09/19 16:38 11:54 Troponin I < 0.012 < 0.012 Impressions: Chest X-Ray 09/06/19 16:49 IMPRESSION: 1. No significant interval changes since the previous examination dated 02/12/2019. No acute findings. Foot X-Ray 09/06/19 16:50 IMPRESSION: 1. Status post amputation of the first toe down to the level of the base of the proximal phalanx. Soft tissue swelling likely related to postsurgical changes. 2. Prior amputation of the second toe, stable finding. Lower Extremity MRI 09/08/19 00:00 IMPRESSION: 1. No osteomyelitis. Postoperative changes in the 1st and 2nd toes. 2. Cellulitis, most conspicuous at the great toe amputation site. There is subcutaneous fluid the either related to ulcer or a small abscess. Venous Doppler Study 09/09/19 00:00 IMPRESSION: NO EVIDENCE DVT OR SVT IN THE LEFT LEG. Assessment and Plan - Diagnosis (1) Diabetic infection of left foot Is this a current diagnosis for this admission?: Yes (2) Cellulitis of left foot Is this a current diagnosis for this admission?: Yes (3) Diabetes mellitus type 2 in nonobese Is this a current diagnosis for this admission?: Yes (4) Fever Qualifiers: Fever type: unspecified Qualified Code(s): R50.9 - Fever, unspecified Is this a current diagnosis for this admission?: Yes (5) Peripheral vascular disease in diabetes mellitus Is this a current diagnosis for this admission?: Yes (6) Hypokalemia Is this a current diagnosis for this admission?: Yes (7) UTI (urinary tract infection) Qualifiers: Urinary tract infection type: site unspecified Hematuria presence: without hematuria Qualified Code(s): N39.0 - Urinary tract infection, site not specified Is this a current diagnosis for this admission?: Yes - Plan Summary Summary: Patient will be admitted to the medical floor where she will receive routine supportive and symptomatic cares. She will be treated with IV antibiotics uti lizing cefepime and Zyvox initially pending culture results. She will receive morphine sulfate 2 to 4 mg IV every 2 hours as needed for pain. She will receive Ativan 1 mg IV every 4 hours as needed for anxiety or restlessness. A surgical consultation may be indicated and can be obtained later in the therapeutic course if needed. Before meals and at bedtime Accu-Cheks will be performed, sliding scale insulin will be available for hyperglycemia and a hypoglycemic protocol will be in place. CBCs, metabolic profiles, magnesium levels and additional laboratory and/or radiographic evaluations will be obtained as needed. 09/08/2019 Patient has evidence infection of her left first and second digit stump at the remnant site of her recently amputated toes which was done for treatment of osteomyelitis. Continue linezolid and cefepime. Blood cultures have been obtained I will go ahead and get an MRI of the left foot to assess to see if there is any progressive osteomyelitis now involving the amputation margins. Urine culture growing Klebsiella. Uncertain if this is true versus asymptomatic bacteriuria. Will confirm if patient is having urinary symptoms. Pain control as needed. Continue insulin management of diabetes. Accu-Cheks before meals and at bedtime. Potassium is 2.9 today. Repleted aggressively with 60 M EQ of IV and 40 p.o. potassium chloride. Recheck BMP today and in the morning. 09/09/2019 MRI of the left foot reveals no evidence of osteomyelitis but does show fluid c ollection in the region of the first and second digit stump which is likely an abscess. I have consulted surgery for incision and debridement and surgery has requested COVID-19 screen prior to procedure. COVID-19 screen has been sent out. Expecting to result in 2 days. In the meantime, we will continue with IV antibiotics. Vancomycin and cefepime. Blood cultures negative after 48 hours. Fever seems to have resolved. Monitor CBC Potassium looks good today. We will check a BMP in the morning. We will check a venous Doppler for left lower extremity to rule out DVT as cause of her calf pain 09/10/2019 Patient's venous Doppler was negative for any DVT COVID-19 test has come back negative. Plan is to take her to the operating room for incision and drainage of her left toe amputation site. Continue IV antibiotics for now. Urine culture growing Klebsiella which is pansensitive and should be covered by antibiotics. Blood cultures remain negative. She remains afebrile. Anticipated discharge tomorrow on oral antibiotics Hypokalemia has resolved. 09/11/2019 Patient having only some pain today. Underwent surgical incision and debridement in the OR yesterday. Surgery recommends awaiting wound cultures and will continue to manage surgical wound. Recommends keeping patient through the weekend. Continue IV antibiotics Pain control We will continue to monitor. 09/12/2019 Patient doing okay today. Pain is under good control. Wound cultures growing G Streptococcus amenable to penicillin likely. Now on oral antibiotics Augmentin and Bactrim. Has completed treatment for UTI. Awaiting surgical clearance for discharge pending wound reevaluations. - Time Time Spent with patient: Less than 15 minutes Anticipated Discharge Disposition: Home with Home Health Anticipated Discharge Timeframe: within 36 hours
[2019-09-12] MEDS: MELATONIN 5 MG TABLET PO SCH (21:23)
[2019-09-12] MEDS: INSULIN GLARGINE,HUM.REC.ANLOG 1,000 UNIT/10 ML VIAL SUBCUT SCH (21:23)
[2019-09-12] MEDS: MORPHINE SULFATE 10 MG/ML INJ IV PRN (22:19)
[2019-09-13] MEDS: AMOXICILLIN TR/POT CLAVULANATE 500-125 MG TAB PO SCH ×2 (05:14→15:03)
[2019-09-13] MEDS: HEPARIN SOD (PORCINE) 5,000 UNIT/ML 1 ML VIAL SUBCUT SCH ×2 (05:15→15:03)
[2019-09-13] MEDS: INSULIN REG, HUMAN 100 UNIT/ML 3 ML VIAL (PYX) SUBCUT SCH ×3 (08:54→16:46)
[2019-09-13] MEDS: SULFAMETHOXAZOLE/TRIMETHOPRIM 800-160 MG TABLET PO SCH ×2 (09:08→17:04)
[2019-09-13] MEDS: FAMOTIDINE 20 MG TABLET PO SCH (09:09)
[2019-09-13] MEDS: MORPHINE SULFATE 10 MG/ML INJ IV PRN (09:11)
--- NOTE | 2019-09-13 09:37 | PDOC PROGRESS REPORT ---
Subjective Progress Note for:: 09/13/19 Reason For Visit: CELLULITIS LEFT FOOT,PYURIA No complaints regarding foot Physical Exam Vital Signs: Temp Pulse Resp BP Pulse Ox 97.9 F 80 12 145/56 H 98 09/13/19 07:51 09/13/19 07:51 09/13/19 07:51 09/13/19 07:51 09/13/19 07:51 Intake & Output 09/12/19 09/13/19 09/14/19 06:59 06:59 06:59 Intake Total 1450 1001 Balance 1450 1001 Weight 76.3 kg 74.1 kg General appearance: PRESENT: no acute distress Extremities exam: PRESENT: other - Left foot dressing taken down. Operative wound clean, dry, no foul-smelling drainage. The medial aspect of the wound is approximated, and the aspect is open, packed Neurological exam: PRESENT: oriented to person, oriented to place, oriented to time, oriented to situation Results Laboratory Results: 09/11/19 05:32 09/11/19 05:32 09/06/19 09/09/19 16:38 11:54 Troponin I < 0.012 < 0.012 Impressions: Chest X-Ray 09/06/19 16:49 IMPRESSION: 1. No significant interval changes since the previous examination dated 02/12/2019. No acute findings. Foot X-Ray 09/06/19 16:50 IMPRESSION: 1. Status post amputation of the first toe down to the level of th e base of the proximal phalanx. Soft tissue swelling likely related to postsurgical changes. 2. Prior amputation of the second toe, stable finding. Lower Extremity MRI 09/08/19 00:00 IMPRESSION: 1. No osteomyelitis. Postoperative changes in the 1st and 2nd toes. 2. Cellulitis, most conspicuous at the great toe amputation site. There is subcutaneous fluid the either related to ulcer or a small abscess. Venous Doppler Study 09/09/19 00:00 IMPRESSION: NO EVIDENCE DVT OR SVT IN THE LEFT LEG. Assessment & Plan - Diagnosis (1) Diabetic infection of left foot Is this a current diagnosis for this admission?: Yes Plan: Impression: Patient is 2 days status post completion right great toe and ray amputation, with wound approximated, healing by secondary intention, cleaning up nicely. No evidence of clinical sepsis. Plan: 1. Recommend wound VAC therapy, change every 3 days; order written. 2. Patient may be up with the assistance of physical therapy with a surgical boot on; of note patient has a right BKA prosthesis 3. Surgery will sign off at this time; reconsult if clinically indicated (2) Cellulitis of left foot Is this a current diagnosis for this admission?: Yes - Time Time Spent: 30 to 50 Minutes Critical Time spent with patient: Less than 15 minutes Medications reviewed and adjusted accordingly: Yes Anticipated Discharge Disposition: Home, Self Care Anticipated Discharge Timeframe: within 24 hours - Inpatient Certification Based on my medical assessment, after consideration of the patient's comorbidities, presenting symptoms, or acuity I expect that the services needed warrant INPATIENT care.: Yes I certify that my determination is in accordance with my understanding of Medicare's requirements for reasonable and necessary INPATIENT services [42 CFR 412.3e].: Yes
[2019-09-13] MEDS: PROMETHAZINE HCL 25 MG TABLET PO PRN (12:56)
--- NOTE | 2019-09-13 14:25 | PDOC DISCHARGE SUMMARY ---
Impression - Admit/DC Date/PCP Admission Date/Primary Care Provider: 09/07/19 01:47 Discharge Date: 09/13/19 - Discharge Diagnosis (1) Diabetic infection of left foot Is this a current diagnosis for this admission?: Yes (2) Foot abscess, left Is this a current diagnosis for this admission?: Yes (3) Cellulitis of left foot Is this a current diagnosis for this admission?: Yes (4) Diabetes mellitus type 2 in nonobese Is this a current diagnosis for this admission?: Yes (5) Fever Is this a current diagnosis for this admission?: Yes (6) Peripheral vascular disease in diabetes mellitus Is this a current diagnosis for this admission?: Yes (7) Hypokalemia Is this a current diagnosis for this admission?: Yes (8) UTI (urinary tract infection) Is this a current diagnosis for this admission?: Yes - Additional Information Resuscitation Status: Full Code Discharge Diet: Diabetic Referrals: [facility] [Provider Group] - 09/22/19 10:45 am (WITH DR. THOMAS) Prescriptions: RX: Amox Tr/Potassium Clavulanate [Augmentin "500" Tablet] 1 tab PO Q8 9 Days tablet RX: Insulin Glargine,Hum.rec.anlog [Lantus Insulin 100 Unit/1 ml 10 ml] 20 unit SUBCUT QHS #10 ml RX: Tramadol HCl [Ultram 50 mg Tablet] 50 mg PO TIDP PRN #15 tablet PRN Reason: Home Medications: RX: Biotin [Biotin 5 mg Tablet] 5 mg PO DAILY 09/07/19 RX: Melatonin [Melatonin 5 mg Tablet] 5 mg PO QHS 09/07/19 RX: Amox Tr/Potassium Clavulanate [Augmentin "500" Tablet] 1 tab PO Q8 9 Days tablet 09/13/19 RX: Insulin Glargine,Hum.rec.anlog [Lantus Insulin 100 Unit/1 ml 10 ml] 20 unit SUBCUT QHS #10 ml 09/13/19 RX: Tramadol HCl [Ultram 50 mg Tablet] 50 mg PO TIDP PRN #15 tablet 09/13/19 History of Present Illiness History of Present Illness: According to admitting provider: ALEXANDER ELI is a 74 year old female who presented the emergency room with a one-day history of fever. She admits developing a persistent fever of 101.2F on 09/05/2019 which persisted throughout the day of 09/06/2019 prompting her to come the emergency room. Her fever has been accompanied by a tender, red, swollen, and warm distal left foot which has been gradually worsening over the last 2 weeks. Her fever has been associated with mild dyspnea. She denies other associated or accompanying signs and symptoms. She admits prior similar episodes. She has not identified any aggravating or ameliorating factors for her fever. In the emergency room she was found to have a fever and a clinical cellulitis of the distal left foot. She was also noted to have pyuria. Urine and blood cultures are pending. She was subsequently started on IV antibiotics and admitted hospital for further evaluation treatment. Hospital Course Hospital Course: 09/07/2019 Patient will be admitted to the medical floor where she will receive routine supportive and symptomatic cares. She will be treated with IV antibiotics utilizing cefepime and Zyvox initially pending culture results. She will receive morphine sulfate 2 to 4 mg IV every 2 hours as needed for pain. She will receive Ativan 1 mg IV every 4 hours as needed for anxiety or restlessness. A surgical consultation may be indicated and can be obtained later in the therapeutic course if needed. Before meals and at bedtime Accu-Cheks will be performed, sliding scale insulin will be available for hyperglycemia and a hypoglycemic protocol will be in place. CBCs, metabolic profiles, magnesium levels and additional laboratory and/or radiographic evaluations will be o btained as needed. 09/08/2019 Patient has evidence infection of her left first and second digit stump at the remnant site of her recently amputated toes which was done for treatment of osteomyelitis. Continue linezolid and cefepime. Blood cultures have been obtained I will go ahead and get an MRI of the left foot to assess to see if there is any progressive osteomyelitis now involving the amputation margins. Urine culture growing Klebsiella. Uncertain if this is true versus asymptomatic bacteriuria. Will confirm if patient is having urinary symptoms. Pain control as needed. Continue insulin management of diabetes. Accu-Cheks before meals and at bedtime. Potassium is 2.9 today. Repleted aggressively with 60 M EQ of IV and 40 p.o. potassium chloride. Recheck BMP today and in the morning. 09/09/2019 MRI of the left foot reveals no evidence of osteomyelitis but does show fluid collection in the region of the first and second digit stump which is likely an abscess. I have consulted surgery for incision and debridement and surgery has requested COVID-19 screen prior to procedure. COVID-19 screen has been sent out. Expecting to result in 2 days. In the meantime, we will continue with IV antibiotics. Vancomycin and cefepime. Blood cultures negative after 48 hours. Fever seems to have resolved. Monitor CBC Potassium looks good today. We will check a BMP in the morning. We will check a venous Doppler for left lower extremity to rule out DVT as cause of her calf pain 09/10/2019 Patient's venous Doppler was negative for any DVT COVID-19 test has come back negative. Plan is to take her to the operating room for incision and drainage of her left toe amputation site. Continue IV antibiotics for now. Urine culture growing Klebsiella which is pansensitive and should be covered by antibiotics. Blood cultures remain negative. She remains afebrile. Anticipated discharge tomorrow on oral antibiotics Hypokalemia has resolved. 09/11/2019 Patient having only some pain today. Underwent surgical incision and debridement in the OR yesterday. Surgery recommends awaiting wound cultures and will continue to manage surgical wound. Recommends keeping patient through the weekend. Continue IV antibiotics Pain control We will continue to monitor. 09/12/2019 Patient doing okay today. Pain is under good control. Wound cultures growing G Streptococcus amenable to penicillin likely. Now on oral antibiotics Augmentin and Bactrim. Has completed treatment for UTI. Awaiting surgical clearance for discharge pending wound reevaluations. 09/13/2019 Surgery has evaluated the wound today and cleared patient for discharge. Surgery has recommended wound VAC which has been placed and recommends changing every 3 days. Patient will be following up with the [facility]. Wound culture grew group G Streptococcus which is susceptible to penicillins so patient will be discharged on Augmentin for 9 more days to complete 2 weeks course of treatment. Discharge planning has set patient up with home health, wheelchair and wound VAC. Prescription sent to pharmacy for pain control and insulin refill. Physical Exam Vital Signs: Temp Pulse Resp BP Pulse Ox 98.1 F 85 12 117/69 100 09/13/19 10:49 09/13/19 10:49 09/13/19 10:49 09/13/19 10:49 09/13/19 10:49 Intake & Output 09/12/19 09/13/19 09/14/19 06:59 06:59 06:59 Intake Total 1450 1001 Balance 1450 1001 Weight 76.3 kg 74.1 kg General appearance: PRESENT: no acute distress, cooperative Neck exam: ABSENT: JVD Respiratory exam: PRESENT: unlabored. ABSENT: accessory muscle use, retraction, tachypnea GI/Abdominal exam: PRESENT: soft. ABSENT: rebound, rigid, tenderness Extremities exam: PRESENT: other - Left foot surgical wound looks good and is connected to wound VAC currently draining mildly. Right lower extremity BKA. Neurological exam: PRESENT: alert, awake, oriented to person, oriented to place, oriented to time Psychiatric exam: ABSENT: agitated, anxious Focused psych exam: ABSENT: pressured speech Skin exam: ABSENT: jaundice Results Laboratory Results: WBC 6.3 10^3/uL (4.0-10.5) 09/11/19 05:32 RBC 3.74 10^6/uL (3.72-5.28) 09/11/19 05:32 Hgb 10.6 g/dL (12.0-15.5) L 09/11/19 05:32 Hct 30.0 % (36.0-47.0) L 09/11/19 05:32 MCV 80 fl (80-97) 09/11/19 05:32 MCH 28.3 pg (27.0-33.4) 09/11/19 05:32 MCHC 35.2 g/dL (32.0-36.0) 09/11/19 05:32 RDW 13.9 % (11.5-14.0) 09/11/19 05:32 Plt Count 208 10^3/uL (150-450) 09/11/19 05:32 Lymph % (Auto) 5.1 % (13-45) L 09/06/19 16:38 [place] % (Auto) 5.0 % (3-13) 09/06/19 16:38 Eos % (Auto) 0.2 % (0-6) 09/06/19 16:38 Baso % (Auto) 0.3 % (0-2) 09/06/19 16:38 Absolute Neuts (auto) 8.6 10^3/uL (1.7-8.2) H 09/06/19 16:38 Absolute Lymphs (auto) 0.5 10^3/uL (0.5-4.7) 09/06/19 16:38 Absolute Monos (auto) 0.5 10^3/uL (0.1-1.4) 09/06/19 16:38 Absolute Eos (auto) 0.0 10^3/uL (0.0-0.6) 09/06/19 16:38 Absolute Basos (auto) 0.0 10^3/uL (0.0-0.2) 09/06/19 16:38 Seg Neutrophils % 89.4 % (42-78) H 09/06/19 16:38 PT 13.6 SEC (11.4-15.4) 09/06/19 16:38 INR 1.04 09/06/19 16:38 VBG pH 7.38 (7.30-7.42) 09/06/19 16:38 VBG pCO2 42.1 mmHg (35-63) 09/06/19 16:38 VBG HCO3 24.1 mmol/L (20-32) 09/06/19 16:38 VBG Base Excess -1.2 mmol/L 09/06/19 16:38 Sodium 135.4 mmol/L (137-145) L 09/11/19 05:32 Potassium 4.4 mmol/L (3.6-5.0) 09/11/19 05:32 Chloride 103 mmol/L (98-107) 09/11/19 05:32 Carbon Dioxide 29 mmol/L (22-30) 09/11/19 05:32 Anion Gap 3 (5-19) L 09/11/19 05:32 BUN 15 mg/dL (7-20) 09/11/19 05:32 Creatinine 0.68 mg/dL (0.52-1.25) 09/11/19 05:32 Est GFR ( Amer) > 60 (>60) 09/11/19 05:32 Est GFR (Non-Af Amer) Cancelled 09/08/19 15:43 Est GFR (MDRD) Non-Af > 60 (>60) 09/11/19 05:32 Glucose 93 mg/dL (75-110) 09/11/19 05:32 POC Glucose 123 mg/dL (70-110) H 09/13/19 10:33 Hemoglobin A1c % 8.9 % (4.7-6.0) H 09/08/19 06:34 Lactic Acid 1.1 mmol/L (0.7-2.1) 09/06/19 16:38 Calcium 8.7 mg/dL (8.4-10.2) 09/11/19 05:32 Magnesium 1.8 mg/dL (1.6-2.3) 09/11/19 05:32 Total Bilirubin 0.7 mg/dL (0.2-1.3) 09/06/19 16:38 Direct Bilirubin 0.1 mg/dL (0.0-0.4) 09/06/19 16:38 Neonat Total Bilirubin Not Reportable 09/06/19 16:38 Neonat Direct Bilirubin Not Reportable 09/06/19 16:38 Neonat Indirect Bili Not Reportable 09/06/19 16:38 AST 25 U/L (14-36) 09/06/19 16:38 ALT 14 U/L (<35) 09/06/19 16:38 Alkaline Phosphatase 155 U/L (38-126) H 09/06/19 16:38 Troponin I < 0.012 ng/mL 09/09/19 11:54 Total Protein 6.7 g/dL (6.3-8.2) 09/06/19 16:38 Albumin 3.4 g/dL (3.5-5.0) L 09/06/19 16:38 Triglycerides 159 mg/dL (<150) H 09/08/19 06:34 Cholesterol 193.25 mg/dL (0-200) 09/08/19 06:34 LDL Cholesterol Direct 94 mg/dL (<100) 09/08/19 06:34 VLDL Cholesterol 31.8 mg/dL (10-31) H 09/08/19 06:34 HDL Cholesterol 64 mg/dL (>40) 09/08/19 06:34 EGFR Cancelled 09/08/19 15:43 Urine Color YELLOW 09/06/19 21:40 Urine Appearance CLOUDY 09/06/19 21:40 Urine pH 5.0 (5.0-9.0) 09/06/19 21:40 Ur Specific [place] 1.010 09/06/19 21:40 Urine Protein NEGATIVE mg/dL (NEGATIVE) 09/06/19 21:40 Urine Glucose (UA) 150 mg/dL (NEGATIVE) H 09/06/19 21:40 Urine Ketones NEGATIVE mg/dL (NEGATIVE) 09/06/19 21:40 Urine Blood SMALL (NEGATIVE) H 09/06/19 21:40 Urine Nitrite (Reflex) NEGATIVE (NEGATIVE) 09/06/19 21:40 Urine Bilirubin NEGATIVE (NEGATIVE) 09/06/19 21:40 Urine Urobilinogen NEGATIVE mg/dL (<2.0) 09/06/19 21:40 Leukocyte Esterase Rfl LARGE (NEGATIVE) H 09/06/19 21:40 Urine Bacteria (Auto) 1+ /HPF 09/06/19 21:40 Urine WBC (Reflex) 70 /HPF 09/06/19 21:40 Urine WBC Clumps MANY /HPF 09/06/19 21:40 Squamous Epi Cells Auto 2 /HPF 09/06/19 21:40 Urine Mucus (Auto) RARE /LPF 09/06/19 21:40 Urine Yeast (Budding) PRESENT /HPF 09/06/19 21:40 Urine Ascorbic Acid NEGATIVE (NEGATIVE) 09/06/19 21:40 Time Trough Drawn 0532 09/11/19 05:32 Vancomycin Trough 16.3 ug/mL (5.0-20.0) 09/11/19 05:32 COVID-19 Source NASOPHARYNGEAL 09/09/19 10:15 COVID-19 (RAZA) NOT DETECTED 09/09/19 10:15 09/06/19 09/09/19 16:38 11:54 Troponin I < 0.012 < 0.012 Impressions: Chest X-Ray 09/06/19 16:49 IMPRESSION: 1. No significant interval changes since the previous examination dated 02/12/2019. No acute findings. Foot X-Ray 09/06/19 16:50 IMPRESSION: 1. Status post amputation of the first toe down to the level of the base of the proximal phalanx. Soft tissue swelling likely related to postsurgical changes. 2. Prior amputation of the second toe, stable finding. Lower Extremity MRI 09/08/19 00:00 IMPRESSION: 1. No osteomyelitis. Postoperative changes in the 1st and 2nd toes. 2. Cellulitis, most conspicuous at the great toe amputation site. There is subcutaneous fluid the either related to ulcer or a small abscess. Venous Doppler Study 07/30/20 00:00 IMPRESSION: NO EVIDENCE DVT OR SVT IN THE LEFT LEG. Plan Time Spent: Greater than 30 Minutes Stroke Is this a Stroke Patient?: No Acute Heart Failure - Is this a Heart Failure Patient?: No
[2019-09-13 17:03] VITALS: BP 112/64
== END 2019-09-13 18:06 | disposition home health service (06) | DRG 629 ==
LOC: ER 16:03 → EH 09-07 01:47 → 4W 09-07 14:05
PROVIDERS: ADMIT Emergency Medicine; ATTEND Internal Medicine
PROC: 0QBP0ZZ Excision of Left Metatarsal, Open Approach (ICD-10-PCS; principal; 2019-09-10 14:30)
DX: E11.69 Type 2 diabetes mellitus with other specified complication (principal); L03.116 Cellulitis of left lower limb; N39.0 Urinary tract infection, site not specified; E11.51 Type 2 diabetes mellitus with diabetic peripheral angiopathy without gangrene; I10 Essential (primary) hypertension; E78.00 Pure hypercholesterolemia, unspecified; K21.9 Gastro-esophageal reflux disease without esophagitis; E87.6 Hypokalemia; B96.1 Klebsiella pneumoniae [K. pneumoniae] as the cause of diseases classified elsewhere; Z20.828 Contact with and (suspected) exposure to other viral communicable diseases; Z89.511 Acquired absence of right leg below knee; Z89.422 Acquired absence of other left toe(s); Z79.84 Long term (current) use of oral hypoglycemic drugs; Z79.4 Long term (current) use of insulin
CPT/HCPCS: 01480; 36415; 51701; 71045; 80048; 80053; 80061; 80202; 81001; 82803; 82962; 83036; 83605; 83735; 84484; 85025; 85027; 85610; 87040; 87070; 87075; 87077; 87086; 87088; 87186; 87205; 87635; 93005; 93010; 93971; 96365; 96366; 96375; 99285; A9576; C9803; J0692; J1644; J1815; J1885; J2020; J2270; J2405; J2543; J2704; J3010; J3370; J3480; J3490; J7060; J7120

== ENCOUNTER 2019-09-29 00:35 | Inpatient (IN) | payer BC, MEDICARE ==
--- NOTE | 2019-09-29 00:50 | ER Document Report ---
ED General - General Stated Complaint: STROKE LIKE SYMPTOMS Time Seen by Provider: 09/29/19 00:44 Mode of Arrival: Medic Information source: Patient Notes: 09/29/19 01:07 - ED Nursing Note by AVTAR SALAZAR Rachel Num: [id number] : 1945 Patient Age: [age] Y/O FEMALE PRESENTS VIA EMS FOR ? STROKE. PER EMS, PT SYMPTOMS STARTED AND 2100 AND THEN RESOLVED AND THEN RETURN ABOUT 2300. PT REPORTS THAT HER SPEECH WAS SLURRED AND SHE REPORTS THAT HER GAIT WAS ALTERED. PT CALLED AND EMS. EMS ARRIVED AND DETERMINED 2400 DEFICITS IN SPEECH, COMMANDS, ARM DRIFT AND SENSORY. UPON ARRIVAL TO ER, DR HARRIS MET AT DOOR, INITIAL ASSESSMENT NIH COMPLETED, SCORE 0. MENDS WNL WELL. PT C/A/O X3, INAD. VS WNL'S. ARLEEN PROTOCOL INITIATED my notes 74-year-old female arrives by EMS around 00 30 with chief complaint of weakness and speech problems which began around 2100 hrs. tonight. It self resolved within an hour and then reoccurred around 2300 hrs. EMS reports her symptoms resolved by the time she arrived to the facility. She was taken to the CT room by EMS directly upon arrival and CT was done by [facility] at that time. The CT appears to be grossly intact on my evaluation but we will await for the radiologist read. Patient otherwise has clear speech understandable and she is oriented with good electromechanical technician bilaterally. She is status post right BKA and left toe amputations because of diabetes. Her blood sugars 399 fingerstick per EMS. TRAVEL OUTSIDE OF THE [place] IN LAST 30 DAYS: No - HPI Onset: This evening Onset/Duration: Sudden, Better Quality of pain: No pain Severity: None Pain Level: Denies Associated symptoms: Weakness Exacerbated by: Denies Relieved by: Denies Similar symptoms previously: No Recently seen / treated by doctor: No - Related Data Allergies/Adverse Reactions: Tetanus Vaccines and Toxoid [Tetanus] Allergy (Verified 09/29/19 01:05) Past Medical History - General Information source: Patient, Emergency Med Personnel - Social History Smoking Status: Never Smoker Cigarette use (# per day): No Chew tobacco use (# tins/day): No Smoking Education Provided: No Frequency of alcohol use: None Drug Abuse: None Lives with: Family Family History: Hypertension, Malignancy, Other - Parkinson's disease. denies: CAD, DM Patient has suicidal ideation: No Patient has homicidal ideation: No - Past Medical History Cardiac Medical History: Reports: Hx Hypercholesterolemia, Hx Hypertension, Hx Peripheral Vascular Disease Denies: Hx Atrial Fibrillation, Hx Congestive Heart Failure, Hx Coronary Artery Disease, Hx DVT, Hx Heart Attack, Hx Pulmonary Embolism Pulmonary Medical History: Denies: Hx Asthma, Hx COPD Neurological Medical History: Denies: Hx Seizures Endocrine Medical History: Reports: Hx Diabetes Mellitus Type 2. Denies: Hx Diabetes Mellitus Type 1, Hx Hyperthyroidism, Hx Hypothyroidism Renal/ Medical History: Denies: Hx Peritoneal Dialysis GI Medical History: Reports: Hx Gastroesophageal Reflux Disease. Denies: Hx Cirrhosis, Hx Crohn's Disease, Hx Hepatitis, Hx Ulcerative Colitis Musculoskeletal Medical History: Denies Hx Arthritis, Denies Hx Gout, Reports Hx Musculoskeletal Deformity, Reports Hx Musculoskeletal Trauma Skin Medical History: Denies Hx Eczema, Reports Hx MRSA - MRSA 08/15 FOOT, Denies Hx Psoriasis Psychiatric Medical History: Denies: Hx Depression Infectious Medical History: Denies: Hx Hepatitis Past Surgical History: Reports: Hx Orthopedic Surgery - Bilateral hip surgeries - Immunizations Hx Diphtheria, Pertussis, Tetanus Vaccination: - allergic Review of Systems - Review of Systems Constitutional: See HPI, Weakness EENT: No symptoms reported Cardiovascular: No symptoms reported Respiratory: No symptoms reported Gastrointestinal: No symptoms reported Genitourinary: No symptoms reported Female Genitourinary: No symptoms reported Musculoskeletal: No symptoms reported Skin: No symptoms reported Hematologic/Lymphatic: No symptoms reported Neurological/Psychological: See HPI, Weakness, Speech impairment Physical Exam - Vital signs Vitals: Pulse Resp BP Pulse Ox 90 16 126/80 H 96 09/29/19 00:43 09/29/19 00:43 09/29/19 00:43 09/29/19 00:43 Interpretation: Normal - HEENT Head: Normocephalic, Atraumatic Eyes: Normal Pupils: PERRL Sinus: Normal Nasal: Normal Mouth/Lips: Normal Mucous membranes: Normal Pharynx: Other - Edentulous Neck: Normal - Respiratory Respiratory status: No respiratory distress Chest status: Nontender Breath sounds: Normal Chest palpation: Normal - Cardiovascular Rhythm: Regular Heart sounds: Normal auscultation Murmur: No - Abdominal Inspection: Normal Distension: No distension Bowel sounds: Normal Tenderness: Nontender Organomegaly: No organomegaly - Rectal Hemorrhoids: Other - deferred - Genitourinary Bimanuel exam: Other - deferred - Back Back: Normal - Extremities General upper extremity: Normal inspection General lower extremity: Other - Lower extremities positive for right lower extremity below the knee amputation with a prosthesis. Also status post toe amputations with a left foot bootie on - Neurological Neuro grossly intact: Yes Cognition: Normal Orientation: AAOx4 [place] Coma Scale Eye Opening: Spontaneous [place] Coma Scale Verbal: Oriented Kav[place] Coma Scale Motor: Obeys Commands [place] Coma Scale Total: 15 Speech: Normal Motor strength normal: LUE, RUE, LLE, RLE Sensory: Normal - Psychological Associated symptoms: Normal affect - Skin Skin Temperature: Warm Skin Moisture: Dry Course - Vital Signs Vital signs: Temp Pulse Resp BP Pulse Ox 98.6 F 72 21 H 123/75 98 09/29/19 00:53 09/29/19 03:00 09/29/19 04:01 09/29/19 04:00 09/29/19 04:01 - Laboratory Result Diagrams: 09/29/19 01:00 09/29/19 01:00 Laboratory results interpreted by me: 09/29/19 09/29/19 09/29/19 01:00 01:00 01:00 RDW 14.6 H APTT < 20.0 L* Sodium 133.6 L Chloride 97 L BUN 26 H Glucose 311 H POC Glucose Alkaline Phosphatase 140 H 09/29/19 01:20 RDW APTT Sodium Chloride BUN Glucose POC Glucose 319 H Alkaline Phosphatase - Diagnostic Test Radiology reviewed: Reports reviewed - EKG Interpretation by Me EKG shows normal: Sinus rhythm Rate: Normal Rhythm: NSR - No ST elevation no ST depression +V3V4 T wave depression single PVC Critical Care Note - Critical Care Note Comments: I spoke with Dr. Sharma at 0 320 and he advised admission. I spoke with Dr. Smith Barreto around [address] Sharma. He advised this patient may have a LA and recommended a second troponin. I discussed this case with Dara at [facility] and spoke with Brigette nurse practitioner with the neurology group and she accepts patient for neurology but will need hospitalist for transfer. I again spoke with Lima at 0508 and with hospitalist who advises MRI of head and carotid Doppler. She does accept the patient. However because of room contingent on availability may have to wait several hours. Discharge - Discharge Clinical Impression: Hyperglycemia, TIA (transient ischemic attack), Troponin level elevated Condition: Good Disposition: [facility] Additional Instructions: Transfer this patient to [facility].
--- NOTE | 2019-09-29 00:57 | RADIOLOGY REPORT (SQ) ---
CLINICAL HISTORY: STROKE SX COMPARISON: 04/18/2017. TECHNIQUE: CT HEAD WITHOUT IV CONTRAST on 09/29/2019 12:00 AM CDT This exam was performed according to our departmental dose-optimization program, which includes automated exposure control, adjustment of the mA and/or kV according to patient size and/or use of iterative reconstruction technique. FINDINGS: There is no acute hemorrhage, mass effect or midline shift. Campbell-white differentiation is preserved. There is no hydrocephalus. There is no significant volume loss for age. The calvarium is intact. Orbits and globes are unremarkable. The paranasal sinuses are clear. Mastoid air cells are clear. IMPRESSION: No acute intracranial findings.
--- NOTE | 2019-09-29 01:04 | RADIOLOGY REPORT (SQ) ---
EXAM DESCRIPTION: XR CHEST 1 VIEW COMPLETED DATE/TME: 09/29/2019 00:00 CLINICAL HISTORY: 74 years, Female, STROKE SX COMPARISON: September 06, 2019 NUMBER OF VIEWS: 1 TECHNIQUE: Portable AP upright view the chest was obtained at 12:51 AM. LIMITATIONS: None. FINDINGS: The heart size is within normal limits. Lungs appear clear. Aortic calcifications are noted. There is no evidence of pleural effusion or pneumothorax. No definite acute bony abnormality is seen. IMPRESSION: No acute abnormality as above. copyright 2010 [employer]- All Rights Reserved
[2019-09-29 01:22] LABS: ABSOLUTE BASOPHILS # (AUTO) 0.1 10^3/uL (0.0-0.2); ABSOLUTE EOSINOPHILS # (AUTO) 0.1 10^3/uL (0.0-0.6); ABSOLUTE LYMPHOCYTES (AUTO) 1.3 10^3/uL (0.5-4.7); ABSOLUTE MONOCYTES (AUTO) 0.6 10^3/uL (0.1-1.4); ABSOLUTE NEUT (AUTO) 5.2 10^3/uL (1.7-8.2); BASOPHILS % (AUTO) 1.4 % (0-2); EOSINOPHILS % (AUTO) 1.3 % (0-6); HEMATOCRIT 36.8 % (36.0-47.0); HEMOGLOBIN 12.6 g/dL (12.0-15.5); LYMPHOCYTES % (AUTO) 17.8 % (13-45); MEAN CORPUSCULAR HEMOGLOBIN 28.2 pg (27.0-33.4); MEAN CORPUSCULAR HGB CONC 34.2 g/dL (32.0-36.0); MEAN CORPUSCULAR VOLUME 82 fl (80-97); MONOCYTES % (AUTO) 7.9 % (3-13); PLATELET COUNT 280 10^3/uL (150-450); RED BLOOD COUNT 4.46 10^6/uL (3.72-5.28); RED CELL DISTRIBUTION WIDTH 14.6 % (11.5-14.0); SEGMENTED NEUTROPHILS % (AUTO) 71.6 % (42-78); TOTAL CELLS COUNTED % (AUTO) 100 %; WHITE BLOOD COUNT 7.3 10^3/uL (4.0-10.5)
[2019-09-29 01:30] LABS: INTERNATIONAL RATION (INR) 0.97; PROTHROMBIN TIME 13.1 SEC (11.4-15.4)
[2019-09-29 01:34] LABS: ALKALINE PHOSPHATASE 140 U/L (38-126); ANION GAP 11 (5-19); ASPARTATE AMINO TRANSFERASE 28 U/L (14-36); BILIRUBIN,TOTAL 0.7 mg/dL (0.2-1.3); BLOOD UREA NITROGEN 26 mg/dL (7-20); CALCIUM 9.1 mg/dL (8.4-10.2); CARBON DIOXIDE 26 mmol/L (22-30); CHLORIDE 97 mmol/L (98-107); CREATINE KINASE 59 U/L (30-135); GLUCOSE 311 mg/dL (75-110); POTASSIUM 4.3 mmol/L (3.6-5.0); TOTAL PROTEIN 7.4 g/dL (6.3-8.2)
[2019-09-29 01:35] LABS: PARTIAL THROMBOPLASTIN TIME < 20.0 SEC (23.5-35.8)
[2019-09-29 02:03] LABS: CREATINE KINASE MB 1.32 ng/mL (<4.55)
[2019-09-29 02:09] LABS: TROPONIN I 0.278 ng/mL
[2019-09-29] MEDS ORDERED: ASPIRIN 81 MG TABLET, CHEWABLE PO ONE (03:28)
--- NOTE | 2019-09-29 08:24 | RADIOLOGY REPORT (SQ) ---
EXAM DESCRIPTION: MRI HEAD WITHOUT IMAGES COMPLETED DATE/TIME: 09/29/2019 7:59 am REASON FOR STUDY: tia LIMITATIONS: None. FINDINGS: ANATOMY: No anomalies. Normal vascular flow voids. Pituitary fossa normal. CSF SPACES: Atrophy induced prominence of ventricles and CSF spaces. CEREBRUM: High signal intensity lesions scattered throughout the white matter on FLAIR imaging with d istribution suggesting micro-vascular ischemic changes. No evidence of hemorrhage, mass, or extraaxi al fluid collection. POSTERIOR FOSSA: No signal alteration. No hemorrhage. No edema, masses or mass effect. Internal colten tory canals, cerebello-pontine angles, mastoids normal. DIFFUSION IMAGING: Multiple small foci of restricted diffusion are seen within the left temporal lobe and left precentral gyrus ; subtle T2 prolongation on FLAIR imaging suggests subacute injury. ORBITS: No masses. Globes normal. PARANASAL SINUSES: No fluid levels. Mucosa normal. OTHER: No other significant finding. IMPRESSION: 1. Restricted diffusion with very subtle FLAIR T2 prolongation involving the left tempo ral lobe and left precentral gyrus, consistent with acute to subacute ischemic injury. 2. Background of chronic microvascular and age-related involutional changes. EVIDENCE OF ACUTE STROKE: YES. LEFT MCA. TECHNICAL DOCUMENTATION: JOB ID: [id number] 2010 [employer]- All Rights Reserved COMPARISON: None. Noncontrast head CT 09/29/2019 TECHNIQUE: Multiplanar imaging includes non-contrasted T1, T2, FLAIR, and diffusion with ADC map seq uences. Images stored on PACS. Reading location - IP/workstation name: [email or web address]
--- NOTE | 2019-09-29 08:35 | EKG REPORT ---
SEVERITY:- ABNORMAL ECG - SINUS RHYTHM VENTRICULAR PREMATURE COMPLEX PROBABLE ANTEROSEPTAL INFARCT, AGE INDETERM ABNORMAL T, PROBABLE ISCHEMIA, ANT-LAT LEADS PROLONGED QT INTERVAL : Confirmed by: Trinity Alanis 29-Sep-2019 08:34:16
--- NOTE | 2019-09-29 09:10 | ER Document Report ---
Doctor's Note Notes: 09/29/19 09:08 This patient came in during the night with TIA type symptoms predominantly speech problems. She was turned over to me at 6 AM this morning pending transfer to [facility], and they had requested MRI and carotid Dopplers to be done. MRI shows an acute stroke left MCA territory involving the left temporal lobe and left precentral gyrus. At this time the patient's speech is back to normal according to her, and she does not have any other new deficits. She does not want to go to [place] and would prefer to stay here. [facility] had indicated that they do not have any beds available and probably would not have beds available in the near future. I did call Dr. Scott and she will admit the patient here.
[2019-09-29] MEDS ORDERED: MAGNESIUM HYDROXIDE SUSP 30 ML UDCUP PO PRN (10:12)
[2019-09-29] MEDS ORDERED: ZOLPIDEM TARTRATE 5 MG TABLET PO PRN (10:12)
[2019-09-29] MEDS ORDERED: DEXTROSE 40% GEL 15 GM TUBE PO PRN ×3 (10:12→17:00)
[2019-09-29] MEDS ORDERED: IPRATROPIUM/ALBUTEROL 0.5-2.5 MG/3 ML AMPUL NEB PRN (10:12)
[2019-09-29] MEDS ORDERED: OXYCODONE-ACETAMINOPHEN 5-325 MG TABLET PO PRN (10:12)
[2019-09-29] MEDS ORDERED: ONDANSETRON 4 MG TAB.RAPDIS PO PRN (10:12)
[2019-09-29] MEDS ORDERED: LABETALOL HCL INJ 20 MG/4 ML DISP.SYRIN IV PRN (10:12)
[2019-09-29] MEDS ORDERED: DEXTROSE 50%-WATER 25 GM/50 ML DISP.SYRIN IV PRN ×2 (10:12)
[2019-09-29] MEDS ORDERED: GLUCAGON,HUMAN RECOMB 1 MG INJ IM PRN ×2 (10:12→17:00)
--- NOTE | 2019-09-29 10:48 | PDOC H&P ---
History of Present Illness Admission Date/PCP: 09/29/19 09:20 Patient complains of: Sudden onset of slurred speech and right-sided weakness whilst watching TV at night History of Present Illness: ALEXANDER ELI is a 74 year old female Who comes to the emergency room with the above complaints. She said she was feeling fine and she was watching TV and suddenly had this slurred speech and just not feeling right. She also felt right-sided weakness. She has a below- knee amputation of the right lower extremity and she said she just could not even put on her prosthesis. There was no difficulty with her vision, dizziness and she denies any chest pain. She said the symptoms lasted about 10 to 15 minutes. Shortly afterwards she was going to retire for the night and then the symptoms recurred. At that time it appears her spouse called EMS. She was b rought to the emergency room. She said the symptoms have briskly improved although she still feels some somewhat slowed speech and weakness of the right upper extremity. She continues to deny any chest pain. She denies any nausea vomiting confusion dizziness blurry vision or any other pertinent symptoms. She denies any prior history of stroke. MRI done in the emergency room does confirm an acute to subacute left MCA. Patient was also found to have an elevated troponin with abnormal EKG although she denies any chest pain. She denies any prior history of a CVA or GA Past Medical History Cardiac Medical History: Reports: Hyperlipidema, Hypertension, Peripheral Vascular Disease Denies: Atrial Fibrillation, Congestive Heart Failure, Coronary Artery Disease, DVT, Myocardial Infarction, Pulmonary Embolism Pulmonary Medical History: Denies: Asthma, Chronic Obstructive Pulmonary Disease (COPD) Neurological Medical History: Denies: Seizures Endocrine Medical History: Reports: Diabetes Mellitus Type 2 Denies: Diabetes Mellitus Type 1, Hyperthyroidism, Hypothyroidism GI Medical History: Reports: Gastroesophageal Reflux Disease Denies: Cirrhosis, Crohn's Disease, Hepatitis, Ulcerative Colitis Musculoskeltal Medical History: Denies: Arthritis, Gout Skin Medical History: Denies: Eczema, Psoriasis Psychiatric Medical History: Denies: Depression Hematology: Denies: Anemia, Bleeding Tendencies Past Surgical History Past Surgical History: Reports: Amputation - Right BKA, left great and second toes, Orthopedic Surgery - Bilateral hip surgeries Social History Information Source: Patient Lives with: Family Smoking Status: Never Smoker Frequency of Alcohol Use: None Hx Recreational Drug Use: No Drugs: None Hx Prescription Drug Abuse: No Family History Family History: Hypertension, Malignancy, Other - Parkinson's disease. denies: CAD, DM Parental Family History Reviewed: No Children Family History Reviewed: Yes Sibling(s) Family History Reviewed.: Yes Medication/Allergy Home Medications: Biotin [Biotin 5 mg Tablet] 5 mg PO DAILY 09/07/19 Melatonin [Melatonin 5 mg Tablet] 5 mg PO QHS 09/07/19 Amox Tr/Potassium Clavulanate [Augmentin "500" Tablet] 1 tab PO Q8 9 Days tablet 09/13/19 Insulin Glargine,Hum.rec.anlog [Lantus Insulin 100 Unit/1 ml 10 ml] 20 unit SUBCUT QHS #10 ml 09/13/19 Tramadol HCl [Ultram 50 mg Tablet] 50 mg PO TIDP PRN #15 tablet 09/13/19 Allergies/Adverse Reactions: Tetanus Vaccines and Toxoid [Tetanus] Allergy (Verified 09/29/19 01:05) Review of Systems Constitutional: ABSENT: chills, fever(s), headache(s), weight gain, weight loss Eyes: ABSENT: visual disturbances Ears: ABSENT: hearing changes Cardiovascular: ABSENT: chest pain, dyspnea on exertion, edema, orthropnea, palpitations Respiratory: ABSENT: cough, hemoptysis Gastrointestinal: ABSENT: abdominal pain, constipation, diarrhea, hematemesis, h ematochezia, nausea, vomiting Genitourinary: ABSENT: dysuria, hematuria Musculoskeletal: ABSENT: joint swelling Integumentary: ABSENT: rash, wounds Neurological: PRESENT: abnormal speech, focal weakness. ABSENT: abnormal gait, confusion, dizziness, memory loss, numbness, paresthesias, syncope, tingling Psychiatric: ABSENT: anxiety, depression, homidical ideation, suicidal ideation Endocrine: ABSENT: cold intolerance, heat intolerance, polydipsia, polyuria Hematologic/Lymphatic: ABSENT: easy bleeding, easy bruising Physical Exam Vital Signs: Temp Pulse Resp BP Pulse Ox 98.6 F 81 15 125/66 96 09/29/19 06:35 09/29/19 06:00 09/29/19 08:30 09/29/19 08:30 09/29/19 08:30 Intake & Output 09/28/19 09/29/19 09/30/19 06:59 06:59 06:59 Weight 69.2 kg General appearance: PRESENT: no acute distress, well-developed, well-nourished Head exam: PRESENT: atraumatic, normocephalic Eye exam: PRESENT: conjunctiva pink, EOMI, PERRLA. ABSENT: scleral icterus Mouth exam: PRESENT: moist, tongue midline Neck exam: ABSENT: carotid bruit, JVD, lymphadenopathy, tenderness, thyromegaly Respiratory exam: PRESENT: clear to auscultation mirna, unlabored. ABSENT: rales, rhonchi, wheezes Cardiovascular exam: PRESENT: RRR, +S1, +S2. ABSENT: diastolic murmur, rubs, systolic murmur Pulses: PRESENT: normal carotid pulses, normal dorsalis pedis pul Vascular exam: PRESENT: normal capillary refill GI/Abdominal exam: PRESENT: normal bowel sounds, soft. ABSENT: distended, guarding, mass, organolmegaly, rebound, tenderness Rectal exam: PRESENT: deferred Extremities exam: PRESENT: full ROM, other - R BKA L 1st, 2nd toe amputation. ABSENT: calf tenderness, clubbing, pedal edema Neurological exam: PRESENT: alert, awake, oriented to person, oriented to place, oriented to time, oriented to situation, CN II-XII grossly intact. ABSENT: motor sensory deficit Psychiatric exam: PRESENT: appropriate affect, normal mood. ABSENT: homicidal ideation, suicidal ideation Skin exam: PRESENT: dry, intact, warm. ABSENT: cyanosis, rash Results Laboratory Results: 09/29/19 01:00 09/29/19 01:00 09/29/19 09/29/19 01:00 01:00 WBC 7.3 RBC 4.46 Hgb 12.6 Hct 36.8 MCV 82 MCH 28.2 MCHC 34.2 RDW 14.6 H Plt Count 280 Seg Neutrophils % 71.6 Sodium 133.6 L Potassium 4.3 Chloride 97 L Carbon Dioxide 26 Anion Gap 11 BUN 26 H Creatinine 0.66 Est GFR ( Amer) > 60 Glucose 311 H Calcium 9.1 Total Bilirubin 0.7 AST 28 Alkaline Phosphatase 140 H Total Protein 7.4 Albumin 4.0 09/29/19 09/29/19 09/29/19 01:00 01:00 04:08 Creatine Kinase 59 CK-MB (CK-2) 1.32 Troponin I 0.278 0.256 EKG Comments: Sinus rhythm with PVCs nonspecific T wave changes probably ischemia anterolateral leads Impressions: Chest X-Ray 09/29/19 00:00 IMPRESSION: No acute abnormality as above. copyright 2010 [employer]- All Rights Reserved Head CT 09/29/19 00:00 IMPRESSION: No acute intracranial findings. Head MRI 09/29/19 05:13 IMPRESSION: 1. Restricted diffusion with very subtle FLAIR T2 prolongation involving the left temporal lobe and left precentral gyrus, consistent with acute to subacute ischemic injury. 2. Background of chronic microvascular and age-related involutional changes. EVIDENCE OF ACUTE STROKE: YES. LEFT MCA. Status: Imported from PACS Assessment and Plan - Diagnosis (1) Non-STEMI (non-ST elevated myocardial infarction) Is this a current diagnosis for this admission?: Yes Plan: This may be as a consequence or related to her acute CVA however patient denies any previous history of coronary artery disease. In fact her EKG from August 2019 was basically normal. She does have an acutely different EKG. She denies any chest pain. I will place her on aspirin metoprolol and Lovenox and a cardiology consult will be obtained to further risk stratify this patient. She likely will need to have further cardiac work-up as outpatient. I will go ahead and order an echocardiogram pending cardiology evaluation. Should be placed on telemetry and we will monitor her EKG as appropriate (2) Acute cerebrovascular accident (CVA) Is this a current diagnosis for this admission?: Yes Plan: Patient does have a confirmed acute CVA. She however appears to have a paucity of symptoms right now. She still has some residual weakness as well as slight slurring of speech. Carotid Doppler studies will be obtained in addition to ech ocardiogram. Physical therapy as well as OT evaluation will be obtained. I will continue aspirin as well as statin. Her blood pressure is relatively well controlled (3) Troponin level elevated Is this a current diagnosis for this admission?: Yes Plan: Secondary to non-STEMI (4) Diabetes mellitus type 2, uncontrolled Qualifiers: Glycemic state: with hyperglycemia Qualified Code(s): E11.65 - Type 2 diabetes mellitus with hyperglycemia Is this a current diagnosis for this admission?: Yes Plan: Patient has right BKA and she also was recently treated for diabetic foot infection for which she received IV antibiotics which she has completed. Her blood sugars are poorly controlled. Hemoglobin A1c was recently checked and this was 8.9. She will be placed on sliding scale insulin and I will continue her home insulin as appropriate. Patient will need better glycemic control - Plan Summary Summary: MRI shows prolongation involving the left temporal lobe and left precentral gyrus consistent with acute to subacute ischemic injury in the left MCA. EKG s hows PVCs with probable anteroseptal infarct of indeterminate age with abnormal T waves probable ischemia anterior lateral leads. Troponins x2 and negative Patient had hemoglobin A1c checked on September 07 with a result of 8.9, lipid profile was also done at the time with a cholesterol of 193 and triglyceride of 159 and LDL of 94 and HDL of 64. As such I would not repeat the studies at this time - Time Time Spent with patient: 35 or more minutes Medications reviewed and adjusted accordingly: Yes Anticipated Discharge Disposition: Home, Self Care Anticipated Discharge Timeframe: within 48 hours - Inpatient Certification Based on my medical assessment, after consideration of the patient's comorbidities, presenting symptoms, or acuity I expect that the services needed warrant INPATIENT care.: Yes Medical Necessity: Risk of Complication if Not Cared For in Hospital
[2019-09-29] MEDS: INSULIN REG, HUMAN 100 UNIT/ML 3 ML VIAL (PYX) SUBCUT SCH ×2 (13:05→17:20)
--- NOTE | 2019-09-29 13:09 | PDOC CONSULTATION ---
Consultation Consult Date: 09/29/19 Attending physician:: JIM HENRY Provider Consulted: SAMSON MIMS Consult reason:: Elevated troponin History of Present Illness Admission Date/PCP: 09/29/19 09:20 Patient complains of: Slurred speech History of Present Illness: ALEXANDER ELI is a 74 year old female 74-year-old lady with the following active problems 1. Systemic hypertension 2. Dyslipidemia 3. Peripheral vascular disease Patient presented with acute onset slurred speech and right-sided weakness. Findings are suggestive of left MCA CVA. She is being managed for this. Elevated troponin and abnormal EKG were noted. No prior mention of coronary artery disease. Patient without any chest pain. Review of systems is positive for right-sided weakness and slurred speech. Review of systems positives are noted in the HPI and under review of systems all pertinent positives noted here every every other systems negative. No familial illnesses reported. Past Medical History Cardiac Medical History: Reports: Hyperlipidema, Hypertension, Peripheral Vascular Disease Denies: Atrial Fibrillation, Congestive Heart Failure, Coronary Artery Disease, DVT, Myocardial Infarction, Pulmonary Embolism Pulmonary Medical History: Denies: Asthma, Chronic Obstructive Pulmonary Disease (COPD) Neurological Medical History: Denies: Seizures Endocrine Medical History: Reports: Diabetes Mellitus Type 2 Denies: Diabetes Mellitus Type 1, Hyperthyroidism, Hypothyroidism GI Medical History: Reports: Gastroesophageal Reflux Disease Denies: Cirrhosis, Crohn's Disease, Hepatitis, Ulcerative Colitis Musculoskeltal Medical History: Denies: Arthritis, Gout Skin Medical History: Denies: Eczema, Psoriasis Psychiatric Medical History: Denies: Depression Hematology: Denies: Anemia, Bleeding Tendencies Past Surgical History Past Surgical History: Reports: Amputation - Right BKA, left great and second toes, Orthopedic Surgery - Bilateral hip surgeries Social History Lives with: Family Smoking Status: Never Smoker Frequency of Alcohol Use: None Hx Recreational Drug Use: No Drugs: None Hx Prescription Drug Abuse: No Family History Family History: Hypertension, Malignancy, Other - Parkinson's disease. denies: CAD, DM Parental Family History Reviewed: Yes - No familial illnesses Children Family History Reviewed: NA Sibling(s) Family History Reviewed.: NA Medication/Allergy Home Medications: No Home Medications 09/29/19 Allergies/Adverse Reactions: Tetanus Vaccines and Toxoid [Tetanus] Allergy (Verified 09/29/19 01:05) Review of Systems Constitutional: PRESENT: as per HPI Eyes: PRESENT: as per HPI Nose, Mouth, and Throat: ABSENT: as per HPI, headache(s), mouth pain, sore throat, vertigo, other Cardiovascular: ABSENT: as per HPI, chest pain, dyspnea on exertion, edema, orthropnea, palpitations, other Respiratory: ABSENT: as per HPI, cough, dyspnea, hemoptysis, sputum, other Gastrointestinal: ABSENT: as per HPI, abdominal pain, bloating, coffee ground emesis, constipation, diarrhea, dysphagia, heartburn, hematemesis, hematochezia, melena, nausea, vomiting, other Musculoskeletal: ABSENT: as per HPI, back pain, deformity, joint swelling, muscle weakness, other Neurological: PRESENT: other - Slurred speech, right-sided weakness Psychiatric: ABSENT: as per HPI, anxiety, depression, hallucinations, homidical ideation, suicidal ideation, other Physical Exam Vital Signs: Temp Pulse Resp BP Pulse Ox 98.6 F 78 19 114/72 95 09/29/19 06:35 09/29/19 09:00 09/29/19 11:30 09/29/19 11:30 09/29/19 11:01 Intake & Output 09/28/19 09/29/19 09/30/19 06:59 06:59 06:59 Weight 69.2 kg Results Laboratory Results: 09/29/19 01:00 09/29/19 01:00 09/29/19 09/29/19 01:00 01:00 WBC 7.3 RBC 4.46 Hgb 12.6 Hct 36.8 MCV 82 MCH 28.2 MCHC 34.2 RDW 14.6 H Plt Count 280 Seg Neutrophils % 71.6 Sodium 133.6 L Potassium 4.3 Chloride 97 L Carbon Dioxide 26 Anion Gap 11 BUN 26 H Creatinine 0.66 Est GFR ( Amer) > 60 Glucose 311 H Calcium 9.1 Total Bilirubin 0.7 AST 28 Alkaline Phosphatase 140 H Total Protein 7.4 Albumin 4.0 09/29/19 09/29/19 09/29/19 01:00 01:00 04:08 Creatine Kinase 59 CK-MB (CK-2) 1.32 Troponin I 0.278 0.256 09/29/19 10:56 Creatine Kinase CK-MB (CK-2) Troponin I 0.163 EKG Comments: Chest x-ray 09/29/2019 No acute abnormality Twelve-lead EKG 09/29/2019. Independently viewed by me. Sinus rhythm, septal infarct pattern, PVC, anterolateral T inversions, prolonged QT 514 ms Head MRI 09/29/2019 Acute or subacute ischemic injury microvascular changes left MCA stroke Troponin 0.163 0.256 0.278 Impressions: Chest X-Ray 09/29/19 00:00 IMPRESSION: No acute abnormality as above. copyright 2010 [employer]- All Rights Reserved Head CT 09/29/19 00:00 IMPRESSION: No acute intracranial findings. Head MRI 09/29/19 05:13 IMPRESSION: 1. Restricted diffusion with very subtle FLAIR T2 prolongation involving the left temporal lobe and left precentral gyrus, consistent with acute to subacute ischemic injury. 2. Background of chronic microvascular and age-related involutional changes. EVIDENCE OF ACUTE STROKE: YES. LEFT MCA. Assessment & Plan - Diagnosis (1) Acute cerebrovascular accident (CVA) Is this a current diagnosis for this admission?: Yes Plan: Acute CVA Findings suggestive of acute stroke. This is being managed. (2) Troponin level elevated Is this a current diagnosis for this admission?: Yes Plan: Elevated troponins in the setting of acute CVA This may be secondary to the stroke. Unlikely to be acute coronary syndrome EKG also shows some ischemic changes and QT prolongation which may also be secondary to stroke Would continue medical therapy assuming the presence of coronary artery disease including aspirin statin and beta-callie if feasible At the present time would not be ideal to re-stratify the patient. Avoid QT prolonging medications given QT on EKG is already prolonged
--- NOTE | 2019-09-29 13:34 | RADIOLOGY REPORT (SQ) ---
EXAM DESCRIPTION: CAROTID DOPPLER IMAGES COMPLETED DATE/TIME: 09/29/2019 1:15 pm REASON FOR STUDY: tia COMPARISON: None. TECHNIQUE: Grayscale ultrasound, Doppler velocity and spectra, and color Doppler images acquired of the extra-cranial carotid and vertebral arteries. Images stored on PACS. LIMITATIONS: None. FINDINGS: RIGHT CAROTID CCA Velocities: Within normal limits. ICA Velocities Peak systolic 98 cm/s. End diastolic 38 cm/s. Proximal ICA/CCA peak systolic ratio 1.1. Minimal calcified plaque in the bulb. Less than 50% stenosis. LEFT CAROTID CCA Velocities: Within normal limits. ICA Velocities Peak systolic 103 cm/s. End diastolic 36 cm/s. Proximal ICA/CCA peak systolic ratio 1.2. Spectra normal. No significant plaque. VERTEBRAL ARTERIES: Antegrade flow. Normal waveforms. SUBCLAVIAN ARTERIES: No finding. OTHER: No other significant finding. IMPRESSION: NO HEMODYNAMICALLY SIGNIFICANT STENOSIS. COMMENT: Quality ID #[id number]: Velocity criteria are extrapolated from the diameter data as defined by t he Society of Radiologists in Ultrasound Consensus Conference. Radiology 2003: 229; 340-346. TECHNICAL DOCUMENTATION: JOB ID: [id number] 2010 [employer]- All Rights Reserved Reading location - IP/workstation name: [email or web address]
[2019-09-29] MEDS: NORMAL SALINE 1000 ML 1,000 ML IV PRN (15:10)
[2019-09-29] MEDS ORDERED: DEXTROSE 50%-WATER SYRINGE 25 GM/50 ML DOSE IV PRN (17:00)
[2019-09-29] MEDS ORDERED: DEXTROSE 40% GEL 15 GM TUBE X 2 PO PRN (17:00)
[2019-09-29] MEDS ORDERED: DEXTROSE 50%-WATER SYRINGE 12.5 GM/25 ML DOSE IV PRN (17:00)
[2019-09-29] MEDS: INSULIN LISPRO 100 UNIT/ML 3 ML VIAL SUBCUT SCH ×2 (17:14→22:27)
--- NOTE | 2019-09-29 19:00 | XCELERA REPORT ---
[address] [address] Transthoracic Echocardiogram Report Name: ALEXANDER ELI Age: 74 yrs Gender: Female : 1945 Patient Status: Inpatient Patient Location: [place] [address]^A Study Date: 09/29/2019 11:11 AM History: CVA NSTEMI Height: 69 in Weight: 152 lb BSA: 1.8 m2 Procedure: A complete two-dimensional transthoracic echocardiogram was performed (2D, M-mode, spectral and color flow Doppler). The study was technically difficult with many images being suboptimal in quality. Reason For Study: Acute CVA, r/o MA Previous Evaluation: No previous studies were available. History: CVA. NSTEMI. Ordering Physician: JIM HERNY Performed By: Jocy Barry Interpretation Summary Wall motion abnormalities noted. Left ventricular systolic function is low normal. The Ejection Fraction estimate is 50-55% The right ventricular systolic function is normal. There is a trace amount of mitral regurgitation There is no aortic valve stenosis There is a trace amount of tricuspid regurgitation Wall motion abnormalities noted. MMode/2D Measurements & Calculations RVDd: 2.6 cm LVIDd: 3.8 cm FS: 33.6 % Ao root diam: 2.9 cm IVSd: 0.96 cm LVIDs: 2.5 cm EDV(Teich): 62.7 ml Ao root area: 6.6 cm2 LVPWd: 0.96 cm ESV(Teich): 23.2 ml LA dimension: 3.1 cm EF(Teich): 63.1 % Doppler Measurements & Calculations MV E max jose antonio: MV P1/2t max jose antonio: Ao V2 max: LV V1 max P.0 cm/sec 64.8 cm/sec 107.0 cm/sec 2.8 mmHg MV A max jose antonio: MV P1/2t: 64.1 msec Ao max PG: LV V1 max: 97.2 cm/sec MVA(P1/2t): 3.4 cm2 4.6 mmHg 83.7 cm/sec MV E/A: 0.66 MV dec slope: 296.2 cm/sec2 MV dec time: 0.22 sec PA V2 max: MV P1/2t-pr_phl: 77.0 cm/sec 64.1 msec PA max P.4 mmHg Left Ventricle The left ventricle is normal in size. There is mild concentric left ventricular hypertrophy. The Ejection Fraction estimate is 50-55%. Left ventricular systolic function is low normal. Doppler measurements suggest impaired left ventricular relaxation, which is associated with grade I/IV or mild diastolic dysfunction. There is anteroseptal wall moderate hypokinesis. There is mid to distal septal wall moderate hypokinesis. There is anterior wall moderate hypokinesis. There is mid to distal anterior wall moderate hypokinesis. Right Ventricle The right ventricle is not well visualized secondary to technical limitations. The right ventricular systolic function is normal. Atria The right atrium is normal. The left atrium is mildly dilated. The interatrial septum is intact with no evidence for an atrial septal defect. There is no Doppler evidence for an interatrial shunt. Mitral Valve Calcified mitral apparatus. There is no evidence of mitral valve prolapse. There is no mitral valve stenosis. There is a trace amount of mitral regurgitation. Aortic Valve The aortic valve is trileaflet. The aortic valve opens well. There is no aortic valve stenosis. No aortic regurgitation is present. Tricuspid Valve The tricuspid valve is not well visualized, but is grossly normal. There is a trace amount of tricuspid regurgitation. Tricuspid regurgitation jet envelope not well defined to measure RV systolic pressure accurately. Doppler findings do not suggest pulmonary hypertension. Great Vessels The aortic root is normal size. The inferior vena cava appeared normal and decreased > 50% with respiration (RAP 5-10 mmHg). Effusions There is no pericardial effusion. : JIM HENRY Anil
[2019-09-29] MEDS ORDERED: INSULIN LISPRO 100 UNIT/ML 3 ML VIAL SUBCUT SCH (22:00)
[2019-09-29] MEDS: METOPROLOL TARTRATE 25 MG TABLET PO SCH (22:26)
[2019-09-29] MEDS: ATORVASTATIN CALCIUM 40 MG TABLET PO SCH (22:26)
[2019-09-29] MEDS: ENOXAPARIN SODIUM INJ 80 MG/0.8 ML DISP.SYRIN SUBCUT SCH (22:27)
[2019-09-30 05:22] LABS: ANION GAP 6 (5-19); BLOOD UREA NITROGEN 19 mg/dL (7-20); CALCIUM 8.5 mg/dL (8.4-10.2); CARBON DIOXIDE 26 mmol/L (22-30); CHLORIDE 106 mmol/L (98-107); GLUCOSE 135 mg/dL (75-110); POTASSIUM 3.4 mmol/L (3.6-5.0)
[2019-09-30] MEDS: PANTOPRAZOLE SODIUM 20 MG TABLET.DR PO SCH (06:36)
[2019-09-30] MEDS: NORMAL SALINE 1000 ML 1,000 ML IV PRN (06:37)
[2019-09-30] MEDS: INSULIN LISPRO 100 UNIT/ML 3 ML VIAL SUBCUT SCH ×4 (08:49→21:48)
--- NOTE | 2019-09-30 09:43 | EKG REPORT ---
SEVERITY:- ABNORMAL ECG - SINUS RHYTHM PROBABLE ANTEROSEPTAL INFARCT, AGE INDETERM ABNORMAL T, CONSIDER ISCHEMIA, ANT-LAT LEADS BORDERLINE PROLONGED QT INTERVAL : Confirmed by: Trinity Alanis 30-Sep-2019 09:42:09
[2019-09-30] MEDS ORDERED: POTASSIUM CHLORIDE 10 MEQ TABLET.ER PO ONE (10:21)
[2019-09-30] MEDS: METOPROLOL TARTRATE 25 MG TABLET PO SCH ×2 (10:25→21:47)
[2019-09-30] MEDS: ASPIRIN 325 MG TABLET, ENT COATED PO SCH (10:26)
[2019-09-30] MEDS: ENOXAPARIN SODIUM INJ 80 MG/0.8 ML DISP.SYRIN SUBCUT SCH ×2 (10:28→21:46)
--- NOTE | 2019-09-30 13:55 | PDOC PROGRESS REPORT ---
Subjective Progress Note for:: 09/30/19 Subjective:: Patient seen and examined. Has some right upper extremity weakness. Dysarthria is improved. No chest pain is reported. Reason For Visit: HYPERGLYCEMIA,TROPONIN LEVEL ELEVATED,ACUTE Physical Exam Vital Signs: Temp Pulse Resp BP Pulse Ox 98.2 F 79 16 132/68 H 100 09/30/19 10:00 09/30/19 08:20 09/30/19 08:20 09/30/19 08:20 09/30/19 08:20 Intake & Output 09/29/19 09/30/19 10/01/19 06:59 06:59 06:59 Intake Total 1470 Balance 1470 Weight 69.2 kg 67.1 kg General appearance: PRESENT: no acute distress, cooperative, thin, well- developed Head exam: PRESENT: atraumatic, normocephalic Eye exam: PRESENT: conjunctiva pink, EOMI Mouth exam: PRESENT: moist Respiratory exam: PRESENT: clear to auscultation mirna, symmetrical, unlabored Cardiovascular exam: PRESENT: RRR, +S1, +S2 Pulses: PRESENT: normal radial pulses GI/Abdominal exam: PRESENT: soft Rectal exam: PRESENT: deferred Neurological exam: PRESENT: alert, awake, oriented to person, oriented to place, oriented to time, oriented to situation Psychiatric exam: PRESENT: appropriate affect, other - Right hemiparesis Skin exam: PRESENT: dry, intact, normal color Results Laboratory Results: 09/29/19 01:00 09/30/19 04:12 09/30/19 04:12 Sodium 138.3 Potassium 3.4 L Chloride 106 Carbon Dioxide 26 Anion Gap 6 BUN 19 Creatinine 0.56 Est GFR ( Amer) > 60 Glucose 135 H Calcium 8.5 Magnesium 1.8 09/29/19 09/29/19 09/29/19 01:00 01:00 04:08 Creatine Kinase 59 CK-MB (CK-2) 1.32 Troponin I 0.278 0.256 09/29/19 10:56 Creatine Kinase CK-MB (CK-2) Troponin I 0.163 EKG Comments: Twelve-lead EKG 01/30/2020 Interval reviewed by me. Sinus rhythm, poor R wave progression, 74 bpm, prolonged QT interval 506 ms. Transthoracic echocardiogram 09/29/2019 Left ventricular ejection fraction 50 to 55% RV is normal in function There is no aortic valve stenosis There is trace mitral vegetation and trace tricuspid regurgitation. Impressions: Chest X-Ray 09/29/19 00:00 IMPRESSION: No acute abnormality as above. copyright 2011 [employer]- All Rights Reserved Head CT 09/29/19 00:00 IMPRESSION: No acute intracranial findings. Head MRI 09/29/19 05:13 IMPRESSION: 1. Restricted diffusion with very subtle FLAIR T2 prolongation involving the left temporal lobe and left precentral gyrus, consistent with acute to subacute ischemic injury. 2. Background of chronic microvascular and age-related involutional changes. EVIDENCE OF ACUTE STROKE: YES. LEFT MCA. Carotid Doppler Study 09/29/19 05:14 IMPRESSION: NO HEMODYNAMICALLY SIGNIFICANT STENOSIS. Assessment & Plan - Diagnosis (1) Acute cerebrovascular accident (CVA) Is this a current diagnosis for this admission?: Yes Plan: Supportive care for CVA Continue enoxaparin per protocol Aspirin per protocol Neuro rehab Transthoracic echocardiogram shows low normal ejection fraction with wall motion abnormalities. However this is in the setting of CVA. (2) Troponin level elevated Is this a current diagnosis for this admission?: Yes Plan: Mildly elevated troponin however this is in the context of an ongoing cerebrovascular accident Supportive care with aspirin statin and beta-blockers as feasible Echocardiogram shows no wall motion abnormalities. She may need additional work-up probably as an outpatient. Presently no ischemic symptoms and no ongoing chest pain. No additional work-up at this point. - Notes Notes: QT interval is mildly prolonged but this is in the setting of CVA Mildly elevated troponins in the setting of CVA with echocardiogram showing low normal ejection fraction and wall motion abnormalities Supportive care including aspirin statin and beta-blockers Outpatient follow-up
--- NOTE | 2019-09-30 19:35 | PDOC PROGRESS REPORT ---
Subjective Progress Note for:: 09/30/19 Subjective:: The patient was seen and examined at baseline. Right sided weakness is present but has not progressed since admission. She denies chest pain, SOB, palpitations. Appetite good. She is working well with physical therapy. Speech priscilla has yet to see her. Reason For Visit: ACUTE CVA, NSTEMI Physical Exam Vital Signs: Temp Pulse Resp BP Pulse Ox 98.0 F 81 17 123/69 100 09/30/19 12:31 09/30/19 16:09 09/30/19 16:00 09/30/19 16:09 09/30/19 16:09 Intake & Output 09/29/19 09/30/19 10/01/19 06:59 06:59 06:59 Intake Total 1470 Balance 1470 Weight 69.2 kg 67.1 kg General appearance: PRESENT: no acute distress Head exam: PRESENT: atraumatic, normocephalic Eye exam: PRESENT: EOMI, PERRLA Mouth exam: PRESENT: moist Neck exam: PRESENT: full ROM Respiratory exam: PRESENT: symmetrical. ABSENT: rales, rhonchi, wheezes Cardiovascular exam: PRESENT: RRR, +S1 - normal, +S2 - normal Pulses: PRESENT: +1 pedal pulses bilateral, +2 pedal pulses bilateral - right lower leg surgically amputated many years ago, other - right lower leg surgi claudia amputated Neurological exam: PRESENT: alert - right arm weakness 3/5, mild right thigh weakness Psychiatric exam: PRESENT: normal mood Results Laboratory Results: 09/29/19 01:00 09/30/19 04:12 09/30/19 04:12 Sodium 138.3 Potassium 3.4 L Chloride 106 Carbon Dioxide 26 Anion Gap 6 BUN 19 Creatinine 0.56 Est GFR ( Amer) > 60 Glucose 135 H Calcium 8.5 Magnesium 1.8 09/29/19 09/29/19 09/29/19 01:00 01:00 04:08 Creatine Kinase 59 CK-MB (CK-2) 1.32 Troponin I 0.278 0.256 09/29/19 10:56 Creatine Kinase CK-MB (CK-2) Troponin I 0.163 Impressions: Chest X-Ray 09/29/19 00:00 IMPRESSION: No acute abnormality as above. copyright 2010 [employer]- All Rights Reserved Head CT 09/29/19 00:00 IMPRESSION: No acute intracranial findings. Head MRI 09/29/19 05:13 IMPRESSION: 1. Restricted diffusion with very subtle FLAIR T2 prolongation involving the left temporal lobe and left precentral gyrus, consistent with acute to subacute ischemic injury. 2. Background of chronic microvascular and age-related involutional changes. EVIDENCE OF ACUTE STROKE: YES. LEFT MCA. Carotid Doppler Study 09/29/19 05:14 IMPRESSION: NO HEMODYNAMICALLY SIGNIFICANT STENOSIS. Assessment and Plan - Diagnosis (1) Acute cerebrovascular accident (CVA) Is this a current diagnosis for this admission?: Yes Plan: - came in with acute onset weakness - MRI consistent with CVA infarct - minimal right sided weakness, she is otherwise alert and awake - echo done with showed 50-55% EF< no regional wall motion abnormalities - EKG review sinus rhythm - started on aspirin 325, lipitor 40 mg - on metoprolol - will discharge her on aspirin, lipitor and metoprolol - PT/OT following plan for home PT/OT vs acute rehab for PT - speech eval to assess (2) Non-STEMI (non-ST elevated myocardial infarction) Is this a current diagnosis for this admission?: Yes Plan: - likely secondary to CVA infarct. No active chest pain. Troponin stable - echo reviewed by Dr. Strickland, echo 50-55%, no RWMA. No acute intervention needed - no significant carotid artery stenosis - started on aspirin 325 will decrease to 81 tomorrow - continue lipitor,and metoprolol (3) Troponin level elevated Is this a current diagnosis for this admission?: Yes Plan: Secondary to non-STEMI (4) Type II diabetes mellitus Qualifiers: Diabetes mellitus manager long term care insulin use: unspecified fdc insulin use status Diabetes mellitus complication status: with hyperglycemia Qualified Code(s): E11.65 - Type 2 diabetes mellitus with hyperglycemia Is this a current diagnosis for this admission?: Yes Plan: - on sliding scale insulin - BG better this morning - Time Time Spent with patient: 25-34 minutes Medications reviewed and adjusted accordingly: Yes Anticipated Discharge Disposition: Home with Home Health Anticipated Discharge Timeframe: within 48 hours - Inpatient Certification I certify that my determination is in accordance with my understanding of Medicare's requirements for reasonable and necessary INPATIENT services [42 CFR 412.3e].: Yes Medical Necessity: Risk of Complication if Not Cared For in Hospital
[2019-09-30] MEDS: ATORVASTATIN CALCIUM 40 MG TABLET PO SCH (21:48)
[2019-10-01] MEDS: PANTOPRAZOLE SODIUM 20 MG TABLET.DR PO SCH (06:48)
[2019-10-01] MEDS: INSULIN LISPRO 100 UNIT/ML 3 ML VIAL SUBCUT SCH ×2 (08:29→11:44)
[2019-10-01] MEDS: METOPROLOL TARTRATE 25 MG TABLET PO SCH (09:21)
[2019-10-01] MEDS: ASPIRIN 325 MG TABLET, ENT COATED PO SCH (09:21)
[2019-10-01] MEDS ORDERED: HEPARIN SOD (PORCINE) 5,000 UNIT/ML 1 ML VIAL SUBCUT SCH (10:00)
[2019-10-01 12:30] VITALS: BP 127/63
--- NOTE | 2019-10-01 12:44 | PDOC PROGRESS REPORT ---
Subjective Progress Note for:: 10/01/19 Subjective:: Patient seen and examined. Has some right upper extremity weakness. Appreciate any dysarthria. No complaints of chest pain. Reason For Visit: ACUTE CVA, NSTEMI Physical Exam Vital Signs: Temp Pulse Resp BP Pulse Ox 97.7 F 77 10 L 127/63 H 100 10/01/19 12:29 10/01/19 12:29 10/01/19 12:29 10/01/19 12:29 10/01/19 12:29 Intake & Output 09/30/19 10/01/19 10/02/19 06:59 06:59 06:59 Intake Total 1470 1102 Balance 1470 1102 Weight 67.1 kg 63.7 kg General appearance: PRESENT: no acute distress, cooperative, well-developed, well-nourished Head exam: PRESENT: atraumatic, normocephalic Eye exam: PRESENT: conjunctiva pink, EOMI Mouth exam: PRESENT: moist Respiratory exam: PRESENT: symmetrical, unlabored Cardiovascular exam: PRESENT: RRR, +S1, +S2 Pulses: PRESENT: normal radial pulses GI/Abdominal exam: PRESENT: soft Rectal exam: PRESENT: deferred Musculoskeletal exam: PRESENT: deformity Neurological exam: PRESENT: alert, awake, oriented to person, oriented to time, oriented to situation, other - Dysarthria has improved. Right hemiparesis is appreciated including handgrip being weak Psychiatric exam: PRESENT: appropriate affect Skin exam: PRESENT: dry, intact Results Laboratory Results: 09/29/19 01:00 09/30/19 04:12 09/29/19 09/29/19 09/29/19 01:00 01:00 04:08 Creatine Kinase 59 CK-MB (CK-2) 1.32 Troponin I 0.278 0.256 09/29/19 10:56 Creatine Kinase CK-MB (CK-2) Troponin I 0.163 EKG Comments: Telemetry shows sinus rhythm at 78 bpm. Impressions: Chest X-Ray 09/29/19 00:00 IMPRESSION: No acute abnormality as above. copyright 2010 [employer]- All Rights Reserved Head CT 09/29/19 00:00 IMPRESSION: No acute intracranial findings. Head MRI 09/29/19 05:13 IMPRESSION: 1. Restricted diffusion with very subtle FLAIR T2 prolongation involving the left temporal lobe and left precentral gyrus, consistent with acute to subacute ischemic injury. 2. Background of chronic microvascular and age-related involutional changes. EVIDENCE OF ACUTE STROKE: YES. LEFT MCA. Carotid Doppler Study 09/29/19 05:14 IMPRESSION: NO HEMODYNAMICALLY SIGNIFICANT STENOSIS. Assessment & Plan - Diagnosis (1) Acute cerebrovascular accident (CVA) Is this a current diagnosis for this admission?: Yes Plan: Supportive care for CVA Continue enoxaparin per protocol Aspirin per protocol Neuro rehab Transthoracic echocardiogram shows low normal ejection fraction with wall motion abnormalities. However this is in the setting of CVA. Stroke symptoms have stabilized. Needs neuro rehab and outpatient follow-up (2) Troponin level elevated Is this a current diagnosis for this admission?: Yes Plan: Mildly elevated troponin however this is in the context of an ongoing cerebrovascular accident Supportive care with aspirin statin and beta-blockers as feasible Echocardiogram shows no wall motion abnormalities. She may need additional work-up probably as an outpatient. Presently no ischemic symptoms and no ongoing chest pain. No additional work-up at this point. I will prefer to see this patient in an outpatient setting and pursue noninvasive pharmacologic stress testing given wall motion abnormality and mildly elevated troponin for further re-stratification.
--- NOTE | 2019-10-01 23:12 | PDOC DISCHARGE SUMMARY ---
Impression - Admit/DC Date/PCP Admission Date/Primary Care Provider: 09/29/19 09:20 Discharge Date: 10/01/19 - Discharge Diagnosis (1) Acute cerebrovascular accident (CVA) Is this a current diagnosis for this admission?: Yes (2) Non-STEMI (non-ST elevated myocardial infarction) Is this a current diagnosis for this admission?: Yes (3) Troponin level elevated Is this a current diagnosis for this admission?: Yes (4) Type II diabetes mellitus Is this a current diagnosis for this admission?: Yes - Assessment Summary: sHe was admitted for an acute stroke and NSTEMI. sHe remained stable was subsequently discharged on aspirin and metoprolol - Additional Information Resuscitation Status: Full Code Discharge Diet: As Tolerated, Cardiac, Diabetic Discharge Activity: Activity As Tolerated Referrals: TYLER TSAI DO [NO LOCAL MD] - Prescriptions: Aspirin [Ecotrin 325 mg EC Tablet] 81 mg PO DAILY #100 tabec Atorvastatin Calcium [Lipitor 40 mg Tablet] 40 mg PO QHS #120 tablet Metoprolol Tartrate [Lopressor 25 mg Tablet] 12.5 mg PO Q12 90 Days tablet Home Medications: Aspirin [Ecotrin 325 mg EC Tablet] 81 mg PO DAILY #100 tabec 10/01/19 Atorvastatin Calcium [Lipitor 40 mg Tablet] 40 mg PO QHS #120 tablet 10/01/19 Metoprolol Tartrate [Lopressor 25 mg Tablet] 12.5 mg PO Q12 90 Days tablet 10/01/19 History of Present Illiness History of Present Illness: ALEXANDER ELI is a 74 year old female, with medical history of hypertension hyperlipidemia peripheral vascular disease, admitted due to sudden onset of right-sided weakness and slurred speech. She was apparently watching TV when he suddenly noted slurred speech and right-sided weakness [facility] was called and he was brought to the emergency room more. In the ED showed acute to subacute left MCA infarct. Is also found to be have NSTEMI. Is out of the TPA window hence was admitted and started on aspirin. Cardiology was consulted for NSTEMI Hospital Course Hospital Course: On the floor she remained stable with no progression of right arm weakness and slurring of speech. No chest pain. Carotid exams no significant stenosis. Neurology was consulted who recommended no further intervention of her NSTEMI. PT OT saw her who recommended. PT OT at home. She was stable enough to be discharged on the third day of admission Physical Exam Vital Signs: Temp Pulse Resp BP Pulse Ox 97.7 F 77 10 L 127/63 H 100 10/01/19 12:29 10/01/19 12:29 10/01/19 12:29 10/01/19 12:29 10/01/19 12:29 Intake & Output 09/30/19 10/01/19 10/02/19 06:59 06:59 06:59 Intake Total 1470 1102 100 Balance 1470 1102 100 Weight 67.1 kg 63.7 kg General appearance: PRESENT: no acute distress Head exam: PRESENT: atraumatic, normocephalic Eye exam: PRESENT: EOMI, PERRLA Ear exam: PRESENT: normal external ear exam Mouth exam: PRESENT: moist Neck exam: PRESENT: full ROM Respiratory exam: PRESENT: clear to auscultation mirna, symmetrical, unlabored Cardiovascular exam: PRESENT: RRR, +S1, +S2 GI/Abdominal exam: PRESENT: soft. ABSENT: rebound, tenderness Gentrourinary exam: ABSENT: lesions Extremities exam: ABSENT: joint swelling Musculoskeletal exam: PRESENT: full ROM, other - Surgically absent right lower leg Neurological exam: PRESENT: alert, awake, oriented to person, oriented to place, oriented to time, other - Mild slurred speech, right arm swelling, Psychiatric exam: PRESENT: normal mood Results Laboratory Results: WBC 7.3 10^3/uL (4.0-10.5) 09/29/19 01:00 RBC 4.46 10^6/uL (3.72-5.28) 09/29/19 01:00 Hgb 12.6 g/dL (12.0-15.5) 09/29/19 01:00 Hct 36.8 % (36.0-47.0) 09/29/19 01:00 MCV 82 fl (80-97) 09/29/19 01:00 MCH 28.2 pg (27.0-33.4) 09/29/19 01:00 MCHC 34.2 g/dL (32.0-36.0) 09/29/19 01:00 RDW 14.6 % (11.5-14.0) H 09/29/19 01:00 Plt Count 280 10^3/uL (150-450) 09/29/19 01:00 Lymph % (Auto) 17.8 % (13-45) 09/29/19 01:00 Reeves % (Auto) 7.9 % (3-13) 09/29/19 01:00 Eos % (Auto) 1.3 % (0-6) 09/29/19 01:00 Baso % (Auto) 1.4 % (0-2) 09/29/19 01:00 Absolute Neuts (auto) 5.2 10^3/uL (1.7-8.2) 09/29/19 01:00 Absolute Lymphs (auto) 1.3 10^3/uL (0.5-4.7) 09/29/19 01:00 Absolute Monos (auto) 0.6 10^3/uL (0.1-1.4) 09/29/19 01:00 Absolute Eos (auto) 0.1 10^3/uL (0.0-0.6) 09/29/19 01:00 Absolute Basos (auto) 0.1 10^3/uL (0.0-0.2) 09/29/19 01:00 Seg Neutrophils % 71.6 % (42-78) 09/29/19 01:00 PT 13.1 SEC (11.4-15.4) 09/29/19 01:00 INR 0.97 09/29/19 01:00 APTT < 20.0 SEC (23.5-35.8) L* 09/29/19 01:00 Sodium 138.3 mmol/L (137-145) 09/30/19 04:12 Potassium 3.4 mmol/L (3.6-5.0) L 09/30/19 04:12 Chloride 106 mmol/L (98-107) 09/30/19 04:12 Carbon Dioxide 26 mmol/L (22-30) 09/30/19 04:12 Anion Gap 6 (5-19) 09/30/19 04:12 BUN 19 mg/dL (7-20) 09/30/19 04:12 Creatinine 0.56 mg/dL (0.52-1.25) 09/30/19 04:12 Est GFR ( Amer) > 60 (>60) 09/30/19 04:12 Est GFR (MDRD) Non-Af > 60 (>60) 09/30/19 04:12 Glucose 135 mg/dL (75-110) H 09/30/19 04:12 POC Glucose 236 mg/dL (70-110) H 10/01/19 11:18 Calcium 8.5 mg/dL (8.4-10.2) 09/30/19 04:12 Magnesium 1.8 mg/dL (1.6-2.3) 09/30/19 04:12 Total Bilirubin 0.7 mg/dL (0.2-1.3) 09/29/19 01:00 Direct Bilirubin 0.0 mg/dL (0.0-0.4) 09/29/19 01:00 Neonat Total Bilirubin Not Reportable 09/29/19 01:00 Neonat Direct Bilirubin Not Reportable 09/29/19 01:00 Neonat Indirect Bili Not Reportable 09/29/19 01:00 AST 28 U/L (14-36) 09/29/19 01:00 ALT 12 U/L (<35) 09/29/19 01:00 Alkaline Phosphatase 140 U/L (38-126) H 09/29/19 01:00 Creatine Kinase 59 U/L (30-135) 09/29/19 01:00 CK-MB (CK-2) 1.32 ng/mL (<4.55) 09/29/19 01:00 Troponin I 0.163 ng/mL 09/29/19 10:56 Total Protein 7.4 g/dL (6.3-8.2) 09/29/19 01:00 Albumin 4.0 g/dL (3.5-5.0) 09/29/19 01:00 09/29/19 09/29/19 09/29/19 01:00 04:08 10:56 CK-MB (CK-2) 1.32 Troponin I 0.278 0.256 0.163 Impressions: Chest X-Ray 09/29/19 00:00 IMPRESSION: No acute abnormality as above. copyright 2011 [employer]- All Rights Reserved Head CT 09/29/19 00:00 IMPRESSION: No acute intracranial findings. Head MRI 09/29/19 05:13 IMPRESSION: 1. Restricted diffusion with very subtle FLAIR T2 prolongation involving the left temporal lobe and left precentral gyrus, consistent with acute to subacute ischemic injury. 2. Background of chronic microvascular and age-related involutional changes. EVIDENCE OF ACUTE STROKE: YES. LEFT MCA. Carotid Doppler Study 09/29/19 05:14 IMPRESSION: NO HEMODYNAMICALLY SIGNIFICANT STENOSIS. Plan Plan of Treatment: Patient can go home with home PT OT. He was started on aspirin and beta-callie Time Spent: Less than 30 Minutes Stroke Is this a Stroke Patient?: Yes Stroke Pt being discharged on Anti-thrombolytic therapy?: Yes Stroke Pt being discharged on Anti-coagulation therapy?: No Reason(s) for not prescribing Anti-coagulation therapy:: Not indicated Stroke Pt being discharged on Statins?: Yes Acute Heart Failure - Is this a Heart Failure Patient?: No Documentation of LVEF assessment?: No, Document reason LVEF - Reason: Not applicable LVEF: LVEF Greater Than 40% Anticoagulant Therapy: No, document contraindications Reason(s) not Discharged on Anticoagulant Therapy: Other Anticoagulant Therapy Reason - Other: Not applicable Discharged on Evidence-Based Beta Blockers: Yes Discharged on ARNI?: No-Document Contraindications Reason(s) not discharged on ARNI: Other ARNI Reason - Other: Not applicable Discharged on ARB?: No-document contraindications Reason(s) not Discharged on ARB: Other ARB Reason - Other: Not applicable Discharged on ACEI?: No, document contraindications Reason(s) not Discharged on ACEI: other ACEI Reason - Other: Not applicable For LVEF <35%, discharged on Aldosterone Antagonist?: No-document contraincations Reason(s) not discharged on Aldosterone Antagonist: Other Aldosterone Antagonist Reason - Other: Not applicable Follow-up Appointment scheduled within 7 days?: Yes
== END 2019-10-01 15:48 | disposition home health service (06) | DRG 64 ==
LOC: ER 00:35 → EH 09:20 → 3W 14:00
PROVIDERS: ADMIT Internal Medicine; ATTEND Internal Medicine
DX: I63.511 Cerebral infarction due to unspecified occlusion or stenosis of right middle cerebral artery (principal); I21.4 Non-ST elevation (NSTEMI) myocardial infarction; G81.91 Hemiplegia, unspecified affecting right dominant side; R47.81 Slurred speech; E78.5 Hyperlipidemia, unspecified; I10 Essential (primary) hypertension; I73.9 Peripheral vascular disease, unspecified; E11.9 Type 2 diabetes mellitus without complications; K21.9 Gastro-esophageal reflux disease without esophagitis; Z97.13 Presence of artificial right leg (complete) (partial); Z89.511 Acquired absence of right leg below knee; Z89.422 Acquired absence of other left toe(s); Z82.49 Family history of ischemic heart disease and other diseases of the circulatory system; Z79.4 Long term (current) use of insulin; Z79.899 Other long term (current) drug therapy; Z88.7 Allergy status to serum and vaccine
CPT/HCPCS: 36415; 70450; 70551; 71045; 80048; 80053; 82550; 82553; 82962; 83735; 84484; 85025; 85610; 85730; 93005; 93010; 93306; 93880; 99285; J1644; J1650; J1815; J3490; J7030

== ENCOUNTER 2019-12-31 12:27 | Inpatient (IN) | payer BC, MEDICARE, MEDICAID ==
[2019-12-31] MEDS ORDERED: VANCOMYCIN HCL INJ 1000 MG VIAL IV ONE (13:15)
--- NOTE | 2019-12-31 13:19 | ER Document Report ---
ED Medical Screen (RME) - General Chief Complaint: Foot Pain Stated Complaint: LEFT FOOT PAIN Time Seen by Provider: 12/31/19 13:09 Notes: Patient is a 74-year-old female who presents emergency department with a chief complaint of left foot/toe pain. 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 Reports fever yesterday. States temperature was 102. Exam: Erythema noted to left foot with sloughing skin. I have greeted and performed a rapid initial assessment of this patient. A comprehensive ED assessment and evaluation of the patient, analysis of test results and completion of medical decision making process will be conducted by an additional ED providers. TRAVEL OUTSIDE OF THE [place] IN LAST 30 DAYS: No - Related Data Allergies/Adverse Reactions: Tetanus Vaccines and Toxoid [Tetanus] Allergy (Verified 09/29/19 01:05) Past Medical History - Past Medical History Cardiac Medical History: Reports: Hx Hypercholesterolemia, Hx Hypertension, Hx Peripheral Vascular Disease Denies: Hx Atrial Fibrillation, Hx Congestive Heart Failure, Hx Coronary Artery Disease, Hx DVT, Hx Heart Attack, Hx Pulmonary Embolism Pulmonary Medical History: Denies: Hx Asthma, Hx COPD Neurological Medical History: Denies: Hx Seizures Endocrine Medical History: Reports: Hx Diabetes Mellitus Type 2. Denies: Hx Diabetes Mellitus Type 1, Hx Hyperthyroidism, Hx Hypothyroidism Renal/ Medical History: Denies: Hx Peritoneal Dialysis GI Medical History: Reports: Hx Gastroesophageal Reflux Disease. Denies: Hx Cirrhosis, Hx Crohn's Disease, Hx Hepatitis, Hx Ulcerative Colitis Musculoskeltal Medical History: Denies Hx Arthritis, Denies Hx Gout, Reports Hx Musculoskeletal Deformity, Reports Hx Musculoskeletal Trauma Skin Medical History: Denies Hx Eczema, Reports Hx MRSA - MRSA 08/15 FOOT, Denies Hx Psoriasis Psychiatric Medical History: Denies: Hx Depression Infectious Medical History: Denies: Hx Hepatitis Past Surgical History: Reports: Hx Orthopedic Surgery - Bilateral hip surgeries - Immunizations Hx Diphtheria, Pertussis, Tetanus Vaccination: - allergic Physical Exam - Vital signs Vitals: Temp Pulse Resp BP Pulse Ox 98.0 F 89 18 114/60 98 12/31/19 13:05 12/31/19 13:05 12/31/19 13:05 12/31/19 13:05 12/31/19 13:05 Course - Vital Signs Vital signs: Temp Pulse Resp BP Pulse Ox 98.0 F 89 18 114/60 98 12/31/19 13:05 12/31/19 13:05 12/31/19 13:05 12/31/19 13:05 12/31/19 13:05
--- NOTE | 2019-12-31 13:21 | ER Document Report ---
ED General - General Chief Complaint: Foot Pain Stated Complaint: LEFT FOOT PAIN Time Seen by Provider: 12/31/19 13:09 Notes: 74-year-old lady presents with left foot pain. 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 Subsequently she had a stroke and an NSTEMI and was hospitalized has not had insulin in weeks has not cared for her fluid and weeks in fact the sutures are still in from her surgery 6 weeks ago and she says that since the surgery her toe on the left second toe has been getting worse and worse with purulent drainage and worsening pain. He denies fevers and chills. He is noncompliant with insulin. TRAVEL OUTSIDE OF THE [place] IN LAST 30 DAYS: No - Related Data Allergies/Adverse Reactions: Tetanus Vaccines and Toxoid [Tetanus] Allergy (Verified 09/29/19 01:05) Past Medical History - General Information source: Patient - Social History Smoking Status: Unknown if Ever Smoked Family History: Hypertension, Malignancy, Other - Parkinson's disease. denies: CAD, DM - Past Medical History Cardiac Medical History: Reports: Hx Hypercholesterolemia, Hx Hypertension, Hx Peripheral Vascular Disease Denies: Hx Atrial Fibrillation, Hx Congestive Heart Failure, Hx Coronary Art ashu Disease, Hx DVT, Hx Heart Attack, Hx Pulmonary Embolism Pulmonary Medical History: Denies: Hx Asthma, Hx COPD Neurological Medical History: Denies: Hx Seizures Endocrine Medical History: Reports: Hx Diabetes Mellitus Type 2. Denies: Hx Diabetes Mellitus Type 1, Hx Hyperthyroidism, Hx Hypothyroidism Renal/ Medical History: Denies: Hx Peritoneal Dialysis GI Medical History: Reports: Hx Gastroesophageal Reflux Disease. Denies: Hx Cirrhosis, Hx Crohn's Disease, Hx Hepatitis, Hx Ulcerative Colitis Musculoskeletal Medical History: Denies Hx Arthritis, Denies Hx Gout, Reports Hx Musculoskeletal Deformity, Reports Hx Musculoskeletal Trauma Skin Medical History: Denies Hx Eczema, Reports Hx MRSA - MRSA 08/15 FOOT, Denies Hx Psoriasis Psychiatric Medical History: Denies: Hx Depression Infectious Medical History: Denies: Hx Hepatitis Past Surgical History: Reports: Hx Orthopedic Surgery - Bilateral hip surgeries - Immunizations Hx Diphtheria, Pertussis, Tetanus Vaccination: - allergic Review of Systems - Review of Systems Notes: REVIEW OF SYSTEMS GEN: Denies fever, chills, weight loss ENT: Denies sore throat, nasal discharge, ear pain EYES: Denies blurry vision, eye pain, discharge CV: Denies chest pain, palpitations, edema RESP: Denies cough, shortness of breath, wheezing GI: Denies abdominal pain, nausea, vomiting, diarrhea MSK: Left hip pain SKIN: Denies rash, skin lesions LYMPH: Denies swollen glands/lymph nodes NEURO: Denies headache, focal weakness or numbness, dizziness PSYCH: Denies depression, suicidal or homicidal ideation PHYSICAL EXAMINATION General: No acute distress, well-nourished Head: Atraumatic, normocephalic ENT: Mouth normal, oropharynx moist, no exudates or tonsillar enlargement Eyes: Conjunctiva normal, pupils equal, lids normal Neck: No JVD, supple, no guarding CVS: Normal rate, regular rhythm, no murmurs Resp: No resp distress, equal and normal breath sounds bilaterally GI: Nondistended, soft, no tenderness to palpation, no rebound or guarding Ext: Edema throughout the left lower extremity from the toes up to the calf with mild redness of the distal calf pitting edema down to the dorsum of the foot, absent first toe with sutures still in place, second toe appears to be necrotic and pale with dried exudate. There is maceration exam the lateral side of the second toe as well. The entire foot and toe is tender and lower ext Back: No CVA or midline TTP Skin: No rash, warm Lymphatic: No lymphadeopathy noted Neuro: Awake, alert. Face symmetric. GCS 15. Physical Exam - Vital signs Vitals: Temp Pulse Resp BP Pulse Ox 98.0 F 89 18 114/60 98 12/31/19 13:05 12/31/19 13:05 12/31/19 13:05 12/31/19 13:05 12/31/19 13:05 Course - Re-evaluation Re-evalutation: 12/31/19 13:20 Bittick foot infection versus osteo-, no clinical signs of sepsis will need a full work-up including labs cultures x-ray ESR CRP and IV antibiotics will rule out DKA and associate hyperglycemia renal failure as well 12/31/19 15:16 Likely osteo plus cellulitis X-ray confirms osteo- Ordered Vanco cefepime Attempted multiple IV access points and eventually tried central line which was successful. Admitted to Dr. Hansen - Vital Signs Vital signs: Temp Pulse Resp BP Pulse Ox 98.0 F 89 18 114/60 98 12/31/19 13:05 12/31/19 13:05 12/31/19 13:05 12/31/19 13:05 12/31/19 13:05 - Laboratory Result Diagrams: 12/31/19 14:41 Procedures - Central Line Right Internal jugular Time completed: 15:15 Consent obtained: Yes Central line pre-insertion: Chloraprep applied, Sterile drapes applied Central line lumen type: Triple Anesthetic type: 1% Lidocaine mL's of anesthesia: 5 Ultrasound guided: Yes - Dynamic, also confirmed wire placement in IJ. Very flat veins multiple att Line secured with sutures: Yes Central line post-insertion: Blood return from lumens, Biopatch applied, Sutured, Sterile dressing applied, Position confirmed w/ CXR Number of attempts: 2 Complications: No - Ultrasound/Bedside Ultrasound/Bedside Ultrasound: Other - Ultrasound guidance for right sided deep brachial IV placement listed in procedures - Additional Procedures IV insertion Time performed: 15:00 Additional Procedures: IV insertion - Left external jugular. Got flash, however IV blew Attempted ultrasound left arm. 20-gauge IV verbal consent sterile prep was able to get blood return as well but with IV would not thread Discharge - Discharge Clinical Impression: Osteomyelitis of second toe of left foot, Diabetic foot infection Condition: Fair Disposition: ADMITTED INPATIENT Admitting Provider: Tyrone (Hospitalist) Unit Admitted: Medical Floor
[2019-12-31] MEDS ORDERED: CEFEPIME 1 GM/D5W RTU 1 GM/50 ML RTUPB IV ONE (14:00)
--- NOTE | 2019-12-31 14:40 | RADIOLOGY REPORT (SQ) ---
EXAM DESCRIPTION: FOOT LEFT COMPLETE IMAGES COMPLETED DATE/TIME: 12/31/2019 2:20 pm REASON FOR STUDY: hx of osteomylitis; left toe COMPARISON: 09/06/2019 NUMBER OF VIEWS: Three views. TECHNIQUE: AP, lateral and oblique radiographic images acquired of the left foot. LIMITATIONS: None. FINDINGS: MINERALIZATION: Osteopenia. BONES: The patient has undergone interval amputation of the distal 1st metatarsal. There is erosion of the tuft of the 3rd digit distal phalanx. No fracture or dislocation. JOINTS: No effusions. SOFT TISSUES: Soft tissue irregularity with subcutaneous gas is seen of the 3rd digit. OTHER: No other significant finding. IMPRESSION: Constellation of findings consistent with cellulitis with associated osteomyelitis. TECHNICAL DOCUMENTATION: JOB ID: [id number] 2010 [employer]- All Rights Reserved Reading location - IP/workstation name: [email or web address]
[2019-12-31 15:06] LABS: ABSOLUTE BASOPHILS # (AUTO) 0.1 10^3/uL (0.0-0.2); ABSOLUTE LYMPHOCYTES (AUTO) 1.5 10^3/uL (0.5-4.7); ABSOLUTE MONOCYTES (AUTO) 0.7 10^3/uL (0.1-1.4); ABSOLUTE NEUT (AUTO) 11.7 10^3/uL (1.7-8.2); EOSINOPHILS % (AUTO) 0.1 % (0-6); HEMATOCRIT 33.2 % (36.0-47.0); HEMOGLOBIN 11.5 g/dL (12.0-15.5); LYMPHOCYTES % (AUTO) 10.4 % (13-45); MEAN CORPUSCULAR HEMOGLOBIN 28.4 pg (27.0-33.4); MEAN CORPUSCULAR HGB CONC 34.7 g/dL (32.0-36.0); MEAN CORPUSCULAR VOLUME 82 fl (80-97); MONOCYTES % (AUTO) 5.1 % (3-13); PLATELET COUNT 362 10^3/uL (150-450); RED BLOOD COUNT 4.06 10^6/uL (3.72-5.28); RED CELL DISTRIBUTION WIDTH 13.6 % (11.5-14.0); SEGMENTED NEUTROPHILS % (AUTO) 83.4 % (42-78); TOTAL CELLS COUNTED % (AUTO) 100 %
--- NOTE | 2019-12-31 15:28 | RADIOLOGY REPORT (SQ) ---
EXAM DESCRIPTION: CHEST SINGLE VIEW IMAGES COMPLETED DATE/TIME: 12/31/2019 3:19 pm REASON FOR STUDY: line placement r/o PTX COMPARISON: 09/29/2019 EXAM PARAMETERS: NUMBER OF VIEWS: One view. TECHNIQUE: Single frontal radiographic view of the chest acquired. RADIATION DOSE: NA LIMITATIONS: None. FINDINGS: LUNGS AND PLEURA: No opacities, masses or pneumothorax. No pleural effusion. MEDIASTINUM AND HILAR STRUCTURES: No masses. Contour normal. HEART AND VASCULAR STRUCTURES: Heart normal in size. Normal vasculature. BONES: No acute findings. HARDWARE: A right-sided central line has been placed. Catheter tip overlies the SVC. OTHER: No other significant finding. IMPRESSION: Central line has been placed as described. No pneumothorax. TECHNICAL DOCUMENTATION: JOB ID: [id number] 2010 [employer]- All Rights Reserved Reading location - IP/workstation name: [email or web address]
[2019-12-31 15:48] LABS: ERYTHROCYTE SEDIMENTATION RATE 83 mm/hr (0-30)
[2019-12-31] MEDS: RINGERS SOLUTION,LACTATED 1,000 ML IV PRN ×2 (15:55→16:55)
[2019-12-31] MEDS ORDERED: DEXTROSE 40% GEL 15 GM TUBE PO PRN ×2 (16:41)
[2019-12-31] MEDS ORDERED: DEXTROSE 50%-WATER 25 GM/50 ML DISP.SYRIN IV PRN ×2 (16:41)
[2019-12-31] MEDS ORDERED: GLUCAGON,HUMAN RECOMB 1 MG INJ SUBCUT PRN (16:41)
[2019-12-31] MEDS ORDERED: ACETAMINOPHEN 325 MG TABLET PO PRN (16:53)
[2019-12-31 16:59] LABS: ALBUMIN 2.8 g/dL (3.5-5.0); ALKALINE PHOSPHATASE 133 U/L (38-126); ANION GAP 8 (5-19); ASPARTATE AMINO TRANSFERASE 14 U/L (14-36); BILIRUBIN,DIRECT 0.1 mg/dL (0.0-0.4); BILIRUBIN,TOTAL 0.6 mg/dL (0.2-1.3); BLOOD UREA NITROGEN 9 mg/dL (7-20); CALCIUM 8.4 mg/dL (8.4-10.2); CARBON DIOXIDE 25 mmol/L (22-30); CHLORIDE 97 mmol/L (98-107); GLUCOSE 320 mg/dL (75-110); POTASSIUM 3.9 mmol/L (3.6-5.0); TOTAL PROTEIN 5.9 g/dL (6.3-8.2)
[2019-12-31 17:00] LABS: APPEARANCE,URINE CLOUDY; BILIRUBIN,URINE NEGATIVE (NEGATIVE); COLOR,URINE YELLOW; GLUCOSE, URINE >=500 mg/dL (NEGATIVE); KETONES,URINE NEGATIVE (NEGATIVE); LEUKOCYTE ESTERASE,URINE LARGE (NEGATIVE); NITRITE,URINE NEGATIVE (NEGATIVE); PROTEIN,URINE NEGATIVE (NEGATIVE); URINE SPECIFIC GRAVITY 1.027; UROBILINOGEN,URINE NEGATIVE mg/dL (<2.0)
[2019-12-31] MEDS ORDERED: MORPHINE SULFATE 10 MG/ML INJ IV PRN ×3 (17:27→19:17)
[2019-12-31] MEDS ORDERED: OXYCODONE HCL IR 5 MG TABLET PO PRN (17:28)
[2019-12-31] MEDS ORDERED: ONDANSETRON HCL INJ/PF 4 MG/2 ML SDV ONE (17:34)
[2019-12-31] MEDS ORDERED: LIDOCAINE 2% INJ-PF (20 MG/ML) 10 ML AMPUL ONE (17:34)
[2019-12-31] MEDS ORDERED: FENTANYL CITRATE INJ/PF 100 MCG/2 ML AMPUL ONE (17:34)
[2019-12-31] MEDS ORDERED: MIDAZOLAM 2 MG/2 ML INJ ONE (17:34)
[2019-12-31] MEDS ORDERED: HYDROMORPHONE HCL INJ/PF 2 MG/ML AMPULE ONE (17:34)
[2019-12-31] MEDS ORDERED: PROPOFOL INJ 200 MG/20 ML VIAL IV ONE (17:35)
[2019-12-31] MEDS: INSULIN LISPRO 100 UNIT/ML 3 ML VIAL SUBCUT SCH ×2 (17:43→21:48)
--- NOTE | 2019-12-31 17:49 | PDOC CONSULTATION ---
Consultation Consult Date: 12/31/19 Attending physician:: GEORGE SOLIS Provider Consulted: RONEN THOMAS Consult reason:: left foot infection History of Present Illness Admission Date/PCP: 12/31/19 15:42 History of Present Illness: ALEXANDER ELI is a 74 year old female Patient is a 74-year-old female who presents emergency department with a chief complaint of left foot/toe pain. 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 Reports fever yesterday. States temperature was 102. Past Medical History Cardiac Medical History: Reports: Hyperlipidema, Hypertension, Peripheral Vascular Disease Denies: Atrial Fibrillation, Congestive Heart Failure, Coronary Artery Disease, DVT, Myocardial Infarction, Pulmonary Embolism Pulmonary Medical History: Denies: Asthma, Chronic Obstructive Pulmonary Disease (COPD) Neurological Medical History: Reports: Ischemic CVA Denies: Seizures Endocrine Medical History: Reports: Diabetes Mellitus Type 2 Denies: Diabetes Mellitus Type 1, Hyperthyroidism, Hypothyroidism GI Medical History: Reports: Gastroesophageal Reflux Disease Denies: Cirrhosis, Crohn's Disease, Hepatitis, Ulcerative Colitis Musculoskeltal Medical History: Denies: Arthritis, Gout Skin Medical History: Denies: Eczema, Psoriasis Psychiatric Medical History: Denies: Depression Hematology: Denies: Anemia, Bleeding Tendencies Past Surgical History Past Surgical History: Reports: Amputation - Right BKA, left great and second toes, Orthopedic Surgery - Bilateral hip surgeries Social History Lives with: Spouse/Significant other Smoking Status: Never Smoker Electronic Cigarette use?: No Frequency of Alcohol Use: None Hx Recreational Drug Use: No Drugs: None Hx Prescription Drug Abuse: No - Advance Directive Resuscitation Status: Full Code Family History Family History: Hypertension, Malignancy, Other - Parkinson's disease. denies: CAD, DM Parental Family History Reviewed: No Children Family History Reviewed: NA Sibling(s) Family History Reviewed.: NA Medication/Allergy Home Medications: Aspirin [Ecotrin 325 mg EC Tablet] 81 mg PO DAILY #100 tabec 10/01/19 Atorvastatin Calcium [Lipitor 40 mg Tablet] 40 mg PO QHS #120 tablet 10/01/19 Metoprolol Tartrate [Lopressor 25 mg Tablet] 12.5 mg PO Q12 90 Days tablet 10/01/19 Allergies/Adverse Reactions: Tetanus Vaccines and Toxoid [Tetanus] Allergy (Verified 09/29/19 01:05) Review of Systems Constitutional: PRESENT: fatigue, weakness Eyes: ABSENT: as per HPI, visual disturbances, other Ears: ABSENT: as per HPI, hearing changes, other Nose, Mouth, and Throat: ABSENT: as per HPI, headache(s), mouth pain, sore throat, vertigo, other Breasts: ABSENT: as per HPI, other Cardiovascular: ABSENT: as per HPI, chest pain, dyspnea on exertion, edema, orthropnea, palpitations, other Respiratory: ABSENT: as per HPI, cough, dyspnea, hemoptysis, sputum, other Genitourinary: ABSENT: as per HPI, difficulty urinating, dysuria, hematuria, nocturia, other Musculoskeletal: PRESENT: as per HPI Integumentary: ABSENT: as per HPI, diaphoresis, erythema, lesions, pruritus, rash, wounds, other Neurological: ABSENT: as per HPI, abnormal gait, abnormal movements, abnormal speech, confusion, convulsions, dizziness, focal weakness, frequent falls, lack of coordination, memory loss, numbness, paresthesias, restless legs, syncope, tingling, tremor(s), vertigo, weakness, other Psychiatric: ABSENT: as per HPI, anxiety, depression, hallucinations, homidical ideation, suicidal ideation, other Endocrine: ABSENT: as per HPI, cold intolerance, flushing, heat intolerance, menstrual abnormalities, polydipsia, polyphagia, polyuria, other Hematologic/Lymphatic: ABSENT: as per HPI, easy bleeding, easy bruising, lymp hadenopathy, other Physical Exam Vital Signs: Temp Pulse Resp BP Pulse Ox 98.0 F 89 21 H 148/77 H 99 12/31/19 13:05 12/31/19 13:05 12/31/19 17:01 12/31/19 17:01 12/31/19 17:01 Intake & Output 12/30/19 12/31/19 01/01/20 06:59 06:59 06:59 Intake Total 1050 Balance 1050 Weight 70.4 kg General appearance: PRESENT: mild distress Head exam: PRESENT: normocephalic Eye exam: PRESENT: EOMI Ear exam: PRESENT: normal external ear exam Mouth exam: PRESENT: moist Teeth exam: PRESENT: poor dentation Throat exam: ABSENT: post pharyngeal erythema, tonsillar erythema, tonsillar exudate, tonsillogmegaly, other Neck exam: ABSENT: carotid bruit, full ROM, JVD, lymphadenopathy, meningismus, tenderness, thyromegaly, tracheal deviation, tracheostomy, other Respiratory exam: PRESENT: clear to auscultation mirna Cardiovascular exam: PRESENT: RRR Pulses: PRESENT: normal femoral pulses Vascular exam: PRESENT: normal capillary refill Breast: PRESENT: Normal GI/Abdominal exam: PRESENT: soft Rectal exam: PRESENT: deferred Extremities exam: PRESENT: other - left foot s/p rt great and 1st toe amputation now iwth 3rd toe necrotic forfoot cellulitis tender Neurological exam: PRESENT: alert Psychiatric exam: PRESENT: appropriate affect Skin exam: PRESENT: dry Results Laboratory Results: 12/31/19 14:41 12/31/19 16:13 12/31/19 12/31/19 12/31/19 14:41 14:41 15:48 WBC 14.0 H RBC 4.06 Hgb 11.5 L Hct 33.2 L MCV 82 MCH 28.4 MCHC 34.7 RDW 13.6 Plt Count 362 Seg Neutrophils % 83.4 H Sodium Potassium Chloride Carbon Dioxide Anion Gap BUN Creatinine Est GFR ( Amer) Glucose Lactic Acid 1.6 Calcium Total Bilirubin AST Alkaline Phosphatase C-Reactive Protein Total Protein Albumin Urine Color YELLOW Urine Appearance CLOUDY Urine pH 5.0 Ur Specific [place] 1.027 Urine Protein NEGATIVE Urine Glucose (UA) >=500 H Urine Ketones NEGATIVE Urine Blood MODERATE H Urine Nitrite NEGATIVE Ur Leukocyte Esterase LARGE H Urine WBC (Auto) >182 Urine RBC (Auto) 45 12/31/19 16:13 WBC RBC Hgb Hct MCV MCH MCHC RDW Plt Count Seg Neutrophils % Sodium 130.3 L Potassium 3.9 Chloride 97 L Carbon Dioxide 25 Anion Gap 8 BUN 9 Creatinine 0.46 L Est GFR ( Amer) > 60 Glucose 320 H Lactic Acid Calcium 8.4 Total Bilirubin 0.6 AST 14 Alkaline Phosphatase 133 H C-Reactive Protein 62.0 H Total Protein 5.9 L Albumin 2.8 L Urine Color Urine Appearance Urine pH Ur Specific [place] Urine Protein Urine Glucose (UA) Urine Ketones Urine Blood Urine Nitrite Ur Leukocyte Esterase Urine WBC (Auto) Urine RBC (Auto) Impressions: Foot X-Ray 12/31/19 13:16 IMPRESSION: Constellation of findings consistent with cellulitis with assoc iated osteomyelitis. Chest X-Ray 12/31/19 14:43 IMPRESSION: Central line has been placed as described. No pneumothorax. Assessment & Plan - Plan Summary Plan Summary: diabetic foot infection, fever left foot left 3rd toe infection and forefoot cellulitis recommend transmetatarsal amputation forefoot \will scheduole risks benifitis discussed
[2019-12-31] MEDS ORDERED: ENOXAPARIN SODIUM INJ 30 MG/0.3 ML DISP.SYRIN SUBCUT SCH (18:00)
[2019-12-31] MEDS ORDERED: INSULIN LISPRO 100 UNIT/ML 3 ML VIAL SUBCUT SCH (18:00)
--- NOTE | 2019-12-31 18:23 | PDOC H&P ---
History of Present Illness Admission Date/PCP: 12/31/19 15:42 Patient complains of: Left third toe swelling, warmth and pain History of Present Illness: ALEXANDER ELI is a 74 year old female with past medical history of peripheral vascular disease, diabetes mellitus non-compliant with insulin, HLD HTN, CVA (09/2019), NSTEMI (09/2019), right BKA, who is status post left great toe amputation (osteomylitis, 06/2019) and I&D left great toe amputation site ( 08/2019) who presents the emergency department with concerns regarding x1 week history of erythema, edema, warmth and pain of the left third toe with associated malodorus drainage. Symptoms precipitated by trauma to left toe with gradual increase in severity since onset. Rates pain 4/5 today. Historically she ambulates with a cane but has required a wheelchair secondary to pain with ambulation. Reports associated fever (102) yesterday, this was relieved with Aleve, has since been afebrile. Patient admittedly non-compliant with insulin therapy at home, relates to cost and lack of PCP. On evaluation in the ED patient's VSS. CBC significant for neutrophilic luekocytosis and elevated ESR. Chemistries significant for hyponatremia, elevated CRP (62), creatinine 0.46 and glucose 378. XR left foot consistent with cellulitis with associated osteomylitis 3rd digit distal phalanx. Pt recieved single dose Cefepime and vancomycin and was subsequently admitted to the hospitalist service for further evaluation and treatment. Past Medical History Cardiac Medical History: Reports: Hyperlipidema, Hypertension, Peripheral Vascular Disease Denies: Atrial Fibrillation, Congestive Heart Failure, Coronary Artery Disease, DVT, Myocardial Infarction, Pulmonary Embolism Pulmonary Medical History: Denies: Asthma, Chronic Obstructive Pulmonary Disease (COPD) Neurological Medical History: Reports: Ischemic CVA Denies: Seizures Endocrine Medical History: Reports: Diabetes Mellitus Type 2 Denies: Diabetes Mellitus Type 1, Hyperthyroidism, Hypothyroidism GI Medical History: Reports: Gastroesophageal Reflux Disease Denies: Cirrhosis, Crohn's Disease, Hepatitis, Ulcerative Colitis Musculoskeltal Medical History: Denies: Arthritis, Gout Skin Medical History: Denies: Eczema, Psoriasis Psychiatric Medical History: Denies: Depression Hematology: Denies: Anemia, Bleeding Tendencies Past Surgical History Past Surgical History: Reports: Amputation - Right BKA, left great and second toes, Orthopedic Surgery - Bilateral hip surgeries Social History Information Source: Patient Lives with: Spouse/Significant other Smoking Status: Never Smoker Electronic Cigarette use?: No Frequency of Alcohol Use: None Hx Recreational Drug Use: No Drugs: None Hx Prescription Drug Abuse: No - Advance Directive Resuscitation Status: Full Code Family History Family History: Hypertension, Malignancy, Other - Parkinson's disease. denies: CAD, DM Parental Family History Reviewed: Yes Children Family History Reviewed: Yes Sibling(s) Family History Reviewed.: Yes Medication/Allergy Home Medications: Aspirin [Ecotrin 325 mg EC Tablet] 81 mg PO DAILY #100 tabec 10/01/19 Atorvastatin Calcium [Lipitor 40 mg Tablet] 40 mg PO QHS #120 tablet 10/01/19 Metoprolol Tartrate [Lopressor 25 mg Tablet] 12.5 mg PO Q12 90 Days tablet 10/01/19 Allergies/Adverse Reactions: Tetanus Vaccines and Toxoid [Tetanus] Allergy (Verified 09/29/19 01:05) Review of Systems Constitutional: PRESENT: chills, fever(s), headache(s). ABSENT: fatigue, night sweats Eyes: ABSENT: visual disturbances Nose, Mouth, and Throat: ABSENT: vertigo Cardiovascular: PRESENT: edema. ABSENT: chest pain, dyspnea on exertion, palpitations Respiratory: ABSENT: cough, dyspnea Gastrointestinal: ABSENT: abdominal pain, constipation, diarrhea, nausea, vomiting Genitourinary: ABSENT: difficulty urinating, dysuria, hematuria Musculoskeletal: ABSENT: back pain, deformity Integumentary: PRESENT: erythema. ABSENT: diaphoresis, lesions, pruritus Neurological: ABSENT: confusion, dizziness, numbness, paresthesias, tingling Endocrine: PRESENT: polyuria. ABSENT: polydipsia, polyphagia Hematologic/Lymphatic: ABSENT: lymphadenopathy Physical Exam Vital Signs: Temp Pulse Resp BP Pulse Ox 98.0 F 89 17 129/67 H 100 12/31/19 13:05 12/31/19 13:05 12/31/19 15:01 12/31/19 15:00 12/31/19 15:01 Intake & Output 12/30/19 12/31/19 01/01/20 06:59 06:59 06:59 Intake Total 1050 Balance 1050 Weight 70.4 kg General appearance: PRESENT: no acute distress, cooperative, well-developed, well-nourished Head exam: PRESENT: atraumatic, normocephalic Eye exam: PRESENT: conjunctiva pink, EOMI, PERRLA. ABSENT: scleral icterus Ear exam: PRESENT: normal external ear exam. ABSENT: bleeding Mouth exam: PRESENT: dry mucosa, tongue midline Neck exam: PRESENT: full ROM. ABSENT: JVD, lymphadenopathy, tenderness, thyromegaly Respiratory exam: PRESENT: clear to auscultation mirna, symmetrical, unlabored. ABSENT: tachypnea Cardiovascular exam: PRESENT: RRR, +S1, +S2. ABSENT: diastolic murmur, systolic murmur, tachycardia Pulses: PRESENT: normal radial pulses GI/Abdominal exam: PRESENT: normal bowel sounds, soft. ABSENT: tenderness Extremities exam: PRESENT: calf tenderness - LLE calf tenderness and swelling, this is without warmth., +1 edema - Throughout left lower extremity, extending from the toes to the calf., other - Right knee BKA noted. Left third toe is edematous, erythemic, warm with dried exudate and TTP Macerated skin lat. aspect Erythema extends onto the dorsum of the left foot. Evidence of previous left second toe amputation, well healed. Evidence of left great toe amputation with sutures still in place. Musculoskeletal exam: PRESENT: deformity - as noted.. ABSENT: ambulatory Neurological exam: PRESENT: alert, awake, oriented to person, oriented to place, oriented to time, oriented to situation, CN II-XII grossly intact Psychiatric exam: PRESENT: appropriate affect, normal mood Skin exam: PRESENT: dry, intact, warm. ABSENT: cyanosis, rash Results Laboratory Results: 12/31/19 14:41 12/31/19 16:13 12/31/19 12/31/19 12/31/19 14:41 14:41 15:48 WBC 14.0 H RBC 4.06 Hgb 11.5 L Hct 33.2 L MCV 82 MCH 28.4 MCHC 34.7 RDW 13.6 Plt Count 362 Seg Neutrophils % 83.4 H Sodium Potassium Chloride Carbon Dioxide Anion Gap BUN Creatinine Est GFR ( Amer) Glucose Lactic Acid 1.6 Calcium Total Bilirubin AST Alkaline Phosphatase C-Reactive Protein Total Protein Albumin Urine Color YELLOW Urine Appearance CLOUDY Urine pH 5.0 Ur Specific [place] 1.027 Urine Protein NEGATIVE Urine Glucose (UA) >=500 H Urine Ketones NEGATIVE Urine Blood MODERATE H Urine Nitrite NEGATIVE Ur Leukocyte Esterase LARGE H Urine WBC (Auto) >182 Urine RBC (Auto) 45 12/31/19 16:13 WBC RBC Hgb Hct MCV MCH MCHC RDW Plt Count Seg Neutrophils % Sodium 130.3 L Potassium 3.9 Chloride 97 L Carbon Dioxide 25 Anion Gap 8 BUN 9 Creatinine 0.46 L Est GFR ( Amer) > 60 Glucose 320 H Lactic Acid Calcium 8.4 Total Bilirubin 0.6 AST 14 Alkaline Phosphatase 133 H C-Reactive Protein 62.0 H Total Protein 5.9 L Albumin 2.8 L Urine Color Urine Appearance Urine pH Ur Specific [place] Urine Protein Urine Glucose (UA) Urine Ketones Urine Blood Urine Nitrite Ur Leukocyte Esterase Urine WBC (Auto) Urine RBC (Auto) Impressions: Foot X-Ray 12/31/19 13:16 IMPRESSION: Constellation of findings consistent with cellulitis with associated osteomyelitis. Chest X-Ray 12/31/19 14:43 IMPRESSION: Central line has been placed as described. No pneumothorax. Assessment and Plan - Diagnosis (1) Osteomyelitis of third toe of left foot Is this a current diagnosis for this admission?: Yes Plan: Osteomylitis left third toe per imaging. CRP 62.0. ESR 83. Surgery consulted, on board. Plan for transmetatarsal amputation forefoot today. Hemodynamically stable, afebrile. Hold on empiric antibiotics. BC pending. Plan to implement abx if indicated. (2) Cellulitis of left foot Is this a current diagnosis for this admission?: Yes Plan: Treatment as above. (3) Neutrophilic leukocytosis Is this a current diagnosis for this admission?: Yes Plan: 14.0 on admission. Secondary to osteomylitis. Suspected decline pending surgical amputation. BC ordered, pending. (4) Dehydration Is this a current diagnosis for this admission?: Yes Plan: Likely cause of hyponatremia and RED. Rehydrate with IV fluids. (5) Acute kidney injury Is this a current diagnosis for this admission?: Yes Plan: Secondary to volume depletion. Replenish with IVF Repeat BMP in morning. (6) Hyponatremia Is this a current diagnosis for this admission?: Yes Plan: 130.3 on admission. Hypovolemic hyponatremia. IVF repeat BMP in the am. 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 Blood glucose 378 on admission. Urines without ketones, anion gap WNL. Initiate accu checks and SSI. Hypoglycemic protocol in place. Hem A1c in the morning. (8) Left leg pain Is this a current diagnosis for this admission?: Yes Plan: Left lower leg/calf pain and tenderness. Similar complaints on previous hospitalization 09/09. US without DVT at that time. Pt at moderate risk as per Well's criteria. Doppler US LLE ordered, pending. - Time Time Spent with patient: 35 or more minutes Medications reviewed and adjusted accordingly: Yes Anticipated Discharge Disposition: [facility] Facility Anticipated Discharge Timeframe: within 72 hours - Inpatient Certification Based on my medical assessment, after consideration of the patient's comorbid ities, presenting symptoms, or acuity I expect that the services needed warrant INPATIENT care.: Yes I certify that my determination is in accordance with my understanding of Medicare's requirements for reasonable and necessary INPATIENT services [42 CFR 412.3e].: Yes Medical Necessity: Failure to Improve With Outpatient Therapy, Significant Comorbidiites Make Outpatient Treatment Too Risky, Need Close Monitoring Due to Risk of Patient Decompensation, Need for Surgery, Risk of Complication if Not Cared For in Hospital Post Hospital Care: D/C or Transfer Summary
[2019-12-31] MEDS ORDERED: MEPERIDINE HCL/PF INJ 25 MG/1 ML DISP.SYRIN IV PRN (18:37)
[2019-12-31] MEDS ORDERED: DIPHENHYDRAMINE HCL 50 MG/ML VIAL IV PRN (18:37)
[2019-12-31] MEDS ORDERED: OXYCODONE-ACETAMINOPHEN 5-325 MG TABLET PO PRN ×2 (18:37)
[2019-12-31] MEDS ORDERED: FENTANYL CITRATE INJ/PF 100 MCG/2 ML AMPUL IV PRN ×3 (18:37)
[2019-12-31] MEDS ORDERED: PROMETHAZINE HCL INJ 25 MG/1 ML VIAL IV PRN ×2 (18:37)
--- NOTE | 2019-12-31 19:15 | Operative Report ---
Nonrecallable Operative Report DATE OF SURGERY: 12/31/19 PREOPERATIVE DIAGNOSIS: Left diabetic foot infection POSTOPERATIVE DIAGNOSIS: Left diabetic foot infection OPERATION: Left transmetatarsal foot amputation SURGEON: RONEN THOMAS ANESTHESIA: Spinal TISSUE REMOVED OR ALTERED: Forefoot left COMPLICATIONS: None ESTIMATED BLOOD LOSS: 50 cc INTRAOPERATIVE FINDINGS: See note PROCEDURE: Procedure note patient was brought to the operating awake alert in stable condition placed on the operative table supine position after spinal anesthetic was given. The left foot and leg were prepped and draped in usual sterile fashion. We performed a left transmetatarsal amputation.. Over the mid met atarsals an incision was made with a 15 blade circumferentially around the foot. Dissection was carried down through subcutaneous tissue and the anterior tendons with the knife. Once we reached the periosteum of the metatarsals all 5 the more identified and then periosteum was elevated with a periosteal elevator. We then came across the metatarsals sequentially with the bone cutter. We continued our dissection posteriorly through the soft tissue of the plantar surface. We then excised the plantar skin with the 10 blade. Hemostasis was obtained with Bovie cautery. Once this was accomplished we had good hemostasis the ends of the bone were smoothed with a rongeur and the this deep subcutaneous tissue was reapproximated with interrupted placed 2-0 Vicryl sutures and skin was loosely approximated with interrupted 2-0 nylon sutures The sterile dressing was applied using Xeroform and then a Jimmie wrap was applied the patient was transferred to recovery room in stable condition she tolerated the procedure well sponge needle counts were correct x2.
[2019-12-31] MEDS: FAMOTIDINE INJ/PF 20 MG/2 ML SDV IV SCH (21:45)
[2019-12-31] MEDS ORDERED: CEFEPIME 1 GM/D5W RTU 1 GM/50 ML RTUPB IV SCH (22:00)
[2020-01-01] MEDS: HYDROMORPHONE HCL INJ/PF 2 MG/ML AMPULE IV PRN ×2 (01:07→06:45)
[2020-01-01] MEDS: RINGERS SOLUTION,LACTATED 1,000 ML IV PRN ×2 (01:12→21:49)
[2020-01-01] MEDS: ONDANSETRON 4 MG TAB.RAPDIS PO PRN ×2 (01:22→07:26)
[2020-01-01] MEDS: INSULIN LISPRO 100 UNIT/ML 3 ML VIAL SUBCUT SCH ×6 (02:10→22:54)
[2020-01-01] MEDS: KETOROLAC TROMETHAMINE INJ/PF 30 MG/1 ML SDV IV SCH ×2 (03:47→08:03)
[2020-01-01 05:57] LABS: ABSOLUTE LYMPHOCYTES (AUTO) 0.5 10^3/uL (0.5-4.7); ABSOLUTE MONOCYTES (AUTO) 0.4 10^3/uL (0.1-1.4); ABSOLUTE NEUT (AUTO) 6.5 10^3/uL (1.7-8.2); BASOPHILS % (AUTO) 0.7 % (0-2); EOSINOPHILS % (AUTO) 0.3 % (0-6); HEMATOCRIT 27.2 % (36.0-47.0); LYMPHOCYTES % (AUTO) 6.6 % (13-45); MEAN CORPUSCULAR HEMOGLOBIN 28.5 pg (27.0-33.4); MEAN CORPUSCULAR HGB CONC 34.7 g/dL (32.0-36.0); MEAN CORPUSCULAR VOLUME 82 fl (80-97); MONOCYTES % (AUTO) 5.2 % (3-13); PLATELET COUNT 245 10^3/uL (150-450); RED BLOOD COUNT 3.31 10^6/uL (3.72-5.28); RED CELL DISTRIBUTION WIDTH 13.6 % (11.5-14.0); SEGMENTED NEUTROPHILS % (AUTO) 87.2 % (42-78); TOTAL CELLS COUNTED % (AUTO) 100 %; WHITE BLOOD COUNT 7.4 10^3/uL (4.0-10.5)
[2020-01-01 06:09] LABS: HEMOGLOBIN 9.4 g/dL (12.0-15.5)
[2020-01-01 06:12] LABS: ANION GAP 8 (5-19); BLOOD UREA NITROGEN 8 mg/dL (7-20); CALCIUM 8.3 mg/dL (8.4-10.2); CARBON DIOXIDE 25 mmol/L (22-30); CHLORIDE 102 mmol/L (98-107); GLUCOSE 200 mg/dL (75-110); POTASSIUM 4.1 mmol/L (3.6-5.0)
[2020-01-01] MEDS ORDERED: MAGNESIUM SULFATE/D5W 1 GM/100 ML RTUPB IV ONE (09:00)
--- NOTE | 2020-01-01 09:05 | PDOC PROGRESS REPORT ---
Subjective Date:: 01/01/20 Reason For Visit: OSTEOMYELITIS OF THIRD TOE LEFT FOOT,DIABETES Patient very somnolent; nauseated. Been at bedrest since operation yesterday on left foot. Physical Exam Vital Signs: Temp Pulse Resp BP Pulse Ox 97.6 F 86 16 119/55 L 98 01/01/20 07:12 01/01/20 07:12 01/01/20 07:12 01/01/20 07:12 01/01/20 07:12 Intake & Output 12/31/19 01/01/20 01/02/20 06:59 06:59 06:59 Intake Total 3830 Balance 3830 Weight 69.5 kg General appearance: PRESENT: other - Very sleepy, arouses. Wants something to eat but is nauseated GI/Abdominal exam: PRESENT: other - Abdomen is soft, slightly distended with gas. No peritoneal signs no rigidity. Musculoskeletal exam: PRESENT: other - Right below the knee amputation, chronic, well healed scar Left transmetatarsal foot dressing intact dry. Dressing left in situ. Results Laboratory Results: 01/01/20 05:20 01/01/20 05:20 12/31/19 12/31/19 12/31/19 14:41 14:41 15:48 WBC 14.0 H RBC 4.06 Hgb 11.5 L Hct 33.2 L MCV 82 MCH 28.4 MCHC 34.7 RDW 13.6 Plt Count 362 Seg Neutrophils % 83.4 H Sodium Potassium Chloride Carbon Dioxide Anion Gap BUN Creatinine Est GFR ( Amer) Glucose Lactic Acid 1.6 Calcium Magnesium Total Bilirubin AST Alkaline Phosphatase C-Reactive Protein Total Protein Albumin Urine Color YELLOW Urine Appearance CLOUDY Urine pH 5.0 Ur Specific [place] 1.027 Urine Protein NEGATIVE Urine Glucose (UA) >=500 H Urine Ketones NEGATIVE Urine Blood MODERATE H Urine Nitrite NEGATIVE Ur Leukocyte Esterase LARGE H Urine WBC (Auto) >182 Urine RBC (Auto) 45 12/31/19 12/31/19 01/01/20 16:13 22:26 01:45 WBC RBC Hgb Hct MCV MCH MCHC RDW Plt Count Seg Neutrophils % Sodium 130.3 L Potassium 3.9 Chloride 97 L Carbon Dioxide 25 Anion Gap 8 BUN 9 Creatinine 0.46 L Est GFR ( Amer) > 60 Glucose 320 H Lactic Acid 1.1 0.8 Calcium 8.4 Magnesium Total Bilirubin 0.6 AST 14 Alkaline Phosphatase 133 H C-Reactive Protein 62.0 H Total Protein 5.9 L Albumin 2.8 L Urine Color Urine Appearance Urine pH Ur Specific [place] Urine Protein Urine Glucose (UA) Urine Ketones Urine Blood Urine Nitrite Ur Leukocyte Esterase Urine WBC (Auto) Urine RBC (Auto) 01/01/20 01/01/20 05:20 05:20 WBC 7.4 RBC 3.31 L Hgb 9.4 L D Hct 27.2 L MCV 82 MCH 28.5 MCHC 34.7 RDW 13.6 Plt Count 245 Seg Neutrophils % 87.2 H Sodium 135.2 L Potassium 4.1 Chloride 102 Carbon Dioxide 25 Anion Gap 8 BUN 8 Creatinine 0.44 L Est GFR ( Amer) > 60 Glucose 200 H Lactic Acid Calcium 8.3 L Magnesium 1.5 L Total Bilirubin AST Alkaline Phosphatase C-Reactive Protein Total Protein Albumin Urine Color Urine Appearance Urine pH Ur Specific [place] Urine Protein Urine Glucose (UA) Urine Ketones Urine Blood Urine Nitrite Ur Leukocyte Esterase Urine WBC (Auto) Urine RBC (Auto) Impressions: Foot X-Ray 12/31/19 13:16 IMPRESSION: Constellation of findings consistent with cellulitis with associated osteomyelitis. Chest X-Ray 12/31/19 14:43 IMPRESSION: Central line has been placed as described. No pneumothorax. Assessment & Plan - Diagnosis (1) Osteomyelitis of second toe of left foot Is this a current diagnosis for this admission?: Yes Plan: Impression: Patient is 1 day status post completion left transmetatarsal amputation by Dr. Campbell, no drain, no complications overnight. Dressing left intact. Recommendations: 1. Will get patient to bring in right below the knee prosthesis, and physical therapy consultation to assist with transferring out of bed to chair. 2. Hold off on antiemetics to reduce depressed level of consciousness. Hold off on diet until nausea resolves 3. Patient on MiraLAX; will add Colace. 4. Anticipate dressing takedown tomorrow at bedside (2) Status post below knee amputation of right lower extremity Is this a current diagnosis for this admission?: Yes (3) Type II diabetes mellitus Qualifiers: Diabetes mellitus [facility] insulin use: unspecified buttermilk drier operator insulin use status Diabetes mellitus complication status: with hyperglycemia Qualified Code(s): E11.65 - Type 2 diabetes mellitus with hyperglycemia Is this a current diagnosis for this admission?: Yes - Time Anticipated Discharge Disposition: Home, Self Care Anticipated Discharge Timeframe: within 72 hours
[2020-01-01] MEDS ORDERED: ONDANSETRON HCL INJ/PF 4 MG/2 ML SDV ONE (09:27)
[2020-01-01] MEDS ORDERED: FAMOTIDINE 20 MG TABLET PO SCH (10:00)
[2020-01-01] MEDS ORDERED: DOCUSATE SODIUM 100 MG CAPSULE PO SCH (10:00)
[2020-01-01] MEDS: POLYETHYLENE GLYCOL 3350 POWDER 17 GM/1 PACKET PO SCH ×2 (10:37→17:30)
[2020-01-01] MEDS: DOCUSATE SODIUM 100 MG CAPSULE PO SCH ×2 (10:37→17:26)
[2020-01-01] MEDS: FAMOTIDINE INJ/PF 20 MG/2 ML SDV IV SCH ×2 (10:37→21:48)
[2020-01-01] MEDS ORDERED: VANCOMYCIN HCL 0 MG in DEXTROSE 5%-WATER 250 ML IV NR (10:45)
--- NOTE | 2020-01-01 11:33 | PDOC PROGRESS REPORT ---
Subjective Date:: 01/01/20 Subjective:: ALEXANDER ELI is a 74 year old female with past medical history of peripheral vascular disease, diabetes mellitus non-compliant with insulin, HLD HTN, CVA (09/2019), NSTEMI (09/2019), right BKA, who is status post left great toe amputation (osteomylitis, 06/2019) and I&D left great toe amputation site (08/2019) who presents the emergency department with concerns regarding x1 week history of erythema, edema, warmth and pain of the left third toe with associated malodorus drainage. Symptoms precipitated by trauma to left toe with gradual increase in severity since onset. Rates pain 4/5 today. Historically she ambulates with a cane but has required a wheelchair secondary to pain with ambulation. Reports associated fever (102) yesterday, this was relieved with Aleve, has since been afebrile. Patient admittedly non-compliant with insulin therapy at home, relates to cost and lack of PCP. On evaluation in the ED patient's VSS. CBC significant for neutrophilic luekocy tosis and elevated ESR. Chemistries significant for hyponatremia, elevated CRP (62), creatinine 0.46 and glucose 378. XR left foot consistent with cellulitis with associated osteomylitis 3rd digit distal phalanx. Pt recieved single dose Cefepime and vancomycin and was subsequently admitted to the hospitalist service for further evaluation and treatment. 01/01/2020. No acute events overnight. This morning patient is alert as he has just received Dilaudid for her left lower extremity pain, patient is afebrile, follow-up, denies any fever, chills, nausea, vomiting. Reason For Visit: OSTEOMYELITIS OF THIRD TOE LEFT FOOT,DIABETES Physical Exam Vital Signs: Temp Pulse Resp BP Pulse Ox 97.6 F 86 16 119/55 L 98 01/01/20 07:12 01/01/20 07:12 01/01/20 07:12 01/01/20 07:12 01/01/20 07:12 Intake & Output 12/31/19 01/01/20 01/02/20 06:59 06:59 06:59 Intake Total 3830 Balance 3830 Weight 69.5 kg General appearance: PRESENT: no acute distress, well-developed, well-nourished, other - Somnolent Head exam: PRESENT: atraumatic, normocephalic Respiratory exam: PRESENT: clear to auscultation mirna. ABSENT: rales, rhonchi, wheezes Cardiovascular exam: PRESENT: RRR. ABSENT: diastolic murmur, rubs, systolic murmur GI/Abdominal exam: PRESENT: normal bowel sounds, soft. ABSENT: distended, guarding, mass, organolmegaly, rebound, tenderness Neurological exam: PRESENT: oriented to person, oriented to place, oriented to time, CN II-XII grossly intact, other - Somnolent Results Laboratory Results: 01/01/20 05:20 01/01/20 05:20 12/31/19 12/31/19 12/31/19 14:41 14:41 15:48 WBC 14.0 H RBC 4.06 Hgb 11.5 L Hct 33.2 L MCV 82 MCH 28.4 MCHC 34.7 RDW 13.6 Plt Count 362 Seg Neutrophils % 83.4 H Sodium Potassium Chloride Carbon Dioxide Anion Gap BUN Creatinine Est GFR ( Amer) Glucose Lactic Acid 1.6 Calcium Magnesium Total Bilirubin AST Alkaline Phosphatase C-Reactive Protein Total Protein Albumin Urine Color YELLOW Urine Appearance CLOUDY Urine pH 5.0 Ur Specific [place] 1.027 Urine Protein NEGATIVE Urine Glucose (UA) >=500 H Urine Ketones NEGATIVE Urine Blood MODERATE H Urine Nitrite NEGATIVE Ur Leukocyte Esterase LARGE H Urine WBC (Auto) >182 Urine RBC (Auto) 45 12/31/19 12/31/19 01/01/20 16:13 22:26 01:45 WBC RBC Hgb Hct MCV MCH MCHC RDW Plt Count Seg Neutrophils % Sodium 130.3 L Potassium 3.9 Chloride 97 L Carbon Dioxide 25 Anion Gap 8 BUN 9 Creatinine 0.46 L Est GFR ( Amer) > 60 Glucose 320 H Lactic Acid 1.1 0.8 Calcium 8.4 Magnesium Total Bilirubin 0.6 AST 14 Alkaline Phosphatase 133 H C-Reactive Protein 62.0 H Total Protein 5.9 L Albumin 2.8 L Urine Color Urine Appearance Urine pH Ur Specific [place] Urine Protein Urine Glucose (UA) Urine Ketones Urine Blood Urine Nitrite Ur Leukocyte Esterase Urine WBC (Auto) Urine RBC (Auto) 01/01/20 01/01/20 05:20 05:20 WBC 7.4 RBC 3.31 L Hgb 9.4 L D Hct 27.2 L MCV 82 MCH 28.5 MCHC 34.7 RDW 13.6 Plt Count 245 Seg Neutrophils % 87.2 H Sodium 135.2 L Potassium 4.1 Chloride 102 Carbon Dioxide 25 Anion Gap 8 BUN 8 Creatinine 0.44 L Est GFR ( Amer) > 60 Glucose 200 H Lactic Acid Calcium 8.3 L Magnesium 1.5 L Total Bilirubin AST Alkaline Phosphatase C-Reactive Protein Total Protein Albumin Urine Color Urine Appearance Urine pH Ur Specific [place] Urine Protein Urine Glucose (UA) Urine Ketones Urine Blood Urine Nitrite Ur Leukocyte Esterase Urine WBC (Auto) Urine RBC (Auto) Impressions: Foot X-Ray 12/31/19 13:16 IMPRESSION: Constellation of findings consistent with cellulitis with associated osteomyelitis. Chest X-Ray 12/31/19 14:43 IMPRESSION: Central line has been placed as described. No pneumothorax. Assessment and Plan - Diagnosis (1) Osteomyelitis of third toe of left foot Is this a current diagnosis for this admission?: Yes Plan: Day 1 status post left foot transmetatarsal amputation. Presented with with osteomylitis left third toe per imaging. CRP 62.0. ESR 83. Continue empiric broad-spectrum IV antibiotics. Continue wound care. Wound culture. Follow-up wound culture. (2) Acute kidney injury Is this a current diagnosis for this admission?: Yes Plan: Ruled out. Creatinine WNL. Monitor volume status and electrolytes. Avoid nephrotoxic meds. (3) Cellulitis of left foot Is this a current diagnosis for this admission?: Yes Plan: Treatment as above. (4) Dehydration Is this a current diagnosis for this admission?: Yes Plan: Euvolemic. Normotensive. Continue cautious volume resuscitation guided by volume status. (5) Hyperglycemia due to type 2 diabetes mellitus Qualifiers: Diabetes mellitus mail agent insulin use: unspecified mail agent insulin use status Qualified Code(s): E11.65 - Type 2 diabetes mellitus with hyperglycemia Is this a current diagnosis for this admission?: Yes Plan: Uncontrolled. Hemoglobin A1c 10.8. Admittedly non-compliant with insulin due to cost/lack of PCP. Presented with blood glucose 378 on admission. Continue diabetic diet, diabetic education, sliding scale insulin, basal insulin, oral hypoglycemics, Accu-Cheks and hypoglycemia protocol. (6) Hyponatremia Is this a current diagnosis for this admission?: Yes Plan: Likely pseudohyponatremia caused by uncontrolled diabetes. Resolved. Continue cautious volume resuscitation guided by volume status. (7) Neutrophilic leukocytosis Is this a current diagnosis for this admission?: Yes Plan: Resolved. Plan as per above. - Time Time Spent with patient: 25-34 minutes Medications reviewed and adjusted accordingly: Yes Anticipated Discharge Disposition: Home with Home Health Anticipated Discharge Timeframe: within 48 hours
[2020-01-01] MEDS: CEFTRIAXONE 1 GM/D5W RTU 1 GM/50 ML RTUPB IV SCH (11:49)
[2020-01-01] MEDS: VANCOMYCIN HCL 500 MG in DEXTROSE 5%-WATER 100 ML IV SCH ×2 (13:30→23:00)
[2020-01-01] MEDS: ONDANSETRON HCL INJ/PF 4 MG/2 ML SDV IV PRN (13:41)
[2020-01-01] MEDS: METFORMIN HCL 500 MG TABLET PO SCH (17:26)
[2020-01-01] MEDS: SITAGLIPTIN PHOSPHATE 50 MG TABLET PO SCH (17:26)
[2020-01-01] MEDS: INSULIN GLARGINE,HUM.REC.ANLOG 1,000 UNIT/10 ML VIAL SUBCUT SCH (17:28)
[2020-01-01] MEDS: OXYCODONE HCL IR 5 MG TABLET PO PRN (21:48)
[2020-01-01] MEDS: ATORVASTATIN CALCIUM 40 MG TABLET PO SCH (21:49)
[2020-01-01] MEDS: KETOROLAC TROMETHAMINE INJ/PF 30 MG/1 ML SDV IV PRN (22:56)
[2020-01-02] MEDS: OXYCODONE HCL IR 5 MG TABLET PO PRN (05:29)
[2020-01-02 06:39] LABS: HEMATOCRIT 26.3 % (36.0-47.0); HEMOGLOBIN 9.2 g/dL (12.0-15.5); MEAN CORPUSCULAR HEMOGLOBIN 28.6 pg (27.0-33.4); MEAN CORPUSCULAR HGB CONC 35.1 g/dL (32.0-36.0); MEAN CORPUSCULAR VOLUME 81 fl (80-97); PLATELET COUNT 227 10^3/uL (150-450); RED BLOOD COUNT 3.22 10^6/uL (3.72-5.28); RED CELL DISTRIBUTION WIDTH 13.6 % (11.5-14.0); WHITE BLOOD COUNT 5.5 10^3/uL (4.0-10.5)
[2020-01-02 07:12] LABS: BLOOD UREA NITROGEN 9 mg/dL (7-20); CALCIUM 8.3 mg/dL (8.4-10.2); CARBON DIOXIDE 30 mmol/L (22-30); CHLORIDE 102 mmol/L (98-107); GLUCOSE 115 mg/dL (75-110); POTASSIUM 3.6 mmol/L (3.6-5.0)
[2020-01-02 07:16] LABS: ANION GAP 4 (5-19)
[2020-01-02] MEDS ORDERED: INFLUENZA QUAD (6MOS+) 2020-21 VAC 0.5 ML SYR IM ONE (08:00)
[2020-01-02] MEDS: INSULIN LISPRO 100 UNIT/ML 3 ML VIAL SUBCUT SCH ×4 (08:01→22:14)
[2020-01-02] MEDS: SITAGLIPTIN PHOSPHATE 50 MG TABLET PO SCH ×2 (08:17→17:00)
[2020-01-02] MEDS: METFORMIN HCL 500 MG TABLET PO SCH ×2 (08:17→17:00)
--- NOTE | 2020-01-02 09:44 | PDOC PROGRESS REPORT ---
Subjective Date:: 01/02/20 Reason For Visit: OSTEOMYELITIS OF THIRD TOE LEFT FOOT,DIABETES Patient much more awake alert, tolerated breakfast. Right BKA prosthesis at bedside. Patient anxious to get up, very motivated. Physical Exam Vital Signs: Temp Pulse Resp BP Pulse Ox 97.8 F 88 17 113/53 L 100 01/02/20 08:32 01/02/20 08:32 01/02/20 08:32 01/02/20 08:32 01/02/20 08:32 Intake & Output 01/01/20 01/02/20 01/03/20 06:59 06:59 06:59 Intake Total 3830 2135 Balance 3830 2135 Weight 69.5 kg 64.1 kg General appearance: PRESENT: no acute distress Musculoskeletal exam: PRESENT: other - Left transmet stump dressing removed. [place] intact; flaps viable, with mild to moderate edema. Small area of epidermal lysis. No active drainage. Results Laboratory Results: 01/02/20 05:27 01/02/20 05:27 01/02/20 01/02/20 05:27 05:27 WBC 5.5 RBC 3.22 L Hgb 9.2 L Hct 26.3 L MCV 81 MCH 28.6 MCHC 35.1 RDW 13.6 Plt Count 227 Sodium 136.2 L Potassium 3.6 Chloride 102 Carbon Dioxide 30 Anion Gap 4 L BUN 9 Creatinine 0.53 Est GFR ( Amer) > 60 Glucose 115 H Calcium 8.3 L Magnesium 1.8 Impressions: Foot X-Ray 12/31/19 13:16 IMPRESSION: Constellation of findings consistent with cellulitis with associated osteomyelitis. Chest X-Ray 12/31/19 14:43 IMPRESSION: Central line has been placed as described. No pneumothorax. Assessment & Plan - Diagnosis (1) Osteomyelitis of second toe of left foot Is this a current diagnosis for this admission?: Yes Plan: Impression: Doing well postoperative day 2 status post left transmetatarsal amputation with closed wound; expected edema. Plan: 1. Dressing and Jimmie wrap reapplied 2. Will get physical therapy working with patient today. Later this will be a challenge for her, however she is very motivated to succeed. 3. We will continue to follow patient with you (2) Status post below knee amputation of right lower extremity Is this a current diagnosis for this admission?: Yes (3) Type II diabetes mellitus Qualifiers: Diabetes mellitus longterm insulin use: unspecified termite exterminator insulin use status Diabetes mellitus complication status: with hyperglycemia Qualified Code(s): E11.65 - Type 2 diabetes mellitus with hyperglycemia Is this a current diagnosis for this admission?: Yes - Time Anticipated Discharge Disposition: Home, Self Care Anticipated Discharge Timeframe: within 48 hours
[2020-01-02] MEDS ORDERED: ENOXAPARIN SODIUM INJ 30 MG/0.3 ML DISP.SYRIN SUBCUT SCH (10:00)
[2020-01-02] MEDS: FAMOTIDINE INJ/PF 20 MG/2 ML SDV IV SCH ×2 (10:49→23:53)
[2020-01-02] MEDS: CEFTRIAXONE 1 GM/D5W RTU 1 GM/50 ML RTUPB IV SCH (10:49)
[2020-01-02] MEDS: ONDANSETRON HCL INJ/PF 4 MG/2 ML SDV IV PRN ×2 (10:49→16:57)
[2020-01-02] MEDS: ENOXAPARIN SODIUM INJ 40 MG/0.4 ML DISP.SYRIN SUBCUT SCH (10:49)
[2020-01-02] MEDS: RINGERS SOLUTION,LACTATED 1,000 ML IV PRN (10:50)
[2020-01-02] MEDS: DOCUSATE SODIUM 100 MG CAPSULE PO SCH ×2 (11:34→17:04)
[2020-01-02] MEDS: VANCOMYCIN HCL 500 MG in DEXTROSE 5%-WATER 100 ML IV SCH ×2 (11:37→23:52)
[2020-01-02] MEDS: POLYETHYLENE GLYCOL 3350 POWDER 17 GM/1 PACKET PO SCH ×2 (11:38→17:02)
[2020-01-02] MEDS: METOPROLOL TARTRATE 25 MG TABLET PO SCH (11:40)
--- NOTE | 2020-01-02 12:19 | PDOC PROGRESS REPORT ---
Subjective Date:: 01/02/20 Subjective:: ALEXANDER ELI is a 74 year old female with past medical history of peripheral vascular disease, diabetes mellitus non-compliant with insulin, HLD HTN, CVA (09/2019), NSTEMI (09/2019), right BKA, who is status post left great toe amputation (osteomylitis, 06/2019) and I&D left great toe amputation site (08/2019) who presents the emergency department with concerns regarding x1 week history of erythema, edema, warmth and pain of the left third toe with associated malodorus drainage. Symptoms precipitated by trauma to left toe with gradual increase in severity since onset. Rates pain 4/5 today. Historically she ambulates with a cane but has required a wheelchair secondary to pain with ambulation. Reports associated fever (102) yesterday, this was relieved with Aleve, has since been afebrile. Patient admittedly non-compliant with insulin therapy at home, relates to cost and lack of PCP. On evaluation in the ED patient's VSS. CBC significant for neutrophilic luekocy tosis and elevated ESR. Chemistries significant for hyponatremia, elevated CRP (62), creatinine 0.46 and glucose 378. XR left foot consistent with cellulitis with associated osteomylitis 3rd digit distal phalanx. Pt recieved single dose Cefepime and vancomycin and was subsequently admitted to the hospitalist service for further evaluation and treatment. 01/01/2020. No acute events overnight. This morning patient is alert as he has just received Dilaudid for her left lower extremity pain, patient is afebrile, follow-up, denies any fever, chills, nausea, vomiting. 01/02/2020. No acute events overnight. Complaining of left foot pain, asking for her pain medication to be increased otherwise denies any fever, chills, nausea, vomiting. P.o. tolerant, having normal bowel and bladder movements. Reason For Visit: OSTEOMYELITIS OF THIRD TOE LEFT FOOT,DIABETES Physical Exam Vital Signs: Temp Pulse Resp BP Pulse Ox 97.8 F 80 21 H 122/55 L 100 01/02/20 08:32 01/02/20 10:43 01/02/20 10:43 01/02/20 10:43 01/02/20 10:43 Intake & Output 1101/02/20 01/03/20 06:59 06:59 06:59 Intake Total 3830 2135 1050 Balance 3830 2135 1050 Weight 69.5 kg 64.1 kg General appearance: PRESENT: no acute distress, well-developed, well-nourished Head exam: PRESENT: atraumatic, normocephalic Respiratory exam: PRESENT: clear to auscultation mirna. ABSENT: rales, rhonchi, wheezes Cardiovascular exam: PRESENT: RRR. ABSENT: diastolic murmur, rubs, systolic murmur GI/Abdominal exam: PRESENT: normal bowel sounds, soft. ABSENT: distended, guarding, mass, organolmegaly, rebound, tenderness Extremities exam: PRESENT: full ROM, other - Dressing change today, looks clean, neurovascularly intact.. ABSENT: calf tenderness, clubbing, pedal edema Results Laboratory Results: 01/02/20 05:27 01/02/20 05:27 01/02/20 01/02/20 05:27 05:27 WBC 5.5 RBC 3.22 L Hgb 9.2 L Hct 26.3 L MCV 81 MCH 28.6 MCHC 35.1 RDW 13.6 Plt Count 227 Sodium 136.2 L Potassium 3.6 Chloride 102 Carbon Dioxide 30 Anion Gap 4 L BUN 9 Creatinine 0.53 Est GFR ( Amer) > 60 Glucose 115 H Calcium 8.3 L Magnesium 1.8 12/31/19 18:28 Foot - Left Gram Stain - Final Impressions: Foot X-Ray 12/31/19 13:16 IMPRESSION: Constellation of findings consistent with cellulitis with associated osteomyelitis. Chest X-Ray 12/31/19 14:43 IMPRESSION: Central line has been placed as described. No pneumothorax. Assessment and Plan - Diagnosis (1) Osteomyelitis of third toe of left foot Is this a current diagnosis for this admission?: Yes Plan: Day 1 status post left foot transmetatarsal amputation. Presented with with osteomylitis left third toe per imaging. CRP 62.0. ESR 83. Wound culture polymicrobial growing gram-positive cocci, group B strep, Proteus. Day 3 IV antibiotics. Day 3 IV vancomycin. Day 3 IV ceftriaxone. Continue empiric broad-spectrum IV antibiotics. Continue wound care. Wound culture. Follow-up wound culture. (2) Acute kidney injury Is this a current diagnosis for this admission?: Yes Plan: Ruled out. Creatinine WNL. Monitor volume status and electrolytes. Avoid nephrotoxic meds. (3) Cellulitis of left foot Is this a current diagnosis for this admission?: Yes Plan: Treatment as above. (4) Dehydration Is this a current diagnosis for this admission?: Yes Plan: Euvolemic. Normotensive. Continue cautious volume resuscitation guided by volume status. (5) Hyperglycemia due to type 2 diabetes mellitus Qualifiers: Diabetes mellitus truck terminal manager insulin use: unspecified halfway insulin use status Qualified Code(s): E11.65 - Type 2 diabetes mellitus with hyperglycemia Is this a current diagnosis for this admission?: Yes Plan: Improving. History of uncontrolled uncontrolled diabetes. Hemoglobin A1c 10.8. Admittedly non-compliant with insulin due to cost/lack of PCP. Presented with blood glucose 378 on admission. Continue diabetic diet, diabetic education, sliding scale insulin, basal insulin, oral hypoglycemics, Accu-Cheks and hypoglycemia protocol. (6) Hyponatremia Is this a current diagnosis for this admission?: Yes Plan: Likely pseudohyponatremia caused by uncontrolled diabetes. Resolved. Continue cautious volume resuscitation guided by volume status. (7) Neutrophilic leukocytosis Is this a current diagnosis for this admission?: Yes Plan: Resolved. Plan as per above. (8) UTI (urinary tract infection) Qualifiers: Urinary tract infection type: acute cystitis Hematuria presence: with hematuria Qualified Code(s): N30.01 - Acute cystitis with hematuria Is this a current diagnosis for this admission?: Yes Plan: Likely due to gram-negative rods including E. coli. Already on empiric IV antibiotics for osteomyelitis. Follow-up urine culture. - Time Time Spent with patient: 25-34 minutes Anticipated Discharge Disposition: Home with Home Health Anticipated Discharge Timeframe: within 48 hours
[2020-01-02] MEDS: INSULIN GLARGINE,HUM.REC.ANLOG 1,000 UNIT/10 ML VIAL SUBCUT SCH (18:32)
--- NOTE | 2020-01-02 23:09 | CDI QUERY ---
CDI Query CDI Review: We are seeking further clarification of documentation to reflect the severity of illness of your patient. Per H&P: ALEXANDER ELI is a 74 year old female with past medical history of peripheral vascular disease, diabetes mellitus non-compliant with insulin, HLD HTN, CVA (09/2019), NSTEMI (09/2019), right BKA, who is status post left great toe amputation (osteomyelitis, 06/2019) and I&D left great toe amputation site (08/2019) who presents the emergency department with concerns regarding x1 week history of erythema, edema, warmth and pain of the left third toe with associated malodorous drainage. Per Surgical Consult Note: diabetic foot infection, fever left foot left 3rd toe infection and forefoot cellulitis recommend transmetatarsal amputation forefoot \will scheduole risks benifitis discussed Per Op Report: POSTOPERATIVE DIAGNOSIS: Left diabetic foot infection OPERATION: Left transmetatarsal foot amputation Per Progress Notes: Osteomyelitis of third toe of left foot Cellulitis of left foot Based on your medical judgement, can you further clarify in the Progress Notes and include the documentation in your Discharge Summary: Cellulitis & Osteomyelitis 2/2 to Diabetes Cellulitis & Osteomyelitis NOT 2/2 to Diabetes Unable to determine Other Thank you for your consideration. FANNY GivensN RN Clinical Color Corrector Physician Advisor
[2020-01-02] MEDS: ATORVASTATIN CALCIUM 40 MG TABLET PO SCH (23:53)
[2020-01-02] MEDS: KETOROLAC TROMETHAMINE INJ/PF 30 MG/1 ML SDV IV PRN (23:53)
[2020-01-03] MEDS: RINGERS SOLUTION,LACTATED 1,000 ML IV PRN (00:20)
[2020-01-03 06:39] LABS: HEMATOCRIT 26.3 % (36.0-47.0); HEMOGLOBIN 9.1 g/dL (12.0-15.5); MEAN CORPUSCULAR HEMOGLOBIN 28.1 pg (27.0-33.4); MEAN CORPUSCULAR HGB CONC 34.4 g/dL (32.0-36.0); MEAN CORPUSCULAR VOLUME 82 fl (80-97); PLATELET COUNT 238 10^3/uL (150-450); RED BLOOD COUNT 3.23 10^6/uL (3.72-5.28); RED CELL DISTRIBUTION WIDTH 13.4 % (11.5-14.0); WHITE BLOOD COUNT 4.9 10^3/uL (4.0-10.5)
[2020-01-03] MEDS: INSULIN LISPRO 100 UNIT/ML 3 ML VIAL SUBCUT SCH ×4 (07:30→21:44)
[2020-01-03 07:42] LABS: ANION GAP 5 (5-19); BLOOD UREA NITROGEN 10 mg/dL (7-20); CARBON DIOXIDE 28 mmol/L (22-30); CHLORIDE 101 mmol/L (98-107); GLUCOSE 94 mg/dL (75-110); POTASSIUM 3.8 mmol/L (3.6-5.0)
[2020-01-03] MEDS: METFORMIN HCL 500 MG TABLET PO SCH ×2 (08:03→16:36)
[2020-01-03] MEDS: SITAGLIPTIN PHOSPHATE 50 MG TABLET PO SCH ×2 (08:03→16:36)
[2020-01-03] MEDS: KETOROLAC TROMETHAMINE INJ/PF 30 MG/1 ML SDV IV PRN (08:06)
[2020-01-03] MEDS: DOCUSATE SODIUM 100 MG CAPSULE PO SCH ×2 (11:31→18:06)
[2020-01-03] MEDS: METOPROLOL TARTRATE 25 MG TABLET PO SCH (11:31)
[2020-01-03] MEDS: FAMOTIDINE INJ/PF 20 MG/2 ML SDV IV SCH ×2 (11:31→21:46)
[2020-01-03] MEDS: CEFTRIAXONE 1 GM/D5W RTU 1 GM/50 ML RTUPB IV SCH (11:31)
[2020-01-03] MEDS: ENOXAPARIN SODIUM INJ 40 MG/0.4 ML DISP.SYRIN SUBCUT SCH (11:31)
[2020-01-03] MEDS: POLYETHYLENE GLYCOL 3350 POWDER 17 GM/1 PACKET PO SCH ×2 (12:14→18:06)
--- NOTE | 2020-01-03 12:19 | PDOC PROGRESS REPORT ---
Subjective Date:: 01/03/20 Subjective:: ALEXANDER ELI is a 74 year old female with past medical history of peripheral vascular disease, diabetes mellitus non-compliant with insulin, HLD HTN, CVA (09/2019), NSTEMI (09/2019), right BKA, who is status post left great toe amputation (osteomylitis, 06/2019) and I&D left great toe amputation site (08/2019) who presents the emergency department with concerns regarding x1 week history of erythema, edema, warmth and pain of the left third toe with associated malodorus drainage. Symptoms precipitated by trauma to left toe with gradual increase in severity since onset. Rates pain 4/5 today. Historically she ambulates with a cane but has required a wheelchair secondary to pain with ambulation. Reports associated fever (102) yesterday, this was relieved with Aleve, has since been afebrile. Patient admittedly non-compliant with insulin therapy at home, relates to cost and lack of PCP. On evaluation in the ED patient's VSS. CBC significant for neutrophilic luekocy tosis and elevated ESR. Chemistries significant for hyponatremia, elevated CRP (62), creatinine 0.46 and glucose 378. XR left foot consistent with cellulitis with associated osteomylitis 3rd digit distal phalanx. Pt recieved single dose Cefepime and vancomycin and was subsequently admitted to the hospitalist service for further evaluation and treatment. 01/01/2020. No acute events overnight. This morning patient is alert as he has just received Dilaudid for her left lower extremity pain, patient is afebrile, follow-up, denies any fever, chills, nausea, vomiting. 01/02/2020. No acute events overnight. Complaining of left foot pain, asking for her pain medication to be increased otherwise denies any fever, chills, nausea, vomiting. P.o. tolerant, having normal bowel and bladder movements. 01/03/2020. No acute events overnight. Left lower extremity pain is improving, patient comfortably resting bed no apparent distress, denies any fever, chills, nausea, vomiting, diarrhea, constipation or any urinary symptoms. Waiting for surgery to evaluate and hopefully signed off before discharging patient either to rehab or home with home health and physical therapy as per surgery rec ommendation. Reason For Visit: OSTEOMYELITIS OF THIRD TOE LEFT FOOT,DIABETES Physical Exam Vital Signs: Temp Pulse Resp BP Pulse Ox 97.6 F 81 18 137/59 H 98 01/03/20 08:13 01/03/20 08:00 01/03/20 08:00 01/03/20 08:00 01/03/20 09:43 Intake & Output 01/02/20 01/03/20 01/04/20 06:59 06:59 06:59 Intake Total 2135 2395 Balance 2135 2395 Weight 64.1 kg 64.1 kg General appearance: PRESENT: no acute distress, well-developed, well-nourished Head exam: PRESENT: atraumatic, normocephalic Respiratory exam: PRESENT: clear to auscultation mirna. ABSENT: rales, rhonchi, wheezes Cardiovascular exam: PRESENT: RRR. ABSENT: diastolic murmur, rubs, systolic murmur GI/Abdominal exam: PRESENT: normal bowel sounds, soft. ABSENT: distended, guarding, mass, organolmegaly, rebound, tenderness Extremities exam: PRESENT: full ROM, other - Right BKA. Left foot status post transmetatarsal amputation, wound looks clean.. ABSENT: calf tenderness, clubbing, pedal edema Neurological exam: PRESENT: alert, awake, oriented to person, oriented to place, oriented to time, oriented to situation, CN II-XII grossly intact. ABSENT: motor sensory deficit Results Laboratory Results: 01/03/20 05:35 01/03/20 05:35 01/03/20 01/03/20 05:35 05:35 WBC 4.9 RBC 3.23 L Hgb 9.1 L Hct 26.3 L MCV 82 MCH 28.1 MCHC 34.4 RDW 13.4 Plt Count 238 Sodium 134.3 L Potassium 3.8 Chloride 101 Carbon Dioxide 28 Anion Gap 5 BUN 10 Creatinine 0.55 Est GFR ( Amer) > 60 Glucose 94 Calcium 8.0 L 12/31/19 18:28 Foot - Left Gram Stain - Final 12/31/19 18:28 Foot - Left Wound Culture - Final Proteus Mirabilis Staphylococcus Aureus Group G Beta Streptococcus Impressions: Foot X-Ray 12/31/19 13:16 IMPRESSION: Constellation of findings consistent with cellulitis with associated osteomyelitis. Chest X-Ray 12/31/19 14:43 IMPRESSION: Central line has been placed as described. No pneumothorax. Assessment and Plan - Diagnosis (1) Osteomyelitis of third toe of left foot Is this a current diagnosis for this admission?: Yes Plan: Day 2 status post left foot transmetatarsal amputation. Cellulitis and osteomyelitis of left foot secondary to uncontrolled diabetes. CRP 62.0. ESR 83. Wound culture polymicrobial growing gram-positive cocci, group B strep, Proteus. Day 4 IV antibiotics. Day 4 IV vancomycin. Day 4 IV ceftriaxone. Continue empiric broad-spectrum IV antibiotics. Continue wound care. Wound c ulture. Follow-up wound culture. (2) Acute kidney injury Is this a current diagnosis for this admission?: Yes Plan: Ruled out. Creatinine WNL. Monitor volume status and electrolytes. Avoid nephrotoxic meds. (3) Cellulitis of left foot Is this a current diagnosis for this admission?: Yes Plan: Cellulitis and osteomyelitis of left foot secondary to chronic uncontrolled diabetes complication (4) Dehydration Is this a current diagnosis for this admission?: Yes Plan: Euvolemic. Normotensive. Continue cautious volume resuscitation guided by volume status. (5) Hyperglycemia due to type 2 diabetes mellitus Qualifiers: Diabetes mellitus intermodal dispatcher insulin use: unspecified intermodal dispatcher insulin use status Qualified Code(s): E11.65 - Type 2 diabetes mellitus with hyperglycemia Is this a current diagnosis for this admission?: Yes Plan: Fasting blood glucose 94. Moderate improvement with initiation of oral hypoglycemics on top of insulin regimen. History of uncontrolled uncontrolled diabetes. Hemoglobin A1c 10.8. Admitted non-compliant with insulin due to cost/lack of PCP. Presented with blood glucose 378 on admission. Increase Metformin to 1000 mg p.o. twice daily. Continue sitagliptin 50 mg p.o. twice daily. Decrease Lantus to 5 units nightly. Continue diabetic diet, diabetic education, sliding scale insulin, basal insulin, oral hypoglycemics, Accu-Cheks and hypoglycemia protocol. (6) Hyponatremia Is this a current diagnosis for this admission?: Yes Plan: Likely pseudohyponatremia caused by uncontrolled diabetes. Resolved. Continue cautious volume resuscitation guided by volume status. (7) Neutrophilic leukocytosis Is this a current diagnosis for this admission?: Yes Plan: Resolved. Plan as per above. (8) UTI (urinary tract infection) Qualifiers: Urinary tract infection type: acute cystitis Hematuria presence: with hemat uria Qualified Code(s): N30.01 - Acute cystitis with hematuria Is this a current diagnosis for this admission?: Yes Plan: Likely due to gram-negative rods including E. coli. Already on empiric IV antibiotics for osteomyelitis. Follow-up urine culture. - Time Time Spent with patient: 25-34 minutes Anticipated Discharge Disposition: Home with Home Health Anticipated Discharge Timeframe: within 48 hours
[2020-01-03] MEDS: VANCOMYCIN HCL 500 MG in DEXTROSE 5%-WATER 100 ML IV SCH ×2 (13:24→23:27)
--- NOTE | 2020-01-03 15:20 | PDOC PROGRESS REPORT ---
Subjective Date:: 01/03/20 Reason For Visit: OSTEOMYELITIS OF THIRD TOE LEFT FOOT,DIABETES Physical Exam Vital Signs: Temp Pulse Resp BP Pulse Ox 97.6 F 81 18 137/59 H 98 01/03/20 08:13 01/03/20 08:00 01/03/20 08:00 01/03/20 08:00 01/03/20 09:43 Intake & Output 01/02/20 01/03/20 01/04/20 06:59 06:59 06:59 Intake Total 2135 2395 100 Balance 2135 2395 100 Weight 64.1 kg 64.1 kg Results Laboratory Results: 01/03/20 05:35 01/03/20 05:35 01/03/20 01/03/20 05:35 05:35 WBC 4.9 RBC 3.23 L Hgb 9.1 L Hct 26.3 L MCV 82 MCH 28.1 MCHC 34.4 RDW 13.4 Plt Count 238 Sodium 134.3 L Potassium 3.8 Chloride 101 Carbon Dioxide 28 Anion Gap 5 BUN 10 Creatinine 0.55 Est GFR ( Amer) > 60 Glucose 94 Calcium 8.0 L 12/31/19 18:28 Foot - Left Gram Stain - Final 12/31/19 18:28 Foot - Left Wound Culture - Final Proteus Mirabilis Staphylococcus Aureus Group G Beta Streptococcus Impressions: Foot X-Ray 12/31/19 13:16 IMPRESSION: Constellation of findings consistent with cellulitis with associated osteomyelitis. Chest X-Ray 12/31/19 14:43 IMPRESSION: Central line has been placed as described. No pneumothorax. Assessment & Plan - Diagnosis (1) Diabetic foot infection Is this a current diagnosis for this admission?: Yes - Time Anticipated Discharge Disposition: Unknown Anticipated Discharge Timeframe: Unknown - Plan Summary Plan Summary: 74-year-old female status post transmetatarsal amputation for severe diabetic foot infection. Her foot was examined today. The incision is without active drainage. There is a minimal amount of erythema at the skin edges, but there is no fluctuance or sign of hematoma/abscess. The patient reports pain, however it is controlled with medications. She denies fevers or chills. Dry dressing to foot daily. Surgery will follow.
--- NOTE | 2020-01-03 15:40 | RADIOLOGY REPORT (SQ) ---
EXAM DESCRIPTION: VENOUS UNILATERAL LOWER IMAGES COMPLETED DATE/TIME: 01/03/2020 12:22 pm REASON FOR STUDY: Left lower extremity pain and swelling COMPARISON: 09/09/2019 TECHNIQUE: Dynamic and static gill scale and color images acquired of the left leg venous system. Se lected spectral images acquired with additional compression and augmentation maneuvers. The contralat eral common femoral vein and saphenofemoral junction were also imaged. Images stored on PACS. LIMITATIONS: None. FINDINGS: COMMON FEMORAL: Normal phasicity, compression and augmentation. No visualized echogenic ma terial on gill scale. No defects on color images. FEMORAL: Normal compression and augmentation. No visualized echogenic material on gill scale. No defe cts on color images. POPLITEAL: Normal compression, augmentation. No visualized echogenic material on gill scale. No defec ts on color images. CALF VESSELS: Normal compression, augmentation. No visualized echogenic material on gill scale. No de fects on color images. GSV and SSV: Normal compression, augmentation. No visualized echogenic material on gill scale. No def ects on color images. ANY DEEP VENOUS INSUFFICIENCY: Not evaluated. ANY EVIDENCE OF POPLITEAL CYST: No. OTHER: No other significant finding. CONTRALATERAL COMMON FEMORAL VEIN AND SAPHENOFEMORAL JUNCTION: Normal phasicity, compression and augmentation. No visualized echogenic material on gill scale. No de fects on color images. IMPRESSION: NO EVIDENCE OF DVT OR SVT IN THE LEFT LEG. TECHNICAL DOCUMENTATION: JOB ID: [id number] 2010 [employer]- All Rights Reserved Reading location - IP/workstation name: [email or web address]
[2020-01-03] MEDS ORDERED: INSULIN GLARGINE,HUM.REC.ANLOG 1,000 UNIT/10 ML VIAL SUBCUT SCH (18:00)
[2020-01-03] MEDS ORDERED: INSULIN GLARGINE,HUM.REC.ANLOG 1,000 UNIT/10 ML VIAL (PYX) SUBCUT ONE (18:04)
[2020-01-03] MEDS: ATORVASTATIN CALCIUM 40 MG TABLET PO SCH (21:46)
[2020-01-03] MEDS: OXYCODONE HCL IR 5 MG TABLET PO PRN (23:35)
[2020-01-04 00:16] LABS: VANCOMYCIN,TROUGH 8.2 ug/mL (5.0-20.0)
[2020-01-04 06:02] LABS: HEMATOCRIT 27.9 % (36.0-47.0); HEMOGLOBIN 9.6 g/dL (12.0-15.5); MEAN CORPUSCULAR HEMOGLOBIN 27.6 pg (27.0-33.4); MEAN CORPUSCULAR HGB CONC 34.4 g/dL (32.0-36.0); MEAN CORPUSCULAR VOLUME 80 fl (80-97); PLATELET COUNT 206 10^3/uL (150-450); RED BLOOD COUNT 3.48 10^6/uL (3.72-5.28); RED CELL DISTRIBUTION WIDTH 13.5 % (11.5-14.0); WHITE BLOOD COUNT 6.8 10^3/uL (4.0-10.5)
[2020-01-04 06:11] LABS: BLOOD UREA NITROGEN 10 mg/dL (7-20); CALCIUM 8.5 mg/dL (8.4-10.2); GLUCOSE 81 mg/dL (75-110); POTASSIUM 4.1 mmol/L (3.6-5.0)
[2020-01-04 06:16] LABS: ANION GAP 6 (5-19); CARBON DIOXIDE 29 mmol/L (22-30); CHLORIDE 103 mmol/L (98-107)
[2020-01-04] MEDS: INSULIN LISPRO 100 UNIT/ML 3 ML VIAL SUBCUT SCH ×2 (07:35→12:00)
[2020-01-04] MEDS: METFORMIN HCL 500 MG TABLET PO SCH (08:55)
[2020-01-04] MEDS: DOCUSATE SODIUM 100 MG CAPSULE PO SCH (09:43)
[2020-01-04] MEDS: CEFTRIAXONE 1 GM/D5W RTU 1 GM/50 ML RTUPB IV SCH (10:04)
[2020-01-04] MEDS: METOPROLOL TARTRATE 25 MG TABLET PO SCH (10:04)
[2020-01-04] MEDS: ENOXAPARIN SODIUM INJ 40 MG/0.4 ML DISP.SYRIN SUBCUT SCH (10:04)
[2020-01-04] MEDS: SITAGLIPTIN PHOSPHATE 50 MG TABLET PO SCH (10:04)
[2020-01-04] MEDS: FAMOTIDINE INJ/PF 20 MG/2 ML SDV IV SCH (10:04)
--- NOTE | 2020-01-04 10:18 | PDOC PROGRESS REPORT ---
Subjective Date:: 01/04/20 Reason For Visit: OSTEOMYELITIS OF THIRD TOE LEFT FOOT,DIABETES Patient did get up with physical therapy with walker and right BKA prosthesis Physical Exam Vital Signs: Temp Pulse Resp BP Pulse Ox 97.3 F 79 20 127/60 H 96 01/04/20 08:12 01/04/20 08:12 01/04/20 08:12 01/04/20 08:12 01/04/20 09:17 Intake & Output 01/03/20 01/04/20 01/05/20 06:59 06:59 06:59 Intake Total 2395 1724 Balance 2395 1724 Weight 64.1 kg 68.2 kg General appearance: PRESENT: no acute distress Musculoskeletal exam: PRESENT: other - Dressings removed. All sutures intact; minimal erythema skin between sutures. No foul smell or drainage expressed. Minimal foot edema. Results Laboratory Results: 01/04/20 04:36 01/04/20 04:36 01/04/20 01/04/20 04:36 04:36 WBC 6.8 RBC 3.48 L Hgb 9.6 L Hct 27.9 L MCV 80 MCH 27.6 MCHC 34.4 RDW 13.5 Plt Count 206 Sodium 137.6 Potassium 4.1 Chloride 103 Carbon Dioxide 29 Anion Gap 6 BUN 10 Creatinine 0.55 Est GFR ( Amer) > 60 Glucose 81 Calcium 8.5 12/31/19 18:28 Foot - Left Gram Stain - Final 12/31/19 18:28 Foot - Left Wound Culture - Final Proteus Mirabilis Staphylococcus Aureus Group G Beta Streptococcus Impressions: Venous Doppler Study 12/31/19 00:00 IMPRESSION: NO EVIDENCE OF DVT OR SVT IN THE LEFT LEG. Foot X-Ray 12/31/19 13:16 IMPRESSION: Constellation of findings consistent with cellulitis with a ssociated osteomyelitis. Chest X-Ray 12/31/19 14:43 IMPRESSION: Central line has been placed as described. No pneumothorax. Assessment & Plan - Diagnosis (1) Osteomyelitis of second toe of left foot Is this a current diagnosis for this admission?: Yes Plan: Impression: Patient is postoperative day 4 status post left transmetatarsal amputation for osteomyelitis, with wound in acceptable condition. Remains on IV antibiotics. Patient grew Proteus mirabilis, staph aureus, and group G beta- hemolytic strep. Recommendations: 1. Patient is very motivated to go home, and help herself ambulate with her right BKA thesis. She states she has a who can help her. 2. I discussed patient's home care with nursing staff, and Dr. Kaminski, hospitalist, suggested she be maintained on p.o. antibiotics to cover the previous polymicrobial infection. 3. Dressing changes discussed with nursing staff to include soapy water wash, Xeroform, 4 x 4's and Kerlix. 4. Patient is to be strictly nonweightbearing on the left heel and midfoot. 5. Patient to follow-up with Dr. Edward Campbell, [facility], 1 week to 10 days (2) Status post below knee amputation of right lower extremity Is this a current diagnosis for this admission?: Yes (3) Type II diabetes mellitus Qualifiers: Diabetes mellitus terminal system operator insulin use: unspecified terminal system operator insulin use status Diabetes mellitus complication status: with hyperglycemia Qualified Code(s): E11.65 - Type 2 diabetes mellitus with hyperglycemia Is this a current diagnosis for this admission?: Yes - Time Anticipated Discharge Disposition: Home, Self Care Anticipated Discharge Timeframe: within 24 hours Time Spent: 30 to 50 Minutes Critical Time spent with patient: Less than 15 minutes Medications reviewed and adjusted accordingly: Yes
[2020-01-04] MEDS: VANCOMYCIN HCL 500 MG in DEXTROSE 5%-WATER 100 ML IV SCH (12:28)
[2020-01-04 12:38] VITALS: BP 137/59
[2020-01-04] MEDS ORDERED: METFORMIN HCL 500 MG TABLET PO SCH ×3 (16:00)
[2020-01-04] MEDS ORDERED: INSULIN GLARGINE,HUM.REC.ANLOG 1,000 UNIT/10 ML VIAL SUBCUT SCH ×2 (18:00)
[2020-01-04] MEDS ORDERED: VANCOMYCIN HCL 750 MG in DEXTROSE 5%-WATER 250 ML IV SCH (22:00)
--- NOTE | 2020-01-10 10:58 | PDOC DISCHARGE SUMMARY ---
Impression - Admit/DC Date/PCP Admission Date/Primary Care Provider: 12/31/19 15:42 Discharge Date: 01/04/20 - Discharge Diagnosis (1) Osteomyelitis of third toe of left foot Is this a current diagnosis for this admission?: Yes (2) Acute kidney injury Is this a current diagnosis for this admission?: Yes (3) Cellulitis of left foot Is this a current diagnosis for this admission?: Yes (4) Dehydration Is this a current diagnosis for this admission?: Yes (5) Hyperglycemia due to type 2 diabetes mellitus Is this a current diagnosis for this admission?: Yes (6) Hyponatremia Is this a current diagnosis for this admission?: Yes (7) Neutrophilic leukocytosis Is this a current diagnosis for this admission?: Yes (8) UTI (urinary tract infection) Is this a current diagnosis for this admission?: Yes - Additional Information Resuscitation Status: Full Code Discharge Activity: Activity As Tolerated Referrals: RONEN THOMAS MD [ACTIVE STAFF] - 01/14/20 1:00 pm Prescriptions: Cefdinir 300 mg PO Q12 7 Days #14 capsule Diabetic Supplies,Miscell [Cequr Simplicity Windows Desktop Support] 1 each MC PRN PRN #1 miscell PRN Reason: Metformin HCl [Glucophage 500 mg Tablet] 500 mg PO BIDACBS 30 Days #60 tablet Sitagliptin Phosphate [Januvia 50 mg Tablet] 50 mg PO BIDACBS 30 Days #60 tablet Oxycodone HCl [Oxy-Ir 5 mg Tablet] 5 mg PO Q6HP PRN 3 Days #12 tablet PRN Reason: Home Medications: Aspirin [Ecotrin 325 mg EC Tablet] 81 mg PO DAILY #100 tabec 10/01/19 Atorvastatin Calcium [Lipitor 40 mg Tablet] 40 mg PO QHS #120 tablet 10/01/19 Metoprolol Tartrate [Lopressor 25 mg Tablet] 25 mg PO DAILY 01/01/20 Cefdinir 300 mg PO Q12 7 Days #14 capsule 01/04/20 Diabetic Supplies,Miscell [Cequr Simplicity Windows Desktop Support] 1 each MC PRN PRN #1 miscell 01/04/20 Metformin HCl [Glucophage 500 mg Tablet] 500 mg PO BIDACBS 30 Days #60 tablet 01/04/20 Oxycodone HCl [Oxy-Ir 5 mg Tablet] 5 mg PO Q6HP PRN 3 Days #12 tablet 01/04/20 Sitagliptin Phosphate [Januvia 50 mg Tablet] 50 mg PO BIDACBS 30 Days #60 tablet 01/04/20 History of Present Illiness History of Present Illness: ALEXANDER ELI is a 74 year old female with past medical history of peripheral vascular disease, diabetes mellitus non-compliant with insulin, HLD HTN, CVA (09/2019), NSTEMI (09/2019), right BKA, who is status post left great toe amputation (osteomylitis, 06/2019) and I&D left great toe amputation site (08/2019) who presents the emergency department with concerns regarding x1 week history of erythema, edema, warmth and pain of the left third toe with associated malodorus drainage. Symptoms precipitated by trauma to left toe with gradual increase in severity since onset. Rates pain 4/5 today. Historically she ambulates with a cane but has required a wheelchair secondary to pain with ambulation. Reports associated fever (102) yesterday, this was relieved with Aleve, has since been afebrile. Patient admittedly non-compliant with insulin therapy at home, relates to cost and lack of PCP. On evaluation in the ED patient's VSS. CBC significant for neutrophilic luekocytosis and elevated ESR. Chemistries significant for hyponatremia, elevated CRP (62), creatinine 0.46 and glucose 378. XR left foot consistent with cellulitis with associated osteomylitis 3rd digit distal phalanx. Pt recieved single dose Cefepime and vancomycin and was subsequently admitted to the hospitalist service for further evaluation and treatment. Hospital Course Hospital Course: (1) Osteomyelitis of third toe of left foot Day 3 status post left foot transmetatarsal amputation. Cellulitis and osteomyelitis of left foot secondary to uncontrolled diabetes. CRP 62.0. ESR 83. Wound culture polymicrobial growing gram-positive cocci, group B strep, Proteus. Received 5 days of IV antibiotics. Received 5 days of IV vancomycin. Received 5 days of IV ceftriaxone. Wound culture positive group B strep, Proteus and MSSA. All sensitive to beta lactams. Was discharged on cefdinir p.o. for another 7 days, with wound care and wound clinic follow-up and asked to follow-up with surgery as outpatient. (2) Acute kidney injury Ruled out. Creatinine WNL. Monitor volume status and electrolytes. Avoid nephrotoxic meds. (3) Cellulitis of left foot Cellulitis and osteomyelitis of left foot secondary to chronic uncontrolled diabetes complication (4) Dehydration Euvolemic. Normotensive. Continue cautious volume resuscitation guided by volume status. (5) Hyperglycemia due to type 2 diabetes mellitus Fasting blood glucose 94. Moderate improvement with initiation of oral hypoglycemics on top of insulin regimen. History of uncontrolled uncontrolled diabetes. Hemoglobin A1c 10.8. Admitted non-compliant with insulin due to cost/lack of PCP. Presented with blood glucose 378 on admission. Increased Metformin to 1000 mg p.o. twice daily but developed diarrhea. Continued sitagliptin 50 mg p.o. twice daily. Discharged on Metformin 500 mg p.o. twice daily, sitagliptin 50 mg p.o. twice daily. Was asked to increase his Metformin to 1000 g p.o. twice daily as tolerated. Was asked to have follow-up with PCP (6) Hyponatremia Likely pseudohyponatremia caused by uncontrolled diabetes. Resolved. Continue cautious volume resuscitation guided by volume status. (7) Neutrophilic leukocytosis Resolved. Plan as per above. (8) UTI (urinary tract infection) Likely due to gram-negative rods including E. coli. Received a complete course of IV antibiotics. Follow-up urine culture. Physical Exam Vital Signs: Temp Pulse Resp BP Pulse Ox 97.3 F 79 20 137/59 H 96 01/04/20 12:36 01/04/20 12:36 01/04/20 12:36 01/04/20 12:36 01/04/20 12:36 General appearance: PRESENT: no acute distress, well-developed, well-nourished Head exam: PRESENT: atraumatic, normocephalic Respiratory exam: PRESENT: clear to auscultation mirna. ABSENT: rales, rhonchi, wheezes Pulses: PRESENT: normal dorsalis pedis pul GI/Abdominal exam: PRESENT: normal bowel sounds, soft. ABSENT: distended, guarding, mass, organolmegaly, rebound, tenderness Extremities exam: PRESENT: full ROM, other - wound looked clean. ABSENT: calf tenderness, clubbing, pedal edema Neurological exam: PRESENT: alert, awake, oriented to person, oriented to place, oriented to time, oriented to situation, CN II-XII grossly intact. ABSENT: motor sensory deficit Skin exam: PRESENT: dry, intact, warm. ABSENT: cyanosis, rash Results Laboratory Results: WBC 6.8 10^3/uL (4.0-10.5) 01/04/20 04:36 RBC 3.48 10^6/uL (3.72-5.28) L 01/04/20 04:36 Hgb 9.6 g/dL (12.0-15.5) L 01/04/20 04:36 Hct 27.9 % (36.0-47.0) L 01/04/20 04:36 MCV 80 fl (80-97) 01/04/20 04:36 MCH 27.6 pg (27.0-33.4) 01/04/20 04:36 MCHC 34.4 g/dL (32.0-36.0) 01/04/20 04:36 RDW 13.5 % (11.5-14.0) 01/04/20 04:36 Plt Count 206 10^3/uL (150-450) 01/04/20 04:36 Lymph % (Auto) 6.6 % (13-45) L 01/01/20 05:20 [place] % (Auto) 5.2 % (3-13) 01/01/20 05:20 Eos % (Auto) 0.3 % (0-6) 01/01/20 05:20 Baso % (Auto) 0.7 % (0-2) 01/01/20 05:20 Absolute Neuts (auto) 6.5 10^3/uL (1.7-8.2) 01/01/20 05:20 Absolute Lymphs (auto) 0.5 10^3/uL (0.5-4.7) 01/01/20 05:20 Absolute Monos (auto) 0.4 10^3/uL (0.1-1.4) 01/01/20 05:20 Absolute Eos (auto) 0.0 10^3/uL (0.0-0.6) 01/01/20 05:20 Absolute Basos (auto) 0.0 10^3/uL (0.0-0.2) 01/01/20 05:20 Seg Neutrophils % 87.2 % (42-78) H 01/01/20 05:20 ESR 78 mm/hr (0-30) H 01/01/20 05:20 Sodium 137.6 mmol/L (137-145) 01/04/20 04:36 Potassium 4.1 mmol/L (3.6-5.0) 01/04/20 04:36 Chloride 103 mmol/L (98-107) 01/04/20 04:36 Carbon Dioxide 29 mmol/L (22-30) 01/04/20 04:36 Anion Gap 6 (5-19) 01/04/20 04:36 BUN 10 mg/dL (7-20) 01/04/20 04:36 Creatinine 0.55 mg/dL (0.52-1.25) 01/04/20 04:36 Est GFR ( Amer) > 60 (>60) 01/04/20 04:36 Est GFR (MDRD) Non-Af > 60 (>60) 01/04/20 04:36 Glucose 81 mg/dL (75-110) 01/04/20 04:36 POC Glucose 100 mg/dL (70-110) 01/04/20 11:33 Hemoglobin A1c % 10.6 % (4.7-6.0) H 01/01/20 05:20 Lactic Acid 0.8 mmol/L (0.7-2.1) 01/01/20 01:45 Calcium 8.5 mg/dL (8.4-10.2) 01/04/20 04:36 Magnesium 1.8 mg/dL (1.6-2.3) 01/02/20 05:27 Total Bilirubin 0.6 mg/dL (0.2-1.3) 12/31/19 16:13 Direct Bilirubin 0.1 mg/dL (0.0-0.4) 12/31/19 16:13 Neonat Total Bilirubin Not Reportable 12/31/19 16:13 Neonat Direct Bilirubin Not Reportable 12/31/19 16:13 Neonat Indirect Bili Not Reportable 12/31/19 16:13 AST 14 U/L (14-36) 12/31/19 16:13 ALT 8 U/L (<35) 12/31/19 16:13 Alkaline Phosphatase 133 U/L (38-126) H 12/31/19 16:13 C-Reactive Protein 62.0 mg/L (<10.0) H 12/31/19 16:13 Total Protein 5.9 g/dL (6.3-8.2) L 12/31/19 16:13 Albumin 2.8 g/dL (3.5-5.0) L 12/31/19 16:13 Urine Color YELLOW 12/31/19 15:48 Urine Appearance CLOUDY 12/31/19 15:48 Urine pH 5.0 (5.0-9.0) 12/31/19 15:48 Ur Specific [place] 1.027 12/31/19 15:48 Urine Protein NEGATIVE mg/dL (NEGATIVE) 12/31/19 15:48 Urine Glucose (UA) >=500 mg/dL (NEGATIVE) H 12/31/19 15:48 Urine Ketones NEGATIVE mg/dL (NEGATIVE) 12/31/19 15:48 Urine Blood MODERATE (NEGATIVE) H 12/31/19 15:48 Urine Nitrite NEGATIVE (NEGATIVE) 12/31/19 15:48 Urine Bilirubin NEGATIVE (NEGATIVE) 12/31/19 15:48 Urine Urobilinogen NEGATIVE mg/dL (<2.0) 12/31/19 15:48 Ur Leukocyte Esterase LARGE (NEGATIVE) H 12/31/19 15:48 Urine WBC (Auto) >182 /HPF 12/31/19 15:48 Urine RBC (Auto) 45 /HPF 12/31/19 15:48 Urine Bacteria (Auto) 2+ /HPF 12/31/19 15:48 Urine WBC Clumps MANY /HPF 12/31/19 15:48 Squamous Epi Cells Auto 1 /HPF 12/31/19 15:48 Urine Mucus (Auto) RARE /LPF 12/31/19 15:48 Urine Yeast (Budding) PRESENT /HPF 12/31/19 15:48 Urine Ascorbic Acid NEGATIVE (NEGATIVE) 12/31/19 15:48 Time Trough Drawn 2330 01/03/20 23:30 Vancomycin Trough 8.2 ug/mL (5.0-20.0) 01/03/20 23:30 Influenza A (RT-PCR) NEGATIVE (NEGATIVE) 12/31/19 16:40 Influenza B (RT-PCR) NEGATIVE (NEGATIVE) 12/31/19 16:40 RSV (RT-PCR) NEGATIVE (NEGATIVE) 12/31/19 16:40 SARS-CoV-2 Rap RNA(RT-PCR) NEGATIVE (NEGATIVE) 12/31/19 16:40 Impressions: Venous Doppler Study 12/31/19 00:00 IMPRESSION: NO EVIDENCE OF DVT OR SVT IN THE LEFT LEG. Foot X-Ray 12/31/19 13:16 IMPRESSION: Constellation of findings consistent with cellulitis with associated osteomyelitis. Chest X-Ray 12/31/19 14:43 IMPRESSION: Central line has been placed as described. No pneumothorax. Stroke Is this a Stroke Patient?: No Acute Heart Failure Is this a Heart Failure Patient?: No
== END 2020-01-04 15:32 | disposition home health service (06) | DRG 617 ==
LOC: ER 12:27 → EH 15:42 → 4N 21:26
PROVIDERS: ADMIT Hospitalist; ATTEND Internal Medicine
PROC: 0Y6N0ZB Detachment at Left Foot, Partial 2nd Ray, Open Approach (ICD-10-PCS; 2019-12-31)
PROC: 0Y6N0ZC Detachment at Left Foot, Partial 3rd Ray, Open Approach (ICD-10-PCS; 2019-12-31)
PROC: 0Y6N0ZD Detachment at Left Foot, Partial 4th Ray, Open Approach (ICD-10-PCS; 2019-12-31)
PROC: 0Y6N0ZF Detachment at Left Foot, Partial 5th Ray, Open Approach (ICD-10-PCS; 2019-12-31)
PROC: 02HV33Z Insertion of Infusion Device into Superior Vena Cava, Percutaneous Approach (ICD-10-PCS; 2019-12-31)
PROC: 0Y6N0Z9 Detachment at Left Foot, Partial 1st Ray, Open Approach (ICD-10-PCS; principal; 2019-12-31 18:00)
PROC: 3E02340 Introduction of Influenza Vaccine into Muscle, Percutaneous Approach (ICD-10-PCS; 2020-01-04)
DX: E11.69 Type 2 diabetes mellitus with other specified complication (principal); M86.9 Osteomyelitis, unspecified; L03.116 Cellulitis of left lower limb; E87.1 Hypo-osmolality and hyponatremia; N30.01 Acute cystitis with hematuria; E11.51 Type 2 diabetes mellitus with diabetic peripheral angiopathy without gangrene; N17.9 Acute kidney failure, unspecified; E11.65 Type 2 diabetes mellitus with hyperglycemia; E11.628 Type 2 diabetes mellitus with other skin complications; E78.5 Hyperlipidemia, unspecified; I10 Essential (primary) hypertension; E86.0 Dehydration; B96.4 Proteus (mirabilis) (morganii) as the cause of diseases classified elsewhere; B95.61 Methicillin susceptible Staphylococcus aureus infection as the cause of diseases classified elsewhere; B95.4 Other streptococcus as the cause of diseases classified elsewhere; B96.20 Unspecified Escherichia coli [E. coli] as the cause of diseases classified elsewhere; D72.828 Other elevated white blood cell count; K21.9 Gastro-esophageal reflux disease without esophagitis; Z86.73 Personal history of transient ischemic attack (TIA), and cerebral infarction without residual deficits; I25.2 Old myocardial infarction; Z89.511 Acquired absence of right leg below knee; Z89.412 Acquired absence of left great toe; Z82.49 Family history of ischemic heart disease and other diseases of the circulatory system; Z79.82 Long term (current) use of aspirin; Z79.899 Other long term (current) drug therapy; Z88.7 Allergy status to serum and vaccine; Z91.14 Patient's other noncompliance with medication regimen; Z20.828 Contact with and (suspected) exposure to other viral communicable diseases; Z23 Encounter for immunization
CPT/HCPCS: 01480; 36415; 71045; 80048; 80053; 80202; 81001; 82962; 83036; 83605; 83735; 85025; 85027; 85652; 86140; 87040; 87070; 87075; 87077; 87086; 87088; 87186; 87205; 90471; 90686; 93971; 96374; 99140; 99285; 0241U; C9803; G0008; J0692; J0696; J1170; J1642; J1650; J1815; J1885; J2250; J2270; J2405; J2704; J3010; J3370; J3475; J3490; J7060; J7120; S0028; S0119